=== PATIENT | female | born 1950 | race Caucasian/White ===

== ENCOUNTER 2024-09-24 17:08 | Emergency (ER) | payer MEDICARE, BC, SELFPAY ==
--- NOTE | ~2024-09-24 | CT_ITS ---
EXAMINATION: CT abdomen pelvis w con DATE: 09/25/2024 00:28 INDICATION: Abdominal pain. TECHNIQUE: Computed tomography (CT) of the abdomen and pelvis was performed with 100 mL Omnipaque 350 intravenous contrast. Automated exposure control and iterative reconstruction technique were employe d. The dose-length product was 840.50 mGy-cm. COMPARISON: None. FINDINGS: The visualized portions of lung bases demonstrate airspace opacities with air bronchograms in left upper lobe, consistent with pneumonia. There is mild atelectasis bilaterally. There is a trac e left pleural effusion. The heart size is normal. No pericardial effusion. There is a moderate-sized sliding hiatal hernia. There is a 9 mm cyst in the liver. The gallbladder, spleen, pancreas, adrenal glands, and right kidney are normal. There is a 3 mm stone in left kidney. There is an umbilical her neema containing fat with fat stranding. There are no dilated loops of bowel. The appendix is normal. T here are no pathologically enlarged lymph nodes. There is no free intraperitoneal fluid. The endometr ial complex is thickened to 13 mm. There is severe thoracic and lumbar spondylosis. IMPRESSION: 1. Umbilical hernia containing fat with fat stranding that may be inflammation or scarring. 2. Left upper lobe pneumonia. 3. Thickened endometrial complex. The differential diagnosis includes endometrial hyperplasia, polyp, and carcinoma. Biopsy is recommended. 4. Moderate-sized sliding hiatal hernia. Reviewed, dictated and finalized at location A. RO ATTENDANT IMPRESSION: 1. Umbilical hernia containing fat with fat stranding that may be inflammation or scarring. 2. Left upper lobe pneumonia. 3. Thickened endometrial complex. The differential diagnosis includes endometri al hyperplasia, polyp, and carcinoma. Biopsy is recommended. 4. Moderate-sized sliding hiatal hernia.
[2024-09-24 17:21] VITALS: BP 142/65; PULSE 82; RESP 16; TEMP 36.4; O2SAT 99
--- NOTE | 2024-09-24 17:25 | ED_ITS ---
HPI - Abdominal Pain General Chief Complaint: Abdominal Pain <Veronica Kulkarni PA-C - Last Filed: 09/28/24 17:27> Stated Complaint: incarcerated hernia <Veronica Kulkarni PA-C - Last Filed: 09/28/24 17:27> Time Seen by Provider: 09/24/24 17:25 <Veronica Kulkarni PA-C - Last Filed: 09/28/24 17:27> Focused HPI: This is a 74 year old female that presents to the ER for abdominal pain ongoing over the last week. Reports she had outside imaging which showed incarcerated umbilical hernia containing fat. Reports she was seen at another ER for this and they could not reduce it. She was still discharged. She saw her PCP today who prompted her to be seen in the ER here. GENERAL: Well-appearing, well-nourished, and in no acute distress. HEAD: Normocephalic, atraumatic. CHEST: Clear to auscultation. ?No respiratory distress. HEART: Regular rate and rhythm.? NEURO: ?Alert and oriented x3. Patient screened in triage and initial orders placed.? ?Additional care and disposition to be based upon?diagnostic testing and treatment. <Veronica Kulkarni PA-C - Last Filed: 09/28/24 17:27> Focused HPI: This is a 74 year old female that presents to the ER for abdominal pain ongoing over the last week. Reports she had outside imaging which showed incarcerated umbilical hernia containing fat. Reports she was seen at another ER for this and they could not reduce it. She was still discharged. She saw her PCP today who prompted her to be seen in the ER here. GENERAL: Well-appearing, well-nourished, and in no acute distress. HEAD: Normocephalic, atraumatic. CHEST: Clear to auscultation. ?No respiratory distress. HEART: Regular rate and rhythm.? NEURO: ?Alert and oriented x3. Patient screened in triage and initial orders placed.? ?Additional care and disposition to be based upon?diagnostic testing and treatment. <Germania Ontiveros PA-C - Last Filed: 09/25/24 03:27> Source: patient <PAUL Denise Last Filed: 09/25/24 03:27> Mode of arrival: ambulatory <Germania Ontiveros PA-C - Last Filed: 09/25/24 03:27> Limitations: no limitations <Germania Ontiveros PA-C - Last Filed: 09/25/24 03:27> History of Present Illness HPI narrative: Agree with above HPI. Reports slight constipation over the past 1 week with small pellet like BM this morning. Reports some nausea. Denies vomiting. <Germania Ontiveros PA-C - Last Filed: 09/25/24 03:27> Related Data Allergies/Adverse Reactions: Allergies Allergy/AdvReac Type Severity Reaction Status Date / Time No Known Allergies Allergy Verified 09/24/24 17:09 <Veronica Kulkarni PA-C - Last Filed: 09/28/24 17:27> Review of Systems 2 Review of Systems: All systems reviewed & are unremarkable except as noted in HPI. <Germania Ontiveros PA-C - Last Filed: 09/25/24 03:27> All systems reviewed & are unremarkable except as noted in HPI and below < Germania Ontiveros PA-C - Last Filed: 09/25/24 03:27> PMFSH Past Medical History Medical History: Medical History (Updated 09/28/24 @ 17:27 by Veronica Kulkarni PA-C) History of hypertension <Veronica Kulkarni PA-C - Last Filed: 09/28/24 17:27> Exam 2 Narrative: GENERAL: Elderly but well appearing, well-nourished, non-toxic, in no acute distress. HEAD: Normocephalic, atraumatic. RESPIRATORY: Airway patent, respirations nonlabored. Clear to auscultation bilaterally, no rales, rhonchi, wheezing. CARDIOVASCULAR: Regular rate and rhythm without murmurs, rubs, or gallops. ABDOMINAL: Soft, nondistended. Normoactive BS. Umbilical hernia bulge present, somewhat firm and fixed, slightly erythematous and warm. Focal TTP. Difficult to reduce. MUSCULOSKELETAL: Moves all extremities. No gross deformities. SKIN: Warm, dry, normal color. NEURO: A&O X3. Speech clear. PSYCHIATRIC: Appropriate mood and affect. Normal interaction. <Germania Ontiveros PA-C - Last Filed: 09/25/24 03:27> Course TUNNEL MAN/PA Physician Supervision For this patient encounter, I reviewed the TUNNEL MAN or PA documentation, treatment plan, and medical decision making; and I had [id number] time with this patient. <Pillo Urbina MD - Last Filed: 09/25/24 04:33> Vital Signs Vital signs: Vital Signs Temperature 97.6 F 09/24/24 17:21 Pulse Rate 82 09/24/24 17:21 Respiratory Rate 16 09/24/24 17:21 Blood Pressure 142/65 H 09/24/24 17:21 Pulse Oximetry 99 09/24/24 17:21 Temperature 98.7 F 09/25/24 04:53 Pulse Rate 62 09/25/24 04:53 Respiratory Rate 16 09/25/24 04:53 Blood Pressure 145/71 H 09/25/24 04:53 Pulse Oximetry 97 09/25/24 04:53 <Veronica Kulkarni PA-C - Last Filed: 09/28/24 17:27> Vital Signs Temperature 97.6 F 09/24/24 17:21 Pulse Rate 82 09/24/24 17:21 Respiratory Rate 16 09/24/24 17:21 Blood Pressure 142/65 H 09/24/24 17:21 Pulse Oximetry 99 09/24/24 17:21 Temperature 98.7 F 09/25/24 04:53 Pulse Rate 62 09/25/24 04:53 Respiratory Rate 16 09/25/24 04:53 Blood Pressure 145/71 H 09/25/24 04:53 Pulse Oximetry 97 09/25/24 04:53 <Germania Ontiveros PA-C - Last Filed: 09/25/24 03:27> Vital Signs Temperature 97.6 F 09/24/24 17:21 Pulse Rate 82 09/24/24 17:21 Respiratory Rate 16 09/24/24 17:21 Blood Pressure 142/65 H 09/24/24 17:21 Pulse Oximetry 99 09/24/24 17:21 Temperature 98.7 F 09/25/24 04:53 Pulse Rate 62 09/25/24 04:53 Respiratory Rate 16 09/25/24 04:53 Blood Pressure 145/71 H 09/25/24 04:53 Pulse Oximetry 97 09/25/24 04:53 <Pillo Urbina MD - Last Filed: 09/25/24 04:33> MDM - Abdominal Pain MDM Narrative Medical decision making narrative: Patient presented to ED with concern for incarcerated umbilical hernia. Reports she she has noticed redness and firmness to the hernia bulge over the last 1 week. Had outpatient imaging which was reportedly concerning, sent to the ED today. Vital signs are stable. Hernia is difficult to reduce. Will attempt pain control, utilize ice. Laboratory studies are fairly unremarkable. No leukocytosis. Lactic acid within normal range. UA with 6-10 white blood cell count, no urine bacteria seen. Sent for culture. Patient denies any urinary complaints. Will defer to urine culture results. CT scan of abdomen/pelvis was obtained. Care signed out to Dr. Urbina at shift change pending CT imaging results and possible discussion with surgery. Personal review of images does not appear consistent with strangulated bowel. <Germania Ontiveros PA-C - Last Filed: 09/25/24 03:27> Patient presented to ED with concern for incarcerated umbilical hernia. Reports she she has noticed redness and firmness to the hernia bulge over the last 1 week. Had outpatient imaging which was reportedly concerning, sent to the ED today. Vital signs are stable. Hernia is difficult to reduce. Will attempt pain control, utilize ice. Laboratory studies are fairly unremarkable. No leukocytosis. Lactic acid within normal range. UA with 6-10 white blood cell count, no urine bacteria seen. Sent for culture. Patient denies any urinary complaints. Will defer to urine culture results. CT scan of abdomen/pelvis was obtained. Care signed out to Dr. Urbina at shift change pending CT imaging results and possible discussion with surgery. Personal review of images does not appear consistent with strangulated bowel. CT scan showed evidence of omentum in the hernia. There is no evidence of bowel incarceration. The case was discussed with Dr. Diamond who will follow the patient in the office he recommended the patient come to the office on Saturday < Pillo Urbina MD - Last Filed: 09/25/24 04:33> Medical Records Attestation: I reviewed the patient's medical records. <Germania Ontiveros PA-C - Last Filed: 09/25/24 03:27> Lab Data Attestation: I reviewed the patient's lab results. <Germania Ontiveros PA-C - Last Filed: 09/25/24 03:27> Result diagrams: 09/24/24 17:34 09/24/24 17:34 <Veronica Kulkarni PA-C - Last Filed: 09/28/24 17:27> Labs: Lab Results 09/24/24 09/24/24 09/24/24 Range/Units 17:34 17:35 21:27 WBC 7.0 (4.5-10.0) K/mm3 RBC 4.03 L (4.2-5.4) M/mm3 Hgb 12.2 (12.0-15.0) g/dL Hct 37.8 (37.0-47.0) % MCV 93.8 (80-100) fl MCH 30.3 (26-34) pg MCHC 32.3 (32-36) g/dl RDW 12.9 (11.5-14.5) % Plt Count 246 (150-375) k/mm3 MPV 10.5 H (7.4-10.4) fl Immature Gran % (Auto) 0.3 (0-0.5) % Neut % (Auto) 69.9 (45.5-73.1) % Lymph % (Auto) 21.1 (18.3-44.2) % [place] % (Auto) 7.4 (2.6-8.5) % Eos % (Auto) 0.7 (0-4.4) % Baso % (Auto) 0.6 (0.2-1.2) % Lymph # (Auto) 1.48 (0.9-3.2) K/mm3 [place] # (Auto) 0.5 (0.1-0.6) K/mm3 Eos # (Auto) 0.1 (0-0.3) K/mm3 Baso # (Auto) 0.0 (0.0-0.1) K/mm3 Abs Immat Gran (auto) 0.02 (0.00-0.031) K/mm3 Absolute Neuts (auto) 4.9 (1.3-6.7) K/mm3 Absolute Nucleated RBC 0.000 (0.0-0.012) K/mm3 Nucleated RBC % 0.0 (0.0-0.2) % Sodium 138 (137-145) mmol/L Potassium 4.5 (3.4-5.0) mmol/L Chloride 106 (98-107) mmol/L Carbon Dioxide 30 (22-30) mmol/L Anion Gap 2 L (4-12) mmol/L BUN 13 (7-17) mg/dL Creatinine 0.70 (0.7-1.0) mg/dL Estim Creat Clear Calc Not Reportable Estimated GFR > 60 (59 - ) Glucose 101 (65-110) mg/dL Lactic Acid 0.9 (0.7-2.0) mmol/L Calcium 9.6 (8.4-10.2) mg/dL Total Bilirubin 0.6 (0.2-1.3) mg/dL AST 18 (14-36) U/L ALT 11 (6-35) U/L Alkaline Phosphatase 88 (38-126) U/L Total Protein 7.0 (6.3-8.2) g/dL Albumin 3.5 (3.5-5.1) g/dL Lipase 60 (23-300) U/L Urine Color Yellow (Yellow) Urine Appearance Clear (Clear) Urine pH 5.5 (5.0-9.0) Ur Specific [place] 1.016 (1.001-1.035) Urine Protein Negative (Negative) mg/dL Urine Glucose (UA) Negative (Negative) mg/dL Urine Ketones Trace H (Negative) mg/dL Ur Blood (Man) Negative (Negative) Urine Nitrate Negative (Negative) Urine Bilirubin Negative (Negative) Urine Urobilinogen 1.0 (<2.0) mg/dL Add Ur Microanalysis Reviewed Leukocyte Esterase Rfl 2+ H (Negative) LYLY/UL Urine RBC 0-2 (0-2) /hpf Urine WBC 6-10 H (0-3) /hpf Ur Squamous Epith Cells Occasional (Few) /hpf Urine Bacteria None seen /hpf Urine Casts 0-2 Urine Mucus Present /lpf Urine Yeast (Budding) Present H (None) /hpf <Veronica Kulkarni PA-C - Last Filed: 09/28/24 17:27> Lab Results 09/24/24 09/24/24 09/24/24 Range/Units 17:34 17:35 21:27 WBC 7.0 (4.5-10.0) K/mm3 RBC 4.03 L (4.2-5.4) M/mm3 Hgb 12.2 (12.0-15.0) g/dL Hct 37.8 (37.0-47.0) % MCV 93.8 (80-100) fl MCH 30.3 (26-34) pg MCHC 32.3 (32-36) g/dl RDW 12.9 (11.5-14.5) % Plt Count 246 (150-375) k/mm3 MPV 10.5 H (7.4-10.4) fl Immature Gran % (Auto) 0.3 (0-0.5) % Neut % (Auto) 69.9 (45.5-73.1) % Lymph % (Auto) 21.1 (18.3-44.2) % [place] % (Auto) 7.4 (2.6-8.5) % Eos % (Auto) 0.7 (0-4.4) % Baso % (Auto) 0.6 (0.2-1.2) % Lymph # (Auto) 1.48 (0.9-3.2) K/mm3 [place] # (Auto) 0.5 (0.1-0.6) K/mm3 Eos # (Auto) 0.1 (0-0.3) K/mm3 Baso # (Auto) 0.0 (0.0-0.1) K/mm3 Abs Immat Gran (auto) 0.02 (0.00-0.031) K/mm3 Absolute Neuts (auto) 4.9 (1.3-6.7) K/mm3 Absolute Nucleated RBC 0.000 (0.0-0.012) K/mm3 Nucleated RBC % 0.0 (0.0-0.2) % Sodium 138 (137-145) mmol/L Potassium 4.5 (3.4-5.0) mmol/L Chloride 106 (98-107) mmol/L Carbon Dioxide 30 (22-30) mmol/L Anion Gap 2 L (4-12) mmol/L BUN 13 (7-17) mg/dL Creatinine 0.70 (0.7-1.0) mg/dL Estim Creat Clear Calc Not Reportable Estimated GFR > 60 (59 - ) Glucose 101 (65-110) mg/dL Lactic Acid 0.9 (0.7-2.0) mmol/L Calcium 9.6 (8.4-10.2) mg/dL Total Bilirubin 0.6 (0.2-1.3) mg/dL AST 18 (14-36) U/L ALT 11 (6-35) U/L Alkaline Phosphatase 88 (38-126) U/L Total Protein 7.0 (6.3-8.2) g/dL Albumin 3.5 (3.5-5.1) g/dL Lipase 60 (23-300) U/L Urine Color Yellow (Yellow) Urine Appearance Clear (Clear) Urine pH 5.5 (5.0-9.0) Ur Specific [place] 1.016 (1.001-1.035) Urine Protein Negative (Negative) mg/dL Urine Glucose (UA) Negative (Negative) mg/dL Urine Ketones Trace H (Negative) mg/dL Ur Blood (Man) Negative (Negative) Urine Nitrate Negative (Negative) Urine Bilirubin Negative (Negative) Urine Urobilinogen 1.0 (<2.0) mg/dL Add Ur Microanalysis Reviewed Leukocyte Esterase Rfl 2+ H (Negative) LYLY/UL Urine RBC 0-2 (0-2) /hpf Urine WBC 6-10 H (0-3) /hpf Ur Squamous Epith Cells Occasional (Few) /hpf Urine Bacteria None seen /hpf Urine Casts 0-2 Urine Mucus Present /lpf Urine Yeast (Budding) Present H (None) /hpf <Germania Ontiveros PA-C - Last Filed: 09/25/24 03:27> Lab Results 09/24/24 09/24/24 09/24/24 Range/Units 17:34 17:35 21:27 WBC 7.0 (4.5-10.0) K/mm3 RBC 4.03 L (4.2-5.4) M/mm3 Hgb 12.2 (12.0-15.0) g/dL Hct 37.8 (37.0-47.0) % MCV 93.8 (80-100) fl MCH 30.3 (26-34) pg MCHC 32.3 (32-36) g/dl RDW 12.9 (11.5-14.5) % Plt Count 246 (150-375) k/mm3 MPV 10.5 H (7.4-10.4) fl Immature Gran % (Auto) 0.3 (0-0.5) % Neut % (Auto) 69.9 (45.5-73.1) % Lymph % (Auto) 21.1 (18.3-44.2) % [place] % (Auto) 7.4 (2.6-8.5) % Eos % (Auto) 0.7 (0-4.4) % Baso % (Auto) 0.6 (0.2-1.2) % Lymph # (Auto) 1.48 (0.9-3.2) K/mm3 [place] # (Auto) 0.5 (0.1-0.6) K/mm3 Eos # (Auto) 0.1 (0-0.3) K/mm3 Baso # (Auto) 0.0 (0.0-0.1) K/mm3 Abs Immat Gran (auto) 0.02 (0.00-0.031) K/mm3 Absolute Neuts (auto) 4.9 (1.3-6.7) K/mm3 Absolute Nucleated RBC 0.000 (0.0-0.012) K/mm3 Nucleated RBC % 0.0 (0.0-0.2) % Sodium 138 (137-145) mmol/L Potassium 4.5 (3.4-5.0) mmol/L Chloride 106 (98-107) mmol/L Carbon Dioxide 30 (22-30) mmol/L Anion Gap 2 L (4-12) mmol/L BUN 13 (7-17) mg/dL Creatinine 0.70 (0.7-1.0) mg/dL Estim Creat Clear Calc Not Reportable Estimated GFR > 60 (59 - ) Glucose 101 (65-110) mg/dL Lactic Acid 0.9 (0.7-2.0) mmol/L Calcium 9.6 (8.4-10.2) mg/dL Total Bilirubin 0.6 (0.2-1.3) mg/dL AST 18 (14-36) U/L ALT 11 (6-35) U/L Alkaline Phosphatase 88 (38-126) U/L Total Protein 7.0 (6.3-8.2) g/dL Albumin 3.5 (3.5-5.1) g/dL Lipase 60 (23-300) U/L Urine Color Yellow (Yellow) Urine Appearance Clear (Clear) Urine pH 5.5 (5.0-9.0) Ur Specific [place] 1.016 (1.001-1.035) Urine Protein Negative (Negative) mg/dL Urine Glucose (UA) Negative (Negative) mg/dL Urine Ketones Trace H (Negative) mg/dL Ur Blood (Man) Negative (Negative) Urine Nitrate Negative (Negative) Urine Bilirubin Negative (Negative) Urine Urobilinogen 1.0 (<2.0) mg/dL Add Ur Microanalysis Reviewed Leukocyte Esterase Rfl 2+ H (Negative) LYLY/UL Urine RBC 0-2 (0-2) /hpf Urine WBC 6-10 H (0-3) /hpf Ur Squamous Epith Cells Occasional (Few) /hpf Urine Bacteria None seen /hpf Urine Casts 0-2 Urine Mucus Present /lpf Urine Yeast (Budding) Present H (None) /hpf <Pillo Urbina MD - Last Filed: 09/25/24 04:33> Imaging Data Attestation: I personally reviewed and interpreted this imaging study as follows: < Germania Ontiveros PA-C - Last Filed: 09/25/24 03:27> Radiologist's impression: ITS Impressions Abdomen/Pelvis CT 09/25/24 06:49 IMPRESSION: 1. Umbilical hernia containing fat with fat stranding that may be inflammation or scarring. 2. Left upper lobe pneumonia. 3. Thickened endometrial complex. The differential diagnosis includes endometrial hyperplasia, polyp, and carcinoma. Biopsy is recommended. 4. Moderate-sized sliding hiatal hernia. <Veronica Kulkarni PA-C - Last Filed: 09/28/24 17:27> ITS Impressions Abdomen/Pelvis CT 09/25/24 06:49 IMPRESSION: 1. Umbilical hernia containing fat with fat stranding that may be inflammation or scarring. 2. Left upper lobe pneumonia. 3. Thickened endometrial complex. The differential diagnosis includes endometrial hyperplasia, polyp, and carcinoma. Biopsy is recommended. 4. Moderate-sized sliding hiatal hernia. <Germania Ontiveros PA-C - Last Filed: 09/25/24 03:27> ITS Impressions Abdomen/Pelvis CT 09/25/24 06:49 IMPRESSION: 1. Umbilical hernia containing fat with fat stranding that may be inflammation or scarring. 2. Left upper lobe pneumonia. 3. Thickened endometrial complex. The differential diagnosis includes endometrial hyperplasia, polyp, and carcinoma. Biopsy is recommended. 4. Moderate-sized sliding hiatal hernia. <Pillo Urbina MD - Last Filed: 09/25/24 04:33> Critical Care Time Critical Care Time Critical Care Time: No <Veronica Kulkarni PA-C - Last Filed: 09/28/24 17:27> Discharge Plan Discharge Clinical Impression: Umbilical hernia Qualifiers: Obstruction and gangrene presence: without obstruction or gangrene Qualified Code(s): K42.9 - Umbilical hernia without obstruction or gangrene <Veronica Kulkarni PA-C - Last Filed: 09/28/24 17:27> Patient Disposition: Home, Self-Care <Veronica Kulkarni PA-C - Last Filed: 09/28/24 17:27> Condition: Stable <Veronica Kulkarni PA-C - Last Filed: 09/28/24 17:27> Instructions: Antibiotic Form, Umbilical Hernia (ED), Abdominal Pain (ED) <Veronica Kulkarni PA-C - Last Filed: 09/28/24 17:27> Additional Instructions: Please follow-up with Dr. Diamond in the office on Saturday please call tomorrow to make sure for a time <Veronica Kulkarni PA-C - Last Filed: 09/28/24 17:27> Patient Language: Hebrew <Veronica Kulkarni PA-C - Last Filed: 09/28/24 17:27> Follow-up/Referrals: Dawit Diamond MD [Physician] - (GENERAL SURGERY) PHYSICIAN,HEAD OF QUALITY [Non-Staff] - <Veronica Kulkarni PA-C - Last Filed: 09/28/24 17:27> Time of Disposition: 04:32 <Veronica Kulkarni PA-C - Last Filed: 09/28/24 17:27> 04:32 <Germania Ontiveros PA-C - Last Filed: 09/25/24 03:27> 04:32 <Pillo Urbina MD - Last Filed: 09/25/24 04:33> Sign Out Sign Out Data: Patient Sign Out occurred on 09/25/24 at 04:06. Patient's care was discussed, and care was transferred from Germania Ontiveros PA-C to Pillo Urbina MD. <Veronica Kulkarni PA-C - Last Filed: 09/28/24 17:27>
[2024-09-24 17:40] LABS: Basophils Percent Auto 0.6 % (0.2-1.2); Eosinophils Absolute Auto 0.1 K/mm3 (0-0.3); Eosinophils Percent Auto 0.7 % (0-4.4); Hematocrit 37.8 % (37.0-47.0); Hemoglobin 12.2 g/dL (12.0-15.0); Immature Granulocyte Absolute 0.02 K/mm3 (0.00-0.031); Immature Granulocyte Percent A 0.3 % (0-0.5); Lymphocytes Absolute Auto 1.48 K/mm3 (0.9-3.2); Lymphocytes Percent Auto 21.1 % (18.3-44.2); Mean Corpuscular HGB Conc 32.3 g/dl (32-36); Mean Corpuscular Hemoglobin 30.3 pg (26-34); Mean Corpuscular Volume 93.8 fl (80-100); Mean Platelet Volume 10.5 fl (7.4-10.4); Monocytes Absolute Auto 0.5 K/mm3 (0.1-0.6); Monocytes Percent Auto 7.4 % (2.6-8.5); Neutrophils Absolute Auto 4.9 K/mm3 (1.3-6.7); Neutrophils Percent Auto 69.9 % (45.5-73.1); Platelet Count Result 246 k/mm3 (150-375); Red Blood Count 4.03 M/mm3 (4.2-5.4); Red Cell Distribution Width 12.9 % (11.5-14.5)
[2024-09-24 17:49] LABS: Lactic Acid Reflex 0.9 mmol/L (0.7-2.0)
[2024-09-24 17:51] LABS: Alanine Aminotransferase 11 U/L (6-35); Albumin Level 3.5 g/dL (3.5-5.1); Alkaline Phosphatase 88 U/L (38-126); Anion Gap 2 mmol/L (4-12); Aspartate Amino Transferase 18 U/L (14-36); Bilirubin,Total 0.6 mg/dL (0.2-1.3); Blood Urea Nitrogen 13 mg/dL (7-17); Calcium 9.6 mg/dL (8.4-10.2); Carbon Dioxide 30 mmol/L (22-30); Chloride 106 mmol/L (98-107); Estimated Glomerular Filt Rate > 60; Glucose 101 mg/dL (65-110); Lipase 60 U/L (23-300); Potassium 4.5 mmol/L (3.4-5.0); Sodium 138 mmol/L (137-145)
[2024-09-24 21:49] LABS: Add Urine Microscopic? YES; Appearance Urine Clear (Clear); Bacteria Urine None Seen /hpf; Bilirubin Urine Negative (Negative); Blood Urine Negative (Negative); Budding Yeast Urine Present /hpf; Color Urine Yellow (Yellow); Glucose Urine UA Negative (Negative); Ketones Urine Trace mg/dL (Negative); Leukocyte Esterase Ur 2+ LEU/UL (Negative); Mucus Urine Present /lpf; Need Manual Microscopic Reviewed; Nitrate Urine Negative (Negative); Non Pathogenic Casts 0-2; Protein Urine Negative (Negative); RBC Urine 0-2 /hpf (0-2); Specific Grav Ur 1.016 (1.001-1.035); Squamous Epithelial Cell Urine Occasional /hpf (Few); pH Urine 5.5 (5.0-9.0)
[2024-09-25] MEDS: ONDANSETRON INJ 4 MG/2 ML VIAL IV PUSH (00:43)
[2024-09-25] MEDS: MORPHINE SULFATE (*CRX) 4 MG/ML INJ IV PUSH (00:44)
[2024-09-25 03:00] VITALS: BP 99/70; PULSE 61; RESP 19; O2SAT 94
[2024-09-25 03:15] VITALS: BP 134/72; PULSE 63; RESP 16; O2SAT 97
[2024-09-25 03:30] VITALS: BP 135/59; PULSE 57; RESP 18; O2SAT 95
[2024-09-25 04:00] VITALS: BP 154/76; PULSE 74; RESP 20; O2SAT 100
[2024-09-25 04:53] VITALS: BP 145/71; PULSE 62; RESP 16; TEMP 37.1; O2SAT 97
--- OUTSIDE RECORDS SUMMARY | 2024-10-02 01:47 | XMS_ITS | Encounter Summary ---
Author Organization [facility] - [facility] Address [facility] [place] [address] [place] [address] Care Team Providers Care Automation Mechanic Name Role Phone Kaushal Han MD Primary Care Provider Jose Luis Rain MD Unavailable [phone] Anjum Rajan MD Unavailable [phone] Encounter Details Date Type Department Care Team (Latest Contact Info) Description 09/21/2024 Travel Social History Tobacco Use Types Packs/Day Years Used Date Smoking Tobacco: Never Smokeless Tobacco: Never Alcohol Use Standard Drinks/Week Comments Yes 0 (1 standard drink = 0.6 oz pur e alcohol) socially Comments No Sex and Gender Information Value Date Recorded Sex Assigned at Not on file Legal Sex Female 10:51 AM CDT Gender Identity Not on file Sexual Orientation Not on file documented as of this encounter Plan of Treatment Not on file documented as of this encounter Visit Diagnoses Not on filedocumented in this encounter Care Teams Automation Mechanic Relationship Specialty Start Date End Date Kaushal Han MD [address] [place] [phone] PCP - General FAMILY PRACTICE 01/31/18 Jose Luis Rain MD [address] [place] [phone] ORTHOPAEDICS 02/05/18 Anjum Rajan MD [address] [id number] CARDIOVASCULAR DISEASE 07/16/18 documented as of this encounter
--- OUTSIDE RECORDS SUMMARY | 2024-10-02 01:47 | XMS_ITS | Encounter Summary ---
Author Organization [facility] - [facility] Address [facility] [facility] [address] [place] [address] Care Team Providers Care Motion Picture Projectionist Name Role Phone Kaushal Han MD Primary Care Provider Jose Luis Rain MD Unavailable [phone] Anjum Rajan MD Unavailable [phone] Encounter Details Date Type Department Care Team (Latest Contact Info) Description 07/06/2019 Scan HEALTH INFO [facility] Scanned, Documents Social History Tobacco Use Types Packs/Day Years [...] on filedocumented in this encounter Care Teams Motion Picture Projectionist Relationship Specialty Start Date End Date Kaushal Han MD [address] [place] [phone] PCP - General FAMILY PRACTICE 01/31/18 Jose Luis Rain MD [address] [place] [phone] ORTHOPAEDICS 02/05/18 Anjum Rajan MD [address] [address] CARDIOVASCULAR DISEASE 07/16/18 documented as of this encounter
--- OUTSIDE RECORDS SUMMARY | 2024-10-02 01:47 | XMS_ITS | Encounter Summary ---
Author Organization [facility] - [facility] Address [facility] [facility] [place] [address] [place] [address] Care Team Providers Care Breaker Table Worker Name Role Phone Kaushal Han MD Primary Care Provider [phone] Jose Luis Rain MD Unavailable [phone] Anjum Rajan MD Unavailable [phone] Encounter Details Date Type Department Care Team (Late st Contact Info) Description 02/11/2019 Abstract [facility] [address] [facility] [place] [address] Kaushal Han MD [address] [place] [phone] Social History Tobacco Use Types Packs/Day Years [...] documented as of this encounter Visit Diagnoses Diagnosis Other signs and symptoms in breast Other abnormal and inconclusive findings on diagnostic imaging of breast documented in this encounter Care Teams Breaker Table Worker Relationship Specialty Start Date End Date Kaushal Han MD [address] [place] [phone] PCP - General FAMILY PRACTICE 01/31/18 Jose Luis Rain MD [address] [place] [phone] ORTHOPAEDICS 02/05/18 Anjum Rajan MD [address] [id number] CARDIOVASCULAR DISEASE 07/16/18 documented as of this encounter
--- OUTSIDE RECORDS SUMMARY | 2024-10-02 01:47 | XMS_ITS | Encounter Summary ---
Author Organization [facility] Address Formerly [facility] [facility] [place] [address] [place] [address] Care Team Providers Care Lockstitch Sleeve Setter Name Role Phone Kaushal Han MD Primary Care Provider [phone] Jose Luis Rain MD Unavailable [phone] Anjum Rajan MD Unavailable [phone] Reason for Referral * Imaging (Emergency) - Closed Specialty Diagnoses / Procedures Referred By Contac t Referred To Contact RADIOLOGY Diagnoses Abdominal wall mass Procedures CT ABD+PEL W CON Alejandro Hannah MD [address] [place] [phone] Phone: tel: fax: Referral ID Status Reason Start Date Expiration Date Visits Re quested Visits Authorized [id number] Closed 09/21/2024 09/22/2025 1 1 NOLOGY OFFICER Reason for Visit * Imaging (Emergency) - Closed Specialty Diagnoses / Procedures Referred By Contac t Referred To Contact RADIOLOGY Diagnoses Abdominal wall mass Procedures CT ABD+PEL W CON Alejandro Hannah MD [address] [place] [phone] Phone: tel: fax: Referral ID Status Reason Start Date Expiration Date Visits Re quested Visits Authorized [id number] Closed 09/21/2024 09/22/2025 1 1 Encounter Details Date Type Department Care Team (Late st Contact Info) Description 09/21/2024 12:34 PM TECHNOLOGY OFFICER - 09/21/2024 5:56 PM TECHNOLOGY OFFICER Hospital Encounter [facility] [address] [place] [address] Alejandro Hannah MD [address] [place] [address] Discharge Disposition: Home or Self Care (Routine Discharge) Social History Tobacco Use Types Packs/Day Years [...] on file documented as of this encounter Medications at Time of Discharge aspirin 81 MG chewable tablet Chew 81 mg by mouth daily. lisinopril 10 MG tablet Take 1 tablet by mouth daily. 0 01/23/2018 ondansetron (ZOFRAN-ODT) 4 MG disintegrating tablet Take 1 tablet (4 mg total) by mouth every 8 (eight) hours as needed for Nausea. 20 tablet 09/14/2024 documented as of this encounter Plan of Treatment Not on file documented as of this encounter Procedures Procedure Name Priority Date/Time Associated Diagnosis Comments CT ABD+PEL W CON STAT 09/21/2024 1:04 PM TECHNOLOGY OFFICER Abdominal wall mass documented in this encounter Results * CT ABD+PEL W CON (09/21/2024 1:04 PM TECHNOLOGY OFFICER) Anatomical Region Laterality Modality Abdomen Computed Tomogra phy 09/21/2024 3:01 PM TECHNOLOGY OFFICER Impressions 09/21/2024 3:06 PM TECHNOLOGY OFFICER Impression: Fat-containing umbilical hernia. The fat is inflamed. No abscess or hematoma. Hernia neck opening is 1 x 1 cm. The herniated fat sac is 3.7 x 5 x 4.8 cm. There is no bowel in the hernia. Correlate by physical exam for any strangulation or incarceration of the herniated fat; meaning, is the herniated fat reducible? Small lingular opacity with air bronchograms may be a pneumonia consolidation or atelectasis. Are there any respiratory symptoms? Ordered By: ALEJANDRO HANNAH Interpreted By: Joce Briggs MD, 09/21/2024 3:01 PM Narrative 09/21/2024 3:06 PM TECHNOLOGY OFFICER [address] [place] [address] Examination: CT abdomen and pelvis with IV contrast. Exam Date: 09/21/2024 1:03 PM Indication: UMBILICAL MASS, REDNESS AND SWELLING TO UMBILICAL AREA X 1 WEEK, PT STATES IT IS VERY PAINFUL AND PAIN IS GOING TO HER BACK NOW Comparison:None Technique: IV contrast: 100ml Isovue 370 Oral contrast: None. Technical comments: Standard technique. Dose reduction: This CT exam was performed using one or more of the following dose reduction techniques: Automated exposure control, adjustment of the mA and/or kV according to patient size, and/or use of iterative reconstruction technique. Findings: There is fat stranding of the fat containing umbilical hernia without a air-fluid collection or hematoma. There is no bowel component. This hernia opening is about 1 cm wide and 1 cm tall. This allows fat sac of 3.7 cm transverse by 5 cm AP by 4.8 cm craniocaudal. No GI tract obstruction or inflammation. Small moderate hiatal hernia. No appendicitis. No diverticulitis. There are scattered colonic diverticula. Metal artifact from both hip prosthesis obscures visualization of the pelvis details. There is moderate feces ball in the rectum. Bladder appears decompressed. Uterus and adnexa are present without mass. Arterial calcifications without AAA or dissection. No adrenal or renal mass or obstruction. No splenic enlargement. Small liver cyst. No cirrhosis or mass. No cholecystitis or pancreatitis. No lung base effusions. There is lingula opacity with air bronchogram which may be pneumonia or atelectasis. Degenerative changes in the bony structures. Procedure Note Joce Briggs MD - 09/21/[address] [place] [address] Examination: CT abdomen and pelvis with IV contrast. Exam Date: 09/21/2024 1:03 PM Indication: UMBILICAL MASS, REDNESS AND SWELLING TO UMBILICAL AREA X 1WEEK, PT STATES IT IS VERY PAINFUL AND PAIN IS GOING TO HER BACK NOW Comparison:None Technique: IV contrast: 100ml Isovue 370 Oral contrast: None. Technical comments: Standard technique. Dose reduction: This CT exam was performed using one or more of thefollowing dose reduction techniques: Automated exposure control,adjustment of the mA and/or kV according to patient size, and/or use ofiterative reconstruction technique. Findings: There is fat stranding of the fat containing umbilical herniawithout a air-fluid collection or hematoma. There is no bowel component.This hernia opening is about 1 cm wide and 1 cm tall. This allows fat sacof 3.7 cm transverse by 5 cm AP by 4.8 cm craniocaudal. No GI tractobstruction or inflammation. Small moderate hiatal hernia. Noappendicitis. No diverticulitis. There are scattered colonic diverticula.Metal artifact from both hip prosthesis obscures visualization of thepelvis details. There is moderate feces ball in the rectum. Bladderappears decompressed. Uterus and adnexa are present without mass. Arterialcalcifications without AAA or dissection. No adrenal or renal mass orobstruction. No splenic enlargement. Small liver cyst. No cirrhosis ormass. No cholecystitis or pancreatitis. No lung base effusions. There islingula opacity with air bronchogram which may be pneumonia oratelectasis. Degenerative changes in the bony structures. Impression: Fat-containing umbilical hernia. The fat is inflamed. No abscess orhematoma. Hernia neck opening is 1 x 1 cm. The herniated fat sac is 3.7 x5 x 4.8 cm. There is no bowel in the hernia. Correlate by physical examfor any strangulation or incarceration of the herniated fat; meaning, isthe herniated fat reducible? Small lingular opacity with air bronchograms may be a pneumoniaconsolidation or atelectasis. Are there any respiratory symptoms? Ordered By: ALEJANDRO HANNAH Interpreted By: Joce Briggs MD, 09/21/2024 3:01 PM us Alejandro Hannah MD CT Final Resu lt documented in this encounter Visit Diagnoses Diagnosis Abdominal wall mass Abdominal or pelvic swelling, mass or lump, unspecified site documented in this encounter Administered Medications Inactive Administered Medications - up to 3 most recent administrations Medication Order MAR Action Action Date Dose Rate Site iopamidol (ISOVUE-370) 76 % injection 100 mL 100 mL, Intravenous, IMG once as needed, Contrast, 1 dose, Starting on Sat09/21/24 at 1303, Until Sat09/21/24 at 1303 Given 09/21/2024 1:03 PM TECHNOLOGY OFFICER 100 mLs documented in this encounter Care Teams Lockstitch Sleeve Setter Relationship Specialty Start Date End Date Kaushal Han MD [address] [place] [phone] PCP - General FAMILY PRACTICE 01/31/18 Jose Luis Rain MD [address] [place] [phone] ORTHOPAEDICS 02/05/18 Anjum Rajan MD [address] [address] CARDIOVASCULAR DISEASE 07/16/18 documented as of this encounter
--- OUTSIDE RECORDS SUMMARY | 2024-10-02 01:47 | XMS_ITS | Encounter Summary ---
Author Organization [facility] Address Formerly [facility] [facility] [place] [address] [place] [address] Care Team Providers Care Basketball Commentator Name Role Phone Kaushal Han MD Primary Care Provider [phone] Jose Luis Rain MD Unavailable [phone] Anjum Rajan MD Unavailable [phone] Reason for Visit * Imaging (Routine) - Closed Specialty Diagnoses / Procedures Referred By Spencer santos Referred To Contact RADIOLOGY Diagnoses Visit for screening mammogram Procedures MG SCREENING W JAMILA DANNY DIGDuane Cruz PA [address] [place] [address] Phone: tel: fax: Referral ID Status Reason Start Date Expiration Date Visits Re quested Visits Authorized [id number] Closed 02/28/2021 03/30/2022 1 1 Encounter Details Date Type Department Care Team (Latest Contact Info) Description 03/27/2021 1:43 PM CDT - 03/27/2021 11:59 PM CDT Hospital Encounter [facility] [address] [place] [address] Duane Rowan PA [address] [place] [phone] Discharge Disposition: Home or Self Care (Routine [...] on file Sexual Orientation Not on file COVID-19 Exposure Response Date Recorded In the last month, have you been in contact with someone who was confirmed or suspected to have Coronavirus / COVID-19? No / Unsure 03/27/2021 1:40 PM CDT documented as of this encounter Medications at Time of Discharge aspirin 81 MG chewable tablet Chew 81 mg by mouth daily. lisinopril 10 MG tablet Take 1 tablet by mouth daily. 0 01/23/2018 Naproxen Sodium (ALEVE) 220 MG Cap 09/21/2024 documented as of this encounter Plan of Treatment Not on file documented as of this encounter Procedures Procedure Name Priority Date/Time Associated Diagnosis Comments MG SCREENING W JAMILA DANNY DIGI Routine 03/27/2021 2:08 PM CDT Visit for screening mammogram documented in this encounter Results * MG SCREENING W JAMILA DANNY DIGI (03/27/2021 2:08 PM CDT) Anatomical Region Laterality Modality Breast Bilateral Mammography 03/31/2021 9:13 AM CDT Impressions 03/31/2021 9:14 AM CDT IMPRESSION: No suspicious change since the previous exams. Recommendation: 1: Routine screening mammogram ??Bilateral ?? in 1 Year Assessment: ACR BI-RADS Category 2 - Benign. Referred By: DUANE ROWAN Interpreted By: Mervin Lafleur MD, 03/31/2021 9:13 AM Narrative 03/31/2021 9:14 AM CDT Examination: Digital screening mammogram with CAD. Clinical history: Asymptomatic patient presents for routine screening. Comparison: 03/24/2020, 02/15/2019, 01/29/2018. Technique: Bilateral digital mammograms. The exam was interpreted with the use of a computer-aided detection (CAD) system. ??Additional 3-D tomosynthesis images were acquired. Tissue density: The breast tissue contains scattered fibroglandular densities. Findings: The breast tissue contains scattered fibroglandular densities. ?? Benign-appearing calcification noted. Minor glandular asymmetry remains evident. No suspicious mass, microcalcification or area of architectural distortion can be identified. From a mammographic standpoint, routine followup in one year would seem adequate. us Duane GONZALEZ MAMMO Final Result documented in this encounter Visit Diagnoses Not on filedocumented in this encounter Care Teams Basketball Commentator Relationship Specialty Start Date End Date Kaushal Han MD [address] [place] [phone] PCP - General FAMILY PRACTICE 01/31/18 Jose Luis Rain MD [address] [place] [phone] ORTHOPAEDICS 02/05/18 Anjum Rajan MD [address] [id number] CARDIOVASCULAR DISEASE 07/16/18 documented as of this encounter
--- OUTSIDE RECORDS SUMMARY | 2024-10-02 01:47 | XMS_ITS | Encounter Summary ---
Author Organization [facility] Address [facility]. [place], [place] [id number] [place] [id number] Care Team Providers Care Medical Collections Representative Name Role Phone Kaushal Han MD Primary Care Provider [phone] Jose Luis Rain MD Unavailable [phone] Anjum Rajan MD Unavailable [phone] Reason for Referral * Physical Medicine (Routine) - Closed Specialty Diagnoses / Procedures Referred By Spencer santos Referred To Contact PHYSICAL THERAPY Diagnoses Left lumbar radiculopathy S/P hip replacement, left Fall, subsequent encounter Rabia Barnard NP-C [facility] [address] Phone: tel: fax: Referral ID Status Reason Start Date Expiration Date V isits Requested Visits Authorized [id number] Closed Physical Therapy 06/10/2019 07/10/2020 100 100 Reason for Visit * Reason Comments Follow Up hip pain; fall * Consultation/Treatment (Routine) - Closed Specialty Diagnoses / Procedures Referred By Spencer t Referred To Contact ORTHOPAEDIC SURGERY / ORTHOPAEDICS Diagnoses F/U left total hip 07/22/2018 Procedures FOLLOW UP Kaushal Han MD [address] [place] [phone] Phone: tel: fax: Jose Luis Rain MD [address] [place], [place] [address] [place] [address] Phone: tel: fax: Referral ID Status Reason Start Date Expiration Date Visits Re quested Visits Authorized [id number] Closed 11/03/2018 11/04/2019 100 100 Encounter Details Date Type Department Care Team (Late st Contact Info) Description 06/10/2019 8:40 AM CDT Office Visit [facility] Multispecialty Care - [facility] [address] [place] [id number] Rabia Barnard NP-C Follow Up (hip pain; fall) Social History Tobacco Use Types Packs/Day Years [...] on file documented as of this encounter Last Filed Vital Signs Vital Sign Reading Time Taken Comments Blood Pressure 122/84 06/10/2019 8:34 AM CDT Pulse 74 06/10/2019 8:34 AM CDT Temperature - - Respiratory Rate - - Oxygen Saturation - - Inhaled Oxygen Concentration - - Weight 89.8 kg (198 lb) 06/10/2019 8:34 AM CDT Height 157.5 cm (5' 2 ) 06/10/2019 8:34 AM CDT Body Mass Index 36.21 06/10/2019 8:34 AM CDT documented in this encounter Patient Instructions * Patient Instructions* SERGEY Hanson - 06/10/2019 8:40 AM CDT Images from the original note were not included. Patient Education Patient Education Radiculopathy The Basics Written [facility] the [facility] is [facility]???--??Radiculopathy is the medical term for the pain, numbness, or tingling that occurs when nerves coming from the spinal cord get pinched or damaged. Radiculopathy can affect different parts of the body, depending on which nerve or group of nerves is affected. People sometimes refer to radiculopathy as having a pinched nerve. Here are 2 common examples of radiculopathy: ?? Cervical radiculopathy - People with this type of radiculopathy have pain, numbness, or tinglingdown one or both arms. The condition happens when one or more of the nerves that go from the spine to the arm get pinched or damaged. ?? Lumbosacral radiculopathy - People with this type of radiculopathy have pain, numbness, or tingling in the buttocks or down the leg. The condition happens when one or more of the nerves that go from the spine to the foot and leg get pinched or damaged. (People sometimes refer to the symptoms of this type of radiculopathy as sciatica. ) What causes radiculopathy???--??Radiculopathy is usually caused by a problem with the back. To understand radiculopathy, it's helpful to first learn a little about the back and spine. The back is made up of (figure 1): ?? Vertebrae - A stack of bones that sit on top of one another like a stack of coins. Each of thesebones has a hole in the center. When stacked, the bones form a hollow tube that protects the spinalcord. ?? Spinal cord and nerves - The spinal cord is the highway of nerves that connects the brain to therest of the body. It runs through the vertebrae. Nerves branch from the spinal cord and pass in between the vertebrae. From there they connect to the arms, the legs, and the organs. (This is why problems in the back can cause leg pain or bladder problems.) ?? Discs - Rubbery discs sit in between each of the vertebrae to add cushion and allow movement. The discs have a tough outer shell and jelly-like center. ?? Muscles, tendons, and ligaments - Together the muscles, tendons, and ligaments are called the soft tissues of the back. These soft tissues support the back and help hold it together. Radiculopathy can happen when changes in the back cause a nerve to get pinched or damaged. This canhappen if: ?? The vertebrae form bumps called bone spurs, which press on nearby nerves. (People with a condition called spinal stenosis often have this problem.) ?? The discs between the vertebrae break open and bulge out, causing them to press on or irritate nearby nerves. (A disc that breaks open and bulges is called a herniated disc. ) ?? Other medical conditions, such as diabetes, infection, inflammation, or a tumor injure the nerves near the spinal cord. Should I see a doctor or nurse???--??If you have new pain, numbness, or tingling that seems to spread out to your arms or legs from your spine, see a doctor or nurse. Will I need tests???--??Maybe. Doctors can tell a lot about a person's radiculopathy based on whichparts of the body are affected and how. Because of that, you might not need any tests, especially if you have had symptoms only for a short time. Still, if your doctor or nurse is concerned about nerve damage, he or she might order one or more of these tests: ?? Imaging tests - Imaging tests, such as X-rays, MRIs, or CT scans, create pictures of the inside of the body. These imaging tests can show problems with the back like those described above. ?? Electromyography (also called EMG ) - During this test, a metallographic technician checks how well electricalpulses travel across nerves to the part of your body that has symptoms. The test helps show whetherthe nerves controlling that body part are working right. How is radiculopathy treated???--??Many people with radiculopathy do not need formal treatment. In some cases, the radiculopathy goes away as the back and nerves heal. In other cases, people find ways to cope with their symptoms. When people do get treatment, the treatments can include: ?? Pain medicines that you can get without a prescription (If these do not work, stronger prescription pain medicines are available.) ?? Medicines to relax the muscles (called muscle relaxants) ?? Avoiding activities that make the pain worse ?? Injections of medicines that numb the back or reduce swelling ?? Physical therapy to learn special exercises and stretches ?? Surgery to repair the problem causing symptoms All topics are updated as new evidence becomes available and our peer review process is complete. This topic retrieved from [employer] on: February 18, 2019. Topic 46146 Version 5.0 Release: 27.2.3 - C27.145 ?2019??[employer] and/or its affiliates.??All rights reserved. figure 1: Anatomy of the back Low back pain can be caused by problems with the muscles, ligaments, discs, bones (vertebrae), or nerves. Often, back pain is caused by strains or sprains involving the muscles or ligaments. These problems cannot always be seen on imaging tests, such as MRI or CT scans. Graphic 58878 Version 5.0 Consumer Information Use and Disclaimer This information is not specific medical advice and does not replace information you receive from your health care provider. This is only a brief summary of general information. It does NOT include all information about conditions, illnesses, injuries, tests, procedures, treatments, therapies, discharge instructions or life-style choices that may apply to you. You must talk with your health care provider for complete information about your health and treatment options. This information should not be used to decide whether or not to accept your health care provider's advice, instructions or recommendations. Only your health care provider has the knowledge and training to provide advice that is right for you.The use of [employer] content is governed by the [employer] Terms of Use. ??2019 [employer]. All rights reserved. Copyright ?2019??[employer]. and/or its affiliates.??All rights reserved. documented in this encounter Progress Notes * SERGEY Hanson - 06/10/2019 8:40 AM CDT Images from the original note were not included. Office Progress Note Reason for Visit: Follow Up (hip pain; fall) History of Present Illness: Patient is a 69-year-old known to our practice as she has had a bilateral hip replacements by Dr. Rain. Right hip replaced 01/2018 and left hip 06/2018. She is recovering nicely until approximately 1 month ago when she started having some burning sensation to posterior left hip pain radiating down her leg. She states her pain is worse at night. She is been taking Aleve. She does state that shehad 2 falls approximately 1 month ago. She fell on her but when she was going up the stairs and then again in the laundry room reaching for a light bulb. Patient states no injury at the time. Patient's main complaint is radiating, sharp nerve type pain posterior left buttocks anterior left thigh rating down to her foot. Patient denies having any known back problems but has seen a chiropractor in the past. Ambulating without any assistive devices. Denies any anterior groin or lateral hippain. Denies any red flags of bowel or bladder incontinence. ROS: Review of Systems Constitutional: Negative. Respiratory: Negative. Cardiovascular: Negative. Gastrointestinal: Negative. Genitourinary: Negative. Musculoskeletal: Positive for falls. Neurological: Positive for headaches. Endo/Heme/Allergies: Negative. Psychiatric/Behavioral: Negative. Medications: Outpatient Medications Marked as Taking for the 06/10/19 encounter (Office Visit) with SERGEY Hanson Medication Sig Dispense Refill ??? aspirin 81 MG chewable tablet Chew 81 mg by mouth daily. ??? lisinopril 10 MG tablet Take 1 tablet by mouth daily. 0 ??? Naproxen Sodium (ALEVE) 220 MG Cap Allergies: No Known Allergies Medical History: Past Medical History: Diagnosis Date ??? Arthritis osteo right hip ??? Fracture of metatarsal 5th ??? Hypertension ??? OA (osteoarthritis) of hip left ??? Obesity Surgical History: Past Surgical History: Procedure Laterality Date ??? COLONOSCOPY ??? HIP ARTHROPLASTY Right 01/2018 ??? TOTAL HIP ARTHROPLASTY Social History: Social History Socioeconomic History ??? Marital status: Spouse name: Not on file ??? Number of children: Not on file ??? Years of education: Not on file ??? Highest education level: Not on file Occupational History ??? Not on file Social Needs ??? Financial resource strain: Not on file ??? Food insecurity: Worry: Not on file Inability: Not on file ??? Transportation needs: Medical: Not on file Non-medical: Not on file Tobacco Use ??? Smoking status: Never Smoker ??? Smokeless tobacco: Never Used Substance and Sexual Activity ??? Alcohol use: Yes Comment: socially ??? Drug use: No ??? Sexual activity: Not on file Lifestyle ??? Physical activity: Days per week: Not on file Minutes per session: Not on file ??? Stress: Not on file Relationships ??? Social connections: Talks on phone: Not on file Gets together: Not on file Attends yazdanism service: Not on file Active member of club or organization: Not on file Attends meetings of clubs or organizations: Not on file Relationship status: Not on file ??? Intimate partner violence: Fear of current or ex partner: Not on file Emotionally abused: Not on file Physically abused: Not on file Forced sexual activity: Not on file Other Topics Concern ??? Not on file Social History Narrative ??? Not on file Family History: Family History Problem Relation Name Age of Onset ??? Cancer Mother stomach ??? COPD Father ??? Cancer Sister female ??? Cancer Sister janay breast VITALS: Filed Vitals: 06/10/19 0834 BP: 122/84 Pulse: 74 Weight: 89.8 kg (198 lb) Height: 5' 2 (1.575 m) Physical Exam: Physical Exam Constitutional: She is oriented to person, place, and time and well-developed, well-nourished, and in no distress. No distress. HENT: Head: Normocephalic and atraumatic. Eyes: EOM are normal. Pupils are equal, round, and reactive to light. Neck: Normal range of motion. Neck supple. Cardiovascular: Intact distal pulses. Pulmonary/Chest: Effort normal. No respiratory distress. Musculoskeletal: Right hip: She exhibits normal range of motion. Left hip: She exhibits normal range of motion. Legs: Neurological: She is alert and oriented to person, place, and time. Skin: Skin is warm and dry. No erythema. Psychiatric: Memory, affect and judgment normal. Vitals reviewed. Imaging: Reviewed most recent image study. XR PELVIS AP+LT HIP 2V Narrative: EXAMINATION: XR PELVIS AP+LT HIP 2V INDICATIONS: Presence of left artificial hip joint, Unspecified fall, subsequent encounter COMPARISON: 03/23/2019, 11/03/2018, 09/01/2018 FINDINGS: AP radiograph the pelvis with dedicated frontal and frog leg lateral views of the left hip demonstrate postsurgical changes status post bilateral total hip arthroplasty. The femoral and acetabular components are grossly intact and stable in positioning without surrounding lucency. Mild diffuse osseous demineralization. Scattered enthesopathic changes throughout the pelvis. Prominent facet hypertrophy at the lumbosacral junction. Scattered calcified pelvic phleboliths. Soft tissue fat planes are maintained without localized soft tissue swelling, appreciable joint effusion, or suspicious calcification. Impression: IMPRESSION: 1. Scattered degenerative changes without acute or aggressive osseous abnormality. 2. Post surgical changes status post bilateral total hip arthroplasty without evident hardware complication. Interpreted By: Kieran Arnold, 06/10/2019 2:17 PM XR LUMB SPINE 3V Narrative: EXAMINATION: XR LUMB SPINE 3V INDICATIONS: Radiculopathy, lumbar region, Unspecified fall, subsequent encounter COMPARISON: NONE FINDINGS: Frontal and lateral radiographs of the lumbar spine with coned-down lateral view of the lumbosacral junction demonstrate 5 nonribbearing lumbar type vertebral bodies. Diffuse osseous demineralization. Mild chronic appearing anterior compression deformities throughout the visualized thoracic spine. The lumbar vertebral body heights are maintained. The spinous and transverse processes are intact. No acute fracture or aggressive osseous lesion. No spondylolisthesis or spondylolysis Mild multilevel spondylosis with prominent facet hypertrophy at the lumbosacral junction. Multilevel vertebral disc space height loss most advanced at L2-L3. The iliopsoas margins are sharp. No discrete soft tissue mass or suspicious calcification. Dense atherosclerotic calcification of the abdominal aorta. Partially visualized bilateral hip arthroplasties. Impression: IMPRESSION: 1. Diffuse osseous demineralization with mild chronic appearing anterior compression deformities of the lower thoracic spine. Correlate clinically for point tenderness the lower thoracic spine. 2. Multilevel spondylosis most advanced at L5-S1. 3. Multilevel discogenic disease most advanced at L2-L3. 4. Atherosclerotic disease. Interpreted By: Kieran Arnold, 06/10/2019 2:13 PM Diagnoses/Impression: 1. Left lumbar radiculopathy XR LUMB SPINE 3V AMB REFERRAL TO PHYSICAL THERAPY 2. S/P hip replacement, left XR PELVIS AP+LT HIP 2V AMB REFERRAL TO PHYSICAL THERAPY 3. Fall, subsequent encounter XR LUMB SPINE 3V XR PELVIS AP+LT HIP 2V AMB REFERRAL TO PHYSICAL THERAPY Recommendations and Plan: Recommend PT for stretching and treatment of lumbar radiculopathy / sciatica. If pain intensifies, would recommend MRI. Diagnosis and plan of care was discussed with patient. Patient verbalized understanding of treatment plan. SERGEY HANSON 06/10/2019 documented in this encounter Plan of Treatment Scheduled Referrals Name Type Priority Associated Diagnoses Orde r Schedule Ambulatory referral to Physical Therapy Referral Routine Left lumbar radiculopathy S/P hip replacement, left Fall, subsequent encounter Ordered: 06/10/2019 documented as of this encounter Results * XR PELVIS AP+LT HIP 2V (06/10/2019 9:28 AM CDT) Anatomical Region Laterality Modality Pelvis, Hip Radiographic Lary ging 06/10/2019 2:17 PM CDT Impressions 06/10/2019 2:19 PM CDT IMPRESSION: 1. Scattered degenerative changes without acute or aggressive osseous abnormality. 2. Post surgical changes status post bilateral total hip arthroplasty without evident hardware complication. Interpreted By: Kieran Arnold, 06/10/2019 2:17 PM Narrative 06/10/2019 2:19 PM CDT EXAMINATION: XR PELVIS AP+LT HIP 2V INDICATIONS: Presence of left artificial hip joint, Unspecified fall, subsequent encounter COMPARISON: 03/23/2019, 11/03/2018, 09/01/2018 FINDINGS: AP radiograph the pelvis with dedicated frontal and frog leg lateral views of the left hip demonstrate postsurgical changes status post bilateral total hip arthroplasty. The femoral and acetabular components are grossly intact and stable in positioning without surrounding lucency. Mild diffuse osseous demineralization. Scattered enthesopathic changes throughout the pelvis. Prominent facet hypertrophy at the lumbosacral junction. Scattered calcified pelvic phleboliths. Soft tissue fat planes are maintained without localized soft tissue swelling, appreciable joint effusion, or suspicious calcification. Procedure Note Kieran Arnold MD - 06/10/2019 EXAMINATION: XR PELVIS AP+LT HIP 2V INDICATIONS: Presence of left artificial hip joint, Unspecified fall, subsequent encounter COMPARISON: 03/23/2019, 11/03/2018, 09/01/2018 FINDINGS: AP radiograph the pelvis with dedicated frontal and frog leg lateralviews of the left hip demonstrate postsurgical changes status post bilateral total hip arthroplasty. The femoral and acetabular components are grossly intact and stable in positioning without surrounding lucency. Mild diffuse osseous demineralization. Scattered enthesopathic changes throughout the pelvis. Prominent facet hypertrophy at the lumbosacral junction. Scattered calcified pelvic phleboliths. Soft tissue fat planes are maintained without localized soft tissue swelling, appreciable joint effusion, or suspicious calcification. IMPRESSION: 1. Scattered degenerative changes without acute or aggressive osseous abnormality. 2. Post surgical changes status post bilateral total hip arthroplasty without evident hardware complication. Interpreted By: Kieran Arnold, 06/10/2019 2:17 PM Rabia Barnard [facility] Final Re sult * XR LUMB SPINE 3V (06/10/2019 9:28 AM CDT) Anatomical Region Laterality Modality Spine Radiographic Lary ging 06/10/2019 2:13 PM CDT Impressions 06/10/2019 2:17 PM CDT IMPRESSION: 1. Diffuse osseous demineralization with mild chronic appearing anterior compression deformities of the lower thoracic spine. Correlate clinically for point tenderness the lower thoracic spine. 2. Multilevel spondylosis most advanced at L5-S1. 3. Multilevel discogenic disease most advanced at L2-L3. 4. Atherosclerotic disease. Interpreted By: Kieran Arnold, 06/10/2019 2:13 PM Narrative 06/10/2019 2:17 PM CDT EXAMINATION: XR LUMB SPINE 3V INDICATIONS: Radiculopathy, lumbar region, Unspecified fall, subsequent encounter COMPARISON: NONE FINDINGS: Frontal and lateral radiographs of the lumbar spine with coned-down lateral view of the lumbosacral junction demonstrate 5 nonribbearing lumbar type vertebral bodies. Diffuse osseous demineralization. Mild chronic appearing anterior compression deformities throughout the visualized thoracic spine. The lumbar vertebral body heights are maintained. The spinous and transverse processes are intact. No acute fracture or aggressive osseous lesion. No spondylolisthesis or spondylolysis Mild multilevel spondylosis with prominent facet hypertrophy at the lumbosacral junction. Multilevel vertebral disc space height loss most advanced at L2-L3. The iliopsoas margins are sharp. No discrete soft tissue mass or suspicious calcification. Dense atherosclerotic calcification of the abdominal aorta. Partially visualized bilateral hip arthroplasties. Procedure Note Kieran Arnold MD - 06/10/2019 EXAMINATION: XR LUMB SPINE 3V INDICATIONS: Radiculopathy, lumbar region, Unspecified fall, subsequent encounter COMPARISON: NONE FINDINGS: Frontal and lateral radiographs of the lumbar spine with coned-downlateral view of the lumbosacral junction demonstrate 5 nonribbearing lumbar type vertebral bodies. Diffuse osseous demineralization. Mild chronic appearing anterior compression deformities throughout the visualized thoracic spine. The lumbar vertebral body heights are maintained. The spinous and transverse processes are intact. No acute fracture or aggressive osseous lesion. No spondylolisthesis or spondylolysis Mild multilevel spondylosis with prominent facet hypertrophy at the lumbosacral junction. Multilevel vertebral disc space height loss most advanced at L2-L3. The iliopsoas margins are sharp. No discrete soft tissue mass or suspicious calcification. Dense atherosclerotic calcification of the abdominal aorta. Partially visualized bilateral hip arthroplasties. IMPRESSION: 1. Diffuse osseous demineralization with mild chronic appearing anterior compression deformities of the lower thoracic spine. Correlateclinically for point tenderness the lower thoracic spine. 2. Multilevel spondylosis most advanced at L5-S1. 3. Multilevel discogenic disease most advanced at L2-L3. 4. Atherosclerotic disease. Interpreted By: Kieran Arnold, 06/10/2019 2:13 PM Rabia Barnard [facility] Final Re sult documented in this encounter Visit Diagnoses Diagnosis Left lumbar radiculopathy- Primary Thoracic or lumbosacral neuritis or radiculitis, unspecified S/P hip replacement, left Fall, subsequent encounter documented in this encounter Care Teams Medical Collections Representative Relationship Specialty Start Date End Date Kaushal Han MD [address] [place] [address] PCP - General FAMILY PRACTICE 01/31/18 Jose Luis Rain MD [address] [place] [phone] ORTHOPAEDICS 02/05/18 Anjum Rajan MD [address] [address] CARDIOVASCULAR DISEASE 07/16/18 documented as of this encounter
--- OUTSIDE RECORDS SUMMARY | 2024-10-02 01:47 | XMS_ITS | Encounter Summary ---
Author Organization [facility] Address [facility] [place] [address] [place] [address] Care Team Providers Care Anodiser Name Role Phone Kaushal Han MD Primary Care Provider Jose Luis Rain MD Unavailable [phone] Anjum Rajan MD Unavailable [phone] Encounter Details Date Type Department Care Team (Late st Contact Info) Description 11/03/2018 Orders Only [facility] Multispecialty Care - [facility] [address] [place] [address] Jose Luis Rain MD [address] [place] [id number] Social History Tobacco Use Types Packs/Day Years [...] on file documented as of this encounter Progress Notes * Ceci Vick MA - 11/03/2018 9:43 AM CST am documented in this encounter Plan of Treatment Not on file documented as of this encounter Visit Diagnoses Diagnosis History of bilateral total hip arthroplasty- Primary documented in this encounter Care Teams Anodiser Relationship Specialty Start Date End Date Kaushal Han MD [address] [place] [phone] PCP - General FAMILY PRACTICE 01/31/18 Jose Luis Rain MD [address] [place] [phone] ORTHOPAEDICS 02/05/18 Anjum Rajan MD [address] [address] CARDIOVASCULAR DISEASE 07/16/18 documented as of this encounter
--- OUTSIDE RECORDS SUMMARY | 2024-10-02 01:47 | XMS_ITS | Encounter Summary ---
Author Organization [facility] Address [address] [place] [address]. [place] [address] [place] [address] Care Team Providers Care Escalation Engineer Name Role Phone Kaushal Han MD Primary Care Provider [phone] Jose Luis Rain MD Unavailable [phone] Anjum Rajan MD Unavailable [phone] Encounter Details Date Type Department Care Team (Latest Contact Info) Description 03/27/2021 Travel Social History Tobacco Use Types Packs/Day [...] PM CDT documented as of this encounter Plan of Treatment Not on file documented as of this encounter Visit Diagnoses Not on filedocumented in this encounter Care Teams Escalation Engineer Relationship Specialty Start Date End Date Kaushal Han MD [address] [place] [phone] PCP - General FAMILY PRACTICE 01/31/18 Jose Luis Rain MD [address] [place] [phone] ORTHOPAEDICS 02/05/18 Anjum Rajan MD [address] [address] CARDIOVASCULAR DISEASE 07/16/18 documented as of this encounter
--- OUTSIDE RECORDS SUMMARY | 2024-10-02 01:47 | XMS_ITS | Encounter Summary ---
Author Organization [facility] - [facility] Address Formerly [facility] [place] [address] [place] [address] Care Team Providers Care Collar Packer Name Role Phone Kaushal Han MD Primary Care Provider Jose Luis Rain MD Unavailable [phone] Anjum Rajan MD Unavailable [phone] Reason for Visit * Reason Comments Follow Up bilateral hip * Consultation/Treatment (Routine) - Closed Specialty Diagnoses / Procedures Referred By Contac t Referred To Contact ORTHOPAEDIC SURGERY / ORTHOPAEDICS Diagnoses F/U left total hip 07/22/2018 Procedures FOLLOW UP Kaushal Han MD [address] [place] [phone] Phone: tel: fax: Jose Luis Rain MD [address] [place] [address] Phone: tel: fax: Referral ID Status Reason Start Date Expiration Date Visits Re quested Visits Authorized [id number] Closed 11/03/2018 11/04/2019 100 100 Encounter Details Date Type Department Care Team (Late st Contact Info) Description 11/03/2019 9:20 AM EVENT SECURITY OFFICER Office Visit [facility] Multispecialty Care - [facility] [address] [facility] [place] [phone] Jose Luis Rain MD [address] [place] [address] Rabia Barnard NP-C Follow Up (bilateral hip ) Social History Tobacco Use Types Packs/Day Years [...] Sign Reading Time Taken Comments Blood Pressure 118/80 11/03/2019 8:45 AM EVENT SECURITY OFFICER Pulse 73 11/03/2019 8:45 AM EVENT SECURITY OFFICER Temperature - - Respiratory Rate - - Oxygen Saturation - - Inhaled Oxygen Concentration - - Weight 93 kg (205 lb) 11/03/2019 8:45 AM EVENT SECURITY OFFICER Height 157.5 cm (5' 2 ) 11/03/2019 8:45 AM EVENT SECURITY OFFICER Body Mass Index 37.49 11/03/2019 8:45 AM EVENT SECURITY OFFICER documented in this encounter Progress Notes * SERGEY Chapman - 11/03/2019 9:20 AM CST Images from the original note were not included. Office Progress Note Reason for Visit: Follow Up (bilateral hip ) History of Present Illness: Patient is a 69-year-old known to our practice as she has had a bilateral hip replacements by Dr. Rain. She underwent a left total hip on 07/22/2018. Right total hip done on 02/18/2018. No complaints / denies any problems. She is here for follow up from some burning sensation to posterior left hip pain radiating down her leg about 5 months ago. ROS: Review of Systems Constitutional: Negative. Respiratory: Negative. Cardiovascular: Negative. Gastrointestinal: Negative. Genitourinary: Negative. Musculoskeletal: Negative. Negative for joint pain. Neurological: Negative. Endo/Heme/Allergies: Negative. Psychiatric/Behavioral: Negative. Medications: Outpatient Medications Marked as Taking for the 11/03/19 encounter (Office Visit) with SERGEY Chapman Medication Sig Dispense Refill ??? aspirin 81 MG chewable tablet Chew 81 mg by mouth daily. ??? lisinopril 10 MG tablet Take 1 tablet by mouth daily. 0 Allergies: No Known Allergies Medical History: Past [...] file Gets together: Not on file Attends christianity service: Not on file Active member of [...] Cancer Sister janay breast VITALS: Filed Vitals: 11/03/19 0845 BP: 118/80 Pulse: 73 Weight: 93 kg (205 lb) Height: 5' 2 (1.575 m) PE: Physical Exam Constitutional: She is oriented to person, place, and time and well-developed, well-nourished, and in no distress. No distress. HENT: Head: Normocephalic and atraumatic. Eyes: Pupils are equal, round, and reactive to light. EOM are normal. Neck: Normal range of motion. Neck supple. Cardiovascular: Intact distal pulses. Pulmonary/Chest: Effort normal. Musculoskeletal: She exhibits no tenderness. Right hip: She exhibits normal range of motion and no tenderness. Left hip: She exhibits normal range of motion and no tenderness. Neurological: She is alert and oriented to person, place, and time. Skin: Skin is warm and dry. No erythema. Psychiatric: Affect and judgment normal. Vitals reviewed. Imaging: Reviewed most recent image study. XR PELVIS AP+LT HIP 2V Narrative: Examination: XR PELVIS AP+LT HIP 2V Exam time: 11/03/2019 9:03 AM Clinical history: Total left hip arthroplasty. One year follow-up. Comparison: June 10, 2019 pelvis and left hip Technique: AP pelvis. AP and lateral views left hip Findings: Sacral joints. Unremarkable. Visualized sacral ala appear intact. Pubic symphysis appears unremarkable. No evidence of acute or healing fractures involving the pelvis. Bilateral total hip arthroplasty changes. On the right, the head of the femoral prosthetic component projects over the acetabular component. The stem projects within the intramedullary region of the right femur, although, the distal tip of the stem is not visualized. On the left, the head of the femoral prosthetic component projects within the acetabular component. The stem of the femoral prosthetic component projects within the intramedullary region of the left femur. No evidence of fracture. No radiographic findings suggestive of loosening of the arthroplasty components. Impression: IMPRESSION: 1. No acute abnormality identified. 2. Bilateral total hip arthroplasty changes. Interpreted By: Sage Jensen MD, 11/05/2019 8:52 AM Diagnoses/Impression: 1. S/P hip replacement, left XR PELVIS AP+LT HIP 2V 2. S/P hip replacement, right Recommendations and Plan: Postop left images a for a one-year surveillance. No complaints and patient to follow-up as needed. SERGEY CHAPMAN 11/05/2019 Cosigned by Jose Luis Rain MD at 11/13/2019 9:42 PM EVENT SECURITY OFFICER T SECURITY OFFICER T SECURITY OFFICER documented in this encounter Plan of Treatment Not on file documented as of this encounter Results * XR PELVIS AP+LT HIP 2V (11/03/2019 9:03 AM EVENT SECURITY OFFICER) Anatomical Region Laterality Modality Pelvis, Hip Radiographic Lary ging 11/05/2019 8:52 AM EVENT SECURITY OFFICER Impressions 11/05/2019 8:54 AM EVENT SECURITY OFFICER IMPRESSION: 1. No acute abnormality identified. 2. Bilateral total hip arthroplasty changes. Interpreted By: Sage Jensen MD, 11/05/2019 8:52 AM Narrative 11/05/2019 8:54 AM EVENT SECURITY OFFICER Examination: XR PELVIS AP+LT HIP 2V Exam time: 11/03/2019 9:03 AM Clinical history: Total left hip arthroplasty. One year follow-up. Comparison: June 10, 2019 pelvis and left hip Technique: AP pelvis. AP and lateral views left hip Findings: Sacral joints. Unremarkable. Visualized sacral ala appear intact. Pubic symphysis appears unremarkable. No evidence of acute or healing fractures involving the pelvis. Bilateral total hip arthroplasty changes. On the right, the head of the femoral prosthetic component projects over the acetabular component. The stem projects within the intramedullary region of the right femur, although, the distal tip of the stem is not visualized. On the left, the head of the femoral prosthetic component projects within the acetabular component. The stem of the femoral prosthetic component projects within the intramedullary region of the left femur. No evidence of fracture. No radiographic findings suggestive of loosening of the arthroplasty components. Procedure Note Sage Jensen MD - 11/05/2019 Examination: XR PELVIS AP+LT HIP 2V Exam time: 11/03/2019 9:03 AM Clinical history: Total left hip arthroplasty. One year follow-up. Comparison: June 10, 2019 pelvis and left hip Technique: AP pelvis. AP and lateral views left hip Findings: Sacral joints. Unremarkable. Visualized sacral ala appearintact. Pubic symphysis appears unremarkable. No evidence of acute or healing fractures involving the pelvis. Bilateral total hip arthroplastychanges. On the right, the head of the femoral prosthetic component projects over the acetabular component. The stem projects within the intramedullary region of the right femur, although, the distal tip of the stem is not visualized. On the left, the head of the femoral prosthetic component projectswithin the acetabular component. The stem of the femoral prosthetic component projects within the intramedullary region of the left femur. No evidenceof fracture. No radiographic findings suggestive of loosening of the arthroplasty components. IMPRESSION: 1. No acute abnormality identified. 2. Bilateral total hip arthroplasty changes. Interpreted By: Sage Jensen MD, 11/05/2019 8:52 AM Rabia Barnard FOUR SLIDE MACHINE SETTER-C GENERAL IMAGING Final Re sult documented in this encounter Visit Diagnoses Diagnosis S/P hip replacement, left- Primary S/P hip replacement, right documented in this encounter Care Teams Collar Packer Relationship Specialty Start Date End Date Kaushal Han MD [address] [place] [phone] PCP - General FAMILY PRACTICE 01/31/18 Jose Luis Rain MD [address] [place] [phone] ORTHOPAEDICS 02/05/18 Anjum Rajan MD [facility] [address] [address] CARDIOVASCULAR DISEASE 07/16/18 documented as of this encounter
--- OUTSIDE RECORDS SUMMARY | 2024-10-02 01:47 | XMS_ITS | Encounter Summary ---
Author Organization [facility] Address [facility] [place] [address] [place] [address] Care Team Providers Care Electric Shovel Operator Name Role Phone Kaushal Han MD Primary Care Provider Jose Luis Rain MD Unavailable [phone] Anjum Rajan MD Unavailable [phone] Reason for Referral * Imaging (Routine) - Closed Specialty Diagnoses / Procedures Referred By Contac t Referred To Contact RADIOLOGY Diagnoses Abnormal breast finding Procedures US BREAST RT BIRAD LTD Duane Rowan PA [address] [place] [phone] Phone: tel: fax: Referral ID Status Reason Start Date Expiration Date V isits Requested Visits Authorized [id number] Closed Ultrasound 10/22/2023 10/22/2024 1 1 BRAILLE TRANSCRIBER Encounter Details Date Type Department Care Team (Latest Contact Info) Description 10/30/2023 12:23 PM HAND BRAILLE TRANSCRIBER - 10/30/2023 11:59 PM HAND BRAILLE TRANSCRIBER Hospital Encounter [facility] Mammography [address] [place] [address] Duane Rowan PA [address] [place] [phone] Discharge Disposition: Home or Self Care [...] Procedure Name Priority Date/Time Associated Diagnosis Comments US BREAST RT [employer]TD Routine 10/30/2023 1:32 PM HAND BRAILLE TRANSCRIBER Abnormal breast finding MG DIAG W JAMILA RT DIGI Routine 10/30/2023 12:59 PM HAND BRAILLE TRANSCRIBER Abnormal breast finding documented in this encounter Results * US BREAST RT [employer] (10/30/2023 1:32 PM HAND BRAILLE TRANSCRIBER) Anatomical Region Laterality Modality Breast Right Ultrasound 10/30/2023 1:34 PM HAND BRAILLE TRANSCRIBER Narrative 10/30/2023 1:39 PM HAND BRAILLE TRANSCRIBER Examination: Digital right diagnostic mammogram with CAD. [id number] Clinical history: Follow-up, abnormal screening mammogram. Comparison: 10/17/2023. Technique: True lateral and spot compression CC and MLO right digital mammograms. The exam was interpreted with the use of a computer-aided detection (CAD) system. Additional 3-D Tomosynthesis images were acquired. Tissue density: ??The breast tissue contains scattered fibroglandular densities. Findings: The patient returned for additional diagnostic imaging to further evaluate the potential opacity and architectural distortion near the 11:30 position identified at screening. The area in question changes in configuration on the true lateral view. Under spot compression, there is subtotal effacement with no definite evidence of underlying mass, suspicious microcalcification or architectural distortion. Mixed fatty and fibroglandular tissue background persists. Benign-appearing calcification elsewhere again evident. Due to the density of the local tissue background, it was elected to perform ultrasound. Examination: Right breast ultrasound. Technique:Grayscale images. Findings: Survey was performed from the 10:00-1:00 positions through 12:00 encompassing the broad region of interest. This fails to demonstrate any discrete solid or cystic mass. Incidental minimal retroareolar ductal ectasia is demonstrated. Center appearing tissue architecture is otherwise demonstrated. No sonographically suspicious abnormality is identified. Based on these findings, routine mammographic follow-up in one year would now seem adequate. These findings were discussed with the patient. IMPRESSION: Additional diagnostic imaging fails to disclose any suspicious abnormality. Routine follow-up in one year would now seem adequate. Recommendation: 1: Routine screening mammogram ??Bilateral ?? in 1 Year Overall assessment: ACR BI-RADS Category 2 - Benign. Return for Routine Follow-Up: Yes Ordered By: DUANE ROWAN Interpreted By: Mervin Lafleur MD, 10/30/2023 1:34 PM us Duane GONZALEZ ULTRASOUND Final Result * MG DIAG W JAMILA RT DIGI (10/30/2023 12:59 PM HAND BRAILLE TRANSCRIBER) Anatomical Region Laterality Modality Breast Right Mammography, Rad iographic Imaging 10/30/2023 1:34 PM HAND BRAILLE TRANSCRIBER Narrative 10/30/2023 1:39 PM HAND BRAILLE TRANSCRIBER Examination: Digital right diagnostic mammogram with CAD. [id number] Clinical history: Follow-up, abnormal screening mammogram. Comparison: 10/17/2023. Technique: True lateral and spot compression CC and MLO right digital mammograms. The exam was interpreted with the use of a computer-aided detection (CAD) system. Additional 3-D Tomosynthesis images were acquired. Tissue density: ??The breast tissue contains scattered fibroglandular densities. Findings: The patient returned for additional diagnostic imaging to further evaluate the potential opacity and architectural distortion near the 11:30 position identified at screening. The area in question changes in configuration on the true lateral view. Under spot compression, there is subtotal effacement with no definite evidence of underlying mass, suspicious microcalcification or architectural distortion. Mixed fatty and fibroglandular tissue background persists. Benign-appearing calcification elsewhere again evident. Due to the density of the local tissue background, it was elected to perform ultrasound. Examination: Right breast ultrasound. Technique:Grayscale images. Findings: Survey was performed from the 10:00-1:00 positions through 12:00 encompassing the broad region of interest. This fails to demonstrate any discrete solid or cystic mass. Incidental minimal retroareolar ductal ectasia is demonstrated. Center appearing tissue architecture is otherwise demonstrated. No sonographically suspicious abnormality is identified. Based on these findings, routine mammographic follow-up in one year would now seem adequate. These findings were discussed with the patient. IMPRESSION: Additional diagnostic imaging fails to disclose any suspicious abnormality. Routine follow-up in one year would now seem adequate. Recommendation: 1: Routine screening mammogram ??Bilateral ?? in 1 Year Overall assessment: ACR BI-RADS Category 2 - Benign. Return for Routine Follow-Up: Yes Ordered By: DUANE ROWAN Interpreted By: Mervin Lafleur MD, 10/30/2023 1:34 PM Duane Rowan [place] MAMMO Final Result documented in this encounter Visit Diagnoses Diagnosis Abnormal breast finding Other abnormal clinical finding documented in this encounter Care Teams Electric Shovel Operator Relationship Specialty Start Date End Date Kaushal Han MD [address] [place] [phone] PCP - General FAMILY PRACTICE 01/31/18 Jose Luis Rain MD [address] [place] [phone] ORTHOPAEDICS 02/05/18 Anjum Rajan MD [facility] [address] [address] CARDIOVASCULAR DISEASE 07/16/18 documented as of this encounter
--- OUTSIDE RECORDS SUMMARY | 2024-10-02 01:47 | XMS_ITS | Encounter Summary ---
Author Organization [facility] - [facility] Address [facility] [address] [place] [address] Care Team Providers Care Tap Dancer Name Role Phone Kaushal Han MD Primary Care Provider Jose Luis Rain MD Unavailable [phone] Anjum Rajan MD Unavailable [phone] Encounter Details Date Type Department Care Team (Late st Contact Info) Description 03/17/2019 Orders Only [facility] Multispecialty Care - [facility] [address] [facility] [address] [place] [address] Jose Luis Rain MD [address] [place] [id number] Social History Tobacco Use Types Packs/Day Years [...] documented as of this encounter Results * OXR PELVIS AP+RT HIP 2V (03/23/2019 8:32 AM CDT) Anatomical Region Laterality Modality Pelvis, Hip Radiographic Lary ging Narrative 03/23/2019 12:14 PM CDT PROCEDURE: OXR PELVIS AP+RT HIP 2V VIEWS: 3 DATE: ??03/23/19 CLINICAL INDICATION: history right total hip FINDINGS: AP pelvis and 2 views right hip, AP and crosstable lateral. ?? Uncemented total hip arthroplasty in place. ??Components appear to be well ingrown. ??No fractures. ??Left total hip arthroplasty is also visualized. ?? Degenerative changes of the lumbar spine. IMPRESSION: Stable right total hip arthroplasty. us Jose Luis Rain MD GENERAL IMAGING Final Result documented in this encounter Visit Diagnoses Diagnosis History of total hip arthroplasty, right- Primary documented in this encounter Care Teams Tap Dancer Relationship Specialty Start Date End Date Kaushal Han MD [address] [place] [phone] PCP - General FAMILY PRACTICE 01/31/18 Jose Luis Rain MD [address] [place] [phone] ORTHOPAEDICS 02/05/18 Anjum Rajan MD [address] [address] CARDIOVASCULAR DISEASE 07/16/18 documented as of this encounter
--- OUTSIDE RECORDS SUMMARY | 2024-10-02 01:47 | XMS_ITS | Encounter Summary ---
Author Organization [facility] Address [facility] [place] [address] [place] [address] Care Team Providers Care Hospital Unit Coordinator Name Role Phone Kaushal Han MD Primary Care Provider Jose Luis Rain MD Unavailable [phone] Anjum Rajan MD Unavailable [phone] Encounter Details Date Type Department Care Team (Latest Contact Info) Description 03/24/2020 Travel Social History Tobacco Use Types Packs/Day [...] have Coronavirus / COVID-19? No / Unsure 03/24/2020 6:06 AM CDT documented as of this encounter Plan of Treatment Not on file documented as of this encounter Visit Diagnoses Not on filedocumented in this encounter Care Teams Hospital Unit Coordinator Relationship Specialty Start Date End Date Kaushal Han MD [address] [place] [phone] PCP - General FAMILY PRACTICE 01/31/18 Jose Luis Rain MD [address] [place] [phone] ORTHOPAEDICS 02/05/18 Anjum Rajan MD [address] [address] CARDIOVASCULAR DISEASE 07/16/18 documented as of this encounter
--- OUTSIDE RECORDS SUMMARY | 2024-10-02 01:47 | XMS_ITS | Encounter Summary ---
Author Organization [facility] Address [facility] [place] [address] [place] [address] Care Team Providers Care Monomer Purification Operator Name Role Phone Kaushal Han MD Primary Care Provider Jose Luis Rain MD Unavailable [phone] Anjum Rajan MD Unavailable [phone] Encounter Details Date Type Department Care Team (Latest Contact Info) Description 09/13/2024 Travel Social History Tobacco Use Types Packs/Day [...] Diagnoses Not on filedocumented in this encounter Additional Health Concerns Infection Onset Date Last Indicated Resolved Time COVID-19 Rule Out 09/13/2024 09/13/2024 09/13/2024 10:25 PM FINISHING DEPARTMENT SUPERVISOR documented as of this encounter Care Teams Monomer Purification Operator Relationship Specialty Start Date End Date Kaushal Han MD [address] [place] [phone] PCP - General FAMILY PRACTICE 01/31/18 Jose Luis Rain MD [address] [place] [phone] ORTHOPAEDICS 02/05/18 Anjum Rajan MD [address] [address] CARDIOVASCULAR DISEASE 07/16/18 documented as of this encounter
--- OUTSIDE RECORDS SUMMARY | 2024-10-02 01:47 | XMS_ITS | Encounter Summary ---
Author Organization [facility] Address [facility]6 [facility] [place] [address] [place] [address] Care Team Providers Care Zone Supervisor Firearms Name Role Phone Kaushal Han MD Primary Care Provider Jose Luis Rain MD Unavailable [phone] Anjum Rajan MD Unavailable [phone] Encounter Details Date Type Department Care Team (Latest Contact Info) Description 06/15/2019 Scan HEALTH INFO SRVCS Scanned, Documents Social [...] on filedocumented in this encounter Care Teams Zone Supervisor Firearms Relationship Specialty Start Date End Date Kaushal Han MD [address] [place] [phone] PCP - General FAMILY PRACTICE 01/31/18 Jose Luis Rain MD [address] [place] [phone] ORTHOPAEDICS 02/05/18 Anjum Rajan MD [address] [address] CARDIOVASCULAR DISEASE 07/16/18 documented as of this encounter
--- OUTSIDE RECORDS SUMMARY | 2024-10-02 01:47 | XMS_ITS | Encounter Summary ---
Author Organization [facility] Address [facility] [place] [address] [place] [address] Care Team Providers Care Learning And Development Assistant Name Role Phone Kaushal Han MD Primary Care Provider Jose Luis Rain MD Unavailable [phone] Anjum Rajan MD Unavailable [phone] Encounter Details Date Type Department Care Team (Latest Contact Info) Description 07/27/2022 Travel Social History Tobacco Use Types Packs/Day [...] Exposure Response Date Recorded In the last 10 days, have yo u been in contact with someone who was confirmed or suspected to have Coronavirus/COVID-19? No / Unsure 07/27/2022 12:00 PM CDT documented as of this encounter Plan of Treatment Not on file documented as of this encounter Visit Diagnoses Not on filedocumented in this encounter Care Teams Learning And Development Assistant Relationship Specialty Start Date End Date Kaushal Han MD [address] [place] [phone] PCP - General FAMILY PRACTICE 01/31/18 Jose Luis Rain MD [address] [place] [phone] ORTHOPAEDICS 02/05/18 Anjum Rajan MD [address] [address] CARDIOVASCULAR DISEASE 07/16/18 documented as of this encounter
--- OUTSIDE RECORDS SUMMARY | 2024-10-02 01:47 | XMS_ITS | Encounter Summary ---
Author Organization [facility] Address [address] [place] [address]. [place] [address] [place] [address] Care Team Providers Care Bin Tripper Operator Name Role Phone Kaushal Han MD Primary Care Provider [phone] Jose Luis Rain MD Unavailable [phone] Anjum Rajan MD Unavailable [phone] Reason for Visit * Reason Comments Abdominal Pain Encounter Details Date Type Department Care Team (Late st Contact Info) Description 09/21/2024 5:57 PM MANAGER SOUND - 09/21/2024 9:29 PM MANAGER SOUND Emergency [facility] [place] [address] Sam Alvarado DO [address] [place] [id number] Abdominal Pain Discharge Disposition: Home or Self Care (Routine [...] Sign Reading Time Taken Comments Blood Pressure 145/90 09/21/2024 9:00 PM MANAGER SOUND Pulse 68 09/21/2024 9:00 PM MANAGER SOUND Temperature 37.1 ??C (98.7 ??F) 09/21/2024 5:25 PM CS T Respiratory Rate 18 09/21/2024 8:30 PM MANAGER SOUND Oxygen Saturation 100% 09/21/2024 9:00 PM MANAGER SOUND Inhaled Oxygen Concentration - - Weight 83.5 kg (184 lb) 09/21/2024 5:25 PM MANAGER SOUND Height 157.5 cm (5' 2 ) 09/21/2024 5:25 PM MANAGER SOUND Body Mass Index 33.65 09/21/2024 5:25 PM MANAGER SOUND documented in this encounter Discharge Instructions * Attachments The following attachments cannot be sent through Care Everywhere. * Umbilical Hernia, Adult (Irish) documented in this encounter Medications at Time of Discharge naloxone (NARCAN) 4 MG/0.1ML nasal spray 1 spray by Nasal route as needed for Opioid reversal. 1 each 09/21/2024 aspirin 81 MG chewable tablet Chew 81 mg by mouth daily. lisinopril 10 MG tablet Take 1 tablet by mouth daily. 0 01/23/2018 ondansetron (ZOFRAN-ODT) 4 MG disintegrating tablet Take 1 tablet (4 mg total) by mouth every 8 (eight) hours as needed for Nausea. 20 tablet 09/14/2024 HYDROcodone-acetamin ophen (NORCO) 5-325 MG tabletIndications:Ac [place] Pain < 3 Day Supply Take 1 tablet by mouth every 6 (six) hours as needed for Pain. Indications: Acute Pain < 3 Day Supply 12 tablet 09/21/2024 4 documented as of this encounter ED Notes * Sam Alvarado DO - 09/21/2024 9:29 PM CST Chief Complaint Chief Complaint Patient presents with Abdominal Pain History of Present Illness Patient is a 74 yo F here for fat containing umbilical hernia pain Patient afebrile and vitally stable Sent by clinic Patient pleasant to speak with 8/10 umbilical pain No recent surgeries Abdominal Pain Medical History ALLERGIES: Review of patient's allergies indicates: No Known Allergies MEDICATIONS: Prior to Admission medications Medication Sig Start Date End Date Taking? Authorizing Provider HYDROcodone-acetaminophen (NORCO) 5-325 MG tablet Take 1 tablet by mouth every 6 (six) hours as needed for Pain. Indications: Acute Pain < 3 Day Supply 09/21/24 09/24/24 Yes Sam Alvarado DO naloxone (NARCAN) 4 MG/0.1ML nasal spray 1 spray by Nasal route as needed for Opioid reversal. 09/21/24 Yes Sam Alvarado DO aspirin 81 MG chewable tablet Chew 81 mg by mouth daily. Doc [facility] lisinopril 10 MG tablet Take 1 tablet by mouth daily. 01/23/18 Doc [facility] ondansetron (ZOFRAN-ODT) 4 MG disintegrating tablet Take 1 tablet (4 mg total) by mouth every 8 (eight) hours as needed for Nausea. 09/14/24 Deshawn Dyer DO PAST MEDICAL HISTORY: Past Medical History: Diagnosis Date Arthritis osteo right hip Fracture of metatarsal 5th Hypertension OA (osteoarthritis) of hip left Obesity PAST SURGICAL HISTORY: Past Surgical History: Procedure Laterality Date COLONOSCOPY FLX DX W/COLLJ SPEC WHEN PFRMD HIP ARTHROPLASTY Right 01/2018 TOTAL HIP ARTHROPLASTY FAMILY HISTORY: Family History Problem Relation Name Age of Onset Cancer Mother stomach COPD Father Cancer Sister female Cancer Sister janay 66 breast SOCIAL HISTORY: Social History Tobacco Use Smoking status: Never Smokeless tobacco: Never Substance Use Topics Alcohol use: Yes Comment: socially Drug use: No Review of Systems Review of Systems Gastrointestinal: Positive for abdominal pain. All other systems reviewed and are negative. Physical Exam Filed Vitals: 09/21/24 1930 09/21/24201409/21/24 2030 09/21/24 2100 BP: (!) 152/69 95/80 130/82 (!) 145/90 Pulse: 65 68 Resp: 18 Temp: TempSrc: SpO2: 92% 100% 100% 100% Weight: Height: Physical Exam Vitals and nursing note reviewed. Constitutional: Appearance: Normal appearance. HENT: Head: Normocephalic and atraumatic. Right Ear: External ear normal. Left Ear: External ear normal. Nose: Nose normal. Mouth/Throat: Mouth: Mucous membranes are moist. Pharynx: Oropharynx is clear. Eyes: Extraocular Movements: Extraocular movements intact. Conjunctiva/sclera: Conjunctivae normal. Cardiovascular: Rate and Rhythm: Normal rate and regular rhythm. Pulses: Normal pulses. Pulmonary: Effort: Pulmonary effort is normal. Breath sounds: Normal breath sounds. No wheezing or rhonchi. Abdominal: General: Abdomen is flat. Palpations: Abdomen is soft. Tenderness: There is abdominal tenderness. There is guarding. Comments: Umbilical hernia with surrounding erythema, no discharge Musculoskeletal: Cervical back: Normal range of motion and neck supple. Neurological: Mental Status: She is alert. Diagnostic Studies / Procedures ELECTROCARDIOGRAMS: No results found for this visit on 09/21/24. LABORATORY STUDIES: Results for orders placed or performed during the hospital encounter of 09/21/24 CBC W/DIFF AUTOMATED Result Value Ref Range WBC 11.04 (H) 4.00 - 10.80 x10'3/uL RBC 4.34 4.10 - 5.40 x10'6/uL HGB 12.9 12.0 - 16.0 G/DL HCT 39.9 36.0 - 47.0 % MCV 91.9 78.0 - 100.0 FL MCH 29.7 27.0 - 31.0 PG MCHC 32.3 (L) 33.0 - 36.0 G/DL RDW 12.9 11.5 - 14.5 % PLT 327 150 - 350 x10'3/uL MPV 10.4 7.4 - 10.4 FL CBC COMMENT NORMAL REFERENCE RANGE NOT ESTABLISHED FOR THE PROPORTIONAL LEUKOCYTE DIFFERENTIAL. NEUTROPHILS % 76.3 % LYMPHOCYTES % 16.0 % MONOCYTES % 6.2 % EOSINOPHILS % 0.5 % BASOPHILS % 0.5 % IMMATURE GRANS % 0.5 % NRBC % 0.0 % ABS. NEUTROPHILS 8.44 (H) 1.60 - 8.30 x10'3/uL ABS. LYMPHOCYTES 1.77 0.80 - 4.70 x10'3/uL ABS. MONOCYTES 0.68 0.00 - 1.50 x10'3/uL ABS. EOSINOPHILS 0.05 0.00 - 0.40 x10'3/uL ABS. BASOPHILS 0.05 0.00 - 0.20 x10'3/uL ABS. IMMATURE GRANULOCYTES 0.05 (H) 0.00 - 0.03 x10'3/uL ABS. NUCLEATED RBC'S 0.00 0.00 - 0.01 x10'3/uL COMPREHENSIVE METABOLIC PANEL Result Value Ref Range SODIUM S/P/B 137 136 - 145 MMOL/L POTASSIUM S/P/B 4.7 3.5 - 5.1 MMOL/L CHLORIDE S/P/B 102 98 - 107 MMOL/L CO2 29.9 21.0 - 32.0 MMOL/L GLUCOSE 110 (H) 70 - 99 MG/DL BUN 16 6 - 24 MG/DL CREATININE S/P/B 0.83 0.55 - 1.02 MG/DL CALCIUM S/P/B 9.3 8.4 - 10.5 MG/DL BILIRUBIN TOTAL S/P/B 0.4 0.2 - 1.0 MG/DL ALKALINE PHOSPHATASE S/P/B 102 55 - 142 U/L AST 11 (L) 15 - 37 U/L ALT 19 14 - 59 U/L TOTAL PROTEIN S/P/B 7.3 6.4 - 8.2 G/DL ALBUMIN S/P/B 2.9 (L) 3.4 - 5.0 G/DL ANION GAP 5.1 5.0 - 15.0 MMOL/L OSMOLALITY (CALC) 286 MOSM/KG GFR ESTIMATE 73 (L) >89 ML/MIN/1.73 M2 GFR NOTES GFR REFERENCES: LACTIC ACID Result Value Ref Range LACTIC ACID VENOUS 1.0 0.4 - 2.0 MMOL/L LIPASE Result Value Ref Range LIPASE 42 16 - 77 UNITS/L URINALYSIS Result Value Ref Range COLOR (U) YELLOW TRANSPARENCY CLEAR SPECIFIC GRAVITY (U) 1.015 1.000 - 1.025 U PH 7.0 5.0 - 8.0 LEUKOCYTES (U) NEGATIVE NEGATIVE NITRITES NEGATIVE NEGATIVE PROTEIN RANDOM (U) NEGATIVE NEGATIVE GLUCOSE (U) NEGATIVE NEGATIVE KETONES MG/DL (U) NEGATIVE NEGATIVE UROBILINOGEN 0.2 <1.0 EU/DL BILIRUBIN (U) NEGATIVE NEGATIVE BLOOD (U) NEGATIVE NEGATIVE WBC/HPF 0-5 0 - 5 /HPF EPI/LPF OCCASIONAL /LPF BACTERIA (U) TRACE /HPF MUCUS PRESENT IMAGING STUDIES No orders to display ED Course / Medical Decision Making Medical Decision Making Patient is a 74 yo F sent by clinic for fat containing umbilical hernia on ct today Patient afebrile and vitally stable Hx form patient chart review by me Exam reassuring 3+ labs and 1 ct abd result reviewed by me No success with external reduction WDX: Fat umbilical hernia acute mild complexity DDX: I considered hernia of bowel, SBO, ischemia but these are less likely SDOH: patient has PCP and fmaily support Contact info given for surgeon for elective surgery Passed PO and ambulation challenge [place] for home Patient knows to not mix narcotics with alcohol or other controlled substances and narcan for opiodreversal They will return for surgical consult if worsening condition No surgical emergency at this time Patient discharged stable All questions answered Amount and/or Complexity of Data Reviewed Labs: ordered. Clinical Impression Umbilical hernia (Primary) Abdominal pain Disposition: Discharge Sam Alvarado DO 09/21/242325 GER SOUND * Carin Tate RN - 09/21/2024 5:20 PM CST PT C/O MID ABDOMINAL PAIN. PT REPORTS HAD CT SCAN OF ABDOMEN THIS AFTERNOON THAT SHOWED A INCARCERATED UMBILICAL HERNIA AND AND WAS INSTRUCTED BY PMD TO COME TO ER. GER SOUND documented in this encounter Plan of Treatment Not on file documented as of this encounter Procedures Procedure Name Priority Date/Time Associated Diagnosis Comments HC URINALYSIS AUTO W/MICRO STAT 09/21/2024 8:05 PM MANAGER SOUND COMPREHENSIVE METABOLIC PANEL STAT 09/21/2024 5:54 PM MANAGER SOUND LACTIC ACID STAT 09/21/2024 5:54 PM MANAGER SOUND CBC W/DIFF AUTOMATED STAT 09/21/2024 5:54 PM MANAGER SOUND LIPASE STAT 09/21/2024 5:54 PM MANAGER SOUND documented in this encounter Results * URINALYSIS (09/21/2024 8:05 PM MANAGER SOUND) COLOR (U) YELLOW 09/21/2024 8:21 PM MANAGER SOUND [facility] TRANSPARENCY CLEAR 09/21/2024 8:21 PM MANAGER SOUND [facility] SPECIFIC GRAVITY (U) 1.015 1.000 - 1.025 09/21/2024 8:21 PM MANAGER SOUND [facility] U PH 7.0 5.0 - 8.0 09/21/2024 8:21 PM MANAGER SOUND [facility] LEUKOCYTES (U) NEGATIVE NEGATIVE 09/21/2024 8:21 PM MANAGER SOUND [facility] NITRITES NEGATIVE NEGATIVE 09/21/2024 8:21 PM MANAGER SOUND [facility] PROTEIN RANDOM (U) NEGATIVE NEGATIVE 09/21/2024 8:21 PM MANAGER SOUND [facility] GLUCOSE (U) NEGATIVE NEGATIVE 09/21/2024 8:21 PM MANAGER SOUND [facility] KETONES MG/DL (U) NEGATIVE NEGATIVE 09/21/2024 8:21 PM MANAGER SOUND [facility] UROBILINOGEN 0.2 <1.0 EU/DL 09/21/2024 8:21 PM MANAGER SOUND [facility] BILIRUBIN (U) NEGATIVE NEGATIVE 09/21/2024 8:21 PM MANAGER SOUND [facility] BLOOD (U) NEGATIVE NEGATIVE 09/21/2024 8:21 PM MANAGER SOUND [facility] WBC/HPF 0-5 0 - 5 /HPF 09/21/2024 8:21 PM MANAGER SOUND [facility] EPI/LPF OCCASIONAL /LPF 09/21/2024 8:21 PM MANAGER SOUND [facility] BACTERIA (U) TRACE /HPF 09/21/2024 8:21 PM MANAGER SOUND [facility] MUCUS PRESENT 09/21/2024 8:21 PM MANAGER SOUND [facility] URINE SPECIMEN OBTAINED BY CLEAN CATCH PROCEDURE / Unknown 09/21/2024 8:05 PM MANAGER SOUND Sam Alvarado DO URINE ORDERABLES Final Result [facility] [address] [place] [address], * LIPASE (09/21/2024 5:54 PM MANAGER SOUND) LIPASE 42 16 - 77 UNITS/L 09/21/2024 6:21 PM MANAGER SOUND [facility] 09/21/2024 5:54 PM MANAGER SOUND Sam Alvarado DO LABORATORY Final Result [facility] [address] [place] [address], * LACTIC ACID (09/21/2024 5:54 PM MANAGER SOUND) LACTIC ACID VENOUS 1.0 0.4 - 2.0 MMOL/L 09/21/2024 6:26 PM MANAGER SOUND [facility] 09/21/2024 5:54 PM MANAGER SOUND Sam Alvarado DO LABORATORY Final Result [facility] [address] [place] [address], * (ABNORMAL) COMPREHENSIVE METABOLIC PANEL (09/21/2024 5:54 PM MANAGER SOUND) Pathologist [facility] SODIUM S/P/B 137 136 - 145 MMOL/L 09/21/2024 6:21 PM MANAGER SOUND [facility] POTASSIUM S/P/B 4.7 3.5 - 5.1 MMOL/L 09/21/2024 6:21 PM [facility] CHLORIDE S/P/B 102 98 - 107 MMOL/L 09/21/2024 6:21 PM MANAGER SOUND [facility] CO2 29.9 21.0 - 32.0 MMOL/L 09/21/2024 6:21 PM [facility] GLUCOSE 110(H) 70 - 99 MG/DL 09/21/2024 6:21 PM [facility] Comment: FASTING GLUCOSE 100 TO 125 MG/DL IS CONSISTENT WITH IMPAIRED FASTING GLUCOSE. FASTING GLUCOSE >125 MG/DL IS CONSISTENT WITH DIABETES. RANDOM GLUCOSE >200 MG/DL WITH HYPERGLYCEMIC SYMPTOMS IS CONSISTENT WITH DIABETES. PER ADA GUIDELINES BUN 16 6 - 24 MG/DL 09/21/2024 6:21 PM MANAGER SOUND [facility] CREATININE S/P/B 0.83 0.55 - 1.02 MG/DL 09/21/2024 6:21 PM MANAGER SOUND [facility] CALCIUM S/P/B 9.3 8.4 - 10.5 MG/DL 09/21/2024 6:21 PM [facility] BILIRUBIN TOTAL S/P/B 0.4 0.2 - 1.0 MG/DL 09/21/2024 6:21 PM [facility] Comment: THIS ASSAY IS NOT RECOMMENDED FOR PATIENTS UNDERGOING TREATMENT WITH ELTROMBOPAG DUE TO THE POTENTIAL FOR FALSELY ELEVATED RESULTS. ALKALINE PHOSPHATASE S/P/B 102 55 - 142 U/L 09/21/2024 6:21 PM [facility] AST 11(L) 15 - 37 U/L 09/21/2024 6:21 PM [facility] ALT 19 14 - 59 U/L 09/21/2024 6:21 PM [facility] TOTAL PROTEIN S/P/B 7.3 6.4 - 8.2 G/DL 09/21/2024 6:21 PM [facility] ALBUMIN S/P/B 2.9(L) 3.4 - 5.0 G/DL 09/21/2024 6:21 PM [facility] ANION GAP 5.1 5.0 - 15.0 MMOL/L 09/21/2024 6:21 PM [facility] OSMOLALITY (CALC) 286 MOSM/KG 024 6:21 PM [facility] Comment:REFERENCE RANGE NOT ESTABLISHED GFR ESTIMATE 73(L) >89 ML/MIN/1. 73 M2 09/21/2024 6:21 PM [facility] GFR NOTES GFR REFERENCE S: 09/21/2024 6:21 PM [facility] Comment: THE ESTIMATED GFR IS CALCULATED USING THE 2020 CKD-EPI EQUATION. THE FOLLOWING CATEGORIES FOR GRADING RENAL FUNCTION ARE RECOMMENDED BY THE INTERNATIONAL SOCIETY OF NEPHROLOGY (KDIGO 2012 CLINICAL PRACTICE GUIDELINE). G1,NORMAL OR HIGH: >89 ml/min/1.73 m2 G2,MILDLY DECREASED: 60-89 ml/min/1.73 m2 G3A,MILDLY TO MODERATELY DECREASED: 45-59 ml/min/1.73 m2 G3B,MODERATELY TO SEVERELY DECREASED: 30-44 ml/min/1.73 m2 G4,SEVERELY DECREASED: 15-29 ml/min/1.73 m2 G5,KIDNEY FAILURE: <15 ml/min/1.73 m2 09/21/2024 5:54 PM MANAGER SOUND Sam Alvarado DO LABORATORY Final Result [facility] [address] [place] [address], * (ABNORMAL) CBC W/DIFF AUTOMATED (09/21/2024 5:54 PM MANAGER SOUND) WBC 11.04(H) 4.00 - 10.80 x10'3/uL 09/21/2024 6:12 PM MANAGER SOUND [facility] RBC 4.34 4.10 - 5.40 x10'6/uL 09/21/2024 6:12 PM MANAGER SOUND [facility] HGB 12.9 12.0 - 16.0 G/DL 09/21/2024 6:12 PM MANAGER SOUND [facility] HCT 39.9 36.0 - 47.0 % 09/21/2024 6:12 PM MANAGER SOUND [facility] MCV 91.9 78.0 - 100.0 FL 09/21/2024 6:12 PM MANAGER SOUND [facility] MCH 29.7 27.0 - 31.0 PG 09/21/2024 6:12 PM MANAGER SOUND [facility] MCHC 32.3(L) 33.0 - 36.0 G/DL 09/21/2024 6:12 PM MANAGER SOUND [facility] RDW 12.9 11.5 - 14.5 % 09/21/2024 6:12 PM MANAGER SOUND [facility] PLT 327 150 - 350 x10'3/uL 09/21/2024 6:12 PM MANAGER SOUND [facility] MPV 10.4 7.4 - 10.4 FL 09/21/2024 6:12 PM MANAGER SOUND [facility] CBC COMMENT NORMAL REFERENCE RANGE NOT ESTABLISHED FOR THE PROPORTIONAL LEUKOCYTE DIFFERENTIAL. 09/21/2024 6:12 PM MANAGER SOUND [facility] NEUTROPHILS % 76.3 % 09/21/2024 6:12 PM MANAGER SOUND [facility] LYMPHOCYTES % 16.0 % 09/21/2024 6:12 PM MANAGER SOUND [facility] MONOCYTES % 6.2 % 09/21/2024 6:12 PM MANAGER SOUND [facility] EOSINOPHILS % 0.5 % 09/21/2024 6:12 PM MANAGER SOUND [facility] BASOPHILS % 0.5 % 09/21/2024 6:12 PM MANAGER SOUND [facility] IMMATURE GRANS % 0.5 % 09/21/20 6:12 PM MANAGER SOUND [facility] NRBC % 0.0 % 09/21/2024 6:12 PM MANAGER SOUND [facility] ABS. NEUTROPHILS 8.44(H) 1.60 - 8.30 x10'3/uL 09/21/2024 6:12 PM MANAGER SOUND [facility] ABS. LYMPHOCYTES 1.77 0.80 - 4.70 x10'3/uL 09/21/2024 6:12 PM MANAGER SOUND [facility] ABS. MONOCYTES 0.68 0.00 - 1.50 x10'3/uL 09/21/2024 6:12 PM MANAGER SOUND [facility] ABS. EOSINOPHILS 0.05 0.00 - 0.40 x10'3/uL 09/21/2024 6:12 PM MANAGER SOUND [facility] ABS. BASOPHILS 0.05 0.00 - 0.20 x10'3/uL 09/21/2024 6:12 PM MANAGER SOUND [facility] ABS. IMMATURE GRANULOCYTES 0.05(H) 0.00 - 0.03 x10'3/uL 09/21/2024 6:12 PM MANAGER SOUND [facility] ABS. NUCLEATED RBC'S 0.00 0.00 - 0.01 x10'3/uL 09/21/2024 6:12 PM MANAGER SOUND [facility] 09/21/2024 5:54 PM MANAGER SOUND Sam Alvarado DO LABORATORY Final Result [facility] [address] [place] [address], documented in this encounter Visit Diagnoses Diagnosis Umbilical hernia- Primary Umbilical hernia without mention of obstruction or gangrene Abdominal pain Abdominal pain, unspecified site documented in this encounter Administered Medications Inactive Administered Medications - up to 3 most recent administrations Medication Order MAR Action Action Date Dose Rate Site HYDROcodone-acetaminophen (NORCO) 5-325 MG tablet 1 tablet 1 tablet, Oral, Once, 1 dose, On Sat09/21/24 at 2100, Maximum dose of acetaminophen is 4000 mg from all sources in 24 hours. Given 09/21/2024 9:04 PM MANAGER SOUND 1 tablet LORazepam (ATIVAN) injection 1 mg 1 mg, Intravenous, Once, 1 dose, On Sat09/21/24 at 1815, For IV use, further dilute with an equal volume of saline. Do not exceed a rate of 2 mg/min. Given 09/21/2024 6:42 PM MANAGER SOUND 1 mg documented in this encounter Active and Recently Administered Medications Times are shown in MANAGER SOUND. Scheduled Medication Order 09/19/2024 09/20/2024 09/21/2024 HYDROcodone-acetaminophen (NORCO) 5-325 MG tablet 1 tablet (COMPLETED) 1 tablet, Oral, Once, 1 dose, On Sat09/21/24 at 2100, Maximum dose of acetaminophen is 4000 mg from all sources in 24 hours. 2103 (Given - Provid er: Carin Tate RN) LORazepam (ATIVAN) injection 1 mg (COMPLETED) 1 mg, Intravenous, Once, 1 dose, On Sat09/21/24 at 1815, For IV use, further dilute with an equal volume of saline. Do not exceed a rate of 2 mg/min. 1841 (Given - Provid er: Carin Tate RN) documented in this encounter Care Teams Bin Tripper Operator Relationship Specialty Start Date End Date Kaushal Han MD [address] [place] [phone] PCP - General FAMILY PRACTICE 01/31/18 Jose Luis Rain MD [address] [place] [phone] ORTHOPAEDICS 02/05/18 Anjum Rajan MD [facility] [address] [address] CARDIOVASCULAR DISEASE 07/16/18 documented as of this encounter
--- OUTSIDE RECORDS SUMMARY | 2024-10-02 01:47 | XMS_ITS | Encounter Summary ---
Author Organization [facility] Address [facility] [place] [address] [place] [address] Care Team Providers Care Help Desk Supervisor Name Role Phone Kaushal Han MD Primary Care Provider [phone] Jose Luis Rain MD Unavailable [phone] Anjum Rajan MD Unavailable [phone] Encounter Details Date Type Department Care Team (Latest Contact Info) Description 10/17/2023 Travel Social History Tobacco Use Types Packs/Day [...] on filedocumented in this encounter Care Teams Help Desk Supervisor Relationship Specialty Start Date End Date Kaushal Han MD [address] [place] [phone] PCP - General FAMILY PRACTICE 01/31/18 Jose Luis Rain MD [address] [place] [phone] ORTHOPAEDICS 02/05/18 Anjum Rajan MD [address] [address] CARDIOVASCULAR DISEASE 07/16/18 documented as of this encounter
--- OUTSIDE RECORDS SUMMARY | 2024-10-02 01:47 | XMS_ITS | Encounter Summary ---
Author Organization [facility] Address [facility] [place] [address] [place] [address] Care Team Providers Care Gauge And Weigh Machine Adjuster Name Role Phone Kaushal Han MD Primary Care Provider [phone] Jose Luis Rain MD Unavailable [phone] Anjum Rajan MD Unavailable [phone] Reason for Visit * Imaging (Routine) - Closed Specialty Diagnoses / Procedures Referred By Spencer santos Referred To Contact RADIOLOGY Diagnoses Visit for screening mammogram Procedures MG SCREENING W JAMILA DANNY DIGDuane Cruz PA [address] [place] [address] Phone: tel: fax: Referral ID Status Reason Start Date Expiration Date Visits Re quested Visits Authorized [id number] Closed 03/21/2020 04/20/2021 1 1 Encounter Details Date Type Department Care Team (Latest Contact Info) Description 03/24/2020 6:07 AM CDT - 03/24/2020 11:59 PM CDT Hospital Encounter [facility] [address] [place] [address] Duane Kaufman PA [address] [place] [phone] Discharge Disposition: Home or Self Care [...] AM CDT documented as of this encounter Medications [...] MG SCREENING W JAMILA DANNY DIGI Routine 03/24/2020 6:27 AM CDT Visit for screening mammogram documented in this encounter Results * MG SCREENING W JAMILA DANNY DIGI (03/24/2020 6:27 AM CDT) Anatomical Region Laterality Modality Breast Bilateral Mammography 03/24/2020 8:11 AM CDT Impressions 03/24/2020 8:12 AM CDT IMPRESSION: No suspicious change since the previous exams. Recommendation: 1: Routine screening mammogram ??Bilateral ?? in 1 Year Assessment: ACR BI-RADS Category 2 - Benign. Interpreted By: Mervin Lafleur, 03/24/2020 8:11 AM Narrative 03/24/2020 8:12 AM CDT Examination: Digital screening mammogram with CAD. Clinical history: Asymptomatic patient presents for routine screening. Comparison: 02/11/2019, 02/05/2019, 01/29/2018. Technique: Bilateral digital mammograms. The exam was interpreted with the use of a computer-aided detection (CAD) system. ??Additional 3-D tomosynthesis images were acquired. Tissue density: The breast tissue contains scattered fibroglandular densities. Findings: The breast tissue contains scattered fibroglandular densities. ?? Benign-appearing calcification noted. No suspicious mass, microcalcification or area of architectural distortion can be identified. From a mammographic standpoint, routine followup in one year would seem adequate. us Duane GONZALEZ MAMMO Final Result documented in this encounter Visit Diagnoses Not on filedocumented in this encounter Care Teams Gauge And Weigh Machine Adjuster Relationship Specialty Start Date End Date Kaushal Han MD [address] [place] [phone] PCP - General FAMILY PRACTICE 01/31/18 Jose Luis Rain MD [address] [place] [phone] ORTHOPAEDICS 02/05/18 Anjum Rajan MD [address] [address] CARDIOVASCULAR DISEASE 07/16/18 documented as of this encounter
--- OUTSIDE RECORDS SUMMARY | 2024-10-02 01:47 | XMS_ITS | Encounter Summary ---
Author Organization [facility] - [facility] Address [facility] [facility] [place] [address] [place] [address] Care Team Providers Care Well Treatment Offsider Name Role Phone Kaushal Han MD Primary Care Provider Jose Luis Rain MD Unavailable [phone] Anjum Rajan MD Unavailable [phone] Encounter Details Date Type Department Care Team (Late st Contact Info) Description 10/24/2018 Orders Only [facility] Medical Group Multispecialty Care - [facility] [address] [place] [address] Jose Luis Rain MD [address] [place] [id number] Social History Tobacco Use Types Packs/Day Years [...] of this encounter Results * OXR PELVIS AP+LT HIP 2V (11/03/2018 9:15 AM INSTRUMENT REPAIRER HELPER) Anatomical Region Laterality Modality Pelvis, Hip Radiographic Lary ging Narrative 11/03/2018 4:40 PM INSTRUMENT REPAIRER HELPER PROCEDURE: OXR PELVIS AP+LT HIP 2V VIEWS: 3 DATE: ??11/03/18 CLINICAL INDICATION: history left total hip FINDINGS: AP pelvis and 2 views left hip AP and shoot through lateral. ?? Uncemented bilateral total hip arthroplasties. ??No dislocations or fractures. ??Leg lengths appear equal. ??Degenerative changes lumbar spine are partially visualized. IMPRESSION: Stable left total hip arthroplasty. us Jose Luis Rain MD GENERAL IMAGING Final Result documented in this encounter Visit Diagnoses Diagnosis History of total hip arthroplasty, left- Primary documented in this encounter Care Teams Well Treatment Offsider Relationship Specialty Start Date End Date Kaushal Han MD [address] [place] [phone] PCP - General FAMILY PRACTICE 01/31/18 Jose Luis Rain MD [address] [place] [phone] ORTHOPAEDICS 02/05/18 Anjum aRjan MD [address] [address] CARDIOVASCULAR DISEASE 07/16/18 documented as of this encounter
--- OUTSIDE RECORDS SUMMARY | 2024-10-02 01:47 | XMS_ITS | Encounter Summary ---
Author Organization [facility] - [facility] Address [facility]6 [facility] [place] [address] [place] [address] Care Team Providers Care Engineering Tech Name Role Phone Kaushal Han MD Primary Care Provider Jose Luis Rain MD Unavailable [phone] Anjum Rajan MD Unavailable [phone] Reason for Visit * Reason Onset Date Comments Fall 05/27/2019 Fell yesterday t geovanna Appointment Request 05/27/2019 Encounter Details Date Type Department Care Team (Late st Contact Info) Description 05/27/2019 Telephone [facility] Medical Group Multispecialty Care - [address], [address] [place] [address] Jose Luis Rain MD [address] [place] [address] Fall (Fell yesterday twice); Appointment Request Social History Tobacco Use Types Packs/Day Years [...] as of this encounter Progress Notes * Jonel Guerra MA - 05/27/2019 3:18 PM CDT Not able to reach patient by phone, but Yojana will see. LMTCB. Pt will need a 40 minute minute appointment for hip pain on M,W, F. * Kinjal Ansari - 05/27/2019 9:35 AM CDT Pt called saying she is very concerned because she had her legs give out on her and she feels like it is about her hips yesterday twice. She is very concerned and I gave her a possible appt for June 08, for next available appt, but she wanted to know if there is something sooner? documented in this encounter Plan of Treatment Not on file documented as of this encounter Visit Diagnoses Not on filedocumented in this encounter Care Teams Engineering Tech Relationship Specialty Start Date End Date Kaushal Han MD [address] [place] [phone] PCP - General FAMILY PRACTICE 01/31/18 Jose Luis Rain MD [address] [place] [phone] ORTHOPAEDICS 02/05/18 Anjum Rajan MD [facility] [address] [address] CARDIOVASCULAR DISEASE 07/16/18 documented as of this encounter
--- OUTSIDE RECORDS SUMMARY | 2024-10-02 01:47 | XMS_ITS | Encounter Summary ---
Author Organization [facility] - [facility] Address [facility] [place] [address] [place] [address] Care Team Providers Care Urban Anthropologist Name Role Phone Kaushal Han MD Primary Care Provider Jose Luis Rain MD Unavailable [phone] Anjum Rajan MD Unavailable [phone] Encounter Details Date Type Department Care Team (Latest Contact Info) Description 10/30/2023 Travel Social History Tobacco Use Types Packs/Day [...] on filedocumented in this encounter Care Teams Urban Anthropologist Relationship Specialty Start Date End Date Kaushal Han MD [address] [place] [phone] PCP - General FAMILY PRACTICE 01/31/18 Jose Luis Rain MD [address] [place] [phone] ORTHOPAEDICS 02/05/18 Anjum Rajan MD [address] [address] CARDIOVASCULAR DISEASE 07/16/18 documented as of this encounter
--- OUTSIDE RECORDS SUMMARY | 2024-10-02 01:47 | XMS_ITS | Encounter Summary ---
Author Organization [facility] Address [facility]6 [place] [address] [place] [address] Care Team Providers Care Form Setter Steel Forms Name Role Phone Kaushal Han MD Primary Care Provider [phone] Grayson Munroe MD Unavailable [phone] Anjum Rajan MD Unavailable [phone] Reason for Visit * Reason Comments Follow Up 15 weeks out Lt hip arthroplasty * Consultation/Treatment (Routine) - Closed Specialty Diagnoses / Procedures Referred By Spencer t Referred To Contact ORTHOPAEDIC SURGERY / ORTHOPAEDICS Diagnoses F/U left total hip 07/22/2018 Procedures FOLLOW UP Kaushal Han MD [address] [place] [phone] Phone: tel: fax: Grayson Munroe MD [address] [place] [address] Phone: tel: fax: Referral ID Status Reason Start Date Expiration Date Visits Re quested Visits Authorized [id number] Closed 11/03/2018 11/04/2019 100 100 Encounter Details Date Type Department Care Team (Latest Contact Info) Description 11/03/2018 9:20 AM SPECIALIST ICU Office Visit [facility] Medical Group Multispecialty Care - [facility] [address] [facility], [address] [place] [phone] Grayson Munroe MD [address] [place] [address] Follow Up (15 weeks out Lt hip arthroplasty ) Social History Tobacco Use Types Packs/Day [...] Sign Reading Time Taken Comments Blood Pressure 137/82 11/03/2018 9:23 AM SPECIALIST ICU Pulse 59 11/03/2018 9:23 AM SPECIALIST ICU Temperature 36.4 ??C (97.5 ??F) 11/03/2018 9:23 AM CS T Respiratory Rate - - Oxygen Saturation - - Inhaled Oxygen Concentration - - Weight 81.1 kg (178 lb 11.2 oz) 11/03/2018 9:23 AM SPECIALIST ICU Height - - Body Mass Index 32.68 08/04/2018 8:09 AM SPECIALIST ICU documented in this encounter Progress Notes * Grayson Munroe MD - 11/03/2018 9:20 AM CST Images from the original note were not included. Office Visit Reason for Visit: Follow Up (15 weeks out Lt hip arthroplasty ) History of Present Illness: She says she doing very well. No real complaints about the hip. She is ambulate without problems. She is watching her grandkids and getting down on the floor to play with them. Vitals: Filed Vitals: 11/03/18 0923 BP: 137/82 Pulse: 59 Temp: 97.5 ??F (36.4 ??C) Weight: 81.1 kg (178 lb 11.2 oz) Physical Exam: Physical Exam Constitutional: She is oriented to person, place, and time. She appears well- developed and well-nourished. HENT: Head: Normocephalic. Eyes: EOM are normal. Cardiovascular: Intact distal pulses. Pulmonary/Chest: Effort normal. No respiratory distress. Neurological: She is alert and oriented to person, place, and time. Psychiatric: She has a normal mood and affect. Ortho: She walks with mild antalgia. Limp. Just a little bit of unevenness about her stride. Membrane up to 90 degrees hip flexion, she has pain-free range of motion rotation. Symmetric right to left side. Leg lengths are equal. Hip flexion actively is nonpainful. OXR PELVIS AP+LT HIP 2V PROCEDURE: OXR PELVIS AP+LT HIP 2V VIEWS: 3 DATE: 09/01/18 CLINICAL INDICATION: left hip total replacement 07/22/18 FINDINGS: Bilateral total hip arthroplasties visualized. No signs of any subsidence or loosening. Lumbar spondylosis noted. IMPRESSION: Stable bilateral total hip arthroplasties. Assessment: 1. 3 and 1/2 months status post left total hip arthroplasty 2. 9 months status post right total hip arthroplasty Plan: Bilateral total hip arthroplasties doing well. Continue activities without restriction. Antibiotic dental prophylaxis. Follow-up in summer for x-rays AP pelvis 2 views bilateral hips. Procedures Summary: Deb was seen today for follow up. Diagnoses and all orders for this visit: Aftercare following bilateral hip joint replacement surgery ROS: Review of Systems Constitutional: Negative for chills, fever and malaise/fatigue. Cardiovascular: Negative for chest pain and palpitations. Gastrointestinal: Negative for constipation, diarrhea, nausea and vomiting. Genitourinary: Negative for frequency and urgency. Neurological: Negative for dizziness and headaches. Psychiatric/Behavioral: Negative for depression. The patient is not nervous/anxious. Medications: Current Outpatient Medications: ??? aspirin 81 MG chewable tablet, Chew 81 mg by mouth daily., Disp: , Rfl: ??? hydrocodone-acetaminophen 5-325 MG tablet, Take 1 tablet by mouth every 6 (six) hours as neededfor Pain., Disp: 20 tablet, Rfl: 0 ??? lisinopril 10 MG tablet, Take 1 tablet by mouth daily., Disp: , Rfl: 0 ??? Naproxen Sodium (ALEVE) 220 MG Cap, , Disp: , Rfl: ??? ampicillin 500 MG capsule, Take 4 capsules 1 hour before procedur, Disp: 4 capsule, Rfl: 2 Allergies: No Known Allergies Medical History: Past Medical History: Diagnosis Date ??? Arthritis osteo right hip ??? Fracture of metatarsal 5th ??? Hypertension ??? OA (osteoarthritis) of hip left ??? Obesity Surgical History: Past Surgical History: Procedure Laterality Date ??? COLONOSCOPY ??? HIP ARTHROPLASTY Right 01/2018 Social History: Social History Socioeconomic History ??? Marital status: Spouse name: Not on file ??? Number of children: Not on file ??? Years of education: Not on file ??? Highest education level: Not on file Social Needs ??? Financial resource strain: Not on file ??? Food insecurity - worry: Not on file ??? Food insecurity - inability: Not on file ??? Transportation needs - medical: Not on file ??? Transportation needs - non-medical: Not on file Occupational History ??? Not on file Tobacco Use ??? Smoking status: Never Smoker ??? Smokeless tobacco: Never Used Substance and Sexual Activity ??? Alcohol use: Yes Comment: socially ??? Drug use: No ??? Sexual activity: Not on file Other Topics Concern ??? Not on file Social History Narrative ??? Not on file Family History: Family History Problem Relation Name Age of Onset ??? Cancer Mother stomach ??? COPD Father ??? Cancer Sister female ??? Cancer Sister janay breast GRAYSON MUNROE MD 11/03/2018 [facility] ICU documented in this encounter Plan of Treatment Not on file documented as of this encounter Visit Diagnoses Diagnosis Aftercare following bilateral hip joint replacement surgery- Primary S/P hip replacement, left S/P hip replacement, right documented in this encounter Care Teams Form Setter Steel Forms Relationship Specialty Start Date End Date Kaushal Han MD [address] [place] [phone] PCP - General FAMILY PRACTICE 01/31/18 Grayson Munroe MD [address] [place] [phone] ORTHOPAEDICS 02/05/18 Anjum Rajan MD [facility] [address] [address] CARDIOVASCULAR DISEASE 07/16/18 documented as of this encounter
--- OUTSIDE RECORDS SUMMARY | 2024-10-02 01:47 | XMS_ITS | Encounter Summary ---
Author Organization [facility] Address [facility]6 [facility]. [place], [place] [address] [place] [address] Care Team Providers Care Geography Faculty Member Name Role Phone Kaushal Han MD Primary Care Provider [phone] Jose Luis Rain MD Unavailable [phone] Anjum Rajan MD Unavailable [phone] Reason for Referral * Imaging (Routine) - New Request Specialty Diagnoses / Procedures Referred By Contac t Referred To Contact RADIOLOGY Diagnoses Encounter for screening mammogram for malignant neoplasm of breast Procedures MG SCREENING W JAMILA Duane Little PA [address] [place] [phone] Phone: tel: fax: Referral ID Status Reason Start Date Expiration Date V isits Requested Visits Authorized [id number] New Request 08/07/2023 10/07/2024 1 1 LINER Reason for Visit * Imaging (Routine) - New Request Specialty Diagnoses / Procedures Referred By Contac t Referred To Contact RADIOLOGY Diagnoses Encounter for screening mammogram for malignant neoplasm of breast Procedures MG SCREENING W JAMILA DANNY Duane Mcmillan PA [address] [place] [phone] Phone: tel: fax: Referral ID Status Reason Start Date Expiration Date V isits Requested Visits Authorized [id number] New Request 08/07/2023 10/07/2024 1 1 Encounter Details Date Type Department Care Team (Latest Contact Info) Description 10/17/2023 1:27 PM DOOR LINER - 10/17/2023 11:59 PM DOOR LINER Hospital Encounter [facility] [address] [place] [address] Duane Rowan, PA [address] [place] [address] Discharge Disposition: Home or Self Care [...] MG SCREENING W JAMILA DANNY DIGI Routine 10/17/2023 2:20 PM DOOR LINER Encounter for screening mammogram for malignant neoplasm of breast documented in this encounter Results * MG SCREENING W JAMILA DANNY DIGI (10/17/2023 2:20 PM DOOR LINER) Anatomical Region Laterality Modality Breast Bilateral Mammography 10/17/2023 4:25 PM DOOR LINER Narrative 10/17/2023 4:27 PM DOOR LINER Examination: Digital screening mammogram with CAD. Clinical history: Asymptomatic patient presents for routine screening. Comparison: 07/25/2022, 03/27/2021, 03/24/2020, 01/29/2018. Technique: Bilateral digital mammograms. The exam was interpreted with the use of a computer-aided detection (CAD) system. ??Additional 3-D tomosynthesis images were acquired. Tissue density: The breast tissue contains scattered fibroglandular densities. Findings: ??The breasts again demonstrate mixed fat and fibroglandular tissue. Benign-appearing calcification noted. The left breast is otherwise unremarkable. On the right, there is questioned developing opacity and possible architectural distortion near the 11:30 position projecting approximately 5 cm deep to the nipple and flagged by the [employer] technical business systems analyst both projections requiring additional diagnostic imaging for more complete assessment. No suspicious microcalcification is identified. IMPRESSION: Right breast opacity as described. Additional diagnostic imaging is recommended for more complete assessment. Recommendation: 1: Further imaging ??Right ?? Return for Routine Follow-Up: No Assessment: ACR BI-RADS Category 0 - Need additional imaging. Ordered By: DUANE ROWAN Interpreted By: Mervin Lafleur MD, 10/17/2023 4:25 PM Duane Rowan [place] MAMMO Final Result documented in this encounter Visit Diagnoses Diagnosis Encounter for screening mammogram for malignant neoplasm of breast Other screening mammogram documented in this encounter Care Teams Geography Faculty Member Relationship Specialty Start Date End Date Kaushal Han MD [address] [place] [phone] PCP - General FAMILY PRACTICE 01/31/18 Jose Luis Rain MD [address] [place] [phone] ORTHOPAEDICS 02/05/18 Anjum Rajan MD [facility] [address] [address] CARDIOVASCULAR DISEASE 07/16/18 documented as of this encounter
--- OUTSIDE RECORDS SUMMARY | 2024-10-02 01:47 | XMS_ITS | Encounter Summary ---
Author Organization [facility] Address [address] [place] [address]. [place] [address] [place] [address] Care Team Providers Care Federal Mediator Name Role Phone Kaushal Han MD Primary Care Provider Jose Luis Rain MD Unavailable [phone] Anjum Rajan MD Unavailable [phone] Reason for Visit * Reason Comments Chest Pain Encounter Details Date Type Department Care Team (Late st Contact Info) Description 09/13/2024 8:22 PM HEAD [facility] - 09/14/2024 12:19 AM [facility] [place] [address] Saurav Dyer, DO [address] [place] [address] Chest Pain Discharge Disposition: Home or Self Care [...] Sign Reading Time Taken Comments Blood Pressure 154/71 09/14/2024 12:15 AM HEAD [facility] Pulse 78 09/14/2024 12:15 AM HEAD [facility] Temperature 37 ??C (98.6 ??F) 09/13/2024 8:32 PM HEAD [facility]ER Respiratory Rate 29 09/14/2024 12:1 5 AM HEAD [facility] Oxygen Saturation 94% 09/14/2024 12: 15 AM HEAD [facility] Inhaled Oxygen Concentration - - Weight 83.8 kg (184 lb 12.8 oz) 09/13/2024 8:31 PM HEAD [facility] Height 157.5 cm (5' 2 ) 09/13/2024 8:31 PM HEAD [facility] Body Mass Index 33.8 09/13/2024 8:31 PM HEAD [facility]LER documented in this encounter Discharge Instructions * Discharge Instructions* Saurav Dyer DO - 09/14/2024 12:10 AM HEAD [facility] Take Tylenol 1000 mg every 8 hours as needed for pain. Try to increase the potassium rich foods in your diet. Return to the emergency department if symptoms are worsening such as temperature above 103 ??F, shortness of breath, or weakness. BUTLER * Attachments The following attachments cannot be sent through Care Everywhere. * Community-acquired pneumonia in adults (Mexican) * High Potassium Diet (Mexican) documented in this encounter Medications at Time of Discharge aspirin 81 MG chewable tablet Chew 81 mg by mouth daily. lisinopril 10 MG tablet Take 1 tablet by mouth daily. 0 01/23/2018 ondansetron (ZOFRAN-ODT) 4 MG disintegrating tablet Take 1 tablet (4 mg total) by mouth every 8 (eight) hours as needed for Nausea. 20 tablet 09/14/2024 doxycycline hyclate (VIBRAMYCIN) 100 MG capsule Take 1 capsule (100 mg total) by mouth 2 (two) times daily for 5 days. 10 capsule 09/14/2024 4 Naproxen Sodium (ALEVE) 220 MG Cap 4 documented as of this encounter ED Notes * Saurav Dyer DO - 09/13/2024 9:29 PM CST Chief Complaint Chief Complaint Patient presents with Chest Pain History of Present Illness 74-year-old female presents to the emergency department complaining of left anterior chest pain beneath her left breast starting a couple hours prior to arrival. Patient's son called the patient to check on her and was told about the pain and he convinced her to come to the emergency department. Patient states that she has had a cough for about 1 week. It is not productive. She saw her primary care office and they checked her for COVID-19 which was negative and discharged her without any prescriptions. Patient has been taking cough syrup, but does not know exactly which 1. She denies any associated symptoms with the pain including nausea, dizziness, diaphoresis, or radiation. She has not taken anything for the pain. Patient denies any personal history of cardiovascular disease. She is not a smoker. She takes lisinopril for hypertension. She denies history of hyperlipidemia anddiabetes. She is unaware of any first-degree relatives with history of cardiovascular disease. 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 Authorizing Provider doxycycline hyclate (VIBRAMYCIN) 100 MG capsule Take 1 capsule (100 mg total) by mouth 2 (two) times daily for 5 days. 09/14/24 09/19/24 Yes Saurav Dyer, DO ondansetron (ZOFRAN-ODT) 4 MG disintegrating tablet Take 1 tablet (4 mg total) by mouth every 8 (eight) hours as needed for Nausea. 09/14/24 Yes Saurav Dyer, DO aspirin 81 MG chewable tablet Chew 81 mg by mouth daily. [facility] lisinopril 10 MG tablet Take 1 tablet by mouth daily. 01/23/18 [facility] Naproxen Sodium (ALEVE) 220 MG Cap Doc [facility] PAST MEDICAL HISTORY: Past Medical History: Diagnosis [...] No Review of Systems Review of Systems Cardiovascular: Positive for chest pain. All other systems reviewed and are negative. Physical Exam Filed Vitals: 09/13/24 2100 09/13/24 2130 09/13/24 2300 09/13/24 2330 BP: (!) 147/69 (!) 146/92 (!) 169/76 (!) 170/79 Pulse: 77 71 76 79 Resp: 25 26 28 25 Temp: TempSrc: SpO2: 96% 97% 95% 95% Weight: Height: Physical Exam Vitals and nursing note reviewed. Constitutional: General: She is not in acute distress. Appearance: She is well-developed. She is not diaphoretic. HENT: Head: Normocephalic and atraumatic. Eyes: Conjunctiva/sclera: Conjunctivae normal. Cardiovascular: Rate and Rhythm: Normal rate and regular rhythm. Heart sounds: Normal heart sounds. No murmur heard. Pulmonary: Effort: Pulmonary effort is normal. No respiratory distress. Breath sounds: Normal breath sounds. No wheezing or rales. Abdominal: General: Bowel sounds are normal. There is no distension. Palpations: Abdomen is soft. Tenderness: There is no abdominal tenderness. Musculoskeletal: General: Tenderness (anterior ribs beneath left breast) present. Neurological: Mental Status: She is alert and oriented to person, place, and time. Psychiatric: Behavior: Behavior normal. Thought Content: Thought content normal. Judgment: Judgment normal. Diagnostic Studies / Procedures ELECTROCARDIOGRAMS: Results for orders placed or performed during the hospital encounter of 09/13/24 ECG [address] [place] [address] Test Date: 2024-09-13 Pat Name: DEB RENDON Department: 3 Room: EXAM 101 Gender: Female Retail Sales Professional: : 1950 Requested By: SAURAV DYER Order Number: [id number] Reading MD: Measurements Intervals Strawn Rate: 83 P: -15 GA: 165 QRS: -10 QRSD: 86 T: 37 QT: 378 QTc: 445 Interpretive Statements SINUS RHYTHM MINIMAL VOLTAGE CRITERIA FOR LVH, CONSIDER NORMAL VARIANT NONSPECIFIC ST & T-WAVE ABNORMALITY LABORATORY STUDIES: Results for orders placed or performed during the hospital encounter of 09/13/24 CBC W/DIFF AUTOMATED Result Value Ref Range WBC 11.85 (H) 4.00 - 10.80 x10'3/uL RBC 4.07 (L) 4.10 - 5.40 x10'6/uL HGB 11.9 (L) 12.0 - 16.0 G/DL HCT 37.1 36.0 - 47.0 % MCV 91.2 78.0 - 100.0 FL MCH 29.2 27.0 - 31.0 PG MCHC 32.1 (L) 33.0 - 36.0 G/DL RDW 12.9 11.5 - 14.5 % PLT 215 150 - 350 x10'3/uL MPV 10.7 (H) 7.4 - 10.4 FL CBC COMMENT NORMAL REFERENCE RANGE NOT ESTABLISHED FOR THE PROPORTIONAL LEUKOCYTE DIFFERENTIAL. NEUTROPHILS % 81.3 % LYMPHOCYTES % 9.8 % MONOCYTES % 7.8 % EOSINOPHILS % 0.0 % BASOPHILS % 0.3 % IMMATURE GRANS % 0.8 % NRBC % 0.0 % ABS. NEUTROPHILS 9.63 (H) 1.60 - 8.30 x10'3/uL ABS. LYMPHOCYTES 1.16 0.80 - 4.70 x10'3/uL ABS. MONOCYTES 0.93 0.00 - 1.50 x10'3/uL ABS. EOSINOPHILS 0.00 0.00 - 0.40 x10'3/uL ABS. BASOPHILS 0.03 0.00 - 0.20 x10'3/uL ABS. IMMATURE GRANULOCYTES 0.10 (H) 0.00 - 0.03 x10'3/uL ABS. NUCLEATED RBC'S 0.00 0.00 - 0.01 x10'3/uL COMPREHENSIVE METABOLIC PANEL Result Value Ref Range SODIUM S/P/B 137 136 - 145 MMOL/L POTASSIUM S/P/B 3.1 (L) 3.5 - 5.1 MMOL/L CHLORIDE S/P/B 100 98 - 107 MMOL/L CO2 28.3 21.0 - 32.0 MMOL/L GLUCOSE 124 (H) 70 - 99 MG/DL BUN 19 6 - 24 MG/DL CREATININE S/P/B 0.80 0.55 - 1.02 MG/DL CALCIUM S/P/B 9.0 8.4 - 10.5 MG/DL BILIRUBIN TOTAL S/P/B 0.6 0.2 - 1.0 MG/DL ALKALINE PHOSPHATASE S/P/B 105 55 - 142 U/L AST 19 15 - 37 U/L ALT 28 14 - 59 U/L TOTAL PROTEIN S/P/B 6.8 6.4 - 8.2 G/DL ALBUMIN S/P/B 2.6 (L) 3.4 - 5.0 G/DL ANION GAP 8.7 5.0 - 15.0 MMOL/L OSMOLALITY (CALC) 288 MOSM/KG GFR ESTIMATE 77 (L) >89 ML/MIN/1.73 M2 GFR NOTES GFR REFERENCES: TROPONIN, QUANT Result Value Ref Range TROPONIN I HIGH SENSITIVITY 11 0 - 51 ng/L TROPONIN, QUANT Result Value Ref Range TROPONIN I HIGH SENSITIVITY 11 0 - 51 ng/L LACTIC ACID W REFLEX (SEPSIS) Result Value Ref Range LACTIC ACID VENOUS 0.7 0.4 - 2.0 MMOL/L CORONAVIRUS (COVID-19) ANTIGEN Specimen: NASAL Result Value Ref Range CORONAVIRUS ANTIGEN IA NEGATIVE NEGATIVE SPECIMEN TYPE NASAL IMAGING STUDIES XR CHEST PA+LAT Final Result by User, [id number] (09/13 2216) [address] [place] [address] INDICATION: Chest pain. Shortness of breath. COMPARISON: July 09, 2018. TECHNIQUE: Frontal and lateral views of the chest. FINDINGS: Lungs: There is a prominent pulmonary opacity in the left lower lung, which may reside in the inferior region of the left upper lobe. There is also left basilar atelectasis. The right lung is clear. There is no pleural effusion. There is no pneumothorax. Heart and Mediastinum: The heart is normal in size. The mediastinum is unremarkable. Bones: No acute process. IMPRESSION: 1. Large pulmonary opacity in the left lower lung. This may represent a pneumonia within the lingular segment of the left upper lobe. 2. Mild left basilar atelectasis. Referred By: Interpreted By: Toy Mabry MD, 09/13/2024 10:14 PM ED Course / Medical Decision Making Medical Decision Making Patient complains of left anterior chest pain. ACS rule out by EKG and serial troponin. Chest x-rayshows opacity in the left lingula. Laboratory work shows mildly low potassium of 3.1 which is repleted orally. Following this, the patient reported nausea and vomiting, so she is discharged with someondansetron should this persist. The remainder of her labs show minimally elevated white blood cellcount. Patient started on 5-day course of doxycycline. Patient will follow-up with primary care to have chest x-ray repeated following completion of antibiotics. Amount and/or Complexity of Data Reviewed Labs: ordered. Decision-making details documented in ED Course. Radiology: ordered. Decision-making details documented in ED Course. ECG/medicine tests: ordered and independent interpretation performed. Decision- making details documented in ED Course. Details: Sinus, rate = 83, regular Risk Prescription drug management. ED Course as of 09/14/24 001 Sun Sep 13, 2024 2210 WBC(!): 11.85 [JW] 2249 POTASSIUM S/P/B(!): 3.1 [JW] ED Course User Index [JW] Saurav Dyer DO Clinical Impression Community acquired pneumonia of left upper lobe of lung (Primary) Hypokalemia Disposition: Discharge I, Sean BorregoO., dictated portions of this note using [employer] speech recognition software. Occasional wrong word or sound-alike substitutions may have occurred due to the inherent limitationsof voice recognition software. Please read the chart carefully and recognize, using context, where s ubstitutions may have occurred. Saurav Dyer DO 09/14/24 0016 BUTLER * Maureen Steiner RN - 09/13/2024 8:30 PM CST Pt presents to ED with c/o left sided chest pain and slight SOB. Onset approx 1 hour ago. Pain doesnot radiate. 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 documented in this encounter Plan of Treatment Not on file documented as of this encounter Procedures Procedure Name Priority Date/Time Associated Diagnosis Comments TROPONIN, QUANT STAT 09/13/2024 11:47 PM HEAD [facility] XR CHEST PA+LAT STAT 09/13/2024 10:04 PM [facility] LACTIC ACID W REFLEX (SEPSIS) STAT 09/13/2024 9:57 PM HEAD [facility] COMPREHENSIVE METABOLIC PANEL STAT 09/13/2024 9:57 PM HEAD [facility]ER CBC W/DIFF AUTOMATED STAT 09/13/2024 9:57 PM HEAD [facility] TROPONIN, QUANT STAT 09/13/2024 9:57 PM HEAD [facility] CORONAVIRUS (COVID-19) ANTIGEN STAT 09/13/2024 9:53 PM HEAD [facility]ER ECG 12-LEAD Routine 09/13/2024 8:28 PM HEAD [facility]ER documented in this encounter Results * TROPONIN, QUANT (09/13/2024 11:47 PM HEAD BUTLER) TROPONIN I HIGH SENSITIVITY 11 0 - 51 ng/L 09/14/2024 12:09 AM HEAD [facility] 09/13/2024 11:4 7 PM HEAD [facility]ER us Saurav Dyer DO LABORATORY Final Result [facility] [address] [place] [address], * XR CHEST PA+LAT (09/13/2024 10:04 PM HEAD BUTLER) Anatomical Region Laterality Modality Chest Radiographic Lary ging 09/13/2024 10:1 4 PM HEAD [facility] Impressions 09/13/2024 10:15 PM [facility] IMPRESSION: 1. ??Large pulmonary opacity in the left lower lung. ??This may represent a pneumonia within the lingular segment of the left upper lobe. 2. ??Mild left basilar atelectasis. Referred By: ?? Interpreted By: Toy Mabry MD, 09/13/2024 10:14 PM Narrative 09/13/2024 10:15 PM HEAD [facility] [address] [place] [address] INDICATION: Chest pain. ??Shortness of breath. COMPARISON: July 09, 2018. TECHNIQUE: Frontal and lateral views of the chest. FINDINGS: Lungs: There is a prominent pulmonary opacity in the left lower lung, which may reside in the inferior region of the left upper lobe. ??There is also left basilar atelectasis. ??The right lung is clear. There is no pleural effusion. There is no pneumothorax. Heart and Mediastinum: The heart is normal in size. The mediastinum is unremarkable. Bones: No acute process. Procedure Note Tyo Mabry MD - 09/13/[address] [place] [address] INDICATION: Chest pain. Shortness of breath. COMPARISON: July 09, 2018. TECHNIQUE: Frontal and lateral views of the chest. FINDINGS: Lungs: There is a prominent pulmonary opacity in the left lower lung,which may reside in the inferior region of the left upper lobe. There isalso left basilar atelectasis. The right lung is clear. There is no pleural effusion. There is no pneumothorax. Heart and Mediastinum: The heart is normal in size. The mediastinum is unremarkable. Bones: No acute process. IMPRESSION: 1. Large pulmonary opacity in the left lower lung. This may represent apneumonia within the lingular segment of the left upper lobe. 2. Mild left basilar atelectasis. Referred By: Interpreted By: Toy Mabry MD, 09/13/2024 10:14 PM us Saurav Dyer DO GENERAL IMAGING Final Result * LACTIC ACID W REFLEX (SEPSIS) (09/13/2024 9:57 PM HEAD [facility]LER) LACTIC ACID VENOUS 0.7 0.4 - 2.0 MMOL/L 09/13/2024 10:23 PM HEAD [facility] 09/13/2024 9:57 PM HEAD [facility]LER us Saurav Dyer DO LABORATORY Final Result [facility] [address] [place] [address], * TROPONIN, QUANT (09/13/2024 9:57 PM HEAD BUTLER) Pathologist [facility] TROPONIN I HIGH SENSITIVITY 11 0 - 51 ng/L 09/13/2024 10:23 PM [facility] 09/13/2024 9:57 PM HEAD [facility] Saurav Dyer LABORATORY Final Result Performing Organization Address [facility]/ZIP Co de Phone Number [facility] [address] [place] [phone], * (ABNORMAL) COMPREHENSIVE METABOLIC PANEL (09/13/2024 9:57 PM HEAD BUTLER) [facility] SODIUM S/P/B 137 136 - 145 MMOL/L 09/13/2024 10:23 PM [facility] POTASSIUM S/P/B 3.1(L) 3.5 - 5.1 MMOL/L 09/13/2024 10:23 PM [facility] CHLORIDE S/P/B 100 98 - 107 MMOL/L 09/13/2024 10:23 PM [facility] CO2 28.3 21.0 - 32.0 MMOL/L 09/13/2024 10:23 PM [facility] GLUCOSE 124(H) 70 - 99 MG/DL 09/13/2024 10:23 PM [facility] Comment: FASTING GLUCOSE 100 TO 125 MG/DL IS CONSISTENT WITH IMPAIRED FASTING GLUCOSE. FASTING GLUCOSE >125 MG/DL IS CONSISTENT WITH DIABETES. RANDOM GLUCOSE >200 MG/DL WITH HYPERGLYCEMIC SYMPTOMS IS CONSISTENT WITH DIABETES. PER ADA GUIDELINES BUN 19 6 - 24 MG/DL 09/13/2024 10:23 PM [facility] CREATININE S/P/B 0.80 0.55 - 1.02 MG/DL 09/13/2024 10:23 PM [facility] CALCIUM S/P/B 9.0 8.4 - 10.5 MG/DL 09/13/2024 10:23 PM [facility] BILIRUBIN TOTAL S/P/B 0.6 0.2 - 1.0 MG/DL 09/13/2024 10:23 PM [facility] Comment: THIS ASSAY IS NOT RECOMMENDED FOR PATIENTS UNDERGOING TREATMENT WITH ELTROMBOPAG DUE TO THE POTENTIAL FOR FALSELY ELEVATED RESULTS. ALKALINE PHOSPHATASE S/P/B 105 55 - 142 U/L 09/13/2024 10:23 PM [facility] AST 19 15 - 37 U/L 09/13/2024 10:23 PM [facility] ALT 28 14 - 59 U/L 09/13/2024 10:23 PM [facility] TOTAL PROTEIN S/P/B 6.8 6.4 - 8.2 G/DL 09/13/2024 10:23 PM [facility] ALBUMIN S/P/B 2.6(L) 3.4 - 5.0 G/DL 09/13/2024 10:23 PM [facility] ANION GAP 8.7 5.0 - 15.0 MMOL/L 09/13/2024 10:23 PM [facility] OSMOLALITY (CALC) 288 MOSM/KG 024 10:23 PM [facility] Comment:REFERENCE RANGE NOT ESTABLISHED GFR ESTIMATE 77(L) >89 ML/MIN/1. 73 M2 09/13/2024 10:23 PM [facility] GFR NOTES GFR REFERENCE S: 09/13/2024 10:23 PM [facility] Comment: THE ESTIMATED GFR IS CALCULATED [...] ml/min/1.73 m2 G5,KIDNEY FAILURE: <15 ml/min/1.73 m2 09/13/2024 9:57 PM HEAD [facility]ER Saurav Leodan Gomez RODRIGUEZ LABORATORY Final Result [facility] [address] [place] [address], * (ABNORMAL) CBC W/DIFF AUTOMATED (09/13/2024 9:57 PM HEAD BUTLER) WBC 11.85(H) 4.00 - 10.80 x10'3/uL 09/13/2024 10:06 PM [facility] RBC 4.07(L) 4.10 - 5.40 x10'6/uL 09/13/2024 10:06 PM [facility] HGB 11.9(L) 12.0 - 16.0 G/DL 09/13/2024 10:06 PM [facility] HCT 37.1 36.0 - 47.0 % 09/13/2024 10:06 PM [facility] MCV 91.2 78.0 - 100.0 FL 09/13/2024 10:06 PM [facility] MCH 29.2 27.0 - 31.0 PG 09/13/2024 10:06 PM [facility] MCHC 32.1(L) 33.0 - 36.0 G/DL 09/13/2024 10:06 PM [facility] RDW 12.9 11.5 - 14.5 % 09/13/2024 10:06 PM [facility] PLT 215 150 - 350 x10'3/uL 09/13/2024 10:06 PM [facility] MPV 10.7(H) 7.4 - 10.4 FL 09/13/2024 10:06 PM [facility] CBC COMMENT NORMAL REFERENCE RANGE NOT ESTABLISHED FOR THE PROPORTIONAL LEUKOCYTE DIFFERENTIAL. 09/13/2024 10:06 PM HEAD BUT[facility]ER [facility] NEUTROPHILS % 81.3 % 09/13/2024 10:06 PM HEAD [facility] LYMPHOCYTES % 9.8 % 09/13/2024 10:06 PM HEAD [facility] MONOCYTES % 7.8 % 09/13/2024 10:06 PM HEAD [facility] EOSINOPHILS % 0.0 % 09/13/2024 10:06 PM HEAD [facility] BASOPHILS % 0.3 % 09/13/2024 10:06 PM HEAD [facility] IMMATURE GRANS % 0.8 % 09/13/20 10:06 PM HEAD [facility] NRBC % 0.0 % 09/13/2024 10:06 PM HEAD [facility] ABS. NEUTROPHILS 9.63(H) 1.60 - 8.30 x10'3/uL 09/13/2024 10:06 PM [facility] ABS. LYMPHOCYTES 1.16 0.80 - 4.70 x10'3/uL 09/13/2024 10:06 PM HEAD [facility] ABS. MONOCYTES 0.93 0.00 - 1.50 x10'3/uL 09/13/2024 10:06 PM HEAD [facility] ABS. EOSINOPHILS 0.00 0.00 - 0.40 x10'3/uL 09/13/2024 10:06 PM [facility] ABS. BASOPHILS 0.03 0.00 - 0.20 x10'3/uL 09/13/2024 10:06 PM [facility] ABS. IMMATURE GRANULOCYTES 0.10(H) 0.00 - 0.03 x10'3/uL 09/13/2024 10:06 PM HEAD [facility] ABS. NUCLEATED RBC'S 0.00 0.00 - 0.01 x10'3/uL 09/13/2024 10:06 PM [facility] 09/13/2024 9:57 PM HEAD [facility] Saurav Dyer DO LABORATORY Final Result [facility] [address] [place] [address], * CORONAVIRUS (COVID-19) ANTIGEN (09/13/2024 9:53 PM HEAD BUTLER) CORONAVIRUS ANTIGEN IA NEGATIVE NEGATIVE 09/13/2024 10:25 PM HEAD [facility] Comment: NEGATIVE RESULTS DO NOT RULE OUT SARS-COV-2 INFECTION AND SHOULD NOT BE USED THE SOLE BASIS FOR TREATMENT OR PATIENT MANAGEMENT DECISIONS, INCLUDING INFECTION CONTROL DECISIONS. NEGATIVE RESULTS SHOULD BE CONSIDERED IN THE CONTEXT OF A PATIENT'S RECENT EXPOSURES, HISTORY AND THE PRESENCE OF CLINICAL SIGNS AND SYMPTOMS CONSISTENT WITH COVID 19. THIS TEST HAS BEEN AUTHORIZED BY THE FDA UNDER AN EMERGENCY USE AUTHORIZATION (EUA) FOR USE BY AUTHORIZED LABORATORIES. SPECIMEN TYPE NASAL 09/13/2024 9:58 PM HEAD BUTL[facility] NASAL NASAL STRUCTURE / Unknown 09/13/2024 9:53 PM HEAD [facility]ER Saurav Dyer DO MICROBIOLOGY - GENERAL ORDERABLE S Final Result Performing Organization Address [facility] Co de Phone Number [facility] [address] [place] [address], * ECG 12 lead (09/13/2024 8:28 PM HEAD BUTLER) 09/13/2024 8:28 PM HEAD [facility]ER Narrative [facility] - 09/14/2024 5:53 AM HEAD BUTLER ? [facility] ?[address] [place], [place] ??[address] ? Test Date: ?2024-09-13 Pat Name: ? DEB RENDON ? Department: ?? 3 ? Room: ? EXAM 101 Gender: ? Female ? Retail Sales Professional: ?? : ?1950 ? Requested By: SAURAV DYER Order Number: [id number] ? Reading MD: ?? Erbert Dumont ? Measurements Intervals ?Strawn ? Rate: ? 83 ? P: ?-15 GA: ? 165 ?QRS: ?-10 QRSD: ? 86 ? T: ?37 QT: ? 378 ? QTc: ?445 ? Interpretive Statements SINUS RHYTHM MINIMAL VOLTAGE CRITERIA FOR LVH, CONSIDER NORMAL VARIANT NONSPECIFIC ST & T-WAVE ABNORMALITY BUTLER Procedure Note Diane Dumont MD - 09/14/2024 [facility] [address] [place] [address] Test Date: 2024-09-13 Pat Name: DEB RENDON Department: 3 Room: EXAM 101 Gender: Female Retail Sales Professional: : 1950 Requested By: SAURAV DYER Order Number: [id number] Reading MD: Diane Dumont Measurements Intervals Strawn Rate: 83 P: -15 GA: 165 QRS: -10 QRSD: 86 T: 37 QT: 378 QTc: 445 Interpretive Statements SINUS RHYTHM MINIMAL VOLTAGE CRITERIA FOR LVH, CONSIDER NORMAL VARIANT NONSPECIFIC ST & T-WAVE ABNORMALITY BUTLER Saurav Dyer DO ECG ORDERABLES Final Result [facility] documented in this encounter Visit Diagnoses Diagnosis Community acquired pneumonia of left upper lobe of lung- Primary Hypokalemia Hypopotassemia documented in this encounter Administered Medications Inactive Administered Medications - up to 3 most recent administrations Medication Order MAR Action Action Date Dose Rate Site doxycycline hyclate (VIBRAMYCIN) capsule 100 mg 100 mg, Oral, Once, 1 dose, On 09/13/24 at 2230 Given 09/13/2024 10:27 PM HEAD BUTLER 100 mg ondansetron (ZOFRAN-ODT) disintegrating tablet 8 mg 8 mg, Oral, Once, 1 dose, On 09/14/24 at 0015, MEDICATION FOR TAKE HOME Dispense 2 tablets. Si tablet every 8 hours as needed for nausea and vomiting Given 09/14/2024 12:18 AM HEAD BUTLER 8 mg potassium chloride CR (KLOR-CON M) tablet 40 mEq 40 mEq, Oral, Once, 1 dose, On 09/13/24 at 2300, Do not chew, crush, or suck on tablet. May break in half. May dissolve whole tablet in 120 mL of water and drink immediately. Given 09/13/2024 10:53 PM HEAD BUTLER 40 mEq documented in this encounter Active and Recently Administered Medications Times are shown in HEAD [facility]LER. Scheduled Medication Order 09/12/2024 09/13/2024 09/14/2024 doxycycline hyclate (VIBRAMYCIN) capsule 100 mg (COMPLETED) 100 mg, Oral, Once, 1 dose, On 09/13/24 at 2230 2227 (Given - Provider: Maureen Steiner RN) ondansetron (ZOFRAN-ODT) disintegrating tablet 8 mg (COMPLETED) 8 mg, Oral, Once, 1 dose, On 09/14/24 at 0015, MEDICATION FOR TAKE HOME Dispense 2 tablets. Si tablet every 8 hours as needed for nausea and vomiting 0018 (Given - Provid er: Maureen Steiner RN - Comment: Given to pt to take home per Dr. Dyer) potassium chloride CR (KLOR-CON M) tablet 40 mEq (COMPLETED) 40 mEq, Oral, Once, 1 dose, On 09/13/24 at 2300, Do not chew, crush, or suck on tablet. May break in half. May dissolve whole tablet in 120 mL of water and drink immediately. 2253 (Given - Provider: Maureen Steiner RN) documented in this encounter Additional Health Concerns Infection Onset Date Last Indicated Resolved Time COVID-19 Rule Out 09/13/2024 09/13/2024 09/13/2024 10:25 PM HEAD [facility] documented as of this encounter Care Teams Federal Mediator Relationship Specialty Start Date End Date Kaushal Han MD [address] [place] [phone] PCP - General FAMILY PRACTICE 01/31/18 Jose Luis Rain MD [address] [place] [phone] ORTHOPAEDICS 02/05/18 Anjum Rajan MD [facility] [address] [address] CARDIOVASCULAR DISEASE 07/16/18 documented as of this encounter
--- OUTSIDE RECORDS SUMMARY | 2024-10-02 01:47 | XMS_ITS | Encounter Summary ---
Author Organization [facility] Address [facility] [place] [address] [place] [address] Care Team Providers Care Stair Builder Name Role Phone Kasuhal Han MD Primary Care Provider Jose Luis Rain MD Unavailable [phone] Anjum Rajan MD Unavailable [phone] Encounter Details Date Type Department Care Team (Late st Contact Info) Description 03/17/2019 Orders Only [facility] Medical Group Multispecialty Care - [facility] [address] [place] [address] Jose Luis Rain MD [address] [place] [address] [phone] Social History Tobacco Use Types Packs/Day Years [...] Results * OXR PELVIS AP+LT HIP 2V (03/23/2019 8:32 AM CDT) Anatomical Region Laterality Modality Pelvis, Hip Radiographic Lary ging Narrative 03/23/2019 12:15 PM CDT PROCEDURE: OXR PELVIS AP+LT HIP 2V VIEWS: 5 DATE: ??03/23/19 CLINICAL INDICATION: history left total hip FINDINGS: AP pelvis and 2 views left hip, AP and crosstable lateral. ?? Uncemented total hip arthroplasty in place. ??There is some lucency adjacent to the acetabular component. ??Stable compared to prior exam. ??The femoral stem appears to be well ingrown. ??No fractures. IMPRESSION: Stable left total hip arthroplasty. us Jose Luis Rain MD GENERAL IMAGING Final Result documented in this encounter Visit Diagnoses Diagnosis S/P hip replacement, left- Primary documented in this encounter Care Teams Stair Builder Relationship Specialty Start Date End Date Kaushal Han MD [address] [place] [phone] PCP - General FAMILY PRACTICE 01/31/18 Jose Luis Rain MD [address] [place] [phone] ORTHOPAEDICS 02/05/18 Anjum Rajan MD [address] [address] CARDIOVASCULAR DISEASE 07/16/18 documented as of this encounter
--- OUTSIDE RECORDS SUMMARY | 2024-10-02 01:47 | XMS_ITS | Encounter Summary ---
Author Organization [facility] - [facility] Address [facility] [facility] [address] [place] [address] Care Team Providers Care Outsole Cutter Machine Name Role Phone Kaushal Han MD Primary Care Provider [phone] Grayson Munroe MD Unavailable [phone] Anjum Rajan MD Unavailable [phone] Reason for Visit * Reason Comments Recheck bilateral total hips * Consultation/Treatment (Routine) - Closed Specialty Diagnoses / Procedures Referred By Spencer santos Referred To Contact ORTHOPAEDIC SURGERY / ORTHOPAEDICS Diagnoses F/U left total hip 07/22/2018 Procedures FOLLOW UP Kaushal Han MD [address] [place] [phone] Phone: tel: fax: Grayson Munroe MD [address] [place] [address] Phone: tel: fax: Referral ID Status Reason Start Date Expiration Date Visits Re quested Visits Authorized [id number] Closed 11/03/2018 11/04/2019 100 100 Encounter Details Date Type Department Care Team (Latest Contact Info) Description 03/23/2019 8:40 AM CDT Office Visit [facility] Medical Group Multispecialty Care - [facility] [address], [address] [place] [id number] Grayson Munroe MD [address] [place] [address] Recheck (bilateral total hips) Social History Tobacco Use Types Packs/Day Years [...] Sign Reading Time Taken Comments Blood Pressure 158/90 03/23/2019 8:56 AM CDT Pulse 67 03/23/2019 8:39 AM CDT Temperature 36.7 ??C (98.1 ??F) 03/23/2019 8:39 AM CD T Respiratory Rate - - Oxygen Saturation 96% 03/23/2019 8:39 AM CDT Inhaled Oxygen Concentration - - Weight 89.4 kg (197 lb) 03/23/2019 8:39 AM CDT Height 157.5 cm (5' 2 ) 03/23/2019 8:39 AM CDT Body Mass Index 36.03 03/23/2019 8:39 AM CDT documented in this encounter Progress Notes * Grayson Munroe MD - 03/23/2019 8:40 AM CDT Images from the original note were not included. Office Visit Reason for Visit: Recheck (bilateral total hips) History of Present Illness: She underwent a left total hip on 07/22/2018. Right total hip done on 02/18/2018. Says she has no problem right side. She describes pain in the left hip and thigh at times. This happens more when she is sitting than it does when she is standing. She says she does not have pain when she gets in and out of the car. The pain is a bit unpredictable. In terms of physical activity most of her activity involves chasing her [id number] grandson. She is not limited due to her hips in any way with regards to activity or getting shoes and socks on or doing stairs. Vitals: Filed Vitals: 03/23/19 0839 03/23/19 0856 BP: (!) 151/95 158/90 Pulse: 67 Temp: 98.1 ??F (36.7 ??C) SpO2: 96% Weight: 89.4 kg (197 lb) Height: 5' 2 (1.575 m) Physical Exam: Physical Exam Constitutional: She is oriented to person, place, and time. She appears well- developed and well-nourished. HENT: Head: Normocephalic. Eyes: EOM are normal. Cardiovascular: Intact distal pulses. Pulmonary/Chest: Effort normal. No respiratory distress. Neurological: She is alert and oriented to person, place, and time. Psychiatric: She has a normal mood and affect. Ortho: She is able walk without any significant difficulty. She has symmetric range of motion of the hips.At 90 degrees hip flexion she has passive motion which is nonpainful. No pain with manual testing of the abductor muscles. Gross motor deficits there. Leg lengths are equal clinically. No swelling distally within the legs. Feet are well-perfused. Mild tenderness to palpation of the trochanters bilaterally. OXR PELVIS AP+LT HIP 2V PROCEDURE: OXR PELVIS AP+LT HIP 2V VIEWS: 5 DATE: 03/23/19 CLINICAL INDICATION: history left total hip FINDINGS: AP pelvis and 2 views left hip, AP and crosstable lateral. Uncemented total hip arthroplasty in place. There is some lucency adjacent to the acetabular component. Stable compared to prior exam. The femoral stem appears to be well ingrown. No fractures. IMPRESSION: Stable left total hip arthroplasty. OXR PELVIS AP+RT HIP 2V PROCEDURE: OXR PELVIS AP+RT HIP 2V VIEWS: 3 DATE: 03/23/19 CLINICAL INDICATION: history right total hip FINDINGS: AP pelvis and 2 views right hip, AP and crosstable lateral. Uncemented total hip arthroplasty in place. Components appear to be well ingrown. No fractures. Left total hip arthroplasty is also visualized. Degenerative changes of the lumbar spine. IMPRESSION: Stable right total hip arthroplasty. Assessment: 1 year status post right total hip arthroplasty, doing well. 8 months status post left total hip arthroplasty with some anterior hip and thigh pain. Plan: I think she is doing reasonably well. Hip flexor stretching could help somewhat. She wants to just observe this. I also talked her about getting a stationary bike or something else where she can stayactive follow-up with the coming years. I will see her back in 6 months for repeat examination and x-rays AP pelvis 2 views left hip only. Procedures Summary: Deb was seen today for recheck. Diagnoses and all orders for this visit: S/P hip replacement, left S/P hip replacement, right ROS: Review of Systems Constitutional: Negative for chills, fever and malaise/fatigue. HEENT: Positive for tinnitus. Cardiovascular: Negative for chest pain and palpitations. Gastrointestinal: Negative for constipation, diarrhea, nausea and vomiting. Genitourinary: Negative for frequency and urgency. Neurological: Negative for dizziness and headaches. Psychiatric/Behavioral: Negative for depression. The patient is not nervous/anxious. Medications: Current Outpatient Medications: ??? ampicillin 500 MG capsule, Take 4 capsules 1 hour before procedur, Disp: 4 capsule, Rfl: 2 ??? aspirin 81 MG chewable tablet, Chew 81 mg by mouth daily., Disp: , Rfl: ??? hydrocodone-acetaminophen 5-325 MG tablet, Take 1 tablet by mouth every 6 (six) hours as neededfor Pain., Disp: 20 tablet, Rfl: 0 ??? lisinopril 10 MG tablet, Take 1 tablet by mouth daily., Disp: , Rfl: 0 ??? Naproxen Sodium (ALEVE) 220 MG Cap, , Disp: , Rfl: Allergies: No Known Allergies Medical History: Past [...] file Gets together: Not on file Attends restorationist service: Not on file Active member of [...] Cancer Sister janay breast GRAYSON MUNROE MD 03/24/2019 documented in this encounter Plan of Treatment Not on file documented as of this encounter Visit Diagnoses Diagnosis S/P hip replacement, left- Primary S/P hip replacement, right documented in this encounter Care Teams Outsole Cutter Machine Relationship Specialty Start Date End Date Kaushal Han MD [address] [place] [phone] PCP - General FAMILY PRACTICE 01/31/18 Grayson Munroe MD [address] [place] [phone] ORTHOPAEDICS 02/05/18 Anjum Rajan MD [facility] [address] [address] CARDIOVASCULAR DISEASE 07/16/18 documented as of this encounter
--- OUTSIDE RECORDS SUMMARY | 2024-10-02 01:47 | XMS_ITS | Encounter Summary ---
Author Organization [facility] Address [facility] [facility] [place] [address] [place] [address] Care Team Providers Care Checkering Machine Operator Name Role Phone Kaushal Han MD Primary Care Provider [phone] Jose Luis Rain MD Unavailable [phone] Anjum Rajan MD Unavailable [phone] Reason for Visit * Imaging (Routine) - Closed Specialty Diagnoses / Procedures Referred By Spencer santos Referred To Contact RADIOLOGY Diagnoses Visit for screening mammogram Procedures MG SCREENING W JAMILA DANNY DIGI Duane Rowan PA [address] [place] [address] Phone: tel: fax: Referral ID Status Reason Start Date Expiration Date Visits Re quested Visits Authorized [id number] Closed 07/16/2022 07/16/2023 1 1 Encounter Details Date Type Department Care Team (Latest Contact Info) Description 07/27/2022 12:03 PM CDT - 07/27/2022 11:59 PM CDT Hospital Encounter [facility] [address] [place] [address] Duane Rowan PA [address] [place] [phone] Discharge Disposition: Home or Self Care [...] MG SCREENING W JAMILA DANNY DIGI Routine 07/27/2022 12:36 PM CDT Visit for screening mammogram documented in this encounter Results * MG SCREENING W JAMILA DANNY DIGI (07/27/2022 12:36 PM CDT) Anatomical Region Laterality Modality Breast Bilateral Mammography 07/30/2022 4:20 PM CDT Impressions 07/30/2022 4:20 PM CDT IMPRESSION: No suspicious change since the previous exams. Recommendation: 1: Routine Screening ??Bilateral ??in 1 Year Assessment: ACR BI-RADS 2 - BENIGN FINDING(S) Ordered By: DUANE ROWAN Interpreted By: Mervin Lafleur MD, 07/30/2022 4:20 PM Narrative 07/30/2022 4:20 PM CDT Examination: Digital screening mammogram with CAD. Clinical history: Asymptomatic patient presents for routine screening. Comparison: 03/27/2021, 03/24/2020, 01/29/2018. Technique: Bilateral digital mammograms. [...] on filedocumented in this encounter Care Teams Checkering Machine Operator Relationship Specialty Start Date End Date Kaushal Han MD [address] [place] [phone] PCP - General FAMILY PRACTICE 01/31/18 Jose Luis Rain MD [address] [place] [phone] ORTHOPAEDICS 02/05/18 Anjum Rajan MD [address] [phone] CARDIOVASCULAR DISEASE 07/16/18 documented as of this encounter
--- OUTSIDE RECORDS SUMMARY | 2024-10-02 01:47 | XMS_ITS | Encounter Summary ---
Author Organization [facility] Address [facility] [facility] [place] [address] [place] [address] Care Team Providers Care Embalmer Apprentice Name Role Phone Kaushal Han MD Primary Care Provider Jose Luis Rain MD Unavailable [phone] Anjum Rajna MD Unavailable [phone] Encounter Details Date Type Department Care Team (Late st Contact Info) Description 02/05/2019 [facility] [address] [place] [address] Kaushal Han MD [address] [place] [phone] Social History Tobacco Use Types Packs/Day [...] as of this encounter Visit Diagnoses Diagnosis Encounter for screening mammogram for malignant neoplasm of breast Other screening mammogram documented in this encounter Care Teams Embalmer Apprentice Relationship Specialty Start Date End Date Kaushal Han MD [address] [place] [phone] PCP - General FAMILY PRACTICE 01/31/18 Jose Luis Rain MD [address] [place] [phone] ORTHOPAEDICS 02/05/18 Anjum Rajan MD [address] [phone] CARDIOVASCULAR DISEASE 07/16/18 documented as of this encounter
--- OUTSIDE RECORDS SUMMARY | 2024-10-02 01:47 | XMS_ITS | Clinical Summary ---
Author Organization [facility] Address [facility] [facility] [place] [address] [place] [address] Care Team Providers Care Telephone Station Repairer Name Role Phone Kaushal Han MD Primary Care Provider Jose Luis Rain MD Unavailable [phone] Anjum Rajan MD Unavailable [phone] Allergies No known active allergies Medications lisinopril 10 MG tablet Take 1 tablet by mouth daily. 0 01/24/20 18 Active aspirin 81 MG chewable tablet Chew 81 mg by mouth daily. Active ondansetron (ZOFRAN-ODT) 4 MG disintegrating tablet Take 1 tablet (4 mg total) by mouth every 8 (eight) hours as needed for Nausea. 20 tablet 09/14/20 24 Active naloxone (NARCAN) 4 MG/0.1ML nasal spray 1 spray by Nasal route as needed for Opioid reversal. 1 each 09/21/20 24 Active Naproxen Sodium (ALEVE) 220 MG Cap 024 Discontinued doxycycline hyclate (VIBRAMYCIN) 100 MG capsule Take 1 capsule (100 mg total) by mouth 2 (two) times daily for 5 days. 10 capsule 09/14/20 24 024 HYDROcodone-acetam inophen (NORCO) 5-325 MG tabletIndications: Acute Pain < 3 Day Supply Take 1 tablet by mouth every 6 (six) hours as needed for Pain. Indications : Acute Pain < 3 Day Supply 12 tablet 09/21/20 24 024 Active Problems Problem Noted Date Diagnosed Date S/P hip replacement, right 09/01/2018 S/P hip replacement, left 02/18/2018 Resolved Problems Problem Noted Date Diagnosed Date Resolved Date Osteoarthritis of left hip, unspecified osteoarthritis type 07/22/2018 09/01/2018 Status post total replacement of hip 03/03/2018 03/24/2019 S/P total hip arthroplasty 02/18/2018 0 03/24/2019 Encounters Date Type Department Care Team Description 09/21/2024 5:57 PM [facility] - 09/21/2024 9:29 PM [facility] [address] [place] [address] Sam Alvarado DO Abdominal Pain Discharge Disposition: Home or Self Care (Routine Discharge) 09/21/2024 12:34 PM [facility] - 09/21/2024 5:56 PM [facility] Hospital Encounter [facility] [address] [place] [address] Anisha Rojas MD Discharge Disposition: Home or Self Care (Routine Discharge) 09/21/2024 Travel 09/13/2024 8:22 PM [facility] - 09/14/2024 12:19 AM [facility] [address] [place] [address] Saurav Dyer DO Chest Pain Discharge Disposition: Home or Self Care (Routine Discharge) 09/13/2024 Travel from Last 3 Months Family History Medical History Relation Comments COPD Father Cancer Mother stomach Cancer Sister 1 female Cancer Sister 2 breast Relation Status Comments Father (Age 80's) Mother (Age 85) Sister 1 Sister 2 Alive Social History Tobacco Use Types Packs/Day Years Used Date Smoking Tobacco: Never Smokeless Tobacco: Never Alcohol Use Standard Drinks/Week Comments Yes 0 (1 standard drink = 0.6 oz pur e alcohol) socially Comments No Sex and Gender Information Value Date Recorded Sex Assigned at Not on file Legal Sex Female 10:51 AM CDT Gender Identity Not on file Sexual Orientation Not on file Last Filed Vital Signs Vital Sign Reading Time Taken Comments Blood Pressure 145/90 09/21/2024 9:00 PM [facility] Pulse 68 09/21/2024 9:00 PM [facility] Temperature 37.1 ??C (98.7 ??F) 09/21/2024 5:25 PM CS T Respiratory Rate 18 09/21/2024 8:30 PM [facility] Oxygen Saturation 100% 09/21/2024 9:00 PM [facility] Inhaled Oxygen Concentration - - Weight 83.5 kg (184 lb) 09/21/2024 5:25 PM [facility] Height 157.5 cm (5' 2 ) 09/21/2024 5:25 PM [facility] Body Mass Index 33.65 09/21/2024 5:25 PM [facility] Plan of Treatment Health Maintenance Due Date Last Done Comments Colorectal Cancer Screening Colonoscopy (10 Years) 1950 Hepatitis C 1967 DTaP, Tdap and Td Vaccines ( 1 - Tdap) 01/11/1968 Zoster Vaccines (1 of 2) 1999 Annual Medicare Wellness Visit 2014 Dexa Scan (General) 2014 Pneumococcal Vaccine: 65+ Ye ars (1 of 1 - PCV) 2014 RSV Immunization or 60+ Years (1 - 1-dose 75+ series) 01/11/2024 COVID-19 Vaccine ( - 2023-2 5 season) 2024 Influenza Adult (#1) 2024 Meningococcal Vaccine Aged Out No teressa carmen eligible based on patient's age to complete this topic RSV Immunizations Under 20 Months Aged Out No longer eligible based on patient's age to complete this topic Medical Devices Implanted Type Area Testing And Regulating Chief Device Identifier Shelf Expiration Date Model / Serial / Lot Tridentx3 0 Degree Polyethylene Insert Implanted:Qty: 1 on 07/22/2018 by Jose Luis Rain MD at [facility] Hip Components Left: Hip [employer] 10/15/2022 623-00-3 6D / / [id number] Accolade 132 Neck Angle Hip Stem Implanted:Qty: 1 on 07/22/2018 by Jose Luis Rain MD at [facility] Hip Components Left: Hip [id number] 04/16/2023 6720-033 0 / / [id number] [employer] Delta Ceramic V40 Femoral Head Implanted:Qty: 1 on 07/22/2018 by Jose Luis Rain MD at [facility] Hip Components Left: Hip [employer] [id number] 03/29/2023 6570-0-2 36 / / [id number] Titanium Hemispherical Cluster Hole Shell Implanted:Qty: 1 on 07/22/2018 by Jose Luis Rain MD at [facility] Hip Components Left: Hip 11/19/2019 502-03-5 2D / / [id number] Torx Cancellous Bone Screw Implanted:Qty: 1 on 07/22/2018 by Jose Luis Rain MD at [facility] Hip Components Left: Hip [employer] [id number] 02/27/202365 5-1 / / [id number] Torx Cancellous Bone Screw Implanted:Qty: 1 on 07/22/2018 by Jose Luis Rain MD at [facility] Hip Components Left: Hip [id number] 02/27/202365 5-1 / / [id number] Cancellous Bone Screw Implanted:Qty: 1 on 02/18/2018 by Jose Luis Rain MD at [facility] Screw [employer] 11/27/202265 0-1 / / [id number] Cancellous Bone Screw Implanted:Qty: 1 on 02/18/2018 by Jose Luis Rain MD at [facility] Screw [employer] 11/25/2022652 5-1 / / [id number] Hemispherical Cluster Hole Shell Implanted:Qty: 1 on 02/18/2018 by Jose Luis Rain MD at [facility] [employer] 01/01/2023 [id number] 4E / / [id number] 0 Deg Polyethylene Insert Implanted:Qty: 1 on 02/18/2018 by Jose Luis Rain MD at [facility] [employer] 12/12/2022 623-00-3 6E / / [id number] 132 Deg Neck Angle Hip Stem Implanted:Qty: 1 on 02/18/2018 by Jose Luis Rain MD at [facility] [employer] 12/03/2022 6720-033 0 / / [id number] Ceramic V40 Femoral Head Implanted:Qty: 1 on 02/18/2018 by Jose Luis Rain MD at [facility] [employer] 01/07/2023 6570-0-5 36 / / [id number] Procedures Procedure Name Priority Date/Time Associated Diagnosis Comments HC URINALYSIS AUTO W/MICRO STAT 09/21/2024 8:05 PM [facility] LIPASE STAT 09/21/2024 5:54 PM [facility] LACTIC ACID STAT 09/21/2024 5:54 PM [facility] COMPREHENSIVE METABOLIC PANEL STAT 09/21/2024 5:54 PM [facility] CBC W/DIFF AUTOMATED STAT 09/21/2024 5:54 PM [facility] CT ABD+PEL W CON STAT 09/21/2024 1:04 PM [facility] Abdominal wall mass TROPONIN, QUANT STAT 09/13/2024 11:47 PM [facility] XR CHEST PA+LAT STAT 09/13/2024 10:04 PM [facility] LACTIC ACID W REFLEX (SEPSIS) STAT 09/13/2024 9:57 PM [facility] TROPONIN, QUANT STAT 09/13/2024 9:57 PM [facility] COMPREHENSIVE METABOLIC PANEL STAT 09/13/2024 9:57 PM [facility] CBC W/DIFF AUTOMATED STAT 09/13/2024 9:57 PM [facility] CORONAVIRUS (COVID-19) ANTIGEN STAT 09/13/2024 9:53 PM [facility] ECG 12-LEAD Routine 09/13/2024 8:28 PM [facility] from Last 3 Months Results * URINALYSIS (09/21/2024 8:05 PM [facility]) COLOR (U) YELLOW 09/21/2024 8:21 PM [facility] TRANSPARENCY CLEAR 09/21/2024 8:21 PM [facility] SPECIFIC GRAVITY (U) 1.015 1.000 - 1.025 09/21/2024 8:21 PM [facility] U PH 7.0 5.0 - 8.0 09/21/2024 8:21 PM [facility] LEUKOCYTES (U) NEGATIVE NEGATIVE 09/21/2024 8:21 PM [facility] NITRITES NEGATIVE NEGATIVE 09/21/2024 8:21 PM [facility] PROTEIN RANDOM (U) NEGATIVE NEGATIVE 09/21/2024 8:21 PM [facility] GLUCOSE (U) NEGATIVE NEGATIVE 09/21/2024 8:21 PM [facility] KETONES MG/DL (U) NEGATIVE NEGATIVE 09/21/2024 8:21 PM [facility] UROBILINOGEN 0.2 <1.0 EU/DL 09/21/2024 8:21 PM [facility] BILIRUBIN (U) NEGATIVE NEGATIVE 09/21/2024 8:21 PM [facility] BLOOD (U) NEGATIVE NEGATIVE 09/21/2024 8:21 PM [facility] WBC/HPF 0-5 0 - 5 /HPF 09/21/2024 8:21 PM [facility] EPI/LPF OCCASIONAL /LPF 09/21/2024 8:21 PM [facility] BACTERIA (U) TRACE /HPF 09/21/2024 8:21 PM [facility] MUCUS PRESENT 09/21/2024 8:21 PM [facility] URINE SPECIMEN OBTAINED BY CLEAN CATCH PROCEDURE / Unknown 09/21/2024 8:05 PM [facility] Sam Christiano URINE ORDERABLES Final Result [facility] [address] [place] [address], * (ABNORMAL) COMPREHENSIVE METABOLIC PANEL (09/21/2024 5:54 PM [facility]) Only the most recent of2 resultswithin the time period is included. SODIUM S/P/B 137 136 - 145 MMOL/L 09/21/2024 6:21 PM [facility] POTASSIUM S/P/B 4.7 3.5 - 5.1 MMOL/L 09/21/2024 6:21 PM [facility] CHLORIDE S/P/B 102 98 - 107 MMOL/L 09/21/2024 6:21 PM [facility] CO2 29.9 21.0 - 32.0 MMOL/L 09/21/2024 6:21 PM [facility] GLUCOSE 110(H) 70 - 99 MG/DL 09/21/2024 6:21 PM [facility] Comment: FASTING GLUCOSE 100 TO 125 MG/DL IS CONSISTENT WITH IMPAIRED FASTING GLUCOSE. FASTING GLUCOSE >125 MG/DL IS CONSISTENT WITH DIABETES. RANDOM GLUCOSE >200 MG/DL WITH HYPERGLYCEMIC SYMPTOMS IS CONSISTENT WITH DIABETES. PER ADA GUIDELINES BUN 16 6 - 24 MG/DL 09/21/2024 6:21 PM [facility] CREATININE S/P/B 0.83 0.55 - 1.02 MG/DL 09/21/2024 6:21 PM [facility] CALCIUM S/P/B 9.3 8.4 - 10.5 MG/DL 09/21/2024 6:21 PM [facility] BILIRUBIN TOTAL S/P/B 0.4 0.2 - 1.0 MG/DL 09/21/2024 6:21 PM [facility] Comment: THIS ASSAY IS NOT RECOMMENDED FOR PATIENTS UNDERGOING TREATMENT WITH ELTROMBOPAG DUE TO THE POTENTIAL FOR FALSELY ELEVATED RESULTS. ALKALINE PHOSPHATASE S/P/B 102 55 - 142 U/L 09/21/2024 6:21 PM [facility] AST 11(L) 15 - 37 U/L 09/21/2024 6:21 PM [facility] ALT 19 14 - 59 U/L 09/21/2024 6:21 PM [facility] TOTAL PROTEIN S/P/B 7.3 6.4 - 8.2 G/DL 09/21/2024 6:21 PM [facility] ALBUMIN S/P/B 2.9(L) 3.4 - 5.0 G/DL 09/21/2024 6:21 PM [facility] ANION GAP 5.1 5.0 - 15.0 MMOL/L 09/21/2024 6:21 PM [facility] OSMOLALITY (CALC) 286 MOSM/KG 024 6:21 PM [facility] Comment:REFERENCE RANGE NOT ESTABLISHED GFR ESTIMATE 73(L) >89 ML/MIN/1. 73 M2 09/21/2024 6:21 PM [facility] GFR NOTES GFR REFERENCE S: 09/21/2024 6:21 PM [facility] Comment: THE ESTIMATED GFR IS CALCULATED [...] FAILURE: <15 ml/min/1.73 m2 09/21/2024 5:54 PM [facility] LABORATORY Final Result [facility] [address] [place] [address], * LACTIC ACID (09/21/2024 5:54 PM [facility]) LACTIC ACID VENOUS 1.0 0.4 - 2.0 MMOL/L 09/21/2024 6:26 PM [facility] 09/21/2024 5:54 PM [facility] LABORATORY Final Result Performing Organization Address City/[facility]/ZIP Co de Phone Number [facility] [address] [place] [address], * (ABNORMAL) CBC W/DIFF AUTOMATED (09/21/2024 5:54 PM [facility]) Only the most recent of2 resultswithin the time period is included. Pathologist [facility] WBC 11.04(H) 4.00 - 10.80 x10'3/uL 09/21/2024 6:12 PM [facility] RBC 4.34 4.10 - 5.40 x10'6/uL 09/21/2024 6:12 PM [facility] HGB 12.9 12.0 - 16.0 G/DL 09/21/2024 6:12 PM [facility] HCT 39.9 36.0 - 47.0 % 09/21/2024 6:12 PM [facility] MCV 91.9 78.0 - 100.0 FL 09/21/2024 6:12 PM [facility] MCH 29.7 27.0 - 31.0 PG 09/21/2024 6:12 PM [facility] MCHC 32.3(L) 33.0 - 36.0 G/DL 09/21/2024 6:12 PM [facility] RDW 12.9 11.5 - 14.5 % 09/21/2024 6:12 PM [facility] PLT 327 150 - 350 x10'3/uL 09/21/2024 6:12 PM [facility] MPV 10.4 7.4 - 10.4 FL 09/21/2024 6:12 PM [facility] CBC COMMENT NORMAL REFERENCE RANGE NOT ESTABLISHED FOR THE PROPORTIONAL LEUKOCYTE DIFFERENTIAL. 09/21/2024 6:12 PM [facility] NEUTROPHILS % 76.3 % 09/21/2024 6:12 PM [facility] LYMPHOCYTES % 16.0 % 09/21/2024 6:12 PM [facility] MONOCYTES % 6.2 % 09/21/2024 6:12 PM [facility] EOSINOPHILS % 0.5 % 09/21/2024 6:12 PM [facility] BASOPHILS % 0.5 % 09/21/2024 6:12 PM [facility] IMMATURE GRANS % 0.5 % 09/21/20 6:12 PM [facility] NRBC % 0.0 % 09/21/2024 6:12 PM [facility] ABS. NEUTROPHILS 8.44(H) 1.60 - 8.30 x10'3/uL 09/21/2024 6:12 PM [facility] ABS. LYMPHOCYTES 1.77 0.80 - 4.70 x10'3/uL 09/21/2024 6:12 PM [facility] ABS. MONOCYTES 0.68 0.00 - 1.50 x10'3/uL 09/21/2024 6:12 PM [facility] ABS. EOSINOPHILS 0.05 0.00 - 0.40 x10'3/uL 09/21/2024 6:12 PM [facility] ABS. BASOPHILS 0.05 0.00 - 0.20 x10'3/uL 09/21/2024 6:12 PM [facility] ABS. IMMATURE GRANULOCYTES 0.05(H) 0.00 - 0.03 x10'3/uL 09/21/2024 6:12 PM [facility] ABS. NUCLEATED RBC'S 0.00 0.00 - 0.01 x10'3/uL 09/21/2024 6:12 PM [facility] 09/21/2024 5:54 PM [facility] Sam Alvarado DO LABORATORY Final Result Performing Organization Address [facility] Co de Phone Number [facility] [address] [place] [id number], * LIPASE (09/21/2024 5:54 PM [facility]) LIPASE 42 16 - 77 UNITS/L 09/21/2024 6:21 PM [facility] 09/21/2024 5:54 PM [facility] Sam Alvarado LABORATORY Final Result Performing Organization Address [facility]/[place] de Phone Number [facility] [address] [place] [address], [place] [phone] * CT ABD+PEL W CON (09/21/2024 1:04 PM [facility]) Anatomical Region Laterality Modality Abdomen Computed Tomogra phy 09/21/2024 3:01 PM [facility] Impressions 09/21/2024 3:06 PM [facility] Impression: Fat-containing umbilical hernia. The fat is [...] Are there any respiratory symptoms? Ordered By: ANISHA ROJAS Interpreted By: Joce Briggs MD, 09/21/2024 3:01 PM Narrative 09/21/2024 3:06 PM [facility] [address] [place] [address] Examination: CT abdomen and pelvis with IV [...] in the bony structures. Procedure Note Joce rBiggs MD - 09/21/2024 [facility] [address] [place] [address] Examination: CT abdomen and pelvis with IV [...] Are there any respiratory symptoms? Ordered By: ANISHA ROJAS Interpreted By: Joce Briggs MD, 09/21/2024 3:01 PM us Anisha Rojas MD CT Final Resu lt * TROPONIN, QUANT (09/13/2024 11:47 PM [facility]) Only the most recent of2 resultswithin the time period is included. TROPONIN I HIGH SENSITIVITY 11 0 - 51 ng/L 09/14/2024 12:09 AM [facility] 09/13/2024 11:4 7 PM [facility] us Saurav Leodan Gomez [facility]IG[facility] LABORATORY Final Result [facility] [address] [place] [id number], * XR CHEST PA+LAT (09/13/2024 10:04 PM [facility]) Anatomical Region Laterality Modality Chest Radiographic Lary ging 09/13/2024 10:1 4 PM [facility] Impressions 09/13/2024 10:15 PM [facility] IMPRESSION: 1. ??Large pulmonary opacity in the left lower lung. ??This may represent a pneumonia within the lingular segment of the left upper lobe. 2. ??Mild left basilar atelectasis. Referred By: ?? Interpreted By: Toy Mabry MD, 09/13/2024 10:14 PM Narrative 09/13/2024 10:15 PM [facility] [address] [place] [address] INDICATION: Chest pain. ??Shortness of breath. COMPARISON: [...] unremarkable. Bones: No acute process. Procedure Note Toy Mabry MD - 09/13/[address] [place] [address] INDICATION: Chest pain. Shortness of breath. COMPARISON: [...] ACID W REFLEX (SEPSIS) (09/13/2024 9:57 PM [facility]) LACTIC ACID VENOUS 0.7 0.4 - 2.0 MMOL/L 09/13/2024 10:23 PM [facility] 09/13/2024 9:57 PM [facility] us Saurav Dyer DO LABORATORY Final Result [facility] [place] [address], * CORONAVIRUS (COVID-19) ANTIGEN (09/13/2024 9:53 PM [facility]) CORONAVIRUS ANTIGEN IA NEGATIVE NEGATIVE 09/13/2024 10:25 PM [facility] Comment: NEGATIVE RESULTS DO NOT [...] LABORATORIES. SPECIMEN TYPE NASAL 09/13/2024 9:58 PM [facility] NASAL NASAL STRUCTURE / Unknown 09/13/2024 9:53 PM [facility] us Saurav Dyer DO MICROBIOLOGY - GENERAL ORDERABLE S Final Result [facility] [address] [place] [address], * ECG 12 lead (09/13/2024 8:28 PM [facility]) 09/13/2024 8:28 PM [facility] Narrative [facility] - 09/14/2024 5:53 AM [facility] ? [facility] ?[address] [place], [place] ??[address] ? Test Date: ?2024-09-13 Pat Name: ? ENOC RENDON ? Department: ?? 3 ? Room: ? EXAM 101 Gender: ? Female ? Print Developer: ?? : ?1950 ? Requested By: SAURAV DYER Order Number: [id number] ? Reading : ?? Diane Dumont ? Measurements Intervals ?[place]mer ? Rate: ? 83 ? P: ?-15 MN: ? 165 ?QRS: ?-10 QRSD: ? 86 ? T: ?37 QT: ? 378 ? QTc: ?445 ? Interpretive Statements SINUS RHYTHM MINIMAL VOLTAGE CRITERIA FOR LVH, CONSIDER NORMAL VARIANT NONSPECIFIC ST & T-WAVE ABNORMALITY [facility] Procedure Note Diane Dumont MD - 09/14/[address] [place] [address] Test Date: 2024-09-13 Pat Name: ENOC RENDON Department: 3 Room: EXAM 101 Gender: Female Print Developer: : 1950 Requested By: SAURAV DYER Order Number: [id number] Megan MD: Diane Dumont Measurements Intervals Palmer Rate: 83 P: -15 MN: 165 QRS: -10 QRSD: 86 T: 37 QT: 378 QTc: 445 Interpretive Statements SINUS RHYTHM MINIMAL VOLTAGE CRITERIA FOR LVH, CONSIDER NORMAL VARIANT NONSPECIFIC ST & T-WAVE ABNORMALITY [facility] us Saurav Dyer DO ECG ORDERABLES Final Result [facility] [place] [facility] from Last [address] [facility] Advance Directives * Full Code (Latest Code Status on File) Date Activated Date Inactivated Comments 07/22/2018 5:33 PM 07/24/2018 1:27 PM * Full Code Date Activated Date Inactivated Comments 02/18/2018 12:13 PM 02/20/2018 2:08 PM Care Teams Telephone Station Repairer Relationship Specialty Start Date End Date Kaushal Han MD [address] [place] [phone] PCP - General FAMILY PRACTICE 01/31/18 Jose Luis Rain MD [address] [place] [address] ORTHOPAEDICS 02/05/18 Anjum Rajan MD [address] [address] CARDIOVASCULAR DISEASE 07/16/18
--- OUTSIDE RECORDS SUMMARY | 2024-10-02 01:48 | XMS_ITS | Encounter Summary ---
Author Organization [facility] Address [facility] [facility] [place] [address] [place] [address] Care Team Providers Care Tire Assembler Name Role Phone Kaushal Hna MD Primary Care Provider Jose Luis Rain MD Unavailable [phone] Anjum Rajan MD Unavailable [phone] Encounter Details Date Type Department Care Team (Latest Contact Info) Description 07/22/2018 Abstract [facility] Jose Luis Rain MD [address] [place] [address] Social History Tobacco Use Types Packs/Day Years [...] Procedure Name Priority Date/Time Associated Diagnosis Comments SURG XR HIP LT 1V Routine 07/22/2018 2:3 0 PM CDT documented in this encounter Results * SURG XR HIP LT 1V (07/22/2018 2:30 PM CDT) Anatomical Region Laterality Modality Hip IMAGES ONLY 07/22/2018 2:30 PM CDT 07/22/2018 2:30 PM CDT Narrative 07/22/2018 4:01 PM CDT Date: 07/22/2018 2:25 PM Exam: SURG XR HIP LT 1V Comparison: Left hip radiography dated 02/18/2018. Technique: Frontal view of the lower pelvis and left hip. History: Arthroplasty. Findings: There is a left hip intraoperative trial arthroplasty in good position. There is soft tissue emphysema lateral to the left hip. Partially visualized is a right hip arthroplasty. The pubic rami appear intact. Impression: Normal intraoperative appearance of a left hip trial arthroplasty. DAP Procedure Note Alan Robin MD - 08/02/2018 Date: 07/22/2018 2:25 PM Exam: SURG XR HIP LT 1V Comparison: Left hip radiography dated 02/18/2018. Technique: Frontal view of the lower pelvis and left hip. History: Arthroplasty. Findings: There is a left hip intraoperative trial arthroplasty in good position. There is soft tissue emphysema lateral to the left hip.Partially visualized is a right hip arthroplasty. The pubic rami appear intact. Impression: Normal intraoperative appearance of a left hip trial arthroplasty. DAP us Jose Luis Rain MD IMAGES ONLY Final Result documented in this encounter Visit Diagnoses Not on filedocumented in this encounter Care Teams Tire Assembler Relationship Specialty Start Date End Date Kaushal Han MD [address] [place] [id number] PCP - General FAMILY PRACTICE 01/31/18 Jose Luis Rain MD [address] [place] [id number] ORTHOPAEDICS 02/05/18 Anjum Rajan MD [facility] [address] [address] CARDIOVASCULAR DISEASE 07/16/18 documented as of this encounter
--- OUTSIDE RECORDS SUMMARY | 2024-10-02 01:48 | XMS_ITS | Encounter Summary ---
Author Organization [facility] Address [facility] [place] [address] [place] [address] Care Team Providers Care Health Unit Clerk Name Role Phone Kaushal Han MD Primary Care Provider Jose Luis Rain MD Unavailable [phone] Anjum Rajan MD Unavailable [phone] Encounter Details Date Type Department Care Team (Latest Contact Info) Description 07/09/2018 Abstract [facility] Medical Group Jose Luis Rain MD [address] [place] [address] Social History Tobacco Use Types Packs/Day Years [...] Procedure Name Priority Date/Time Associated Diagnosis Comments TYPE & SCREEN Routine 07/09/2018 12:30 PM CDT documented in this encounter Results * TYPE & SCREEN (07/09/2018 12:30 PM CDT) ABO/RH ABO/RH(D) ?- A POSITIVE ANTIBODY SCREEN ?- NEGATIVE XM EXPIRATION ?- 07/25/2018 COMMENT ?- NO HISTORY OF TRANSFUSIONS,[place] EGNANCY OR ANTIBODIES, NEW SPECIMEN NOT NEEDED [facility] TO EPIC CONVERSION 07/09/2018 12:3 0 PM CDT 07/09/2018 12:30 PM CDT Narrative [facility] TO EPIC CONVERSION - 07/22/2018 6:47 AM CDT Result Communication: No patient communication needed at this time us Jose Luis Rain MD BLOOD BANK TEST ORDERABLES F inal Result [facility] TO EPIC CONVERSION documented in this encounter Visit Diagnoses Not on filedocumented in this encounter Care Teams Health Unit Clerk Relationship Specialty Start Date End Date Kaushal Han MD [address] [place] [phone] PCP - General FAMILY PRACTICE 01/31/18 Jose Luis Rain MD [address] [place] [phone] ORTHOPAEDICS 02/05/18 Anjmu Rajan MD [address] [address] CARDIOVASCULAR DISEASE 07/16/18 documented as of this encounter
--- OUTSIDE RECORDS SUMMARY | 2024-10-02 01:48 | XMS_ITS | Encounter Summary ---
Author Organization [facility] Address [facility] [place] [address] [place] [address] Care Team Providers Care Team Assembler Name Role Phone Kaushal Han MD Primary Care Provider Jose Luis Rain MD Unavailable [phone] Anjum Rajan MD Unavailable [phone] Encounter Details Date Type Department Care Team (Latest Contact Info) Description 07/09/2018 Abstract [facility] Medical Group Jose Luis Rain MD [address] [place] [address] Social History Tobacco Use Types Packs/Day Years [...] Procedure Name Priority Date/Time Associated Diagnosis Comments PRV ONLY-RESTING TWELVE LEAD EKG Routine 07/09/2018 12:18 PM CDT documented in this encounter Results * PRV ONLY-RESTING TWELVE LEAD EKG (07/09/2018 12:18 PM CDT) 07/09/2018 12:1 8 PM CDT 07/09/2018 12:18 PM CDT Narrative [facility] TO EPIC CONVERSION - 07/09/2018 3:03 PM CDT [facility] ? [address], [place] ? Test Date: ?2018-07-09 Pat Name: ? DEB RENDON ? Department: ?? 40 ? Room: ? Gender: ? Female ? Clerk Stenographer: ?? DD : ?1950 ? Requested By: Order Number: [id number] ? Reading MD: ?? Cade De Jesus ? Measurements Intervals ?[place] ? Rate: ? 61 ? P: ?44 CO: ? 165 ?QRS: ?-7 QRSD: ? 94 ? T: ?31 QT: ? 421 ? QTc: ?427 ? Interpretive Statements SINUS RHYTHM MINIMAL VOLTAGE CRITERIA FOR LVH, CONSIDER NORMAL VARIANT poor r progression - POSSIBLE ANTERIOR MYOCARDIAL INFARCTION, OF INDETERMINATE AGE No previous ECG available for comparison Procedure Note Alan Robin MD - 08/02/[address] Test Date: 2018-07-09 Pat Name: DEB RENDON Department: 40 Room: Gender: Female Clerk Stenographer: DD : 1950 Requested By: Order Number: [id number] Reading MD: Cade De Jesus Measurements Intervals [place] Rate: 61 P: 44 CO: 165 QRS: -7 QRSD: 94 T: 31 QT: 421 QTc: 427 Interpretive Statements SINUS RHYTHM MINIMAL VOLTAGE CRITERIA FOR LVH, CONSIDER NORMAL VARIANT poor r progression - POSSIBLE ANTERIOR MYOCARDIAL INFARCTION, OF INDETERMINATE AGE No previous ECG available for comparison us Jose Luis Rain MD ECHO Final Result [facility] TO EPIC CONVERSION documented in this encounter Visit Diagnoses Not on filedocumented in this encounter Care Teams Team Assembler Relationship Specialty Start Date End Date Kaushal Han MD [address] [place] [phone] PCP - General FAMILY PRACTICE 01/31/18 Jose Luis Rain MD [address] [place] [address] [place] [phone] ORTHOPAEDICS 02/05/18 Anjum Rajan MD [address] [address] CARDIOVASCULAR DISEASE 07/16/18 documented as of this encounter
--- OUTSIDE RECORDS SUMMARY | 2024-10-02 01:48 | XMS_ITS | Encounter Summary ---
Author Organization [facility] Address [facility]6 [facility] [place] [address] [place] [address] Care Team Providers Care Shackler Name Role Phone Kaushal Han MD Primary Care Provider [phone] Jose Luis Rain MD Unavailable [phone] Anjum Rajan MD Unavailable [phone] Reason for Visit * Auth/Cert Specialty Diagnoses / Procedures Referred By Spencer santos Referred To Contact Diagnoses LEFT HIP OSTEOARTHRITIS Procedures LEFT TOTAL HIP ARTHROPLASTY Referral ID Status Reason Start Date Expiration Date Visits Re quested Visits Authorized [id number] 1 1 Encounter Details Date Type Department Care Team (Late st Contact Info) Description 07/22/2018 12:41 PM CDT Anesthesia Event [facility] [place] [address] Alberto Shetty MD [id number] [place], [place] [address] Kolby Teixeira NP Anesthesia Record Procedure Summary Procedure Name Responsible Anesthesiologist Anesthesia Start Time Anesthesia Stop Time LEFT TOTAL HIP ARTHROPLASTY (Left: Hip) Alberto Shetty MD 07/22/18 1241 07/22/18 1538 Events Date Time Event Comment 07/22/2018 0802 0802 AN Anesthesia Prepped 0853 AN MEAT PACKAGER Prepped 1241 An Start Patient ID and consent checked and patient reassessed. 1241 An Start Data 1241 Quick Note C steff clancy is here for this case 1246 Preoxygenation 1247 An Induction 1251 An Intubation 1253 Anesthesia Ready 1527 An Emergence 1527 An Extubation 1527 Face Mask Applied 1530 Quick Note Transferred to pacu on 6l o2 sfm with monitors attached 1535 an stop data 1538 Post Anesthetic Care Handoff I completed my handoff to the receiving nurse during which we: 1. Identified the patient 2. Identified the responsible provider 3. Reviewed the pertinent medical history 4. Discussed the surgical course 5. Reviewed intra-op anesthesia management and issues during anesthesia 6. Set expectations for post-procedure period 7. Allowed opportunity for questions and acknowledgement of understanding. 1538 An Stop Meds Name Total midazolam 2 mg/2 mL injection 2 mg fentaNYL (SUBLIMAZE) 100 mcg/2 mL inject ion 200 mcg propofol (DIPRIVAN) 200 mg/20 mL injecti on 150 mg lidocaine (PF) 2% injection 50 mg rocuronium 10 mg/mL injection (10 mL via l) 50 mg ondansetron (ZOFRAN) 4 mg/2 mL injection 4 mg succinylcholine (ANECTINE) 20 mg/mL inje ction 120 mg sugammadex (BRIDION) 200 mg/2 mL injecti on 200 mg ceFAZolin (ANCEF) syringe 2 g 2 g tranexamic acid (CYKLOKAPRON) 1,000 mg i n sodium chloride 0.9 % 50 mL 2,000 mg dexamethasone (DECADRON) injection 4 mg phenylephrine (DEVAN-SYNEPHRINE) 10 mg/mL injection 100 mcg ketorolac (TORADOL) 30 mg/mL injection 3 0 mg lactated ringers infusion 1,000 mL sodium chloride 0.9% infusion 600 mL albumin human 5% solution 250 mL * Agents Name O2 N2O Air Inspired Sevoflurane Inspired Isoflurane Sevoflurane Isoflurane * Blood No blood administrations on file. Lines, Drains, and Airways Type Details Placement Removal Peripheral IV Placement Date: 07/01 12/15; Placed Outside of This Facility?: No; Size: 20 G; Orientation: Right; Location: Hand; Site Prep: Chlorhexidine; Inserted By: TATIANNA NAVARRETE RN ; Insertion attempts: 1; Patient Tolerance: Tolerated well; Removal Date: 07/24/18; Removal Time: 1100; Removal Reason: Patient Discharged 07/22/18 0000 by Tatianna Navarrete RN 07/24/18 1100 by Liss London RN ETT Placement Date: 07/01 12/15; Placement Time: 1251; Placed Outside of This Facility?:No; Mask Ventilate: Easy, Prior to intubation; Size (mm) : 7.5; Endotracheal: Oral, Stylet used; Blade Type: MAC 3; Placement Method: Direct Laryngoscopy (blade type in comment); View Grade: 2; Viewable Anatomy: Epiglottis, Arytenoid, Vocal cords; Insertion Attempts: 1; Placement Verified By: Capnography, Auscultation, Chest Rise (ETT CUFF MOV); Placed By: Other (Comment) (elaine clancy); Extubation Assessment: Suctioned, Alert, Tolerated well, Aware of surroundings, Patient spontaneously breathing, Deep breathes w/equal chest movements, Able to swallow, Atraumatic; Removal Date: 07/22/18; Removal Time: 1527; Removal Person: MEAT PACKAGER; Removal Reason: End of Case 07/22/18 1251 by Omer Mckeon CRNA 07/22/18 1527 by Omer Mckeon CRNA Valle Catheter 07/22/18; 1258; No; I & O - Strict I&O or Critically ill requiring I&O Q1-2hrs; 1; Hand hygiene performed, Site cleansed with sterile antiseptic, Sterile gloves, drape and lubricant used, Catheter inserted using aseptic technique, Anchoring device applied, Drainage bag secured below level of bladder, Closed system maintained; Stat lock; Latex; 14 Fr.; End of Case 07/22/18 1258 by Shaquille Callejas RN 07/22/18 1525 by Shaquille Callejas RN Surgical/Incision 07/22/18; 1427; Surg ical Wound; Hip; Left; closed with suture, steristripssecured with medipore tape ; 07/24/18; 1327 07/22/18 1427 by Shaquille Callejas RN 07/24/18 1327 by Automatic Discharge Provider documented in this encounter Social History Tobacco Use Types Packs/Day Years [...] on file documented as of this encounter OR Notes * Anesthesia Postprocedure Evaluation - Brandon Page CRNA - 07/23/2018 8:44 AM CDT Anesthesia Post-op Note Deb Gipson Procedure(s): LEFT TOTAL HIP ARTHROPLASTY (Left Hip) Anesthesia type: general Vitals: 07/23/18 0500 BP: 124/57 Vitals: 07/23/18 0500 Pulse: 79 Vitals: 07/23/18 0500 Resp: 16 Vitals: 07/23/18 0500 Temp: 36.7 ??C Vitals: 07/23/18 0500 SpO2: 95% Patient Location: Inpatient Unit Level of Consciousness: awake, alert and oriented Pain Management: adequate analgesia Airway Patency: patent Respiratory Status: acceptable Cardiovascular Status: acceptable Post-Op Nausea: none Postoperative Hydration: euvolemic Complications: no anesthesia complication * Anesthesia Postprocedure Evaluation - Alberto Shetty MD - 07/22/2018 3:57 PM CDT Anesthesia Post-op Note Deb Gipson Procedure(s): LEFT TOTAL HIP ARTHROPLASTY (Left Hip) Anesthesia type: general Vitals: 07/22/18 1545 BP: 140/89 Vitals: 07/22/18 1545 Pulse: 73 Vitals: 07/22/18 1545 Resp: 16 Vitals: 07/22/18 1533 Temp: 35.6 ??C Vitals: 07/22/18 1545 SpO2: 98% Patient Location: PACU Level of Consciousness: awake Pain Management: adequate analgesia Airway Patency: patent Respiratory Status: acceptable Cardiovascular Status: acceptable Post-Op Nausea: none Postoperative Hydration: euvolemic Complications: no anesthesia complication * Anesthesia Preprocedure Evaluation - Alberto Shetty MD - 07/09/2018 12:02 PM CDT Anesthesia ROS/MED History Reviewed: Patient summary , Nursing notes , ECG, Family history anesthesia, Anesthesia history , Medications , Labs , Images/Studies Pre-Anesthetic State: awake, alert and responds appropriately no history of anesthetic complications (pt had spinal with RTH 01/2018, denies complications. ) Pulmonary neg pulmonary ROS ROS comment: High SCHUYLER Risk Cardiovascular Exercise tolerance: (Denies SOB/CP. Ambulates with cane 2/2 balance issues and hip pain. ) (+) hypertension(-) past MS, CAD Neuro/Psych (-) no seizures, neuromuscular disease, no CVA GI/Hepatic/Renal (+) GERD ( )(-) liver disease, renal diseaseHiatal hernia: Endo/Other (+) obese, arthritis, (OA) GENERAL COMMENTS No Known Allergies Past Medical History: No date: Arthritis Comment: osteo right hip No date: Fracture of metatarsal Comment: 5th No date: Hypertension No date: OA (osteoarthritis) of hip Comment: left No date: Obesity Past Surgical History: No date: COLONOSCOPY 01/2018: HIP ARTHROPLASTY; Right Cardiac Clearance per Dr Valero EKG 12/2017 SR, possible left atrial enlargement, low qrs voltage in precordial leads, possible leftventricular hypertrophy Physical Evaluation Airway Mallampati: III TM Distance: <3 FB Neck ROM: normal Dental (missing) Pulmonary Pulmonary exam normal Breath sounds clear to auscultation Cardiovascular Rhythm: regular Rate: normal Cardiovascular exam normal (-) peripheral edema Other findings: Blood pressure 131/65, pulse 63, temperature 36.6 ??C, temperature source Oral, resp. rate 18, height 5' 2 (1.575 m), weight 93.9 kg (207 lb 0.2 oz), SpO2 96 %, not currently . No results for input(s): WBC, RBC, HGB, HCT, PLT, NA, K, CL, CO2, AGAP, BUN, CR, BUNCREATININ, GFRNON, GFR, GLU, CA in the last 72 hours. Anesthesia Plan ASA 2 Intravenous Induction Anesthesia type: general Discussed potential risks of General Anesthesia including but not limited to corneal abrasion, visual impairment or visual loss, mouth injury, dental damage, sore throat, hoarseness, esophageal injury, awareness under anesthesia, nerve injury due to positioning, aspiration, pneumonia, stroke, cardiac event, adverse drug reactions and . Discussed with patient Spinal and general anesthesia. Patient wishes to be asleep the whole time and not remember anything so a General anesthetic is planned. Informed Consent Anesthetic plan and risks discussed with patient of whom consent was obtained. . documented in this encounter Plan of Treatment Not on file documented as of this encounter Visit Diagnoses Not on filedocumented in this encounter Administered Medications Inactive Administered Medications - up to 3 most recent administrations Medication Order MAR Action Action Date Dose Rate Site albumin human 5 % solution Continuous PRN, Starting on Sat07/22/18 at 1438, Until Sat07/22/18 at 1538, Anesthesia Intra-Op New Bag 07/22/2018 2:38 PM CDT ceFAZolin (ANCEF) syringe 2 g 2 g, Intravenous, at 240 mL/hr, Once, 1 dose, On Sat07/22/18 at 0600Indications:Preop examination Given 07/22/2018 12:51 PM CDT 2 g dexamethasone (DECADRON) injection PRN, Starting on Sat07/22/18 at 1314, Until Sat07/22/18 at 1538, Anesthesia Intra-Op Given 07/22/2018 1:14 PM CDT 4 mg fentaNYL (SUBLIMAZE) injection Intravenous, PRN, Starting on Sat07/22/18 at 1323, Until Sat07/22/18 at 1538, Anesthesia Intra-Op Given 07/22/2018 3:30 PM CDT 50 mcg Given 07/22/2018 3:17 PM CDT 50 mcg Given 07/22/2018 1:23 PM CDT 50 mcg ketorolac (TORADOL) injection PRN, Starting on Sat07/22/18 at 1459, Until Sat07/22/18 at 1538, Anesthesia Intra-Op Given 07/22/2018 2:59 PM CDT 30 mg lactated ringers infusion at 10 mL/hr, Intravenous, Continuous, Starting on Sat07/22/18 at 0830, Until Sat07/22/18 at 1734, Infuse at TKO rate,Please do not start LR if patient has diagnosis of End stage renal disease, Pre-Op New Bag 07/22/2018 12:41 PM CDT lidocaine (PF) (XYLOCAINE) 2 % injection Intravenous, PRN, Starting on Sat07/22/18 at 1247, Until Sat07/22/18 at 1538, Anesthesia Intra-Op Given 07/22/2018 12:47 PM CDT 50 mg midazolam (VERSED) injection PRN, Starting on Sat07/22/18 at 1237, Until Sat07/22/18 at 1538, Anesthesia Intra-Op Given 07/22/2018 12:44 PM CDT 1 mg Given 07/22/2018 12:37 PM CDT 1 mg ondansetron (ZOFRAN) injection Intravenous, PRN, Starting on Sat07/22/18 at 1454, Until Sat07/22/18 at 1538, Anesthesia Intra-Op Given 07/22/2018 2:54 PM CDT 4 mg phenylephrine (DEVAN-SYNEPHRINE) injection PRN, Starting on Sat07/22/18 at 1450, Until Sat07/22/18 at 1538, Anesthesia Intra-Op Given 07/22/2018 2:50 PM CDT 100 mcg propofol (DIPRIVAN) IV bolus PRN, Starting on Sat07/22/18 at 1247, Until Sat07/22/18 at 1538, Anesthesia Intra-Op Given 07/22/2018 12:47 PM CDT 150 mg rocuronium (ZEMURON) injection Intravenous, PRN, Starting on Sat07/22/18 at 1257, Until Sat07/22/18 at 1538, Anesthesia Intra-Op Given 07/22/2018 1:39 PM CDT 10 mg Given 07/22/2018 12:57 PM CDT 40 mg sodium chloride 0.9% infusion Continuous PRN, Starting on Sat07/22/18 at 1350, Until Sat07/22/18 at 1538, Anesthesia Intra-Op New Bag 07/22/2018 1:50 PM CDT succinylcholine (ANECTINE) injection PRN, Starting on Sat07/22/18 at 1247, Until Sat07/22/18 at 1538, Anesthesia Intra-Op Given 07/22/2018 12:47 PM CDT 120 mg sugammadex (BRIDION) injection PRN, Starting on Sat07/22/18 at 1509, Until Sat07/22/18 at 1538, Anesthesia Intra-Op Given 07/22/2018 3:09 PM CDT 200 mg tranexamic acid (CYKLOKAPRON) 1,000 mg in sodium chloride 0.9 % 50 mL 1,000 mg, Intravenous, Administer over 30 Minutes, Once, 1 dose, On Sat07/22/18 at 0600Indications:Preop examination Bolus 07/22/2018 2:55 PM CDT 1,000 mg New Bag 07/22/2018 1:07 PM CDT 1,000 mg documented in this encounter Care Teams Shackler Relationship Specialty Start Date End Date Kaushal Han MD [address] [place] [phone] PCP - General FAMILY PRACTICE 01/31/18 Jose Luis Rain MD [address] [place] [phone] ORTHOPAEDICS 02/05/18 Anjum Rajan MD [address] [address] CARDIOVASCULAR DISEASE 07/16/18 documented as of this encounter
--- OUTSIDE RECORDS SUMMARY | 2024-10-02 01:48 | XMS_ITS | Encounter Summary ---
Author Organization [facility] - [facility] Address Critical access hospital6 [facility] [place] [address] [place] [address] Care Team Providers Care Costuming Supervisor Name Role Phone Kaushal Han MD Primary Care Provider Jose Luis Rain MD Unavailable [phone] Encounter Details Date Type Department Care Team (Late st Contact Info) Description 03/03/2018 Abstract [facility] Medical Group Multispecialty Care - [facility] [address] [facility] [address] [place] [address] Rabia Barnard, CAR UNLOADER-C Social History Tobacco Use Types Packs/Day Years Used Date Smoking Tobacco: Never Smokeless Tobacco: Never Alcohol Use Standard Drinks/Week Comments No 0 (1 standard drink = 0.6 oz pur e alcohol) Comments No Sex and Gender Information Value Date Recorded Sex Assigned at Not on file Legal Sex Female 10:51 AM CDT Gender Identity Not on file Sexual Orientation Not on file documented as of this encounter Last Filed Vital Signs Vital Sign Reading Time Taken Comments Blood Pressure 126/88 03/03/2018 8:05 AM CDT Pulse 74 03/03/2018 8:05 AM CDT Temperature - - Respiratory Rate - - Oxygen Saturation - - Inhaled Oxygen Concentration - - Weight 90 kg (198 lb 6.4 oz) 03/03/2018 8:05 AM CDT Height 157.5 cm (5' 2 ) 03/03/2018 8:05 AM CDT Body Mass Index 36.29 03/03/2018 8:05 AM CDT documented in this encounter Progress Notes * SERGEY James - 03/03/2018 8:00 AM CDT Vitals Recorded: 03Mar2018 08:05AM Heart Rate 74 Systolic 126 Diastolic 88 Not able to obtain height Patient stated height Height 5 ft 2 in Weight 198 lb 6.4 oz BMI Calculated 36.29 BSA Calculated 1.9 Post-Op Deb Gipson is status post total hip replacement of the right hip on 02/18/18. HPI: The patient reports calf swelling, but no excessive pain, no swelling, no fever, no nausea, noexcessive bleeding, no leg pain and no shortness of breath. The patient also reports using an assistive device for ambulation and weight- bearing as tolerated. Using walker. No pain medications needed. Aspirin for DVT prevention. PE: The surgical incision site was clean, dry and intact. The hip demonstrates no warmth, no induration, no erythema, no ecchymosis, no swelling and no tenderness. ROM as expected given post-op status. Strength as expected given post-op status. Tests for DVT and compartment syndrome reveal calf swelling, but a soft calf, no calf tenderness, a negative Homans' Sign and no palpable cord. Peripheralneurovascular exam reveals intact sensation to light touch and intact gross motor function. Assessment: Post-op, the patient is doing well. Plan: Activity Restrictions: advance as tolerated. Done this visit:. steri strips removed.. To Do For Next Visit: xray. No additional therapy needed. Pt to wean off walker and onto cane. Follow up: 4 weeks. Assessment 1. Status post total replacement of hip (V43.64) (Z96.649) Signatures Electronically signed by : Rabia Barnard APN; Mar 03 2018 8:35AM UTILITY DRIVER (Author) documented in this encounter Plan of Treatment Not on file documented as of this encounter Visit Diagnoses Not on filedocumented in this encounter Care Teams Costuming Supervisor Relationship Specialty Start Date End Date Kaushal Han MD [address] [place] [phone] PCP - General FAMILY PRACTICE 01/31/18 Jose Luis Rain MD [address] [place] [phone] ORTHOPAEDICS 02/05/18 documented as of this encounter
--- OUTSIDE RECORDS SUMMARY | 2024-10-02 01:48 | XMS_ITS | Encounter Summary ---
Author Organization [facility] Address [facility]ly [facility]6 [facility] [place] [address] [place] [address] Care Team Providers Care Drill Doctor Name Role Phone Kaushal Han MD Primary Care Provider Jose Luis Rain MD Unavailable [phone] Anjum Rajan MD Unavailable [phone] Reason for Visit * Reason Onset Date Comments Follow Up Call 07/25/2018 Encounter Details Date Type Department Care Team (Late st Contact Info) Description 07/25/2018 Hospital Follow-up Call [facility] Med/Surg [address] [place] [address] Asuncion Stallings, RN Follow Up Call Social History Tobacco Use Types Packs/Day Years [...] on filedocumented in this encounter Care Teams Drill Doctor Relationship Specialty Start Date End Date Kaushal Han MD [address] [place] [phone] PCP - General FAMILY PRACTICE 01/31/18 Jose Luis Rain MD [address] [place] [phone] ORTHOPAEDICS 02/05/18 Anjum Rajan MD [address] [address] CARDIOVASCULAR DISEASE 07/16/18 documented as of this encounter
--- OUTSIDE RECORDS SUMMARY | 2024-10-02 01:48 | XMS_ITS | Encounter Summary ---
Author Organization [facility] - [facility] Address [facility] [place] [address] [place] [address] Care Team Providers Care Printing Services Coordinator Name Role Phone Kaushal Han MD Primary Care Provider Jose Luis Rain MD Unavailable [phone] Anjum Rajan MD Unavailable [phone] Encounter Details Date Type Department Care Team (Latest Contact Info) Description 07/10/2018 Abstract [facility] Medical Group , Alan Syed MD Social History Tobacco Use Types Packs/Day Years [...] on filedocumented in this encounter Care Teams Printing Services Coordinator Relationship Specialty Start Date End Date Kaushal Han MD [address] [place] [phone] PCP - General FAMILY PRACTICE 01/31/18 Jose Luis Rain MD [address] [place] [phone] ORTHOPAEDICS 02/05/18 Anjum Rajan MD [address] [address] CARDIOVASCULAR DISEASE 07/16/18 documented as of this encounter
--- OUTSIDE RECORDS SUMMARY | 2024-10-02 01:48 | XMS_ITS | Encounter Summary ---
Author Organization [facility] - [facility] Address [facility] [place] [address] [place] [address] Care Team Providers Care Radiology Technologist Name Role Phone Kaushal Han MD Primary Care Provider Jose Luis Rain MD Unavailable [phone] Anjum Rajan MD Unavailable [phone] Encounter Details Date Type Department Care Team (Latest Contact Info) Description 07/24/2018 Scan HEALTH INFO [facility] Scanned, Documents Social [...] on filedocumented in this encounter Care Teams Radiology Technologist Relationship Specialty Start Date End Date Kaushal Han MD [address] [place] [phone] PCP - General FAMILY PRACTICE 01/31/18 Jose Luis Rain MD [address] [place] [phone] ORTHOPAEDICS 02/05/18 Anjum Rajan MD [address] [address] CARDIOVASCULAR DISEASE 07/16/18 documented as of this encounter
--- OUTSIDE RECORDS SUMMARY | 2024-10-02 01:48 | XMS_ITS | Encounter Summary ---
Author Organization [facility] Address [facility]6 [facility] [place] [address] [place] [address] Care Team Providers Care Wire Stitcher Name Role Phone Kaushal Han MD Primary Care Provider [phone] Grayson Munroe MD Unavailable [phone] Anjum Rajan MD Unavailable [phone] Reason for Visit * Reason Comments Postop Followup left total hip * Surgical (Routine) - Closed Specialty Diagnoses / Procedures Referred By Contac t Referred To Contact ORTHOPAEDIC SURGERY / ORTHOPAEDICS Diagnoses LT 07/22/18 Procedures SURGICAL POST-OP Kaushal Han MD [address] [place] [phone] Phone: tel: fax: Grayson Munroe MD [address] [place] [address] Phone: tel: fax: Referral ID Status Reason Start Date Expiration Date Visits Re quested Visits Authorized [id number] Closed 09/01/2018 09/02/2019 1 1 Encounter Details Date Type Department Care Team (Latest Contact Info) Description 09/01/2018 11:00 AM CEMENT BOAT AND BARGE LOADER Office Visit [facility] Multispecialty Care - [facility] [address] [facility], [address] [place] [address] Grayson Munroe MD [address] [place] [address] Postop Followup (left total hip) Social History Tobacco Use Types Packs/Day Years [...] Sign Reading Time Taken Comments Blood Pressure 151/82 09/01/2018 11:48 AM CEMENT BOAT AND BARGE LOADER Pulse 65 09/01/2018 11:48 AM CEMENT BOAT AND BARGE LOADER Temperature - - Respiratory Rate - - Oxygen Saturation - - Inhaled Oxygen Concentration - - Weight 87.7 kg (193 lb 4.8 oz) 09/01/2018 11:48 AM CEMENT BOAT AND BARGE LOADER Height - - Body Mass Index 35.35 08/04/2018 8:09 AM CEMENT BOAT AND BARGE LOADER documented in this encounter Progress Notes * Grayson Munroe MD - 09/01/2018 11:00 AM CST Images from the original note were not included. Office Visit Reason for Visit: Postop Followup (left total hip) History of Present Illness: Pain been controlled. She uses a cane. She feels like there is some tightness to it but overall shehas been doing pretty well. She is nervous to lay on the left side she is late on the right side a couple times. Vitals: Filed Vitals: 09/01/18 1148 BP: 151/82 Pulse: 65 Weight: 87.7 kg (193 lb 4.8 oz) Physical Exam: She walks with a mildly antalgic gait favoring the left hip. Incisions well- healed bilaterally. Mild tenderness about the left hip incision. Hip flexion is full in terms of strength and nonpainful. At 90 degrees hip flexion she has 30 degrees external rotation about 10 degrees internal rotation. Pain at the extremes of motion only. On the right side she has about 45 degrees external rotation about 10 degrees internal rotation. Leg lengths equal clinically OXR PELVIS AP+LT HIP 2V PROCEDURE: OXR PELVIS AP+LT HIP 2V VIEWS: 3 DATE: 09/01/18 CLINICAL INDICATION: left hip total replacement 10/23/18 FINDINGS: Bilateral total hip arthroplasties visualized. No signs of any subsidence or loosening. Lumbar spondylosis noted. IMPRESSION: Stable bilateral total hip arthroplasties. Assessment: 1. 6-months status post right total hip arthroplasty. 2. 6 weeks status post left total hip arthroplasty. Plan: Abduction exercises bilaterally. I showed him how to do this and she should continue to do it daily. Okay with her returning to exercise activities if she wishes. Follow-up in 2 months for repeat examination no x-rays just clinical exam. Summary: Deb was seen today for postop followup. Diagnoses and all orders for this visit: S/P hip replacement, left S/P hip replacement, right Medications: Current Outpatient Medications: ??? aspirin 81 [...] 220 MG Cap, , Disp: , Rfl: GRAYSON MUNROE MD 09/01/2018 NT BOAT AND BARGE LOADER documented in this encounter Plan of Treatment Not on file documented as of this encounter Visit Diagnoses Diagnosis S/P hip replacement, left- Primary S/P hip replacement, right documented in this encounter Care Teams Wire Stitcher Relationship Specialty Start Date End Date Kaushal Han MD [address] [place] [phone] PCP - General FAMILY PRACTICE 01/31/18 Grayson Munroe MD [address] [place] [phone] ORTHOPAEDICS 02/05/18 Anjum Rajan MD [address] [address] CARDIOVASCULAR DISEASE 07/16/18 documented as of this encounter
--- OUTSIDE RECORDS SUMMARY | 2024-10-02 01:48 | XMS_ITS | Encounter Summary ---
Author Organization [facility] - [facility] Address [facility] [place] [place] [address] [place] [address] Care Team Providers Care Financial Services Consultant Name Role Phone Kaushal Hna MD Primary Care Provider [phone] Jose Luis Rain MD Unavailable [phone] Anjum Rajan MD Unavailable [phone] Encounter Details Date Type Department Care Team (Latest Contact Info) Description 07/22/2018 Scan HEALTH INFO SRVCS Scanned, Documents Social [...] on filedocumented in this encounter Care Teams Financial Services Consultant Relationship Specialty Start Date End Date Kaushal Han MD [address] [place] [phone] PCP - General FAMILY PRACTICE 01/31/18 Jose Luis Rain MD [address] [place] [phone] ORTHOPAEDICS 02/05/18 Anjum Rajan MD [address] [address] CARDIOVASCULAR DISEASE 07/16/18 documented as of this encounter
--- OUTSIDE RECORDS SUMMARY | 2024-10-02 01:48 | XMS_ITS | Encounter Summary ---
Author Organization [facility] Address [facility]6 [facility] [place] [address] [place] [address] Care Team Providers Care Chief Media Officer Name Role Phone Kaushal Han MD Primary Care Provider Jose Luis Rain MD Unavailable [phone] Anjum Rajan MD Unavailable [phone] Encounter Details Date Type Department Care Team (Latest Contact Info) Description 07/09/2018 Abstract [facility] Medical Group Jose Luis Rain MD [address] [place] [address] Social History Tobacco Use Types Packs/Day Years [...] Procedure Name Priority Date/Time Associated Diagnosis Comments SED RATE, ERYTHROCYTE (ESR) Routine 07/09/2018 12:30 PM CDT documented in this encounter Results * SED RATE, ERYTHROCYTE (ESR) (07/09/2018 12:30 PM CDT) ESR 20 0 - 30 mm/hr [facility] TO EPIC CONVERSION 07/09/2018 12:3 0 PM CDT 07/09/2018 12:30 PM CDT Narrative [facility] TO EPIC CONVERSION - 07/09/2018 2:33 PM CDT Result Communication: No patient communication needed at this time Jose Luis Rain MD LABORATORY Final Result [facility] TO EPIC CONVERSION documented in this encounter Visit Diagnoses Not on filedocumented in this encounter Care Teams Chief Media Officer Relationship Specialty Start Date End Date Kaushal Han MD [address] [place] [phone] PCP - General FAMILY PRACTICE 01/31/18 Jose Luis Rain MD [address] [place] [phone] ORTHOPAEDICS 02/05/18 Anjum Rajan MD [address] [address] CARDIOVASCULAR DISEASE 07/16/18 documented as of this encounter
--- OUTSIDE RECORDS SUMMARY | 2024-10-02 01:48 | XMS_ITS | Encounter Summary ---
Author Organization [facility] Address [facility]6 [facility]. [place], [place] [address] [place] [address] Care Team Providers Care Car Deliverer Name Role Phone Kaushal Han MD Primary Care Provider Jose Lusi Rain MD Unavailable [phone] Anjum Rajan MD Unavailable [phone] Encounter Details Date Type Department Care Team (Latest Contact Info) Description 08/04/2018 Abstract [facility] Medical Group , Alan Syed MD Social [...] Sign Reading Time Taken Comments Blood Pressure 126/72 08/04/2018 8:09 AM PUBLISHING AGENT Pulse 68 08/04/2018 8:09 AM PUBLISHING AGENT Temperature - - Respiratory Rate - - Oxygen Saturation - - Inhaled Oxygen Concentration - - Weight 91.2 kg (201 lb) 08/04/2018 8:09 AM PUBLISHING AGENT Height 157.5 cm (5' 2 ) 08/04/2018 8:09 AM PUBLISHING AGENT Body Mass Index 36.76 08/04/2018 8:09 AM PUBLISHING AGENT documented in this encounter Progress Notes * SERGEY James - 08/04/2018 8:00 AM CST Vitals Recorded: 04Aug2018 08:09AM Heart Rate 68 Systolic 126 Diastolic 72 Height 5 ft 2 in Weight 201 lb BMI Calculated 36.76 BSA Calculated 1.92 Post-Op Deb Gipson is 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 HPI: The patient reports no excessive pain, no swelling, no fever, no nausea, no excessive bleeding, no calf swelling, no leg pain and no shortness of breath. The patient also reports using an assistive device for ambulation and weight- bearing as tolerated. Aspirin 81mg BID and minimal Percocet needed. PE: The surgical incision site was clean, dry and intact. The hip demonstrates no warmth, no induration, no erythema, no ecchymosis, no swelling and no tenderness. ROM as expected given post-op status. Strength as expected given post-op status. Tests for DVT and compartment syndrome are both negative with soft and non-tender calves and no palpable cords. Peripheral neurovascular exam reveals intact sensation to light touch and intact gross motor function. Assessment: Post-op, the patient is doing well. Plan: Activity Restrictions: advance as tolerated and advance to cane. To Do For Next Visit: xray. [employer] [facility]. Follow up: 4 weeks. Assessment 1. Status post total replacement of hip (V43.64) (Z96.649) Signatures Electronically signed by : Rabia Barnard APN; Aug 04 2018 8:22AM PUBLISHING AGENT (Author) ISHING AGENT documented in this encounter Plan of Treatment Not on file documented as of this encounter Visit Diagnoses Not on filedocumented in this encounter Care Teams Car Deliverer Relationship Specialty Start Date End Date Kaushal Han MD [address] [place] [phone] PCP - General FAMILY PRACTICE 01/31/18 Jose Luis Rain MD [address] [place] [phone] ORTHOPAEDICS 02/05/18 Anjum Rajan MD [address] [address] CARDIOVASCULAR DISEASE 07/16/18 documented as of this encounter
--- OUTSIDE RECORDS SUMMARY | 2024-10-02 01:48 | XMS_ITS | Encounter Summary ---
Author Organization [facility] Address [facility]6 [facility] [place] [address] [place] [address] Care Team Providers Care Machine Molder Name Role Phone Kaushal Han MD Primary Care Provider Jos eLuis Rain MD Unavailable [phone] Encounter Details Date Type Department Care Team (Latest Contact Info) Description 07/09/2018 12:35 PM CDT - 07/09/2018 11:59 PM CDT Hospital Encounter [facility] Diagnostic Imaging [address] [place], [place] [id number] Jose Luis Rain MD [address] [place] [phone] Discharge Disposition: Home or Self Care (Routine [...] 1 tablet by mouth daily. 0 01/23/2018 docusate sodium 100 MG capsule Take 1 capsule (100 mg total) by mouth 2 (two) times daily as needed for Constipation. Hold for loose or frequent stools 60 capsule 07/24/2018 08/03/2018 hydrocodone-acet aminophen 5-325 MG tablet Take 1 tablet by mouth every 6 (six) hours as needed for Pain. 20 tablet 07/24/2018 06/10/2019 Naproxen Sodium (ALEVE) 220 MG Cap 09/21/2024 documented as of this encounter Plan of Treatment Not on file documented as of this encounter Procedures Procedure Name Priority Date/Time Associated Diagnosis Comments XR CHEST PA+LAT Today 07/09/2018 1:31 PM CDT Preop examination documented in this encounter Results * XR CHEST PA+LAT (07/09/2018 1:31 PM CDT) Anatomical Region Laterality Modality Chest Radiographic Lary ging 07/09/2018 2:31 PM CDT Narrative 07/09/2018 2:33 PM CDT Exam: Chest x-ray Comparison 02/03/2018 INDICATION: Preoperative study, shortness of breath with exertion. TECHNIQUE: 2 views FINDINGS: Heart size is upper limits of normal. ??Normal pulmonary vessel size. ??Tortuous descending aorta. ??The lungs are clear. ??No interstitial edema or pleural effusion. ??Multiple small anterior thoracic osteophytes. IMPRESSION: Borderline heart size and clear lungs. Interpreted By: Efe Tracey MD, 07/09/2018 2:31 PM Procedure Note Efe Tracey MD - 07/09/2018 Exam: Chest x-ray Comparison 02/03/2018 INDICATION: Preoperative study, shortness of breath with exertion. TECHNIQUE: 2 views FINDINGS: Heart size is upper limits of normal. Normal pulmonary vesselsize. Tortuous descending aorta. The lungs are clear. No interstitialedema or pleural effusion. Multiple small anterior thoracicosteophytes. IMPRESSION: Borderline heart size and clear lungs. Interpreted By: Efe Tracey MD, 07/09/2018 2:31 PM Jose Luis Rain MD GENERAL IMAGING Final Result documented in this encounter Visit Diagnoses Not on filedocumented in this encounter Care Teams Machine Molder Relationship Specialty Start Date End Date Kaushal Han MD [address] [place] [phone] PCP - General FAMILY PRACTICE 01/31/18 Jose Luis Rain MD [address] [place] [phone] ORTHOPAEDICS 02/05/18 documented as of this encounter
--- OUTSIDE RECORDS SUMMARY | 2024-10-02 01:48 | XMS_ITS | Encounter Summary ---
Author Organization [facility] - [facility] Address [facility]6 [facility] [place] [address] [place] [address] Care Team Providers Care Tare Man Name Role Phone Kaushal Han MD Primary Care Provider Jose Luis Rain MD Unavailable [phone] Anjum Rajan MD Unavailable [phone] Encounter Details Date Type Department Care Team (Latest Contact Info) Description 07/28/2018 Abstract [facility] Medical Group , Alan Syed [...] on filedocumented in this encounter Care Teams Tare Man Relationship Specialty Start Date End Date Kaushal Han MD [address] [place] [phone] PCP - General FAMILY PRACTICE 01/31/18 Jose Luis Rain MD [address] [place] [phone] ORTHOPAEDICS 02/05/18 Anjum Rajan MD [address] [address] CARDIOVASCULAR DISEASE 07/16/18 documented as of this encounter
--- OUTSIDE RECORDS SUMMARY | 2024-10-02 01:48 | XMS_ITS | Encounter Summary ---
Author Organization [facility] - [facility] Address [facility] [facility] [place] [address] [place] [address] Care Team Providers Care Head Butler Name Role Phone Kaushal Han MD Primary Care Provider [phone] Jose Luis Rain MD Unavailable [phone] Anjum Rajan MD Unavailable [phone] Reason for Visit * Reason Onset Date Comments Follow Up Call 07/25/2018 Encounter Details Date Type Department Care Team (Late st Contact Info) Description 07/25/2018 Hospital Follow-up Call [facility] Med/Surg [address] [place] [address] Asuncion Stallings, RN Follow Up Call Social [...] on filedocumented in this encounter Care Teams Head Butler Relationship Specialty Start Date End Date Kaushal Han MD [address] [place] [phone] PCP - General FAMILY PRACTICE 01/31/18 Jose Luis Rain MD [address] [place] [phone] ORTHOPAEDICS 02/05/18 Anjum Rajan MD [address] [address] CARDIOVASCULAR DISEASE 07/16/18 documented as of this encounter
--- OUTSIDE RECORDS SUMMARY | 2024-10-02 01:48 | XMS_ITS | Encounter Summary ---
Author Organization [facility] Address [facility]6 [facility] [place] [address] [place] [address] Care Team Providers Care Fashion Consultant Sales Name Role Phone Kaushal Han MD Primary Care Provider Jose Luis Rain MD Unavailable [phone] Anjum Rajan MD Unavailable [phone] Encounter Details Date Type Department Care Team (Latest Contact Info) Description 07/22/2018 Abstract [facility] Medical Group Jose Luis Rain MD [address] [place] [address] Social History Tobacco Use Types Packs/Day Years [...] Name Priority Date/Time Associated Diagnosis Comments XR PEL W HIP LAT LT Routine 07/22/2018 3 :55 PM CDT documented in this encounter Results * XR PEL W HIP LAT LT (07/22/2018 3:55 PM CDT) Anatomical Region Laterality Modality Pelvis, Hip Radiographic Lary ging 07/22/2018 3:55 PM CDT 07/22/2018 3:55 PM CDT Narrative 07/22/2018 9:26 PM CDT Examination: XR PEL W HIP LAT LT Exam time: 07/22/2018 4:11 PM Clinical history: Left hip arthroplasty, postop evaluation Comparison: 07/22/2018 Technique: AP pelvis, AP and lateral views left hip Findings: Soft tissue postop change lateral to the left hip with small amount of residual soft tissue gas. Total left hip arthroplasty. No evidence of complication involving hardware. No evidence of fracture. Right hip arthroplasty also appears uncomplicated. IMPRESSION: 1) Left total hip arthroplasty without evidence of complication. Procedure Note Alan Robin MD - 08/02/2018 Examination: XR PEL W HIP LAT LT Exam time: 07/22/2018 4:11 PM Clinical history: Left hip arthroplasty, postop evaluation Comparison: 07/22/2018 Technique: AP pelvis, AP and lateral views left hip Findings: Soft tissue postop change lateral to the left hip with small amount of residual soft tissue gas. Total left hip arthroplasty. No evidence of complication involving hardware. No evidence of fracture.Right hip arthroplasty also appears uncomplicated. IMPRESSION: 1) Left total hip arthroplasty without evidence of complication. Jose Luis Rain MD GENERAL IMAGING Final Result documented in this encounter Visit Diagnoses Not on filedocumented in this encounter Care Teams Fashion Consultant Sales Relationship Specialty Start Date End Date Kaushal Han MD [address] [place] [phone] PCP - General FAMILY PRACTICE 01/31/18 Jose Luis Rain MD [address] [place] [phone] ORTHOPAEDICS 02/05/18 Anjum Rajan MD [facility] [address] [address] CARDIOVASCULAR DISEASE 07/16/18 documented as of this encounter
--- OUTSIDE RECORDS SUMMARY | 2024-10-02 01:48 | XMS_ITS | Encounter Summary ---
Author Organization [facility] - [facility] Address [facility]6 [facility]. [place], [place] [address] [place] [address] Care Team Providers Care Gl Accountant Name Role Phone Kaushal Han MD Primary Care Provider Jose Luis Rain MD Unavailable [phone] Encounter Details Date Type Department Care Team (Latest Contact Info) Description 03/13/2018 Abstract [facility] Medical Group Social History Tobacco Use Types Packs/Day Years [...] on filedocumented in this encounter Care Teams Gl Accountant Relationship Specialty Start Date End Date Kaushal Han MD [address] [place] [phone] PCP - General FAMILY PRACTICE 01/31/18 Jose Luis Rain MD [address] [place] [phone] ORTHOPAEDICS 02/05/18 documented as of this encounter
--- OUTSIDE RECORDS SUMMARY | 2024-10-02 01:48 | XMS_ITS | Encounter Summary ---
Author Organization [facility] Address [facility]6 [facility] [place] [address] [place] [address] Care Team Providers Care Community Chest Officer Name Role Phone Kaushal Han MD Primary Care Provider Jose Luis Rain MD Unavailable [phone] Anjum Rajan MD Unavailable [phone] Encounter Details Date Type Department Care Team (Latest Contact Info) Description 07/09/2018 Abstract [facility] Medical Group Jose Luis Rain MD [address] [place] [address] Social History Tobacco Use Types Packs/Day Years [...] Procedure Name Priority Date/Time Associated Diagnosis Comments BASIC METABOLIC PANEL Routine 07/09/2018 12:30 PM CDT C-REACTIVE PROTEIN Routine 07/09/2018 12 :30 PM CDT CBC W/DIFF AUTOMATED Routine 07/09/2018 12:30 PM CDT documented in this encounter Results * C-REACTIVE PROTEIN (07/09/2018 12:30 PM CDT) Pathologist [facility] C-REACTIVE PROTEIN <0.29 <0.29 mg/dL [facility] TO EPIC CONVERSION 07/09/2018 12:3 0 PM CDT 07/09/2018 12:30 PM CDT Narrative [facility] TO EPIC CONVERSION - 07/09/2018 1:20 PM CDT Result Communication: No patient communication needed at this time us Jose Luis Rain MD LABORATORY Final Result [facility] TO EPIC CONVERSION * (ABNORMAL) CBC W/DIFF AUTOMATED (07/09/2018 12:30 PM CDT) Pathologist [facility] WBC 4.4(L) 4.5 - 11.0 x10'3/uL [facility] TO EPIC CONVERSION RBC 4.41 4.20 - 5.40 x10'6/uL [facility] TO EPIC CONVERSION HGB 12.5 12.0 - 16.0 G/DL [facility] TO EPIC CONVERSION HCT 39.3 38.0 - 48.0 % [facility] TO EPIC CONVERSION MCV 89.1 81.0 - 99.0 FL [facility] TO EPIC CONVERSION MCH 28.3 27.0 - 31.0 PG [facility] TO EPIC CONVERSION MCHC 31.8(L) 32.0 - 36.0 G/DL [facility] TO EPIC CONVERSION RDW 14.0 11.5 - 14.5 % [facility] TO EPIC CONVERSION PLT 184 130 - 400 x10'3/uL [facility] TO EPIC CONVERSION GLUCOSE 11.1 9.3 - 12.2 FL [facility] TO EPIC CONVERSION IMMATURE GRANS % 0.5(H) 0 % [facility] TO EPIC CONVERSION ABS. NEUTROPHILS TOTAL 2.89 1.80 - 7.70 x10'3/uL [facility] TO EPIC CONVERSION ABS. LYMPHOCYTES 1.21 1.00 - 4.80 x10'3/uL [facility] TO EPIC CONVERSION NEUTROPHILS % 65.1 % [facility] UP TO EPIC CONVERSION LYMPHOCYTES 27.3 % [facility] TO EPIC CONVERSION MONOCYTES 5.9 % [facility] T O EPIC CONVERSION EOSINOPHILS 0.5 % [facility] TO EPIC CONVERSION BASOPHILS 0.7 % [facility] T O EPIC CONVERSION DIFFERENTIAL TYPE AUTOMATED DIFFERENTIAL [facility] TO EPIC CONVERSION ABS. MONOCYTES 0.26 0.24 - 0.86 x10'3/uL [facility] TO EPIC CONVERSION ABS. EOSINOPHILS 0.02(L) 0.04 - 0.36 x10'3/uL [facility] TO EPIC CONVERSION ABS. BASOPHILS 0.03 0.01 - 0.08 x10'3/uL [facility] TO EPIC CONVERSION ABS. IMMATURE GRANULOCYTES 0.02 0.00 - 0.03 x10'3/uL [facility] TO EPIC CONVERSION 07/09/2018 12:3 0 PM CDT 07/09/2018 12:30 PM CDT Narrative [facility] TO EPIC CONVERSION - 07/09/2018 1:24 PM CDT Result Communication: No patient communication needed at this time us Jose Luis Rain MD LABORATORY Final Result [facility] TO EPIC CONVERSION * (ABNORMAL) BASIC METABOLIC PANEL (07/09/2018 12:30 PM CDT) Pathologist [facility] GLUCOSE 85 70 - 99 MG/DL [facility] TO EPIC CONVERSION BUN 13 7 - 18 MG/DL [facility] TO EPIC CONVERSION CREATININE S/P/B 0.69 0.55 - 1.02 MG/DL [facility] TO EPIC CONVERSION SODIUM S/P/B 143 136 - 145 MMOL/L [facility] TO EPIC CONVERSION POTASSIUM S/P/B 4.0 3.5 - 5.1 MMOL/L [facility] TO EPIC CONVERSION CHLORIDE S/P/B 108 100 - 108 MMOL/L [facility] TO EPIC CONVERSION CO2 28.6 21 - 32 MMOL/L [facility] TO EPIC CONVERSION CALCIUM S/P/B 8.9 8.5 - 10.1 MG/DL [facility] TO EPIC CONVERSION BUN CREATININE RATIO 19.0 6 - 26 [facility] TO EPIC CONVERSION ANION GAP 10.4 8 - 20 MMOL/L [facility] TO EPIC CONVERSION EGFR NON-AFR. AMER. 89(L) >90 ML/MIN/1.7 3 M2 [facility] TO EPIC CONVERSION EGFR AFR. AMER. >90 >90 ML/MIN/1.7 3 M2 [facility] TO EPIC CONVERSION Comment: Result Comment: NOTE: eGFR is not calculated for patients <18 years of age. This is an estimated GFR (CKD EPI) and should not be used for calculating drug doses. 07/09/2018 12:3 0 PM CDT 07/09/2018 12:30 PM CDT Narrative [facility] TO EPIC CONVERSION - 07/09/2018 1:20 PM CDT Result Communication: No patient communication needed at this time Jose Luis Rain MD LABORATORY Final Result [facility] TO EPIC CONVERSION documented in this encounter Visit Diagnoses Not on filedocumented in this encounter Care Teams Community Chest Officer Relationship Specialty Start Date End Date Kaushal Han MD [address] [place] [phone] PCP - General FAMILY PRACTICE 01/31/18 Jose Luis Rain MD [address] [place] [phone] ORTHOPAEDICS 02/05/18 Anjum Rajan MD [address] [address] CARDIOVASCULAR DISEASE 07/16/18 documented as of this encounter
--- OUTSIDE RECORDS SUMMARY | 2024-10-02 01:48 | XMS_ITS | Encounter Summary ---
Author Organization [facility] Address Formerly [facility]6 [place] [address] [place] [address] Care Team Providers Care Prop Maker Name Role Phone Kaushal Han MD Primary Care Provider [phone] Jose Luis Rain MD Unavailable [phone] Reason for Visit * Reason Comments Lab (SCAN) Encounter Details Date Type Department Care Team (Late st Contact Info) Description 03/04/2018 Scan [facility] [place] [address] Scanned, Documents Lab (SCAN) Social History Tobacco Use Types Packs/Day Years [...] Procedure Name Priority Date/Time Associated Diagnosis Comments OUTSIDE LAB (SCAN ORDER) Routine 01/24/2018 documented in this encounter Results * OUTSIDE LAB (01/24/2018) 01/24/2018 us Documents Scanned SCANNING Final Result documented in this encounter Visit Diagnoses Not on filedocumented in this encounter Care Teams Prop Maker Relationship Specialty Start Date End Date Kaushal Han MD [address] [place] [address] PCP - General FAMILY PRACTICE 01/31/18 Jose Luis Rain MD [address] [place] [phone] ORTHOPAEDICS 02/05/18 documented as of this encounter
--- OUTSIDE RECORDS SUMMARY | 2024-10-02 01:48 | XMS_ITS | Encounter Summary ---
Author Organization [facility] Address [facility] Formerly [facility] [place] [address] [place] [address] Care Team Providers Care Lace Sewer Name Role Phone Kaushal Han MD Primary Care Provider [phone] Jose Luis Rain MD Unavailable [phone] Anjum Rajan MD Unavailable [phone] Encounter Details Date Type Department Care Team (Latest Contact Info) Description 07/09/2018 Abstract [facility] Jose Luis Rain MD [address] [place] [address] Social History Tobacco Use Types Packs/Day Years [...] Date/Time Associated Diagnosis Comments XR CHEST PA+LAT Routine 07/09/2018 1:00 PM CDT documented in this encounter Results * XR CHEST PA+LAT (07/09/2018 1:00 PM CDT) Anatomical Region Laterality Modality Chest Radiographic Lary ging 07/09/2018 1:00 PM CDT 07/09/2018 1:00 PM CDT Narrative 07/09/2018 2:35 PM CDT Exam: Chest x-ray Comparison 02/03/2018 [...] Tracey MD, 07/09/2018 2:31 PM Procedure Note Alan Robin MD - 08/02/2018 Exam: Chest x-ray Comparison 02/03/2018 INDICATION: Preoperative study, shortness of breath with exertion. TECHNIQUE: 2 views FINDINGS: Heart size is upper limits of normal. Normal pulmonary vessel size. Tortuous descending aorta. The lungs are clear. No interstitial edema or pleural effusion. Multiple small anterior thoracicosteophytes. IMPRESSION: Borderline heart size and clear lungs. Interpreted By: Efe Tracey MD, 07/09/2018 2:31 PM Jose Luis Rain MD GENERAL IMAGING Final Result documented in this encounter Visit Diagnoses Not on filedocumented in this encounter Care Teams Lace Sewer Relationship Specialty Start Date End Date Kaushal Han MD [address] [place] [phone] PCP - General FAMILY PRACTICE 01/31/18 Jose Luis Rain MD [address] [place] [phone] ORTHOPAEDICS 02/05/18 Anjum Rajan MD [address] [address] CARDIOVASCULAR DISEASE 07/16/18 documented as of this encounter
--- OUTSIDE RECORDS SUMMARY | 2024-10-02 01:48 | XMS_ITS | Encounter Summary ---
Author Organization [facility] Address Formerly [facility]6 [facility] [place] [address] [place] [address] Care Team Providers Care Document Management Specialist Name Role Phone Kaushal Han MD Primary Care Provider Jose Luis Rain MD Unavailable [phone] Anjum Rajan MD Unavailable [phone] Encounter Details Date Type Department Care Team (Latest Contact Info) Description 07/25/2018 Scan [facility] Scanned, Documents Social [...] on filedocumented in this encounter Care Teams Document Management Specialist Relationship Specialty Start Date End Date Kaushal Han MD [address] [place] [phone] PCP - General FAMILY PRACTICE 01/31/18 Jose Luis Rain MD [address] [place] [phone] ORTHOPAEDICS 02/05/18 Anjum Rajan MD [address] [address] CARDIOVASCULAR DISEASE 07/16/18 documented as of this encounter
--- OUTSIDE RECORDS SUMMARY | 2024-10-02 01:48 | XMS_ITS | Encounter Summary ---
Author Organization [facility] Address [facility]6 [facility] [place] [address] [place] [address] Care Team Providers Care Rubber Compounder Name Role Phone Kaushal Han MD Primary Care Provider JoseL uis Rain MD Unavailable [phone] Reason for Visit * Reason Comments ECG (SCAN) Encounter Details Date Type Department Care Team (Late st Contact Info) Description 03/04/2018 Scan [facility] [place] [address] Scanned, Documents ECG (SCAN) Social History Tobacco Use Types Packs/Day [...] Procedure Name Priority Date/Time Associated Diagnosis Comments ECG GENERIC (SCAN ORDER) Routine 01/23/2018 documented in this encounter Results * ECG (01/23/2018) us Documents Scanned SCANNING Final Result documented in this encounter Visit Diagnoses Not on filedocumented in this encounter Care Teams Rubber Compounder Relationship Specialty Start Date End Date Kaushal Han MD [address] [place] [phone] PCP - General FAMILY PRACTICE 01/31/18 Jose Luis Rain MD [address] [place] [phone] ORTHOPAEDICS 02/05/18 documented as of this encounter
--- OUTSIDE RECORDS SUMMARY | 2024-10-02 01:48 | XMS_ITS | Encounter Summary ---
Author Organization [facility] - [facility] Address [facility]6 [facility] [address] [place] [address] Care Team Providers Care Commercial Development Manager Name Role Phone Kaushal Han MD Primary Care Provider Jose Luis Rain MD Unavailable [phone] Anjum Rajan MD Unavailable [phone] Encounter Details Date Type Department Care Team (Late st Contact Info) Description 06/30/2018 Abstract [facility] Medical [facility] Multispecialty Care - [facility] [address] [place] [address] Jose Luis Rain MD [address] [place] [phone] Social History Tobacco Use Types Packs/Day Years [...] Sign Reading Time Taken Comments Blood Pressure 179/89 06/30/2018 9:03 AM CDT Pulse 68 06/30/2018 9:03 AM CDT Temperature - - Respiratory Rate - - Oxygen Saturation - - Inhaled Oxygen Concentration - - Weight 92.5 kg (204 lb) 06/30/2018 9:03 AM CDT Height - - Body Mass Index 37.31 03/03/2018 8:05 AM CDT documented in this encounter H&P Notes * Jose Luis Rain MD - 06/30/2018 9:00 AM CDT History of Present Illness CHIEF COMPLAINT: Followup of right total hip arthroplasty, 02/18/2018 and also preoperative left hip replacement visit. HISTORY OF PRESENT ILLNESS: Deb is doing great on her right side. The left side is pretty painful. She uses a cane more often than not when she is out of the house. She spends a lot of time watching her 1-year-old grandson. PAST MEDICAL HISTORY: Hypertension. PAST SURGICAL HISTORY: Right hip replacement. MEDICATIONS: Lisinopril, aspirin. ALLERGIES: None. SOCIAL HISTORY: She lives with her . She has not been working recently. She is a nonsmoker. Drinks alcohol occasionally. FAMILY HISTORY: Noncontributory. REVIEW OF SYSTEMS: Significant only for left hip problems at this point in time with pain radiatingdown into the knee. PHYSICAL EXAMINATION: She is 204 pounds. She is able to walk with an antalgic gait favoring the left hip. She has a shorten stride on the left side. Leg lengths are equal clinically. When I bring herright hip to 90 degrees flexion, she has about 40 degrees external rotation, about 10 degrees internal rotation. On the left, it is more limited with about 30 degrees external rotation, a few degreesinternal rotation. IMAGING: Prior films show severe left hip arthritis and well-placed right total hip arthroplasty. ASSESSMENT: Left hip osteoarthritis. PLAN: Left total hip arthroplasty. Plan for a 2-day hospitalization. We have talked about the hospital course again the risks, benefits, and convalescence period. Surgical Risk Assessment: Active Problems 1. Hip pain (719.45) (M25.559) 2. Osteoarthritis of left hip (715.95) (M16.12) 3. Osteoarthritis of right hip (715.95) (M16.11) 4. 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 History of Migraines (346.90) (G43.909) 2. History of Overweight (278.02) (E66.3) Surgical History 1. no history of surgery Family History Mother 1. Family history of hypertension (V17.49) (Z82.49) 2. Family history of malignant neoplasm (V16.9) (Z80.9) Social History ?? Does not exercise (V69.0) (Z72.3) ? Never a smoker ?? No alcohol use ?? No illicit drug use Allergies 1. No Known Drug Allergies Current Meds 1. Aspercreme Max Roll-On LIQD; Therapy: (Recorded:20Dec2017) to Recorded 2. Cephalexin 500 MG Oral Capsule; Take 4 capsules one hour before procedure; Therapy: [id number] to (Last Rx:[id number]) Ordered 3. Lisinopril 10 MG Oral Tablet; Therapy: 23Jan2018 to Recorded 4. Oxycodone-Acetaminophen 5-325 MG Oral Tablet; Therapy: [id number] to Recorded Vitals Recorded: 30Jun2018 09:03AM Heart Rate 68 Systolic 179 Diastolic 89 Weight 204 lb BMI Calculated 37.31 BSA Calculated 1.93 Assessment 1. Osteoarthritis of left hip (715.95) (M16.12) Plan Osteoarthritis of left hip 1. Mupirocin Calcium 2 % External Cream (Bactroban); apply a thin layer into each nostrial twice a day for 5 days Rx By: Jose Luis Rain; Dispense: 0 Days ; #:1 X 15 GM Tube; Refill: 0; For: Osteoarthritis of lefthip; SHIREEN = N; Print Rx; Last Updated By: Ceci Vick; 06/30/2018 8:01:03 AM Signatures Electronically signed by : Jose Luis Rain M.D.; Jul 03 2018 3:11PM HOGSHEAD HOOPER (Author) documented in this encounter Plan of Treatment Not on file documented as of this encounter Visit Diagnoses Not on filedocumented in this encounter Care Teams Commercial Development Manager Relationship Specialty Start Date End Date Kaushal Han MD [address] [place] [phone] PCP - General FAMILY PRACTICE 01/31/18 Jose Luis Rain MD [address] [place] [phone] ORTHOPAEDICS 02/05/18 Anjum Rajan MD [address] [phone] CARDIOVASCULAR DISEASE 07/16/18 documented as of this encounter
--- OUTSIDE RECORDS SUMMARY | 2024-10-02 01:48 | XMS_ITS | Encounter Summary ---
Author Organization [facility] Address [facility]6 [facility] [place] [address] [place] [address] Care Team Providers Care Front Maker Name Role Phone Kaushal Han MD Primary Care Provider Jose Luis Rain MD Unavailable [phone] Anjum Rajan MD Unavailable [phone] Encounter Details Date Type Department Care Team (Late st Contact Info) Description 02/27/2018 Abstract [facility] [address] [facility] [address] Kaushal Han MD [address] [place] [phone] Social History Tobacco Use Types Packs/Day [...] of this encounter Visit Diagnoses Diagnosis Other nonspecific abnormal finding of lung field documented in this encounter Care Teams Front Maker Relationship Specialty Start Date End Date Kaushal Han MD [address] [place] [phone] PCP - General FAMILY PRACTICE 01/31/18 Jose Luis Rain MD [address] [place] [phone] ORTHOPAEDICS 02/05/18 Anjum Rajan MD [address] [address] CARDIOVASCULAR DISEASE 07/16/18 documented as of this encounter
--- OUTSIDE RECORDS SUMMARY | 2024-10-02 01:48 | XMS_ITS | Encounter Summary ---
Author Organization [facility] - [facility] Address [facility]6 [place] [address] [place] [address] Care Team Providers Care House Carpenter Helper Name Role Phone Kaushal Han MD Primary Care Provider Jose Luis Rain MD Unavailable [phone] Encounter Details Date Type Department Care Team (Late st Contact Info) Description 03/31/2018 Abstract [facility] Medical Group Multispecialty Care - [facility] [address] [facility] [address] [place] [phone] Jose Luis Rain MD [address] [place] [phone] Social History Tobacco Use Types Packs/Day Years [...] Sign Reading Time Taken Comments Blood Pressure 178/90 03/31/2018 8:32 AM CDT Pulse 69 03/31/2018 8:32 AM CDT Temperature - - Respiratory Rate - - Oxygen Saturation - - Inhaled Oxygen Concentration - - Weight 89.4 kg (197 lb) 03/31/2018 8:32 AM CDT Height - - Body Mass Index 36.03 03/03/2018 8:05 AM CDT documented in this encounter Progress Notes * Jose Luis Rain MD - 03/31/2018 8:20 AM CDT Vitals Recorded: [id number] 08:32AM Heart Rate 69 Systolic 178 Diastolic 90 Weight 197 lb BMI Calculated 36.03 BSA Calculated 1.9 Post-Op CHIEF COMPLAINT: Followup of right total hip arthroplasty. HISTORY OF PRESENT ILLNESS: Ms. Gipson is doing pretty well. She says she has no pain. Occasional soreness. She has been careful not to lie on her hip, because she is nervous about it. She is using acane almost all the time. PHYSICAL EXAMINATION: She is alert and oriented, communicating appropriately. She walks with a slight antalgic gait favoring the right hip. Incision is well healed. No tenderness to palpation about the incision. No erythema. In terms of her leg lengths, they appear equal clinically. When I bring her up to 90 degrees hip flexion, she has 5 degrees internal rotation, 35 degrees external rotation onthe right. On the left, it is about 10 and 45 and pain at the end range of motion. IMAGING: AP pelvis two views of the right hip, AP and shoot through lateral, show an uncemented total hip arthroplasty in good position. No signs of any loosening or osseous problems. Everything is well aligned. ASSESSMENT 1. Right total hip arthroplasty, doing well, six weeks postoperative. 2. Left hip osteoarthritis. PLAN: I have shown her how to do abductor strengthening. We talked about dental antibiotic prophylaxis. I am going to see her back in clinic prior to doing a left total hip arthroplasty. HPI: PE: Assessment: Plan: Orders 1. XY Pelvis and Hip Rt NC; Status:Resulted - Requires Verification; Done: [id number] 08:12AM Results/Data 31 Mar 2018 8:12 AM XY Pelvis and Hip Rt NC Pacs Image Result Radiology image is available. Click on Image Link above. Signatures Electronically signed by : Jose Luis Rain M.D.; Apr 03 2018 7:15PM OFFSHORE WIND TURBINE TECHNICIAN (Author) documented in this encounter Plan of Treatment Not on file documented as of this encounter Procedures Procedure Name Priority Date/Time Associated Diagnosis Comments XR PELVIS AP+RT HIP 2V Routine 03/31/2018 8:12 AM CDT documented in this encounter Results * XR PELVIS AP+RT HIP 2V (03/31/2018 8:12 AM CDT) Anatomical Region Laterality Modality Pelvis, Hip Radiographic Lary ging 03/31/2018 8:12 AM CDT 03/31/2018 8:12 AM CDT Narrative 04/01/2018 8:03 AM CDT Radiology image is available. Click on Image Link above. Procedure Note Jose Luis Rain MD - 07/24/2018 Radiology image is available. Click on Image Link above. us Jose Luis Rain MD GENERAL IMAGING Final Result documented in this encounter Visit Diagnoses Not on filedocumented in this encounter Care Teams House Carpenter Helper Relationship Specialty Start Date End Date Kaushal Han MD [address] [place] [phone] PCP - General FAMILY PRACTICE 01/31/18 Jose Luis Rain MD [address] [place] [phone] ORTHOPAEDICS 02/05/18 documented as of this encounter
--- OUTSIDE RECORDS SUMMARY | 2024-10-02 01:48 | XMS_ITS | Encounter Summary ---
Author Organization [facility] Address [facility] [place] [address] [place] [address] Care Team Providers Care Magnetic Prospector Name Role Phone Kaushal Han MD Primary Care Provider [phone] Jose Luis Munroe MD Unavailable [phone] Anjum Rajan MD Unavailable [phone] Reason for Referral * (Routine) - Canceled Specialty Diagnoses / Procedures Referred By Contantoine t Referred To Contact Procedures PT Eval and Treat Jose Luis Munroe MD [address] [place] [phone] Phone: tel: fax: Referral ID Status Reason Start Date Expiration Date V isits Requested Visits Authorized [id number] Canceled 07/22/2018 08/22/2019 1 1 Reason for Visit * Auth/Cert Specialty Diagnoses / Procedures Referred By Contantoine t Referred To Contact Diagnoses LEFT HIP OSTEOARTHRITIS Procedures LEFT TOTAL HIP ARTHROPLASTY Referral ID Status Reason Start Date Expiration Date Visits Re quested Visits Authorized [id number] 1 1 Encounter Details Date Type Department Care Team (Latest Contact Info) Description 07/22/2018 5:27 AM CDT - 07/24/2018 11:26 AM CDT Hospital Encounter [facility] Med/Surg [address] [place] [address] Jose Luis Munroe MD [address] [place] [address] Discharge Disposition: Home with Home Health Care Social History Tobacco Use Types Packs/Day Years [...] Sign Reading Time Taken Comments Blood Pressure 138/63 07/24/2018 5:00 AM CDT Pulse 77 07/24/2018 5:00 AM CDT Temperature 36.8 ??C (98.2 ??F) 07/24/2018 5:00 AM CD T Respiratory Rate 20 07/24/2018 5:00 AM CDT Oxygen Saturation 99% 07/24/2018 5:00 AM CDT Inhaled Oxygen Concentration - - Weight 93.9 kg (207 lb 0.2 oz) 07/22/2018 7:02 A M CDT Height 157.5 cm (5' 2 ) 07/22/2018 7:02 AM CDT Body Mass Index 37.86 07/22/2018 7:02 AM CDT documented in this encounter Discharge Summaries * Rabia Barnard, ELODIA-C - 07/24/2018 7:06 AM CDT Physician Discharge Summary Patient ID: Deb Gipson [id number] 68-year-old 1950 Admit date: 07/22/2018 Expected Discharge Date: 07/24/2018 Admitting Physician: Jose Luis Munroe MD Discharge Physician: Jose Luis Munroe MD Admission Diagnoses: LEFT HIP OSTEOARTHRITIS Osteoarthritis of left hip, unspecified osteoarthritis type Discharged Condition: good Indication for Admission: Postoperative convalescence. Hospital Course: The patient was mobilized with physical therapy. DVT prophylaxis was provided. Pain was controlled with medication. Consults: None Code Status: Full Code Procedures: Procedures (From admission, onward) HEMOGLOBIN AND HEMATOCRIT Routine BASIC METABOLIC PANEL Routine XR PEL W HIP LAT LT Routine Disposition: Home or Self Care (Routine Discharge) Patient Instructions: Current Discharge Medication List START taking these medications Details docusate sodium 100 MG capsule Take 1 capsule (100 mg total) by mouth 2 (two) times daily as neededfor Constipation. Hold for loose or frequent stools Qty: 60 capsule, Refills: 0 hydrocodone-acetaminophen 5-325 MG tablet Take 1 tablet by mouth every 6 (six) hours as needed for Pain. Qty: 20 tablet, Refills: 0 CONTINUE these medications which have NOT CHANGED Details aspirin 81 MG chewable tablet Chew 81 mg by mouth daily. lisinopril 10 MG tablet Take 1 tablet by mouth daily. Refills: 0 Naproxen Sodium (ALEVE) 220 MG Cap Kaushal Han MD [address] [facility] [phone] Follow up SERGEY James [address] [facility] [address] [facility] [address] Follow up in 2 week(s) Signed: SERGEY JAMES 07/24/2018 7:06 AM Cosigned by Jose Luis Munroe MD at 07/28/2018 9:21 PM CDT documented in this encounter Discharge Instructions * Discharge Instructions* Shilpi Eldridge RN - 07/24/2018 11:22 AM CDT Continue ambulating at home. Maintain anterior hip precautions. Use walker/cane as needed. Keep wound clean and dry. Change dressing once weekly or more often if saturated more than 50%. Call for fever over 100, uncontrolled pain, increasing drainage, chest pain, or other problems. Take Aspirin 81 mg morning and evening (2 times a day) for 4 weeks, then resume to just 1 time a day. This is for blood clot prevention. HOME HEALTH HAS BEEN ARRANGED FOR YOU WITH [facility]. A NURSE WILL BE MAKING CONTACT WITH YOU UPON DISCHARGE TO ARRANGE A TIME TO VISIT. ANY QUESTIONS REGARDING THIS, PLEASE CONTACT . * Attachments The following attachments cannot be sent through Care Everywhere. * TOTAL HIP REPLACEMENT DISCHARGE INSTRUCTIONS (KINYARWANDA) * HYDROCODONE AND ACETAMINOPHEN, ADULT (KINYARWANDA) documented in this encounter Medications at Time [...] Cap 09/21/2024 documented as of this encounter Progress Notes * Zari Link LCSW - 07/24/2018 11:26 AM CDT PT WAS DC PLANNED ON THE TO HOME. PT'S SPOUSE WAS PRESENT AND IN AGREEMENT WITH PLANS. SHE DENIED CONCERNS FOR POST DC CARE. RN AWARE OF PLANS AND ACTIONS. [facility] PER SHILPI ELDRIDGE WAS AWARE OF DC AND CONFIRMED PLANS TO SEE PT IN THE HOME MOVING FORWARD. NO FURTHER ACTIONS INDICATED NOR NEEDS NOTED. SW COMPLETE AND CASE CLOSED. * Shilpi Eldridge RN - 07/24/2018 11:21 AM CDT EXTRUSION DIE REPAIR MANAGER MET WITH PATIENT AT BEDSIDE TO DISCUSS [facility]. PT IN AGREEANCE W/ [facility]. PATIENT INFORMED THAT NURSE WILL BE CONTACTING PATIENT TO ARRANGE START OF CARE DATE AND TIME. INFORMATIONAL BROCHURE PROVIDED TO PATIENT. ANTICIPATE D/C THIS DAY. PT DENIES HAVING ANY FURTHER QUESTIONS OR CONCERNS AT THIS TIME. * An Reyna PTA - 07/24/2018 10:01 AM CDT 07/24/18 0959 Therapy Visit Ordering Provider LUDWIG Beltran PT STATES THAT SHE IS GOING HOME TODAY. Reason for admission OA L HIP S/P L TOTAL HIP ARTHROPLASTY 07/22/18 Relevant Comorbidities/ Personal Factors to PT ARTHRITIS, OBESITY, R VALDEMAR 02/14, HTN Verified Two Patient Identifiers Yes Patient consents to therapy Yes Precautions Total Hip Replacement ADduction;External rotation (NO HIP EXT OR FORCEFUL HIP ABD, NO PRONE LYING) Weight Bearing Status LLE;As tolerated General Precautions Bed Alarm;Chair Alarm;Fall Risk Instructed on Precautions Yes;Verbalizes understanding Cognition Overall Cognitive Status WFL Orientation Level Oriented X4 Following Commands Follows all commands and directions without difficulty TRANSFERS Sit to Stand Modified independence (with WW) Gait Gait Assistance SBA/supervision Assistive Device 2 Wheeled walker Ambulation Distance (Feet) 60' Weight Bearing Status Weight bearing as tolerated (L LE) Other (Comment) Pt demonstrates good sequencing using WW; pt demonstrates improved L LE step lengthand stance time on R LE with increased distance with ambulation. Balance Sitting - Static SBA Sitting - Dynamic SBA Standing - Static SBA Standing - Dynamic SBA Exercises Ankle Pumps 10x2 B Quad Sets 10x2 B Heelslides 5x2 AAROM L LE (with increased repetition pt has improved hip flexion ROM) Glut Sets 10x2 Other (Comment) PT INSTRUCTED AND ISSUED A WRITTEN HEP. EDUCATED TO AVOID LL SLR OR HIP ABDUCTION EXERCISES AT PRESENT Recommendation PT Recommendation PT during Hospitalization;Home PT PT Equipment Recommended (pt has WW from prior hip surgery) Plan PT Treatments/Interventions Gait Training;Therapeutic Exercises;Therapeutic Activities;Neuromuscular re-education;Patient/family training Progress Progressing toward goals PT Frequency (BID M-F AND DAILY SAT/SUN) * SERGEY James - 07/24/2018 6:59 AM CDT Orthopedic Progress Note History POD 2; L VALDEMAR Physical Exam Alert, oriented Dressing changed. incision well approximated No drainage +DPP and good leg perfusion H/H stable Filed Vitals: 07/23/18 1609 07/23/18201907/23/18 2359 07/24/18 0500 BP: 129/70 110/63 136/57 138/63 Pulse: 80 70 68 77 Resp: 19 20 20 20 Temp: 98.4 ??F (36.9 ??C) 98.3 ??F (36.8 ??C) 98.3 ??F (36.8 ??C) 98.2 ??F (36.8 ??C) TempSrc: Oral Oral Oral Oral SpO2: 96% 97% 99% 99% Weight: Height: Assessment [id number] s/p L VALDEMAR on 07/22/2018 Plan PT - WBAT, anterior hip precautions DVT ppx - Aspirin BID and SCDs Pain control - scheduled tylenol, opioids as needed Dispo - home with home health today Pt seen along with Dr. Ludwig BARNARD, MEDICAL RESEARCH ASSISTANT-C ??? aspirin EC 81 mg Oral BID WC ??? celecoxib 200 mg Oral BID ??? docusate sodium 100 mg Oral BID ??? lisinopril 10 mg Oral Daily ??? ROpivacaine 1% (NAROPIN) 100 mg, ketorolac (TORADOL) 15 mg, morphine (PF) 2 mg in sodium chloride 0.9% 50 ml Juan-Articular Once ??? tranexamic acid (CYLOKAPRON) IVPB 1,000 mg Intravenous Once ??? sodium chloride acetaminophen, [DISCONTINUED] diphenhydrAMINE OR diphenhydrAMINE OR diphenhydrAMINE, ondansetron, oxyCODONE immediate release, oxyCODONE immediate release Recent Labs Lab 07/23/18 0330 07/24/18 0334 HGB 10.6* 10.1* HCT 33.4* 32.3* Recent Labs Lab 07/23/18 0330 NA 143 K 3.8 CL 110* CO2 25.7 AGAP 11.1 BUN 14 CR 0.74 BUNCREATININ 18.8 GFRNON 83* GFR >90 GLU 94 CA 8.6 No results for input(s): APTT, INR, PTT in the last 168 hours. * Annamarie Dukes RN - 07/23/2018 7:17 PM CDT Problem: Mobility Goal: STG - Pt will ambulate 125' WITH THE W/W SBS/MODIFIED I PROGRESSING GAIT PATTERN CORRECT SEQUENCE RECALL Patient will continue to ambulate in the foy and increase strength. Comments: Patient did well with pain medication throughout the day and also with working with therapy. Patient to continue with current care plans until discharge. * Gosia Hayward, PT - 07/23/2018 4:17 PM CDT 07/23/18 1525 Therapy Visit Ordering Provider LUDWIG Beltran Pt in bed when PT arrives with family present. Pt agreeable to tx. Reason for admission OA L HIP S/P L TOTAL HIP ARTHROPLASTY 07/22/18 Relevant Comorbidities/ Personal Factors to PT ARTHRITIS, OBESITY, R VALDEMAR 02/14, HTN Verified Two Patient Identifiers Yes Patient consents to therapy Yes Precautions Total Hip Replacement ADduction;External rotation (NO HIP EXT OR FORCEFUL HIP ABD, NO PRONE LYING) Weight Bearing Status LLE;As tolerated General Precautions Bed Alarm;Chair Alarm;Fall Risk Instructed on Precautions Yes;Verbalizes understanding Pain Pain Yes Pain Score 3 Location L hip Interventions Re-positioning;Relaxation;Re-direction;Cryotherapy (pt has ice pack in place) Cognition Overall Cognitive Status WFL Orientation Level Oriented X4 Following Commands Follows all commands and directions without difficulty TRANSFERS Sit to Stand Min assist (with WW) Other (Comment) Pt stood from bed and then from toilet using WW and grab bars with min assist. Occasional cues for hand placement. Gait Gait Assistance SBA/supervision Assistive Device 2 Wheeled walker Ambulation Distance (Feet) 20ft Weight Bearing Status Weight bearing as tolerated (L LE) Other (Comment) Pt demonstrates good sequencing using WW; pt demonstrates improved L LE step lengthand stance time on R LE with increased distance with ambulation. Balance Sitting - Static SBA Sitting - Dynamic Min Assist Standing - Static SBA Standing - Dynamic SBA Exercises Ankle Pumps 10x2 B Quad Sets 10x2 B Heelslides 5x2 AAROM L LE (with increased repetition pt has improved hip flexion ROM) Glut Sets 10x2 Patient/Family Training Bed Mobility X Transfer Training X Gait Training X Precautions X Exercise Program X Recommendation PT Recommendation PT during Hospitalization;Home PT PT Equipment Recommended (pt has WW from prior hip surgery) Plan PT Treatments/Interventions Gait Training;Therapeutic Exercises;Therapeutic Activities;Neuromuscular re-education;Patient/family training Progress Progressing toward goals PT Frequency (BID M-F AND DAILY SAT/SUN) PT plan for next session gait, ther ex, bed mobility training If this is the last treatment note,it will serve as the discharge summary Yes * Zari Link LCSW - 07/23/2018 2:23 PM CDT PT IS A 68 YR OLD FEMALE, ALERT AND ORIENTED, REFERRED TO PER CENSUS FOR DCPA. PT WAS ADMITTED FOR A LEFT HIP REPLACEMENT FROM WHICH SHE IS RECUPERATING EXPECTED. PT'S CARE DISCUSSED WITH THE NURSING TEAM. PT REPORTS PRIOR INDEPENDENCE WITH SELF CARE AND MOBILITY. PT LIVES IN A ONE STORY HOME WITH A RAMPFOR ENTRANCE. PT'S SPOUSE IS RETIRED AND LIVES IN THE HOME WITH HER. PT'S SPOUSE WILL ASSIST WITH PT'S CARE SHE RECUPERATES. PT DENIED CONCERNS FOR MOBILITY IN THE HOME UPON DC. PT DENIED CONCERNSTO RETURN HOME UPON DC. REFERRAL FOR WHEELED WALKER DISCUSSED WITH THE PT WHO CONFIRMED ONE IN THE HOME WITH NO OTHER NEEDSFOR DME INDICATED. REFERRAL FOR HOME HEALTH DISCUSSED WITH PT WHO CHOSE TO USE [facility] FROM THE LIST OF AREA AGENCIESPROVIDED. REFERRAL GIVEN TO SHILPI ELDRIDGE WITH [facility] WHO CONFIRMED SAME ACCEPTED. [facility] WILLPLAN TO FOLLOW IN THE HOME MOVING FORWARD. PT IS ANTICIPATED FOR DC ON THE TO HOME. RN AWARE OF ACTIONS. SW WILL CONTINUE TO FOLLOW. * Merced Chandler, PT - 07/23/2018 9:40 AM CDT 07/23/18 0900 Therapy Visit Ordering Provider LUDWIG Beltran PT RECEPTIVE TO P.T. EVAL/SERVICES. Reason for admission OA L HIP S/P L TOTAL HIP ARTHROPLASTY 07/22/18 Relevant Comorbidities/ Personal Factors to PT ARTHRITIS, OBESITY, R VALDEMAR 02/14, HTN Verified Two Patient Identifiers Yes Patient consents to therapy Yes Precautions Total Hip Replacement ADduction;External rotation (NO HIP EXT OR FORCEFUL HIP ABD, NO PRONE LYING) Weight Bearing Status LLE;As tolerated General Precautions Bed Alarm;Chair Alarm;Fall Risk Instructed on Precautions Yes;Verbalizes understanding Other PT EDUCATED AND THEN ISSUED AN ANTERIOR HIP PRECAUTION HANDOUT Home Living Type of Home House Home Layout One level Home Accessibility Ramped entrance Bathroom Shower/Tub Walk-in shower Bathroom Equipment Tub/shower chair without back Home Equipment 2 Wheeled walker;Straight cane Prior Function Level of Slater Independent with ADLs;Independent with functional transfers;Independent with ambulation;Independent with homemaking with ambulation Device used at baseline Straight cane (SC USE PRN IN THE COMMUNITY, NO AD IN THE HOME) Fall History No Lives With Spouse;Family Comments STATES SPOUSE AND FAMILY CAN ASSIST NEEDED UPON DC Pain Pain Yes Pain Score 5 Location L HIP AREA. STATES SHE TOOK TYLENOL EARLIER THIS A.M. BUT DOES NOT WANT TO TAKE ANYTHING STRONGER. Interventions Cryotherapy;Re-positioning (ICE PACK APPLIED POST-GAIT) Activity Tolerance Endurance Tolerates 30 min activity with rests Cognition Overall Cognitive Status WFL Orientation Level Oriented X4 Following Commands Follows all commands and directions without difficulty Overall Extremity Assessment Upper Extremity GROSS ROM WFL AND STRENGTH 4+/5 RLE Assessment RLE Comment AROM WFL; STRENGTH: HIP FLEX 4-/5, KNEE EXT AND ANKLE DF 4+/5 LLE Assessment LLE Comment AAROM HIP FLEX 75, EXT 0, KNEE AND ANKLE WFL; STRENGTH: HIP FLEX 2/5, KNEE EXT 4/5 AND ANKLE DF 4+/5 Bed Mobility Supine to Sit Mod assist to right Sit to Supine Mod assist to right Other (Comment) ED TO MAINTAIN L HIP PRECAUTIONS DURING BED MOBILITY TRAINING. ALL MOTION SLOW AND GUARDED. TRANSFERS Sit to Stand Min assist (WITH CUES TO CORRECT HAND PLACEMENT TECHNIQUE) Bed to Chair Min assist (WITH SUPPORT OF THE W/W AND CUES TO HAND PLACEMENT) Gait Gait Assistance SBA/supervision;Min assist Assistive Device 2 Wheeled walker Ambulation Distance (Feet) 20' X 1, 5 ' X 1 AND 15' X 1 (TO/FROM BATHROOM,BED AND THEN BEDSIDE CHAIR). PT DECLINED FURTHER GAIT INTO THE HALLWAY THIS SESSION. Pattern R Decreased stance time;L Decreased stance time;L Foot flat Weight Bearing Status Weight bearing as tolerated (DECREASED REBEKAH, DECREASED STEP LENGTH, FF POSTURE) Other (Comment) ED TO CORRECT SEQUENCE, UPRIGHT POSTURE Stairs Other (Comment) N/A. NOT ABLE TO TOLERATE AT PRESENT. HAS A RAMP TO ACCESS HER HOME. Balance Sitting - Static SBA Sitting - Dynamic Min Assist Standing - Static SBA Standing - Dynamic SBA;Min Assist Other (Comment) STANDING BALANCE WITH SUPPORT OF THE W/W Exercises Ankle Pumps X 10 REPS B Quad Sets X 10 REPS B Heelslides X 5 REPS AAROM TOLERATED Glut Sets X 10 REPS B Other (Comment) PT INSTRUCTED AND ISSUED A WRITTEN HEP. EDUCATED TO AVOID LL SLR OR HIP ABDUCTION EXERCISES AT PRESENT Patient/Family Training Bed Mobility X Transfer Training X Gait Training X Precautions X Other (Comment) ADDITIONAL TREATMENT TIME FOR THER EX AND GAIT/TRANSFERS AND TOILETING Assessment Personal Factors/Comorbidities Impacting Care 3-4 personal factors/comorbidities Examination of Body Systems High (at least 4 Elements) Objectives of Body Systems Impaired bed mobility;Impaired transfers;Impaired ambulation;Impaired balance;Impaired stair negotiation;Decreased ADL status;Decreased LE ROM;Decreased LE strength;Decreased endurance Clinical Presentation of Patient Evolving and changing characteristics Complexity Level of Evaluation Moderate Prognosis Good Recommendation PT Recommendation PT during Hospitalization;Home PT PT Equipment Recommended (HAS A W/W ALREADY FROM PRIOR HIP SX) Plan PT Treatments/Interventions Gait Training;Therapeutic Exercises;Therapeutic Activities;Neuromuscular re-education;Patient/family training PT Frequency (BID M-F AND DAILY SAT/SUN) PT plan for next session ADVANCE GAIT, THER EX AND FUNCTIONAL MOBILITY TRAINING PER ANTERIOR HIP PRECAUTION PROTOCOL If this is the last treatment note,it will serve as the discharge summary Yes * SERGEY James - 07/23/2018 7:47 AM CDT Orthopedic Progress Note History POD 1; s/p L VALDEMAR Physical Exam Alert, oriented Sitting up in chair Pain controlled Dressing dry and intact, NV intact. Filed Vitals: 07/22/18 1742 07/22/18199907/23/18 0000 07/23/18 0500 BP: 154/72 106/58 130/65 124/57 Pulse: 77 66 83 79 Resp: 16 16 14 16 Temp: 98.1 ??F (36.7 ??C) 98.3 ??F (36.8 ??C) 98.9 ??F (37.2 ??C) 98 ??F (36.7 ??C) TempSrc: Oral Oral Oral Oral SpO2: 100% 96% 94% 95% Weight: Height: Assessment [id number] s/p L VALDEMAR on 07/22/2018 Plan Dressing change tomorrow. PT - WBAT, anterior hip precautions. DVT ppx - Aspirin BID and SCD Pain control - scheduled tylenol, opioids as needed Dispo - home with home health tomorrow EUNICE JAMESC ??? acetaminophen 650 mg Oral Q6H ??? aspirin EC 81 mg Oral BID WC ??? celecoxib 200 mg Oral BID ??? docusate sodium 100 mg Oral BID ??? lisinopril 10 mg Oral Daily ??? ROpivacaine 1% (NAROPIN) 100 mg, ketorolac (TORADOL) 15 mg, morphine (PF) 2 mg in sodium chloride 0.9% 50 ml Juan-Articular Once ??? tranexamic acid (CYLOKAPRON) IVPB 1,000 mg Intravenous Once ??? sodium chloride acetaminophen, [DISCONTINUED] diphenhydrAMINE OR diphenhydrAMINE OR diphenhydrAMINE, ondansetron, oxyCODONE immediate release, oxyCODONE immediate release Recent Labs Lab 07/23/18 0330 HGB 10.6* HCT 33.4* Recent Labs Lab 07/23/18 0330 NA 143 K 3.8 CL 110* CO2 25.7 AGAP 11.1 BUN 14 CR 0.74 BUNCREATININ 18.8 GFRNON 83* GFR >90 GLU 94 CA 8.6 No results for input(s): APTT, INR, PTT in the last 168 hours. * Cat Clarissa Dukes RN - 07/22/2018 7:07 PM CDT Problem: PT TOTAL HIP REPLACEMENT Goal: STG - Pt will ambulate 75 feet independently without rest breaks with least restrictive assistive device Patient just arrived to floor from surgery. Comments: Patent arrived to the floor close to 6 pm. Ice applied to hip, Sequentials applied , tylenol given and clear diet started and patient tolerated dinner. * Lurdes Han, PT - 07/22/2018 3:31 PM CDT 07/22/18 1500 Therapy Visit Patient consents to therapy (PATIENT IS STILL IN OR. ATTEMPT P.T. TOMRORROW AM.) * Lurdes Han, PT - 07/22/2018 2:09 PM CDT 07/22/18 1400 Therapy Visit Patient consents to therapy (PATIENT IS STILL IN OR. START TIME NOTE BY RN 1325.) documented in this encounter H&P Notes * Jose Luis Munroe MD - 07/22/2018 12:32 PM CDT HISTORY AND PHYSICAL INTERVAL NOTE: I have reviewed Deb Gipson History & Physical which was performed within the past 30 days. After examining Deb Gipson, no change has occurred in the patient's condition since the H&P was completed. Informed Consent Discussion: Risks, benefits, alternatives as well as the consequences of not performing the surgery/procedure were discussed with the patient and/or family/personal inbound sales representative. Questions were answered and the patient/family/personal inbound sales representative verbalized understanding and desires to proceed. Source Note - Jose Luis Munroe MD - 07/21/2018 9:12 PM CDT CHIEF COMPLAINT: Left hip osteoarthritis. HISTORY OF PRESENT ILLNESS: Deb is doing great following her right hip replacement. The left sideis pretty painful. She uses a cane more often than not when she is out of the house. She spends a lot of time watching her 1-year-old grandson. PAST MEDICAL HISTORY: Hypertension. PAST SURGICAL HISTORY: Right hip replacement 2018. MEDICATIONS: Lisinopril, aspirin. ALLERGIES: None. SOCIAL HISTORY: [...] favoring the left hip. She has a shortened stride on the left side. Leg lengths are equal clinically. When I bring her right hip to 90 degrees flexion, she has about 40 degrees external rotation, about 10 degrees internal rotation. On the left, it is more limited with about 30 degrees external rotation, a few degrees internal rotation. IMAGING: Prior films show severe left hip arthritis and well-placed right total hip arthroplasty. ASSESSMENT: Left hip osteoarthritis. PLAN: Left total hip arthroplasty. Plan for a 2-day hospitalization. We have talked about the hospital course again the risks, benefits, and convalescence period. * Jose Luis Munroe MD - 07/21/2018 9:12 PM CDT CHIEF COMPLAINT: Left hip osteoarthritis. HISTORY OF PRESENT ILLNESS: Deb is doing great following her right hip replacement. The left sideis pretty painful. She uses a cane more often than not when she is out of the house. She spends a lot of time watching her 1-year-old grandson. PAST MEDICAL HISTORY: Hypertension. PAST SURGICAL HISTORY: Right hip replacement 2018. MEDICATIONS: Lisinopril, aspirin. ALLERGIES: None. SOCIAL HISTORY: [...] favoring the left hip. She has a shortened stride on the left side. Leg lengths are equal clinically. When I bring her right hip to 90 degrees flexion, she has about 40 degrees external rotation, about 10 degrees internal rotation. On the left, it is more limited with about 30 degrees external rotation, a few degrees internal rotation. IMAGING: Prior films show severe left hip arthritis and well-placed right total hip arthroplasty. ASSESSMENT: Left hip osteoarthritis. PLAN: Left total hip arthroplasty. Plan for a 2-day hospitalization. We have talked about the hospital course again the risks, benefits, and convalescence period. documented in this encounter Consult Notes * Erica Conroy, RESTROOMS OR LOUNGES MAID - 07/09/2018 2:36 PM CDT Hospitalist Consultation Patient: Deb Gipson Date: 07/09/2018 female, 68-year-old Admit Date: (Not on file) Attending: Jose Luis Munroe MD REASON FOR CONSULTATION: Preoperative evaluation and medical management HISTORY OF PRESENT ILLNESS: Deb Gipson is a 68-year-old female who presents for preoperative evaluation for a left total hip replacement. Patient has been having pain that has failed conservative management. She has no acute cardiac conditions, denies chest pain, or shortness of breath. Patient has a past medical history of hypertension and osteoarthristis. Patient denies history of chronic kidney disease, insulin dependent diabetes mellitus, ischemic heart disease, heart failure, or history of CVA/TIA. Patient is to ambulate a flight of stairs without chest pain or shortness of breath. She had her right hip replaced in January of [address]. Per Dr. Munroe. She reported doing well postoperative without any difficulty participating in therapy while admitted and at home with home health. She denies any continued pain in the right hip. Past Medical History: Diagnosis Date ??? Arthritis osteo right hip ??? Fracture of metatarsal 5th ??? Hypertension ??? Obesity Past Surgical History: Procedure Laterality Date ??? COLONOSCOPY ??? HIP ARTHROPLASTY Right 01/2018 No medications prior to admission. No Known Allergies Social History: Social History Socioeconomic History ??? [...] History Narrative ??? Not on file Family History Problem Relation Age of Onset ??? Cancer Mother stomach ??? COPD Father ??? Cancer Sister female ??? Cancer Sister breast Medication management - Medication reconciliation reviewed and addressed. REVIEW OF SYSTEMS: A 14 point review of systems was taken and pertinent positive as per HPI PHYSICAL EXAMINATION: Vital 24 Hour Range Most Recent Value Temperature No Data Recorded Pulse No Data Recorded Respiratory No Data Recorded Blood Pressure No Data Recorded Pulse Oximetry No Data Recorded O2 No Data Recorded Vital Most Recent Value First Value Weight Height BMI N/A GENERAL: no acute distress, well nourished, well devloped HEENT: mucous membranes moist RESPIRATORY: respirations even and unlabored, clear breath sounds, no wheezes, or crackles noted CARDIAC: regular rate and rhythm, no murmur or JVD, no peripheral edema GI: nontender, nondistended, bowel sounds present, no obvious masses MUSC: ROM grossly intact NEURO: . Alert, no gross deficit SKIN: No rashes , skin is warm and dry LYMPH: No obvious lymphadenopathy PSYCH: Alert, appropriate LABS: Pertinent Labs reviewed in Epic. Recent Labs Lab 07/09/18 1230 NA 143 K 4.0 CL 108 CO2 28.6 AGAP 10.4 BUN 13 CR 0.69 BUNCREATININ 19.0 GFRNON 89* GFR >90 GLU 85 CA 8.9 Recent Labs Lab 07/09/18 1230 WBC 4.4* RBC 4.41 HGB 12.5 HCT 39.3 MCV 89.1 MCH 28.3 MCHC 31.8* PLT 184 RDW 14.0 MPV 11.1 PERNEU 65.1 PERLYM 27.3 PERMON 5.9 LYMC 1.21 MONOC 0.26 EOSC 0.02* BASOC 0.03 DTYPE AUTOMATED DIFFERENTIAL IMAGING & OTHER STUDIES: EKG: NSR with no ST changes Study Result Exam: Chest x-ray Comparison 02/03/2018 INDICATION: Preoperative study, shortness of breath with exertion. TECHNIQUE: 2 views FINDINGS: Heart size is upper limits of normal. Normal pulmonary vessel size. Tortuous descending aorta. The lungs are clear. No interstitial edema or pleural effusion. Multiple small anterior thoracic osteophytes. IMPRESSION: Borderline heart size and clear lungs. ASSESSMENT & PLAN: Left Hip Osteoarthritis Deb Gipson is presenting for preoperative evaluation for a left hip replacement.She has no acute cardiac conditions. She has no risk factors based on the revised cardiac risk index. She is at low risk for a major adverse cardiac event based on combined surgical and patient characteristics. Her functional capacity is moderate. Based on ACC/AHA guidelines, no further cardiac workup is indicated. Surgery scheduled for July 22, 2018. Hypertension The patient is to hold her Lisinopril the morning of surgery. Her blood pressure will be monitored postoperative and resumed as patient can tolerate. Obesity BMI 37.86; diet and lifestyle modifications encouraged. Hopeful once second hip replaced will be able to be more active. Thank you the consultation. We will follow postoperative once patient is out of surgery. Cosigned by Kalli Escamilla MD at 07/10/2018 4:29 AM CDT documented in this encounter Nursing Notes * Shaquille Callejas RN - 07/22/2018 1:23 PM CDT Family notified of start time at 1325 Updated family at 1426 documented in this encounter OR Notes * Op Note - Jose Luis Munroe MD - 07/22/2018 3:54 PM CDT SURGEON: JOSE LUIS MUNROE MD ?? FOLDING MACHINE TENDER: Motel Clerk: Nat Anderson [facility] Nurse 1: Shaquille Callejas RN Scrub Person 1: Bhupendra Petersen, [employer]CR[employer] FINISHING SUPERVISOR Scrub Person 2: Judi Whipple RN; Sarai Jones, [facility] Derrick Barge Operator: Loren Hdez, RTR ?? PREOPERATIVE DIAGNOSIS: LEFT HIP OSTEOARTHRITIS ?? POSTOPERATIVE DIAGNOSIS: Same ?? PROCEDURE PERFORMED: Procedure(s): LEFT TOTAL HIP ARTHROPLASTY ?? ANESTHESIA: General ?? ESTIMATED BLOOD LOSS: 300 mL ?? IMPLANTS: [place] press-fit components: 52mm Tritanium I cluster acetabular shell with 6.5 mm screws x 2, X3 0-degree polyethylene liner, size 3 Accolade II 132-degree femoral stem, +5 mm length 36 mm Biolox ceramic femoral head. ?? INDICATIONS FOR PROCEDURE: Deb Gipson is a 68-year-old female with long- standing left hip osteoarthritis. She has failed nonoperative management and has elected to proceed with surgery. ?? DESCRIPTION OF PROCEDURE: The patient was brought back to the operating room, positioned supine on the operating table. A general anesthetic was then administered. The patient was then placed in the lateral decubitus position on the pegboard. All bony prominences were padded. The left lower extremity was prepped and draped in the usual sterile fashion. Timeout was performed, confirming patient, procedure, and laterality. Cefazolin was used for antibiotic. Tranexamic acid was used to decrease blood loss. ?? An incision was then made over the greater trochanter. Dissection was carried to the fascia. The fascia was incised. I then marked the leg lengths with a stitch. I then tagged the anterior one-third of the abductor. This was then released for later repair. I then performed an inverted T-shaped capsulotomy. I dislocated the hip. There was full-thickness cartilage loss at the weightbearing superioraspect of the femoral head. Marginal osteophytes were noted. We then performed the femoral neck cutin accordance with the templating. The femoral head was removed and sized to 46 mm. I then turned my attention to the acetabulum. Retractors were placed around the margins. We then began reaming witha 44 mm reamer. We reamed up sequentially to a 51 mm reamer, which had good fit. Exposed cancellousbleeding bone was present. The size 51 trial was stable. We then impacted the 52 mm Tritanium acetabular shell into place. This came down appropriately and was stable. Two screws were placed in the posterior-superior quadrant, 6.5 mm diameter cancellous screws. We then irrigated the shell and placed the acetabular polyethylene liner which locked into place. ?? We then came to the femur. This was elevated up out of the wound. We then prepared it with a combination of rongeur, osteotome, and broaches. I sequentially broached up to a size 3. The hip was relocated. Leg lengths and abductor tension were restored. Intraoperative x-ray confirmed that this was the appropriate size and had good fill of the proximal femur. We then came back, pulled the broach, and irrigated the canal. I then impacted the size 3 132- degree femoral stem into place. This came down to the appropriate level. We then relocated again with a trial. The +5mm head had appropriate length, fit, and stability. It was stable through range of motion, and there was no impingement. ?? We then dislocated the hip one last time and then cleaned off the trunnion and impacted the femoralhead into place. The socket was irrigated. The hip was relocated. It was stable through range of motion, and there was no impingement. Leg lengths were restored. I then closed the capsule with #5 Ethibond. I closed the abductor back to the trochanter with #5 Ethibond. I closed the fascia in a running, locking fashion with #1 Vicryl. 2-0 Vicryl and 3-0 Monocryl were used to close the skin. Steriledressings were applied. ?? The patient was transitioned to recovery room in stable condition. JOSE LUIS MUNROE MD * OR PreOp - Trena De Dios RN - 07/15/2018 5:42 PM CDT Faxed EKG, labs and note asking for cardiac clearance and noting patient does not have a regional economist to Dr Munroe and Dr Han's offices and called Dr Munroe's office and spoke with Mansi to send message to Ceci Faxed preop testing and note requesting cardiac clearance and cardiology notes and testing results to Dr Rajan's office and ESPERANZA to Dr Munroe's office. Ceci at Dr Munroe stated patient has appointment tomorrow at [address] Rajan * OR PreOp - Kolby Teixeira NP - 07/15/2018 9:59 AM CDT Please obtain cardiac clearance 2/2 poor r progression - POSSIBLE ANTERIOR MYOCARDIAL INFARCTION, OF INDETERMINATE AGE which are both new findings from prior EKG on 12/2017. documented in this encounter Plan of Treatment Not on file documented as of this encounter Procedures Procedure Name Priority Date/Time Associated Diagnosis Comments HEMOGLOBIN AND HEMATOCRIT Routine 07/24/2018 3:34 AM CDT HEMOGLOBIN AND HEMATOCRIT Routine 07/23/2018 3:30 AM CDT BASIC METABOLIC PANEL Routine 07/23/2018 3:30 AM CDT XR PEL W HIP LAT LT Routine 07/22/2018 4 :11 PM CDT SURG XR HIP LT 1V Routine 07/22/2018 2:5 0 PM CDT ARTHROPLASTY HIP TOTAL 07/22/2018 12:41 PM CDT LEFT HIP OSTEOARTHRITIS Case Notes GRIS WITH CECI, TJR 04/04 PRETEST 07/08 1130 Special Needs [place] documented in this encounter Results * (ABNORMAL) HEMOGLOBIN AND HEMATOCRIT (07/24/2018 3:34 AM CDT) HGB 10.1(L) 12.0 - 16.0 G/DL 07/24/2018 4:03 AM CDT [facility] HCT 32.3(L) 38.0 - 48.0 % 07/24/2018 4:03 AM CDT [facility] 07/24/2018 3:34 AM CDT us Jose Luis Munroe MD LABORATORY Final Result Performing Organization Address [facility]/ZIP Co de Phone Number [facility] [address] [place] [address], [place] [phone] * (ABNORMAL) HEMOGLOBIN AND HEMATOCRIT (07/23/2018 3:30 AM CDT) HGB 10.6(L) 12.0 - 16.0 G/DL 07/23/2018 3:56 AM CDT [facility] HCT 33.4(L) 38.0 - 48.0 % 07/23/2018 3:56 AM CDT [facility] 07/23/2018 3:30 AM CDT us Jose Luis Munroe MD LABORATORY Final Result Performing Organization Address City/[facility]/ZIP Co de Phone Number [facility] [address] [place] [address], [place] [phone] * (ABNORMAL) BASIC METABOLIC PANEL (07/23/2018 3:30 AM CDT) GLUCOSE 94 70 - 99 MG/DL 07/23/2018 4:25 AM CDT [facility] BUN 14 7 - 18 MG/DL 07/23/2018 4:25 AM CDT [facility] CREATININE S/P/B 0.74 0.55 - 1.02 MG/DL 07/23/2018 4:25 AM CDT [facility] SODIUM S/P/B 143 136 - 145 MMOL/L 07/23/2018 4:25 AM CDT [facility] POTASSIUM S/P/B 3.8 3.5 - 5.1 MMOL/L 07/23/2018 4:25 AM CDT [facility] CHLORIDE S/P/B 110(H) 100 - 108 MMOL/L 07/23/2018 4:25 AM CDT [facility] CO2 25.7 21 - 32 MMOL/L 07/23/2018 4:25 AM CDT [facility] CALCIUM S/P/B 8.6 8.5 - 10.1 MG/DL 07/23/2018 4:25 AM CDT [facility] ANION GAP 11.1 8 - 20 MMOL/L 07/23/2018 4:25 AM CDT [facility] BUN CREATININE RATIO 18.8 6 - 26 07/23/2018 4:25 AM T [facility] EGFR NON-AFR. AMER. 83(L) >90 ML/MIN/1.7 3 M2 07/23/2018 4:25 AM T [facility] EGFR AFR. AMER. >90 >90 ML/MIN/1.7 3 M2 07/23/2018 4:25 AM T [facility] Comment: NOTE: eGFR is not calculated for patients <18 years of age. This is an estimated GFR (CKD EPI) and should not be used for calculating drug doses. 07/23/2018 3:30 AM CDT us Jose Luis Munroe MD LABORATORY Final Result [facility] [address] [place] [address], [place] [phone] * XR PEL W HIP LAT LT (07/22/2018 4:11 PM CDT) Anatomical Region Laterality Modality Pelvis, Hip Radiographic Lary ging 07/22/2018 9:23 PM CDT Impressions 07/22/2018 9:24 PM CDT IMPRESSION: 1) Left total hip arthroplasty without evidence of complication. Narrative 07/22/2018 9:24 PM CDT Examination: XR PEL W HIP [...] fracture. Right hip arthroplasty also appears uncomplicated. Procedure Note Sanjiv Mcwilliams MD - 07/22/2018 Examination: XR PEL W HIP LAT LT [...] arthroplasty without evidence of complication. Jose Luis Munroe MD GENERAL IMAGING Final Result * SURG XR HIP LT 1V (07/22/2018 2:50 PM CDT) Anatomical Region Laterality Modality Hip Radiographic Lary ging 07/22/2018 3:58 PM CDT Impressions 07/22/2018 3:59 PM CDT Impression: Normal intraoperative appearance of a left hip trial arthroplasty. Narrative 07/22/2018 3:59 PM CDT Date: 07/22/2018 2:25 PM Exam: [...] hip arthroplasty. The pubic rami appear intact. Procedure Note Ck Mohan MD - 07/22/2018 Date: 07/22/2018 2:25 PM Exam: SURG XR [...] appearance of a left hip trial arthroplasty. us Jose Luis Munroe MD IMAGES ONLY Final Result documented in this encounter Visit Diagnoses Diagnosis Preop examination- Primary Preoperative examination, unspecified Osteoarthritis of left hip, unspecified osteoarthritis type Status post total replacement of left hip Osteoarthritis of left hip, unspecified osteoarthritis type documented in this encounter Administered Medications Inactive Administered Medications - up to 3 most recent administrations Medication Order MAR Action Action Date Dose Rate Site acetaminophen (TYLENOL) tablet 650 mg 650 mg, Oral, Every 6 hours, 4 doses, First dose on Sat07/22/18 at 1800, Last dose on Sat07/23/18 at 1200, Maximum dose of acetaminophen is 4000 mg from all sources in 24 hours., Post-Op Given 07/23/2018 12:11 PM CDT 650 mg Given 07/23/2018 5:43 AM CDT 650 mg Given 07/22/2018 6:37 PM CDT 650 mg aspirin EC (ECOTRIN) EC tablet 81 mg 81 mg, Oral, 2 times daily with meals, First dose on Sat07/23/18 at 0800, Until Discontinued, Start morning after surgery, Post-Op Given 07/24/2018 8:38 AM CDT 81 mg Given 07/23/2018 4:56 PM CDT 81 mg Given 07/23/2018 10:48 AM CDT 81 mg ceFAZolin (ANCEF) syringe 2 g 2 g, Intravenous, at 240 mL/hr, Every 8 hours, 2 doses, First dose on Sat07/22/18 at 2100, Last dose on Sat07/23/18 at 0500, Give 2 gram dose for patients less than 120 kg. PHARMACY TO ADJUST administration times based on pre-op/intra-op dose. Do NOT continue greater than 24 hours after anesthesia end time., Post-Op Given 07/23/2018 5:39 AM CDT 2 g 240 mL/hr Given 07/22/2018 8:26 PM CDT 2 g 240 mL/hr celecoxib (CELEBREX) capsule 200 mg 200 mg, Oral, 2 times daily, First dose on Sat07/22/18 at 2100, Until Discontinued, Do not administer with antacids, Post-Op Given 07/23/2018 8:52 PM CDT 200 mg Given 07/23/2018 10:50 AM CDT 200 mg Given 07/22/2018 8:26 PM CDT 200 mg diphenhydrAMINE (BENADRYL) 12.5 MG/5ML elixir 25 mg 25 mg, Oral, Every 6 hours PRN, Itching, Starting on Sat07/22/18 at 1733, Until Ann Marie 07/24/18 at 1327, Give if unable to swallow tablets/capsules or if patient prefers liquid., Post-Op diphenhydrAMINE (BENADRYL) capsule 25 mg 25 mg, Oral, Every 6 hours PRN, Itching, Starting on Sat07/22/18 at 1733, Until Ann Marie 07/24/18 at 1327, Post-Op docusate sodium (COLACE) capsule 100 mg 100 mg, Oral, 2 times daily, First dose on Sat07/22/18 at 2100, Until Discontinued, Post-Op Given 07/24/2018 8:37 AM CDT 100 mg Given 07/23/2018 8:52 PM CDT 100 mg Given 07/23/2018 10:49 AM CDT 100 mg fentaNYL (SUBLIMAZE) injection 25 mcg 25 mcg, Intravenous, Every 5 min PRN, Severe pain (Scale 8 - 10), 5 doses, Starting on Sat07/22/18 at 1526, Until Sat07/22/18 at 1721, Maximum cumulative dose 250 mcg. Do not administer if patient is overly sedated, SpO2 less than 90%, or Respiratory Rate less than 12. If more than one IV analgesic is ordered per pain level, use in this order: fentaNYL, morphine, HYDROmorphone. If desired pain control is not reached, move to next ordered medication at next dosing interval., PACU Given 07/22/2018 4:04 PM CDT 25 mcg lisinopril (PRINIVIL,ZESTRIL) tablet 10 mg 10 mg, Oral, Daily, First dose on Sat07/23/18 at 0900, Until Discontinued Given 07/24/2018 8:38 AM CDT 10 mg Given 07/23/2018 10:49 AM CDT 10 mg metoclopramide (REGLAN) injection 10 mg 10 mg, Intravenous, Once, 1 dose, On Sat07/22/18 at 1715, Administer IV over 1-2 minutes, PACU Given 07/22/2018 4:51 PM CDT 10 mg ondansetron (ZOFRAN) injection 4 mg 4 mg, Intravenous, Once as needed, Nausea, Vomiting, 1 dose, Starting on Sat07/22/18 at 1526, Until Sat07/22/18 at 1611, Administer slowly over 3-4 minutes. If more than one antiemetic is ordered, use in this order: ondansetron, diphenhydramine, metoclopramide, haloperidol, promethazine. If nausea / vomiting still not controlled, move to next ordered medication., PACU Given 07/22/2018 4:11 PM CDT 4 mg oxyCODONE immediate release (ROXICODONE) tablet 5 mg 5 mg, Oral, Every 4 hours PRN, Moderate pain (Scale 4 - 7), Starting on Sat07/22/18 at 1733, Until Ann Marie 07/24/18 at 1327, Post-Op Given 07/24/2018 8:42 AM CDT 5 mg Given 07/24/2018 12:11 AM CDT 5 mg Given 07/23/2018 6:48 PM CDT 5 mg documented in this encounter Active and Recently Administered Medications Times are shown in CDT. Scheduled Medication Order 07/22/2018 07/23/2018 07/24/2018 acetaminophen (TYLENOL) tablet 650 mg () 650 mg, Oral, Every 6 hours, 4 doses, First dose on Sat07/22/18 at 1800, Last dose on Sat07/23/18 at 1200, Maximum dose of acetaminophen is 4000 mg from all sources in 24 hours., Post-Op 1837 (Given - Provider: Annamarie Dukes RN) 0209 (Not Given - Provider: Elizabeth Meyer RN - Reason: Patient sleeping)0543 (Given - Provider: Elizabeth Meyer RN)1211 (Given - Provider: Annamarie Dukes RN) aspirin EC (ECOTRIN) EC tablet 81 mg(Linked Group 1) 81 mg, Oral, 2 times daily with meals, First dose on Sat07/23/18 at 0800, Until Discontinued, Start morning after surgery, Post-Op 1048 (Given - Provider: Annamarie Dukes RN)1656 (Given - Provider: Annamarie Dukes RN) 0838 (Given - Provider: Liss London RN) ceFAZolin (ANCEF) syringe 2 g (COMPLETED) 2 g, Intravenous, at 240 mL/hr, Once, 1 dose, On Sat07/22/18 at 0600 1244 (MAR Hold - Provider: User Epic - Reason: Unreviewed Transfer Orders)1251 (Given - Provider: Omer Mckeon CRNA)1256 (Infusion Stop Time - Provider: Omer Mckeon CRNA)1540 (MAR Unhold - Provider: User Epic) ceFAZolin (ANCEF) syringe 2 g (COMPLETED)(Linked Group 2) 2 g, Intravenous, at 240 mL/hr, Every 8 hours, 2 doses, First dose on Sat07/22/18 at 2100, Last dose on Sat07/23/18 at 0500, Give 2 gram dose for patients less than 120 kg. PHARMACY TO ADJUST administration times based on pre-op/intra-op dose. Do NOT continue greater than 24 hours after anesthesia end time., Post-Op 2025 (Given - Provider: Elizabeth Meyer RN) 0539 (Given - Provider: Elizabeth Meyer RN) celecoxib (CELEBREX) capsule 200 mg 200 mg, Oral, 2 times daily, First dose on Sat07/22/18 at 2100, Until Discontinued, Do not administer with antacids, Post-Op 2025 (Given - Provider: Elizabeth Meyer RN) 1050 (Given - Provider: Annamarie Dukes RN)2051 (Given - Provider: Elizabeth Meyer RN) 0838 (Not Given - Provider: Liss London RN - Reason: Patient/family declined) docusate sodium (COLACE) capsule 100 mg 100 mg, Oral, 2 times daily, First dose on Sat07/22/18 at 2100, Until Discontinued, Post-Op 2025 (Given - Provider: Elizabeth Meyer RN) 1049 (Given - Provider: Annamarie Dukes RN)2051 (Given - Provider: Elizabeth Meyer RN) 0837 (Given - Provider: Liss London RN) lisinopril (PRINIVIL,ZESTRIL) tablet 10 mg 10 mg, Oral, Daily, First dose on Sat07/23/18 at 0900, Until Discontinued 1049 (Given - Provider: Annamarie Dukes RN) 0838 (Given - Provider: Liss London RN) metoclopramide (REGLAN) injection 10 mg (COMPLETED) 10 mg, Intravenous, Once, 1 dose, On Sat07/22/18 at 1715, Administer IV over 1-2 minutes, PACU 1651 (Given - Provider: Huma Caldwell RN) ROpivacaine 1% (NAROPIN) 100 mg, ketorolac (TORADOL) 15 mg, morphine (PF) 2 mg in sodium chloride 0.9% 50 ml (orthopedic cocktail) juan-articular injection Juan-Articular, Once, 1 dose, On Sat07/22/18 at 0600, NOT FOR IV INFUSION 0600 (Canceled Entry - Provider: Automatic Discharge Provider - Comment: Automatically canceled at discontinue of medication order)1244 (MAR Hold - Provider: User Epic - Reason: Unreviewed Transfer Orders)1540 (NOV Unhold - Provider: User Epic) sodium chloride 0.9% infusion at 999 mL/hr, Intravenous, Once, 1 dose, On Sat07/22/18 at 1800, 1 liter IV bolus in PACU. Then saline lock IV., Post-Op 1932 (Not Given - Provider: Elizabeth Meyer RN - Reason: Other - Comment: PACU ORDER) tranexamic acid (CYKLOKAPRON) 1,000 mg in sodium chloride 0.9 % 50 mL (COMPLETED) 1,000 mg, Intravenous, Administer over 30 Minutes, Once, 1 dose, On Sat07/22/18 at 0600 1244 (NOV Hold - Provider: User Epic - Reason: Unreviewed Transfer Orders)1307 (New Bag - Provider: Omer Mckeon CRNA)1317 (Infusion Stop Time - Provider: Omer Mckeon CRNA)1455 (Bolus - Provider: Omer Mckeon CRNA)1505 (Infusion Stop Time - Provider: Omer Mckeon CRNA)1535 (Anesthesia Volume Adjustment - Provider: Omer Mckeon CRNA)1540 (MAR Unhold - Provider: User Epic) tranexamic acid (CYKLOKAPRON) 1,000 mg in sodium chloride 0.9 % 50 mL 1,000 mg, Intravenous, Administer over 30 Minutes, Once, 1 dose, On Sat07/22/18 at 0600 0600 (Canceled Entry - Provider: Automatic Discharge Provider - Comment: Automatically canceled at discontinue of medication order)1244 (NOV Hold - Provider: User Epic - Reason: Unreviewed Transfer Orders)1540 (MAR Unhold - Provider: User Epic) Continuous Medication Order 07/22/2018 07/23/2018 07/24/2018 lactated ringers infusion (CANCELED) at 10 mL/hr, Intravenous, Continuous, Starting on Sat07/22/18 at 0830, Until Sat07/22/18 at 1734, Infuse at TKO rate,Please do not start LR if patient has diagnosis of End stage renal disease, Pre-Op 1241 (New Bag - Provider: Omer Mckeon CRNA)1242 (Anesthesia Volume Adjustment - Provider: Omer Mckeon CRNA - Comment: 600ml out prior to arrival to OR)1356 (Infusion Stop Time - Provider: Omer Mckeon CRNA) PRN Medication Order 07/22/2018 07/23/2018 07/24/2018 acetaminophen (TYLENOL) tablet 650 mg 650 mg, Oral, Every 6 hours PRN, Mild pain (Scale 1 - 3), Fever, Starting on Sat07/23/18 at 1800, Until Ann Marie 07/24/18 at 1327, Maximum dose of acetaminophen is 4000 mg from all sources in 24 hours., Post-Op diphenhydrAMINE (BENADRYL) 12.5 MG/5ML elixir 25 mg(Linked Group 3) 25 mg, Oral, Every 6 hours PRN, Itching, Starting on Sat07/22/18 at 1733, Until Ann Marie 07/24/18 at 1327, Give if unable to swallow tablets/capsules or if patient prefers liquid., Post-Op diphenhydrAMINE (BENADRYL) capsule 25 mg(Linked Group 3) 25 mg, Oral, Every 6 hours PRN, Itching, Starting on Sat07/22/18 at 1733, Until Ann Marie 07/24/18 at 1327, Post-Op fentaNYL (SUBLIMAZE) injection 25 mcg (CANCELED) 25 mcg, Intravenous, Every 5 min PRN, Severe pain (Scale 8 - 10), 5 doses, Starting on Sat07/22/18 at 1526, Until Sat07/22/18 at 1721, Maximum cumulative dose 250 mcg. Do not administer if patient is overly sedated, SpO2 less than 90%, or Respiratory Rate less than 12. If more than one IV analgesic is ordered per pain level, use in this order: fentaNYL, morphine, HYDROmorphone. If desired pain control is not reached, move to next ordered medication at next dosing interval., PACU 1604 (Given - Provider: Huma Caldwell, GRADY) ondansetron (ZOFRAN) injection 4 mg 4 mg, Intravenous, Every 6 hours PRN, Nausea, Vomiting, Starting on Sat07/22/18 at 1733, Until Ann Marie 07/24/18 at 1327, Post-Op ondansetron (ZOFRAN) injection 4 mg (COMPLETED) 4 mg, Intravenous, Once as needed, Nausea, Vomiting, 1 dose, Starting on Sat07/22/18 at 1526, Until Sat07/22/18 at 1611, Administer slowly over 3-4 minutes. If more than one antiemetic is ordered, use in this order: ondansetron, diphenhydramine, metoclopramide, haloperidol, promethazine. If nausea / vomiting still not controlled, move to next ordered medication., PACU 1611 (Given - Provider: Huma Caldwell, RN) oxyCODONE immediate release (ROXICODONE) tablet 10 mg 10 mg, Oral, Every 4 hours PRN, Severe pain (Scale 8 - 10), Starting on Sat07/22/18 at 1733, Until Ann Marie 07/24/18 at 1327, Post-Op oxyCODONE immediate release (ROXICODONE) tablet 5 mg 5 mg, Oral, Every 4 hours PRN, Moderate pain (Scale 4 - 7), Starting on Sat07/22/18 at 1733, Until Ann Marie 07/24/18 at 1327, Post-Op 1848 (Given - Provider: Annamarie Dukes RN) 0011 (Given - Provider: Elizabeth Meyer RN)0842 (Given - Provider: Liss London RN) ROpivacaine 1 % (NAROPIN) 100 mg, ketorolac (TORADOL) 15 mg, morphine 2 mg in sodium chloride 0.9 % 67 mL juan-articular injection (CANCELED) As needed, Starting on Sat07/22/18 at 1500, Until Sat07/22/18 at 1531, Intra-Op 1500 (Given - Provider: Jose Luis Munroe MD) sodium chloride 0.9 % irrigation (COMPLETED) Continuous PRN, Starting on Sat07/22/18 at 1501, Until Sat07/22/18 at 1501, Intra-Op 1501 (New Bag - Provider: Jose Luis Munroe MD) vancomycin (VANCOCIN) injection (CANCELED) As needed, Starting on Sat07/22/18 at 1450, Until Sat07/22/18 at 1531, Intra-Op 1450 (Given - Provider: Jose Luis Munroe MD - Comment: vancomycin powder sprinkled on incision) Linked Groups Order Group 1: aspirin EC (ECOTRIN) EC tablet 81 mgJump to med 81 mg, Oral, 2 times daily with meals, First dose on Sat07/23/18 at 0800, Until Discontinued, Start morning after surgery, Post-Op And Place sequential compression device (COMPLETED) Routine, Once, On Sat07/22/18 at 1733, For 1 occurrence, Post-Op And Assess Sequential Compression Device (Assess skin at a minimum of every shift) (CANCELED) Routine, Every shift, First occurrence on Sat07/22/18 at 1733, Post-Op And Intermittent Pneumatic Compression Device Applied (COMPLETED) And Maintain Sequential Compression Device (COMPLETED) Routine, Until discontinued, Starting on Sat07/22/18 at 1733, Until Specified, Post-Op And High Risk for VTE (COMPLETED) Group 2: ceFAZolin (ANCEF) syringe 2 g (COMPLETED)Jump to med 2 g, Intravenous, at 240 mL/hr, Every 8 hours, 2 doses, First dose on Sat07/22/18 at 2100, Last dose on Sat07/23/18 at 0500, Give 2 gram dose for patients less than 120 kg. PHARMACY TO ADJUST administration times based on pre-op/intra-op dose. Do NOT continue greater than 24 hours after anesthesia end time., Post-Op Or ceFAZolin (ANCEF) 3 g in sterile water IV syringe (CANCELED) 3 g (rounded from 3,000 mg), Intravenous, at 360 mL/hr, Every 8 hours, 2 doses, First dose on Sat07/22/18 at 2000, Last dose on Sat07/23/18 at 0400, Give 3 gram dose for patients 120 kg and greater. PHARMACY TO ADJUST administration times based on pre-op/intra-op dose. Do NOT continue greater than 24 hours after anesthesia end time., Post-Op Group 3: diphenhydrAMINE (BENADRYL) injection 25 mg (CANCELED) 25 mg, Intravenous, Every 6 hours PRN, Itching, Starting on Sat07/22/18 at 1733, Until Sat07/22/18 at 1736, Give if unable to take PO. For IV administration, give no faster than 25 mg/min., Post-Op Or diphenhydrAMINE (BENADRYL) capsule 25 mgJump to med 25 mg, Oral, Every 6 hours PRN, Itching, Starting on Sat07/22/18 at 1733, Until Ann Marie 10/25/18 at 1327, Post-Op Or diphenhydrAMINE (BENADRYL) 12.5 MG/5ML elixir 25 mgJump to med 25 mg, Oral, Every 6 hours PRN, Itching, Starting on Sat07/22/18 at 1733, Until Ann Marie 07/24/18 at 1327, Give if unable to swallow tablets/capsules or if patient prefers liquid., Post-Op documented in this encounter Care Teams Magnetic Prospector Relationship Specialty Start Date End Date Kaushal Han MD [address] [place] [phone] PCP - General FAMILY PRACTICE 01/31/18 Jose Luis Munroe MD [address] [place] [phone] ORTHOPAEDICS 02/05/18 Anjum Rajan MD [address] [address] CARDIOVASCULAR DISEASE 07/16/18 documented as of this encounter
--- OUTSIDE RECORDS SUMMARY | 2024-10-02 01:48 | XMS_ITS | Encounter Summary ---
Author Organization [facility] - [facility] Address formerly [facility]6 [facility] [place] [address] [place] [address] Care Team Providers Care Supplier Diversity Director Name Role Phone Kaushal Han MD Primary Care Provider [phone] Jose Luis Rain MD Unavailable [phone] Anjum Rajan MD Unavailable [phone] Encounter Details Date Type Department Care Team (Late st Contact Info) Description 08/29/2018 Orders Only [facility] Medical [facility] Multispecialty Care - [facility] [address] [place] [address] Jose Luis Rain MD [address] [place] [phone] Social History Tobacco Use Types Packs/Day Years [...] as of this encounter Progress Notes * Sarai Carter - 08/29/2018 2:28 PM CST oxr pel OR WRITER documented in this encounter Plan of Treatment Not on file documented as of this encounter Results * OXR PELVIS AP+LT HIP 2V (09/01/2018 11:37 AM SENIOR WRITER) Anatomical Region Laterality Modality Pelvis, Hip Radiographic Lary ging Narrative 09/01/2018 12:17 PM SENIOR WRITER PROCEDURE: OXR PELVIS AP+LT HIP 2V VIEWS: 3 DATE: ??09/01/18 CLINICAL INDICATION: left hip total replacement 07/22/18 FINDINGS: Bilateral total hip arthroplasties visualized. ??No signs of any subsidence or loosening. ??Lumbar spondylosis noted. IMPRESSION: Stable bilateral total hip arthroplasties. Jose Luis Rain MD GENERAL IMAGING Final Result documented in this encounter Visit Diagnoses Diagnosis Status post total replacement of left hip- Primary documented in this encounter Care Teams Supplier Diversity Director Relationship Specialty Start Date End Date Kaushal Han MD [address] [place] [phone] PCP - General FAMILY PRACTICE 01/31/18 Jose Luis Rain MD [address] [place] [phone] ORTHOPAEDICS 02/05/18 Anjum Rajan MD [address] [address] CARDIOVASCULAR DISEASE 07/16/18 documented as of this encounter
--- OUTSIDE RECORDS SUMMARY | 2024-10-02 01:48 | XMS_ITS | Encounter Summary ---
Author Organization [facility] - [place] Address [facility] [place] [address] [place] [address] Care Team Providers Care Accounting Manager Assistant Controller Name Role Phone Kaushal Han MD Primary Care Provider Jose Luis Rain MD Unavailable [phone] Anjum Rajan MD Unavailable [phone] Encounter Details Date Type Department Care Team (Late st Contact Info) Description 07/22/2018 Abstract [facility] Medical Group Multispecialty Care - [facility] [address] [place] [address] Jose Luis Rain MD [address] [place] [address] [phone] Social History Tobacco Use Types Packs/Day Years [...] on filedocumented in this encounter Care Teams Accounting Manager Assistant Controller Relationship Specialty Start Date End Date Kaushal Han MD [address] [place] [phone] PCP - General FAMILY PRACTICE 01/31/18 Jose Luis Rain MD [address] [place] [phone] ORTHOPAEDICS 02/05/18 Anjum Rajan MD [facility] [address] [address] CARDIOVASCULAR DISEASE 07/16/18 documented as of this encounter
--- OUTSIDE RECORDS SUMMARY | 2024-10-02 01:48 | XMS_ITS | Encounter Summary ---
Author Organization [facility] Address [facility] [place] [address] [place] [address] Care Team Providers Care Pot Builder Name Role Phone Kaushal Dixon MD Primary Care Provider Jose Luis Rain MD Unavailable [phone] Encounter Details Date Type Department Care Team (Latest Contact Info) Description 07/09/2018 11:21 AM CDT - 07/09/2018 1:20 PM CDT Hospital Encounter [facility] Pre-Admission Testing [address] [place], [place] [address] Jose Luis Rain MD [address] [place] [phone] Discharge Disposition: Home or Self Care (Routine [...] Sign Reading Time Taken Comments Blood Pressure 152/83 07/09/2018 11:00 AM CDT right arm Pulse 65 07/09/2018 11:00 AM CDT Temperature 36.2 ??C (97.2 ??F) 07/09/2018 1 1:00 AM CDT Respiratory Rate 18 07/09/2018 11:0 0 AM CDT Oxygen Saturation 98% 07/09/2018 11: 00 AM CDT Inhaled Oxygen Concentration - - Weight 93.9 kg (207 lb 0.2 oz) 07/09/20 18 11:00 AM CDT Height 157.5 cm (5' 2 ) 07/09/2018 11:0 0 AM CDT Body Mass Index 37.86 07/09/2018 11:00 AM CDT documented in this encounter Medications at Time [...] as of this encounter Progress Notes * Lurdes Dixon, PT - 07/09/2018 1:11 PM CDT Pre-Operative Hip Evaluation Date: 07/09/2018 Name: Deb Rendon : 1950 Subjective: Patient presents with diagnosis of OA LEFT HIP. History includes Pre-op LeftHip. HTN, RIGHT VALDEMAR 01/2018. Surgery scheduled for Left Total Hip Replacement. Patient has had hip pain since 01/28/18. Patient lives with assistance. Patient lives in [address]. Steps to enter none. Paitent is independent with ADL???s. Patient does not have difficulties with other joints with does not affect function. Comments: HAD R/VALDEMAR IN JANUARY. Objective: General Observations: Height: 5'2 WT: 207 LBS BMI: 38 1. Bed Mobility requires: indep 2. Transfers require: indep 3. Gait pattern USES STRAIGHT CANE AND INSTRUCTED IN USE IN RIGHT HAND AFTER LEFT VALDEMAR. Comments: HAS CANE AND W/W 4. Activity Limitations: WALKING 5. Standardized Test: NA 6. Patient ambulates withan assistive device and does not need assistance. 7. ROM 1. Right Upper Extremity:WNL 2. Right Lower Extremity: WNL 3. Left Upper Extremity: WNL 4. Left Lower Extremity: HIP FLEX 100 DEG, EXT 10 DEG, ABD 20 DEG, IR 1/2 RANGE, ER 1/2 RANGE. 8. Strength 1. Right Upper Extremity: WNL 2. Right Lower Extremity: WNL 3. Left Upper Extremity: WNL 4. Left Lower Extremity: DECREASED HIP STRENGTH 4-/5. 8. Patient educated in total hip replacement exercises including quad sets, gluteal sets, hip flexion/extension, and ankle pumps. 9. Patient educated in hip precautions Anterior. 10. Patient educated use of walker and instructed that weight bearing may vary from Weight Bearing as Tolerated. Assessment: Patient is Oriented. Patient is Cooperative. Patient does follow instructions well. Patient is not Hard of Hearing. Personal History/Co-morbidities influencing POC: Mod 1-2 factors Examination of Body Systems: Moderate - 3 or more elements Clinical Presentation of Patient: Evolving Changing Characteristics (MOD) due to DEC LEFT HIP ROM AND STRENGTH, DEC GAIT TOLERANCE, DEC ACTIVITY LEVEL 2/2 PAIN. Evaluation: Moderate Rehab Potential: good Goals: Met/Not Met Met 1. Instruct patient in total hip replacement precautions, exercises and gait training prior to surgery. Met 2. Patient voiced understanding of protocol for surgery. Medicare (G-CODESPAIN, DEC ROM/STRENGTH L/HIP, DEC ACTIVITY AND GAIT) (Based on: ROM/STR/GAIT/PAIN W/ACTIVITY) Timed Code Tx Minutes 30 Units 1 Total Tx Time 23 MINUTES 30 Mod Plan: Inpatient Discharge plans: After 2 days home WITH [facility] Other Comments: NA - ALL QUESTIONS ANSWERED. GIVEN WRITTEN HEP AND PRECAUTIONS Therapist: LURDES DIXON PT Date: 07/09/18 Time: 1:11 PM documented in this encounter Plan of Treatment Not on file documented as of this encounter Procedures Procedure Name Priority Date/Time Associated Diagnosis Comments XR CHEST PA+LAT Today 07/09/2018 1:31 PM CDT Preop examination ECG 12-LEAD Routine 07/09/2018 12:50 PM CDT Preop examination CULTURE RESPIRATORY W/ GRAM STAIN Routine 07/09/2018 12:30 PM CDT Preop examination TYPE & SCREEN Routine 07/09/2018 12:30 PM CDT Preop examination SED RATE, ERYTHROCYTE (ESR) Routine 07/09/2018 12:30 PM CDT Preop examination BASIC METABOLIC PANEL STAT 07/09/2018 12:30 PM CDT Preop examination C-REACTIVE PROTEIN Routine 07/09/2018 12 :30 PM CDT Preop examination CBC W/DIFF AUTOMATED STAT 07/09/2018 12:30 PM CDT Preop examination documented in this [...] By: Efe Tracey MD, 07/09/2018 2:31 PM us Jose Luis Rain MD GENERAL IMAGING Final Result * ECG 12 lead (07/09/2018 12:50 PM CDT) 07/09/2018 12:5 0 PM CDT Narrative [facility] - 07/09/2018 3:03 PM CDT ?[facility] ? [address] ? Test Date: ?2018-07-09 Pat Name: ? DEB RENDON ? Department: ?? 40 ? Room: ? Gender: ? Female ? Chief Deputy Clerk/Bailiff: ?? DD : ?1950 ? Requested By: Order Number: [id number] ? Reading : ?? Cade De Jesus ? Measurements Intervals ?[place] ? Rate: ? 61 ? P: ?44 MA: ? 165 ?QRS: ?-7 QRSD: ? 94 ? T: ?31 QT: ? 421 ? QTc: ?427 ? Interpretive Statements SINUS RHYTHM MINIMAL VOLTAGE CRITERIA FOR LVH, CONSIDER NORMAL VARIANT poor r progression - POSSIBLE ANTERIOR MYOCARDIAL INFARCTION, OF INDETERMINATE AGE No previous ECG available for comparison Procedure Note Cade De Jesus MD - 07/09/[address] Test Date: 2018-07-09 Pat Name: DEB RENDON Department: 40 Room: Gender: Female Chief Deputy Clerk/Bailiff: DD : 1950 Requested By: Order Number: [id number] Megan MD: Cade De Jesus Measurements Intervals [place] Rate: 61 P: 44 MA: 165 QRS: -7 QRSD: 94 T: 31 QT: 421 QTc: 427 Interpretive Statements SINUS RHYTHM MINIMAL VOLTAGE CRITERIA FOR LVH, CONSIDER NORMAL VARIANT poor r progression - POSSIBLE ANTERIOR MYOCARDIAL INFARCTION, OF INDETERMINATE AGE No previous ECG available for comparison Jose Luis Rain MD ECG ORDERABLES Final Result [facility] * TYPE & SCREEN (07/09/2018 12:30 PM CDT) ABO/RH A POSITIVE 07/09/2018 4:12 PM CDT [facility] ANTIBODY SCREEN NEGATIVE 07/09/2018 4:12 PM CDT [facility] SAMPLE EXPIRATION 07/25/2018 07/22/2018 6:47 AM CDT [facility] COMMENT NO HISTORY OF TRANSFUSIONS , OR ANTIBODIES, NEW SPECIMEN NOT NEEDED 07/22/2018 6:47 AM CDT [facility] 07/09/2018 12:3 0 PM CDT us oJse Luis Rain MD BLOOD BANK TEST ORDERABLES F inal Result Performing Organization Address City/[facility]/ZIP Co de Phone Number [facility] [address] [place] [address], [place] [phone] * C-REACTIVE PROTEIN (07/09/2018 12:30 PM CDT) Pathologist [facility] C-REACTIVE PROTEIN <0.29 <0.29 mg/dL 07/09/2018 1:20 PM CDT [facility] 07/09/2018 12:3 0 PM CDT us Jose Luis Rain MD LABORATORY Final Result Performing Organization Address City/[facility]/ZIP Co de Phone Number [facility] [address] [place] [address], [place] [phone] * SED RATE, ERYTHROCYTE (ESR) (07/09/2018 12:30 PM CDT) ESR 20 0 - 30 mm/hr 07/09/2018 2:33 PM CDT [facility] 07/09/2018 12:3 0 PM CDT us Jose Luis Rain MD LABORATORY Final Result Performing Organization Address [facility]/ZIP Co de Phone Number [facility] [address] [place] [address], [place] [phone] * CULTURE RESPIRATORY W/ GRAM STAIN (07/09/2018 12:30 PM CDT) SPEC DESCRIPTION NASAL 07/09/2018 1:05 PM CDT [facility] SPECIAL REQUESTS NASAL 07/09/2018 1:05 PM CDT [facility] CULTURE RESULT NO STAPHYLOCOCCUS AUREUS ISOLATED 07/11/2018 9:39 AM CDT [facility] SPECIMEN FROM INTERNAL NOSE / Unknown 07/09/2018 12:30 PM CDT 07/09/2018 1:05 PM CDT us Jose Luis Rain MD MICROBIOLOGY - GENERAL ORDER JACQUIE Final Result Performing Organization Address City/[facility]/ZIP Co de Phone Number [facility] [address] [place] [address], [place] [phone] * (ABNORMAL) BASIC METABOLIC PANEL (07/09/2018 12:30 PM CDT) GLUCOSE 85 70 - 99 MG/DL 07/09/2018 1:20 PM CDT [facility] BUN 13 7 - 18 MG/DL 07/09/2018 1:20 PM CDT [facility] CREATININE S/P/B 0.69 0.55 - 1.02 MG/DL 07/09/2018 1:20 PM CDT [facility] SODIUM S/P/B 143 136 - 145 MMOL/L 07/09/2018 1:20 PM CDT [facility] POTASSIUM S/P/B 4.0 3.5 - 5.1 MMOL/L 07/09/2018 1:20 PM CDT [facility] CHLORIDE S/P/B 108 100 - 108 MMOL/L 07/09/2018 1:20 PM CDT [facility] CO2 28.6 21 - 32 MMOL/L 07/09/2018 1:20 PM CDT [facility] CALCIUM S/P/B 8.9 8.5 - 10.1 MG/DL 07/09/2018 1:20 PM CDT [facility] ANION GAP 10.4 8 - 20 MMOL/L 07/09/2018 1:20 PM CDT [facility] BUN CREATININE RATIO 19.0 6 - 26 07/09/2018 1:20 PM T [facility] EGFR NON-AFR. AMER. 89(L) >90 ML/MIN/1.7 3 M2 07/09/2018 1:20 PM CDT [facility] EGFR AFR. AMER. >90 >90 ML/MIN/1.7 3 M2 07/09/2018 1:20 PM CDT [facility] Comment: NOTE: eGFR is not calculated for patients <18 years of age. This is an estimated GFR (CKD EPI) and should not be used for calculating drug doses. 07/09/2018 12:3 0 PM CDT us Jose Luis Rain MD LABORATORY Final Result [facility] [address] [place] [address], [place] [phone] * (ABNORMAL) CBC W/DIFF AUTOMATED (07/09/2018 12:30 PM CDT) WBC 4.4(L) 4.5 - 11.0 x10'3/uL 07/09/2018 1:24 PM CDT [facility] RBC 4.41 4.20 - 5.40 x10'6/uL 07/09/2018 1:24 PM CDT [facility] HGB 12.5 12.0 - 16.0 G/DL 07/09/2018 1:24 PM CDT [facility] HCT 39.3 38.0 - 48.0 % 07/09/2018 1:24 PM CDT [facility] MCV 89.1 81.0 - 99.0 FL 07/09/2018 1:24 PM CDT [facility] MCH 28.3 27.0 - 31.0 PG 07/09/2018 1:24 PM CDT [facility] MCHC 31.8(L) 32.0 - 36.0 G/DL 07/09/2018 1:24 PM CDT [facility] RDW 14.0 11.5 - 14.5 % 07/09/2018 1:24 PM CDT [facility] PLT 184 130 - 400 x10'3/uL 07/09/2018 1:24 PM CDT [facility] MPV 11.1 9.3 - 12.2 FL 07/09/2018 1:24 PM CDT [facility] DIFFERENTIAL TYPE AUTOMATED DIFFERENTIAL 07/09/2018 1:24 PM CDT [facility] NEUTROPHILS % 65.1 % 07/09/2018 1:24 PM CDT [facility] LYMPHOCYTES % 27.3 % 07/09/2018 1:24 PM CDT [facility] MONOCYTES % 5.9 % 07/09/2018 1:24 PM CDT [facility] EOSINOPHILS 0.5 % 07/09/2018 1:24 PM CDT [facility] BASOPHILS 0.7 % 07/09/2018 1:24 PM CDT [facility] IMMATURE GRANS % 0.5(H) 0 % 07/09/20 18 1:24 PM CDT [facility] ABS. NEUTROPHILS TOTAL 2.89 1.80 - 7.70 x10'3/uL 07/09/2018 1:24 PM CDT [facility] ABS. LYMPHOCYTES 1.21 1.00 - 4.80 x10'3/uL 07/09/2018 1:24 PM CDT [facility] ABS. MONOCYTES 0.26 0.24 - 0.86 x10'3/uL 07/09/2018 1:24 PM CDT [facility] ABS. EOSINOPHILS 0.02(L) 0.04 - 0.36 x10'3/uL 07/09/2018 1:24 PM CDT [facility] ABS. BASOPHILS 0.03 0.01 - 0.08 x10'3/uL 07/09/2018 1:24 PM CDT [facility] ABS. IMMATURE GRANULOCYTES 0.02 0.00 - 0.03 x10'3/uL 07/09/2018 1:24 PM CDT [facility] 07/09/2018 12:3 0 PM CDT Jose Luis Rain MD LABORATORY Final Result [facility] [address] [place] [address], [place] [phone] documented in this encounter Visit Diagnoses Diagnosis Preop examination- Primary Preoperative examination, unspecified documented in this encounter Care Teams Pot Builder Relationship Specialty Start Date End Date Kaushal Dixon MD [address] [place] [phone] PCP - General FAMILY PRACTICE 01/31/18 Jose Luis Rain MD [address] [place] [phone] ORTHOPAEDICS 02/05/18 documented as of this encounter
--- OUTSIDE RECORDS SUMMARY | 2024-10-02 01:48 | XMS_ITS | Encounter Summary ---
Author Organization [facility] - [facility] Address [facility] [place] [address] [place] [address] Care Team Providers Care Retention Manager Name Role Phone Kaushal Han MD Primary Care Provider Jose Luis Rain MD Unavailable [phone] Anjum Rajan MD Unavailable [phone] Encounter Details Date Type Department Care Team (Latest Contact Info) Description 07/29/2018 Scan HEALTH INFO SRVCS Scanned, Documents Social [...] on filedocumented in this encounter Care Teams Retention Manager Relationship Specialty Start Date End Date Kaushal Han MD [address] [place] [phone] PCP - General FAMILY PRACTICE 01/31/18 Jose Luis Rain MD [address] [place] [phone] ORTHOPAEDICS 02/05/18 Anjum Rajan MD [address] [address] CARDIOVASCULAR DISEASE 07/16/18 documented as of this encounter
--- OUTSIDE RECORDS SUMMARY | 2024-10-02 01:48 | XMS_ITS | Encounter Summary ---
Author Organization [facility] Address [facility]6 [facility]. [place], [place] [address] [place] [address] Care Team Providers Care Laundry Room Attendant Name Role Phone Kaushal Han MD Primary Care Provider [phone] Jose Luis Munroe MD Unavailable [phone] Anjum Rajan MD Unavailable [phone] Reason for Visit * Auth/Cert Specialty Diagnoses / Procedures Referred By Spencer santos Referred To Contact Diagnoses LEFT HIP OSTEOARTHRITIS Procedures LEFT TOTAL HIP ARTHROPLASTY Referral ID Status Reason Start Date Expiration Date Visits Re quested Visits Authorized [id number] 1 1 Encounter Details Date Type Department Care Team (Late st Contact Info) Description 07/22/2018 12:20 PM CDT - 07/22/2018 2:48 PM CDT Surgery [place] [facility] [place] [address] Jose Luis Munroe MD [address] [place] [address] LEFT TOTAL HIP ARTHROPLASTY Surgery Details Date/Time Status Location OR Service Patient Class Case Class Case Type Trauma Case? 07/22/2018 12:20 PM Posted [facility] OR OR 8 Orthopedics Morning Admit E - Elective No Panel 1 Procedure LRB Anes Op Region Wound Class Comments LEFT TOTAL HIP ARTHROPLASTY Left General Hip Cl althea Surgeon Surgeon Role Service Panel Jose Luis Munroe MD Primary Orthopedics 1 Case Notes GRIS WITH UNIQUE HOWARD 04/04 PRETEST 07/08 1130 Special Needs [place] documented in this encounter Social History Tobacco [...] Sign Reading Time Taken Comments Blood Pressure 131/65 07/22/2018 7:02 AM CDT Pulse 63 07/22/2018 7:02 AM CDT Temperature 36.6 ??C (97.9 ??F) 07/22/2018 7:02 AM CD T Respiratory Rate 18 07/22/2018 7:02 AM CDT Oxygen Saturation 96% 07/22/2018 7:02 AM CDT Inhaled Oxygen Concentration - - Weight 93.9 kg (207 lb 0.2 oz) 07/22/2018 7:02 A M CDT Height 157.5 cm (5' 2 ) 07/22/2018 7:02 AM CDT Body Mass Index 37.86 07/22/2018 7:02 AM CDT documented in this encounter Discharge Summaries * Rabia Barnard, ELODIA-C - 07/24/2018 7:06 AM CDT Physician Discharge Summary Patient ID: Deb Gipson [id number] 68-year-old 1950 Admit date: 07/22/2018 Expected Discharge [...] 220 MG Cap Kaushal Han MD [address] [facility] [phone] Follow up SERGEY James 3 [facility] [address] [facility] [address] Follow up in 2 week(s) Signed: SERGEY [...] HEALTH HAS BEEN ARRANGED FOR YOU WITH [facility]. A NURSE WILL BE MAKING CONTACT WITH YOU UPON DISCHARGE TO ARRANGE A TIME TO VISIT. ANY QUESTIONS REGARDING THIS, PLEASE CONTACT . * Attachments The following attachments cannot be sent through Care Everywhere. * TOTAL HIP REPLACEMENT DISCHARGE INSTRUCTIONS (SAMMARINESE) * HYDROCODONE AND ACETAMINOPHEN, ADULT (SAMMARINESE) documented in this encounter Medications at Time [...] CARE. RN AWARE OF PLANS AND ACTIONS. [facility] SHILPI ELDRIDGE WAS AWARE OF DC AND CONFIRMED PLANS TO SEE PT IN THE HOME MOVING FORWARD. NO FURTHER ACTIONS INDICATED NOR NEEDS NOTED. SW COMPLETE AND CASE CLOSED. * Shilpi Eldridge RN - 07/24/2018 11:21 AM CDT ORIENTAL MEDICINE PRACTITIONER MET WITH PATIENT AT BEDSIDE TO DISCUSS [facility]. PT IN AGREEANCE W/ [facility]. PATIENT INFORMED THAT NURSE WILL [...] perfusion H/H stable Filed Vitals: 07/23/18 1609 07/23/18 2020 07/23/18 2359 07/24/18 0500 BP: 129/70 110/63 136/57 138/63 Pulse: 80 70 68 77 Resp: 19 20 20 20 Temp: 98.4 ??F (36.9 ??C) 98.3 ??F (36.8 ??C) 98.3 ??F (36.8 ??C) 98.2 ??F (36.8 ??C) TempSrc: Oral Oral Oral Oral SpO2: 96% 97% 99% 99% Weight: Height: Assessment [id number] s/p L VALDEMAR on 07/22/2018 Plan PT - WBAT, anterior hip precautions DVT ppx - Aspirin BID and SCDs Pain control - scheduled tylenol, opioids as needed Dispo - home with home health today Pt seen along with EUNICE ShahC ??? aspirin EC 81 mg Oral BID [...] in the last 168 hours. * Cat R Roseline, RN - 07/23/2018 7:17 PM CDT Problem: [...] DISCUSSED WITH PT WHO CHOSE TO USE [facility] FROM THE LIST OF AREA AGENCIESPROVIDED. REFERRAL GIVEN TO SHILPI ELDRIDGE WITH [facility] WHO CONFIRMED SAME ACCEPTED. [facility] WILLPLAN TO FOLLOW IN THE [...] Wheeled walker;Straight cane Prior Function Level of [place] Independent with ADLs;Independent with functional transfers;Independent with [...] intact, NV intact. Filed Vitals: 07/22/18 1742 07/22/18 2000 07/23/18 0000 07/23/18 0500 BP: 154/72 106/58 130/65 124/57 Pulse: 77 66 83 79 Resp: 16 16 14 16 Temp: 98.1 ??F (36.7 ??C) 98.3 ??F (36.8 ??C) 98.9 ??F (37.2 ??C) 98 ??F (36.7 ??C) TempSrc: Oral Oral Oral Oral SpO2: 100% 96% 94% 95% Weight: Height: Assessment 77-yuht-nmypozeht s/p L VALDEMAR on 07/22/2018 Plan Dressing change tomorrow. PT - WBAT, anterior hip precautions. DVT ppx - Aspirin BID and SCD Pain control - scheduled tylenol, opioids as needed Dispo - home with home health tomorrow SERGEY JAMES ??? acetaminophen 650 mg Oral Q6H ??? [...] the last 168 hours. * Cat Clarissa DukesGRADY - 07/22/2018 7:07 PM CDT Problem: PT [...] OR. ATTEMPT P.T. TOMRORROW AM.) * Lurdes Han PT - 07/22/2018 2:09 PM CDT 07/22/18 [...] were discussed with the patient and/or family/personal event sales representative. Questions were answered and the patient/family/personal event sales representative verbalized understanding and desires to [...] in this encounter Consult Notes * Erica Hollandzach, DATABASE REPORT WRITER - 07/09/2018 2:36 PM CDT Hospitalist Consultation [...] Alert, appropriate LABS: Pertinent Labs reviewed in [facility]. Recent Labs Lab 07/09/18 1230 NA 143 [...] CDT SURGEON: JOSE LUIS MUNROE MD ?? GREENHOUSE SPECIALIST: University Manager: Nat A Anderson, ANTHROPOLOGIST Circulating Nurse 1: Shaquille Callejas RN Scrub Person 1: Bhupendra Petersen, AIR SUPPORT CONTROL OFFICER Scrub Person 2: Judi Whipple RN; Sarai Jones, [facility] Certified Medical Biller: Loren Hdez, RTR ?? PREOPERATIVE DIAGNOSIS: LEFT [...] and noting patient does not have a donor relations manager to Dr Munroe and Dr Han's offices and called Dr Munroe's office and spoke with Mansi to send message to Ceci Faxed preop testing and note requesting cardiac clearance and cardiology notes and testing results to Dr Rajan's office and FYI to Dr Munroe's office. Ceci at Dr [...] LEFT HIP OSTEOARTHRITIS Case Notes GRIS WITH GEOVANNA HOWARDR 04/04 PRETEST 07/08 113 Special Needs [place] documented in this encounter Results * (ABNORMAL) HEMOGLOBIN AND HEMATOCRIT (07/24/2018 3:34 AM CDT) HGB 10.1(L) 12.0 - 16.0 G/DL 07/24/2018 4:03 AM CDT [facility] HCT 32.3(L) 38.0 - 48.0 % 07/24/2018 4:03 AM CDT [facility] 07/24/2018 3:34 AM CDT us Jose Luis Munroe MD LABORATORY Final Result Performing Organization Address [facility] Co de Phone Number [facility] [address] [place] [address], [place] [phone] * (ABNORMAL) HEMOGLOBIN AND HEMATOCRIT (07/23/2018 3:30 AM CDT) HGB 10.6(L) 12.0 - 16.0 G/DL 07/23/2018 3:56 AM CDT [facility] HCT 33.4(L) 38.0 - 48.0 % 07/23/2018 3:56 AM CDT [facility] 07/23/2018 3:30 AM CDT us Jose Luis Munroe MD LABORATORY Final Result Performing Organization Address [facility] de Phone Number [facility] [address] [place] [address], [place] [phone] * (ABNORMAL) BASIC METABOLIC PANEL (07/23/2018 3:30 AM CDT) GLUCOSE 94 70 - 99 MG/DL 07/23/2018 4:25 AM CDT [facility] BUN 14 7 - 18 MG/DL 07/23/2018 4:25 AM CDT [facility] CREATININE S/P/B 0.74 0.55 - 1.02 MG/DL 07/23/2018 4:25 AM CDT [facility] SODIUM S/P/B 143 136 - 145 MMOL/L 07/23/2018 4:25 AM CDT [facility] POTASSIUM S/P/B 3.8 3.5 - 5.1 MMOL/L 07/23/2018 4:25 AM CDT [facility] CHLORIDE S/P/B 110(H) 100 - 108 MMOL/L 07/23/2018 4:25 AM CDT [facility] CO2 25.7 21 - 32 MMOL/L 07/23/2018 4:25 AM CDT [facility] CALCIUM S/P/B 8.6 8.5 - 10.1 MG/DL 07/23/2018 4:25 AM CDT [facility] ANION GAP 11.1 8 - 20 MMOL/L 07/23/2018 4:25 AM CDT [facility] BUN CREATININE RATIO 18.8 6 - 26 07/23/2018 4:25 AM T [facility] EGFR NON-AFR. AMER. 83(L) >90 ML/MIN/1.7 3 M2 07/23/2018 4:25 AM CDT [facility] EGFR AFR. AMER. >90 >90 ML/MIN/1.7 3 M2 07/23/2018 4:25 AM CDT [facility] Comment: NOTE: eGFR is not calculated for patients <18 years of age. This is an estimated GFR (CKD EPI) and should not be used for calculating drug doses. 07/23/2018 3:30 AM CDT us Jose Luis Munroe MD LABORATORY Final Result [facility] [address] [place] [address], [place] [phone] * XR PEL W HIP LAT LT [...] MAR Action Action Date Dose Rate Site aspirin EC (ECOTRIN) EC tablet 81 mg 81 mg, Oral, 2 times daily with meals, First dose on Sat07/23/18 at 0800, Until Discontinued, Start morning after surgery, Post-Op Given 07/24/2018 8:38 AM CDT 81 mg Given 07/23/2018 4:56 PM CDT 81 mg Given 07/23/2018 10:48 AM CDT 81 mg celecoxib (CELEBREX) capsule 200 mg 200 mg, [...] Itching, Starting on Sat07/22/18 at 1733, Until Sat07/24/18 at 1327, Give if unable to swallow [...] Given 07/23/2018 10:49 AM CDT 100 mg lisinopril (PRINIVIL,ZESTRIL) tablet 10 mg 10 mg, Oral, Daily, First dose on Sat07/23/18 at 0900, Until Discontinued Given 07/24/2018 8:38 AM CDT 10 mg Given 07/23/2018 10:49 AM CDT 10 mg oxyCODONE immediate release (ROXICODONE) tablet 5 mg 5 mg, Oral, Every 4 hours PRN, Moderate pain (Scale 4 - 7), Starting on Sat07/22/18 at 1733, Until Ann Marie 07/24/18 at 1327, Post-Op Given 07/24/2018 8:42 AM CDT 5 mg Given 07/24/2018 12:11 AM CDT 5 mg Given 07/23/2018 6:48 PM CDT 5 mg ROpivacaine 1 % (NAROPIN) 100 mg, ketorolac (TORADOL) 15 mg, morphine 2 mg in sodium chloride 0.9 % 67 mL juan-articular injection As needed, Starting on Sat07/22/18 at 1500, Until Sat07/22/18 at 1531, Intra-Op Given 07/22/2018 3:00 PM CDT 56 mLs Left Knee sodium chloride 0.9 % irrigation Continuous PRN, Starting on Sat07/22/18 at 1501, Until Sat07/22/18 at 1501, Intra-Op New Bag 07/22/2018 3:01 PM CDT 500 mLs Opera tive Site vancomycin (VANCOCIN) injection As needed, Starting on Sat07/22/18 at 1450, Until Sat07/22/18 at 1531, Intra-Op Given 07/22/2018 2:50 PM CDT 1,000 mg Operative Site documented in this encounter Active and Recently [...] User Epic - Reason: Unreviewed Transfer Orders)1540 ([facility] Unhold - Provider: User Epic) sodium chloride [...] 1 dose, On Sat07/22/18 at 0600 1244 ([facility] Hold - Provider: User Epic - Reason: Unreviewed Transfer Orders)1307 (New Bag - Provider: Omer Mckeon CRNA)1317 (Infusion Stop Time - Provider: Omer Mckeon CRNA)1455 (Bolus - Provider: Omer Mckeon CRNA)1505 (Infusion Stop Time - Provider: Omer Mckeon CRNA)1535 (Anesthesia Volume Adjustment - Provider: Omer Mckeon CRNA)1540 ([facility] Unhold - Provider: User Epic) tranexamic acid (CYKLOKAPRON) 1,000 mg in sodium chloride 0.9 % 50 mL 1,000 mg, Intravenous, Administer over 30 Minutes, Once, 1 dose, On Sat07/22/18 at 0600 0600 (Canceled Entry - Provider: Automatic Discharge Provider - Comment: Automatically canceled at discontinue of medication order)1244 ([facility] Hold - Provider: User Epic - Reason: Unreviewed Transfer Orders)1540 ([facility] Unhold - Provider: User Epic) Continuous Medication [...] doses, Starting on Sat07/22/18 at 1526, Until Tu07/22/18 at 1721, Maximum cumulative dose 250 mcg. [...] PACU 1604 (Given - Provider: Huma Caldwell, RN) ondansetron (ZOFRAN) injection 4 mg 4 mg, [...] PACU 1611 (Given - Provider: Huma Caldwell, GRADY) oxyCODONE immediate release (ROXICODONE) tablet 10 mg [...] Dukes RN) 0011 (Given - Provider: Elizabeth Meyer, GRADY)0842 (Given - Provider: Liss London RN) ROpivacaine [...] Until Ann Marie 07/24/18 at 1327, Post-Op Or diphenhydrAMINE (BENADRYL) 12.5 MG/5ML elixir 25 mgJump to med 25 mg, Oral, Every 6 hours PRN, Itching, Starting on Sat07/22/18 at 1733, Until Ann Marie 07/24/18 at 1327, Give if unable to swallow tablets/capsules or if patient prefers liquid., Post-Op documented in this encounter Care Teams Laundry Room Attendant Relationship Specialty Start Date End Date Kaushal Han MD [address] [place] [phone] PCP - General FAMILY PRACTICE 01/31/18 Jose Luis Munroe MD [address] [place] [phone] ORTHOPAEDICS 02/05/18 Anjum Rajan MD [address] [address] CARDIOVASCULAR DISEASE 07/16/18 documented as of this encounter
--- OUTSIDE RECORDS SUMMARY | 2024-10-02 01:48 | XMS_ITS | Encounter Summary ---
Author Organization [facility] Address [facility]6 [place] [address] [place] [address] Care Team Providers Care Chemists Name Role Phone Kaushal Han MD Primary Care Provider Jose Luis Rain MD Unavailable [phone] Anjum Rajan MD Unavailable [phone] Encounter Details Date Type Department Care Team (Latest Contact Info) Description 07/09/2018 Abstract [facility] Medical Group Jose Luis Rain MD [address] [place] [address] Social History Tobacco Use Types Packs/Day Years [...] Procedure Name Priority Date/Time Associated Diagnosis Comments CULTURE RESPIRATORY W/ GRAM STAIN Routine 07/09/2018 12:30 PM CDT documented in this encounter Results * CULTURE RESPIRATORY W/ GRAM STAIN (07/09/2018 12:30 PM CDT) CULTURE RESULT SPECIMEN DESCRIPTION ? - NASAL SPECIAL REQUESTS ? - NASAL CULTURE ?- NO STAPHYLOCOCCUS AUREUS ISOLATED REPORT STATUS ?- FINAL 07/11/2018 [facility] TO EPIC CONVERSION 07/09/2018 12:3 0 PM CDT 07/09/2018 12:30 PM CDT Narrative [facility] CONVERSION - 07/11/2018 9:39 AM CDT Result Communication: No patient communication needed at this time us Jose Luis Rain MD MICROBIOLOGY - GENERAL ORDER JACQUIE Final Result [facility] TO EPIC CONVERSION documented in this encounter Visit Diagnoses Not on filedocumented in this encounter Care Teams Chemists Relationship Specialty Start Date End Date Kaushal Han MD [address] [place] [phone] PCP - General FAMILY PRACTICE 01/31/18 Jose Luis Rain MD [address] [place] [phone] ORTHOPAEDICS 02/05/18 Anjum Rajan MD [address] [address] CARDIOVASCULAR DISEASE 07/16/18 documented as of this encounter
--- OUTSIDE RECORDS SUMMARY | 2024-10-02 01:48 | XMS_ITS | Encounter Summary ---
Author Organization [facility] Address Critical access hospital6 [facility]. [place], [place] [address] [place] [address] Care Team Providers Care Junior High School Teacher Name Role Phone Kaushal Han MD Primary Care Provider Jose Luis Rain MD Unavailable [phone] Encounter Details Date Type Department Care Team (Latest Contact Info) Description 03/10/2018 Abstract [facility] Medical Group Social History Tobacco Use Types [...] on filedocumented in this encounter Care Teams Junior [employer] Teacher Relationship Specialty Start Date End Date Kaushal Han MD [address] [place] [phone] PCP - General FAMILY PRACTICE 01/31/18 Jose Luis Rain MD [address] [place] [phone] ORTHOPAEDICS 02/05/18 documented as of this encounter
--- OUTSIDE RECORDS SUMMARY | 2024-10-02 01:48 | XMS_ITS | Encounter Summary ---
Author Organization [facility] Address [facility] [place] [address] [place] [address] Care Team Providers Care Automation Software Engineer Name Role Phone Kaushal Han MD Primary Care Provider Jose Luis Rain MD Unavailable [phone] Anjum Rajan MD Unavailable [phone] Encounter Details Date Type Department Care Team (Late st Contact Info) Description 07/28/2018 Hospital Follow-up Call [facility] Med/Surg 3rd Floor [place], [place] [phone] Susan Mart, RN Social History Tobacco Use Types Packs/Day Years [...] as of this encounter Progress Notes * Susan Mart RN - 07/28/2018 4:11 PM CDT [place] she was treated like a hernandez and states she always recommends States she has already filled out the survey and sent back in documented in this encounter Plan of Treatment Not on file documented as of this encounter Visit Diagnoses Not on filedocumented in this encounter Care Teams Automation Software Engineer Relationship Specialty Start Date End Date Kaushal Han MD [address] [place] [phone] PCP - General FAMILY PRACTICE 01/31/18 Jose Luis Rain MD [address] [place] [phone] ORTHOPAEDICS 02/05/18 Anjum Rajan MD [address] [address] CARDIOVASCULAR DISEASE 07/16/18 documented as of this encounter
--- OUTSIDE RECORDS SUMMARY | 2024-10-02 01:48 | XMS_ITS | Encounter Summary ---
Author Organization [facility] Address [facility]6 [facility]. [place], [place] [address] [place] [address] Care Team Providers Care Licensing Officer Name Role Phone Kaushal Han MD Primary Care Provider Jose Luis Rain MD Unavailable [phone] Encounter Details Date Type Department Care Team (Latest Contact Info) Description 02/21/2018 Abstract [facility] Medical Group Social History Tobacco [...] on filedocumented in this encounter Care Teams Licensing Officer Relationship Specialty Start Date End Date Kaushal Han MD [address] [place] [phone] PCP - General FAMILY PRACTICE 01/31/18 Jose Luis Rain MD [address] [place] [phone] ORTHOPAEDICS 02/05/18 documented as of this encounter
--- OUTSIDE RECORDS SUMMARY | 2024-10-02 01:49 | XMS_ITS | Encounter Summary ---
Author Organization [facility] Address [facility]6 [facility]. [place], [place] [address] [place] [address] Care Team Providers Care Filleter Name Role Phone Kaushal Han MD Primary Care Provider [phone] Jose Luis Rain MD Unavailable [phone] Encounter Details Date Type Department Care Team (Latest Contact Info) Description 02/19/2018 Abstract [facility] Medical Group Social History Tobacco Use Types [...] on filedocumented in this encounter Care Teams Filleter Relationship Specialty Start Date End Date Kaushal Han MD [address] [place] [phone] PCP - General FAMILY PRACTICE 01/31/18 Jose Luis Rain MD [address] [place] [phone] ORTHOPAEDICS 02/05/18 documented as of this encounter
--- OUTSIDE RECORDS SUMMARY | 2024-10-02 01:49 | XMS_ITS | Encounter Summary ---
Author Organization [facility] Address [address] [place] [address]. [place], [place] [id number] [place] [id number] Care Team Providers Care Product Marketing Manager Name Role Phone Kaushal Han MD Primary Care Provider Jose Luis Munroe MD Unavailable [phone] Reason for Visit * Auth/Cert Specialty Diagnoses / Procedures Referred By Spencer santos Referred To Contact Diagnoses RIGHT HIP OSTEOARTHRITIS Procedures ARTHROPLASTY HIP TOTAL RIGHT Referral ID Status Reason Start Date Expiration Date Visits Re quested Visits Authorized [id number] 1 1 Encounter Details Date Type Department Care Team (Late st Contact Info) Description 02/18/2018 7:00 AM CDT - 02/18/2018 10:15 AM CDT Surgery [facility] [place] [address] Jose Luis Munroe MD [address] [place] [id number] RIGHT TOTAL HIP ARTHROPLASTY WITH CHEYENNE IMPLANTS Surgery Details Date/Time Status Location OR Service Patient Class Case Class Case Type Trauma Case? 02/18/2018 7:00 AM Posted [facility] OR OR 3 Orthopedics Morning Admit E - Elective No Panel 1 Procedure LRB Anes Op Region Wound Class Comments RIGHT TOTAL HIP ARTHROPLASTY WITH CHEYENNE IMPLANTS Right General Hip Clean Surgeon Surgeon Role Service Panel Jose Luis Munroe MD Primary Orthopedics 1 Case Notes GRIS WITH LEE CALHOUN 12/24 PRETEST 02/03 113 documented in this encounter Social History Tobacco [...] Sign Reading Time Taken Comments Blood Pressure 122/66 02/20/2018 4:28 AM CDT Pulse 66 02/20/2018 4:28 AM CDT Temperature 36.7 ??C (98.1 ??F) 02/20/2018 4:28 AM CD T Respiratory Rate 18 02/20/2018 4:28 AM CDT Oxygen Saturation 98% 02/20/2018 4:28 AM CDT Inhaled Oxygen Concentration - - Weight 89.3 kg (196 lb 13.9 oz) 02/18/2018 5:58 AM CDT Height 157.5 cm (5' 2 ) 02/18/2018 5:58 AM CDT Body Mass Index 36.01 02/18/2018 5:58 AM CDT documented in this encounter Discharge Summaries * SERGEY James - 02/20/2018 6:57 AM CDT Physician Discharge Summary Patient ID: Deb Gipson [id number] 68-year-old 1950 Admit date: 02/18/2018 Expected Discharge Date: 02/20/2018 Admitting Physician: Jose Luis Munroe MD Discharge Physician: Jose Luis Munroe MD Admission Diagnoses: S/P total hip arthroplasty [Z96.649] Discharged Condition: good Indication for Admission: Postoperative convalescence. Hospital Course: The patient was mobilized with physical therapy. DVT prophylaxis was provided. Pain was controlled with medication. Consults: None Code Status: Full Code Procedures: Procedures HEMOGLOBIN AND HEMATOCRIT Routine BASIC METABOLIC PANEL Routine XR PEL W HIP LAT RT Routine Disposition: Home or Self Care (Routine Discharge) Patient Instructions: Current Discharge Medication List START taking these medications Details aspirin EC 325 MG EC tablet Take 1 tablet (325 mg total) by mouth 2 (two) times a day for 30 days. WITH FOOD Qty: 60 tablet, Refills: 0 docusate sodium 100 MG capsule Take 1 capsule (100 mg total) by mouth 2 (two) times daily as neededfor Constipation. Hold for loose or frequent stools Qty: 60 capsule, Refills: 0 oxyCODONE-acetaminophen (PERCOCET) 5-325 MG tablet Take 1-2 tablets by mouth every 4 (four) hours as needed (Severe Pain). Qty: 40 tablet, Refills: 0 CONTINUE these medications which have NOT CHANGED Details lisinopril 10 MG tablet Take 1 tablet by mouth daily. Refills: 0 Naproxen Sodium (ALEVE) 220 MG Cap Multiple Vitamins-Minerals (AIRBORNE OR) Take 1 tablet by mouth daily. Kaushal Han MD [address] [facility] [id number] SERGEY James [address] [address] Follow up in 2 week(s) Signed: SERGEY JAMES 02/20/2018 6:57 AM Cosigned by Jose Luis Munroe MD at 02/21/2018 4:59 AM CDT documented in this encounter Discharge Instructions * Discharge Instructions* SERGEY James - 02/20/2018 6:57 AM CDT Continue ambulating at home. Maintain anterior hip precautions. Use walker/cane as needed. Keep wound clean and dry. Change dressing once weekly or more often if saturated more than 50%. Call for fever over 100, uncontrolled pain, increasing drainage, chest pain, or other problems. HOME HEALTH HAS BEEN ARRANGED FOR YOU WITH [facility]. A NURSE WILL BE MAKING CONTACT WITH YOU UPON DISCHAGRE TO ARRANGE A TIME TO VISIT. ANY QUESTIONS REGARDING THIS, PLEASE CONTACT . * Attachments The following attachments cannot be sent through Care Everywhere. * ANTERIOR HIP REPLACEMENT DISCHARGE INSTRUCTIONS (MACEDONIAN) * ASPIRIN, ADULT (MACEDONIAN) * OXYCODONE AND ACETAMINOPHEN, ADULT (MACEDONIAN) documented in this encounter Medications at Time of Discharge lisinopril 10 MG tablet Take 1 tablet by mouth daily. 0 01/23/2018 aspirin EC 325 MG EC tablet Take 1 tablet (325 mg total) by mouth 2 (two) times a day for 30 days. WITH FOOD 60 tablet 02/20/2018 03/22/2018 docusate sodium 100 MG capsule Take 1 capsule (100 mg total) by mouth 2 (two) times daily as needed for Constipation. Hold for loose or frequent stools 60 capsule 02/20/2018 03/02/2018 Multiple Vitamins-Mineral s (AIRBORNE OR) Take 1 tablet by mouth daily. 07/09/2018 Naproxen Sodium (ALEVE) 220 MG Cap 09/21/2024 oxyCODONE-acetam inophen (PERCOCET) 5-325 MG tablet Take 1-2 tablets by mouth every 4 (four) hours as needed (Severe Pain). 40 tablet 02/20/2018 07/09/2018 documented as of this encounter Progress Notes * Zari Link LCSW - 02/20/2018 12:03 PM CDT PT IS DC HOME THIS DATE WITH HER FAMILY TO ASSIST SHE RECUPERATES IN THE HOME. PT CONFIRMED AGREEMENT WITH PLANS FOR DC THIS DATE. PT THIS DATE INDICATED SHE NEEDED A WHEELED WALKER THE ONE SHE HAD PLANNED TO BORROW WAS ACTUALLY A ROLLATER AND NOT A STANDARD WHEELED WALKER. ORDERS GIVEN TO THE DME LIAISON NATASHA MACKAY WHO ARRANGED FOR DELIVERY PRIOR TO DC. NO OTHER DME NEEDS NOTED. MANSI HANSON WITH [facility] NOTIFIED OF DC AND CONFIRMED PLANS FOR [facility] RN AND P.T. TO SEE PTIN THE HOME MOVING FORWARD. PT DENIED CONCERNS TO OBTAIN [facility] FOR SCRIPTS UPON DC. NO OTHER NEEDS NOTED. RN AWARE OF PLANS. SW COMPLETE AND CASE CLOSED. * Reshma Sousa, TAMRA - 02/20/2018 9:20 AM CDT Problem: Mobility Goal: STG - Pt will ambulate 100' with w/w wbat right le mod/I by disch. Met Problem: Transfers Goal: STG - Pt will perform sit to stand wth w/w and mod/i wbat right le by disch. Met Problem: Misc. Goal: PT Misc 1 Increase right hip rom/strength within anterior precautions. met Cosigned by Lurdes Han PT at 02/25/2018 3:28 PM CDT * Reshma Sousa PTA - 02/20/2018 9:19 AM CDT 02/20/18 0900 Therapy Visit Ordering Provider LUDWIG Treatment Day 3 Subjective Pt states she is going home at noon Reason for admission OA RIGHT HIP/ANTERIOR VALDEMAR 02/18/18 Precautions Total Hip Replacement ADduction;External rotation Other ANTERIOR HIP PRECAUTIONS, FALL RISK Pain Pain No Bed Mobility Other (Comment) pt performed bed mobility aith mod/i Transfers Sit to Stand Modified independence Other (Comment) to and from bathroom with wh/walker Gait Gait Assistance Modified independence Assistive Device 2 Wheeled walker Ambulation Distance (Feet) 170 Weight Bearing Status Weight bearing as tolerated Exercises Ankle Pumps 10 Quad Sets 10 Heelslides 5 Straight Leg Raise NO SLR'S Glut Sets 10 Hip Abduction IN SUPINE AAROM X 5 Patient/Family Training Bed Mobility x Transfer Training x Gait Training x Precautions x Exercise Program x Plan If this is the last treatment note,it will serve as the discharge summary Yes pt discharged home with hh to follow on 02/20/18 * SERGEY James - 02/20/2018 6:51 AM CDT Orthopedic Progress Note History POD 2; s/p R VALDEMAR Physical Exam Alert, oriented OR dressing changed, aquacel foam applied Incision well approximated, steri strips intact Non-tender to thigh Pain controlled +DPP and good leg perfusion Filed Vitals: 02/19/18 1514 02/19/18 2033 02/19/18 2337 02/20/18 0428 BP: 113/52 90/55 98/45 122/66 Pulse: 80 84 68 66 Resp: Temp: 97.9 ??F (36.6 ??C) 97.9 ??F (36.6 ??C) 97.9 ??F (36.6 ??C) 98.1 ??F (36.7 ??C) TempSrc: Oral Oral Oral Oral SpO2: 98% 99% 97% 98% Weight: Height: Assessment [id number] s/p R VALDEMAR on 02/18/2018 Plan PT - WBAT, anterior hip precautions DVT ppx - Aspirin BID and SCDs Pain control - scheduled tylenol, opioids as needed Dispo - home with home health today LARISSA BARNARD SILO TENDERLaurentC ??? aspirin EC 325 mg Oral BID WC ??? docusate sodium 100 mg Oral BID ??? lisinopril 10 mg Oral Daily ??? naproxen 500 mg Oral BID WC ??? orthopedic cocktail (ELOISA) Juan-Articular Once ??? tranexamic acid (CYLOKAPRON) IVPB 1,000 mg Intravenous Once ??? lactated ringers 0 mL/hr at 02/18/18 0920 ??? sodium chloride Stopped (02/18/18 1245) diphenhydrAMINE OR diphenhydrAMINE OR diphenhydrAMINE, ondansetron, oxyCODONE immediate release, oxyCODONE immediate release Recent Labs Lab 02/19/18 0353 02/20/18 0518 HGB 10.1* 9.0* HCT 31.6* 29.0* Recent Labs Lab 02/19/18 0353 NA 139 K 3.7 CL 107 CO2 29.0 AGAP 6.7* BUN 13 CR 0.79 BUNCREATININ 16.4 GFRNON 76* GFR 89* GLU 122* CA 8.8 No results for input(s): APTT, INR, PTT in the last 168 hours. * Zari Link LCSW - 02/19/2018 5:00 PM CDT PT IS A 68 YR OLD FEMALE, ALERT AND ORIENTED, REFERRED TO SW PER CENSUS FOR DCPA. PT WAS ADMITTED FOR A HIP REPLACEMENT FROM WHICH SHE IS RECUPERATING EXPECTED. THE PT WAS SEEN THIS DATE AND HER CARE DISCUSSED WITH THE NURSING TEAM. THE PT REPORTS PRIOR INDEPENDENCE WITH SELF CARE. SHE LIVES IN A ONE STORY HOME WITH A RAMP FOR ACCESS IF NEEDED. PT LIVES WITH HER SPOUSE WHO IS RETIRED. HE DRIVES AND WILL TRANSPORT PT HOME AT TIMEOF DC. PT'S SPOUSE WILL BE AVAILABLE TO SUPPORT PT'S RECOVERY IN THE HOME UPON DC NEEDED. PT HAS HER OWN WHEELED WALKER IN THE HOME AND NO OTHER DME NEEDS NOTED. PT EDUCATED ABOUT ORDERS FOR HH AND CHOSE TO USE [facility] FROM THE LIST OF AREA PROVIDERS. REFERRALGIVEN TO MANSI WITT WITH [facility] WHO CONFIRMED ABILITY TO PROVIDE NURSING AND THERAPY IN THE HOME UPON DC. PT INSURED WITH MEDICARE AND [employer] AND CONFIRMED SHE HAS PHARMACEUTICAL COVERAGE FOR FOR DC MEDS. SHE DENIED CONCERNS TO [facility] COPAYS UPON DC. PT USES [facility] TO FILL SCRIPTS. RN AWARE OF PLANS AND SW ACTIONS. NO FURTHER NEEDS NOTED BUT SW WILL MONITOR FOR ANY CHANGES IN PLANS PRIOR TO DC AND ASSIST NEEDED. ?? * Mansi Witt RN - 02/19/2018 3:41 PM CDT MIX TECHNICIAN MET WITH PATIENT AT BEDSIDE TO DISCUSS [facility]. PT IN AGREEANCE W/ [facility]. PATIENT INFORMED THAT NURSE WILL BE CONTACTING PATIENT TO ARRANGE START OF CARE DATE AND TIME. INFORMATIONAL BROCHURE PROVIDED TO PATIENT. ANTICIPATE D/C TOMORROW. PT DENIES HAVING ANY FURTHER QUESTIONS OR CONCERNS AT THIS TIME. * Reshma Sousa PTA - 02/19/2018 2:58 PM CDT 02/19/18 1300 Therapy Visit Ordering Provider LUDWIG Treatment Day 2 Subjective Pt states she is felling better Ready to get up and walk Reason for admission OA RIGHT HIP/ANTERIOR VALDEMAR 02/18/18 Precautions Total Hip Replacement ADduction;External rotation Other ANTERIOR HIP PRECAUTIONS, FALL RISK Pain Pain No Transfers Sit to Stand Modified independence Other (Comment) to and from bathroom with wh/walker Gait Gait Assistance Modified independence Assistive Device 2 Wheeled walker Ambulation Distance (Feet) 100 Weight Bearing Status Weight bearing as tolerated Exercises Ankle Pumps 10 Quad Sets 10 Heelslides 5 Straight Leg Raise NO SLR'S Glut Sets 10 Hip Abduction IN SUPINE AAROM X 5 Patient/Family Training Bed Mobility x Transfer Training x Gait Training x Precautions x Exercise Program x Recommendation PT Recommendation PT during Hospitalization;Home PT PT Equipment Recommended 2 Wheeled walker Plan PT Treatments/Interventions Gait Training;Therapeutic Exercises;Therapeutic Activities PT Frequency BID If this is the last treatment note,it will serve as the discharge summary Yes * Reshma Sousa PTA - 02/19/2018 9:04 AM CDT 02/19/18 0700 Therapy Visit Ordering Provider LUDWIG Treatment Day 1 Subjective Pt states she is ready for therapy Reason for admission OA RIGHT HIP/ANTERIOR VALDEMAR 02/18/18 Precautions Total Hip Replacement ADduction;External rotation Other ANTERIOR HIP PRECAUTIONS, FALL RISK Pain Pain Yes Pain Score 4 Location Right hip Interventions Cryotherapy;Informed RN;Re-positioning Bed Mobility Other (Comment) pt performed bed mobility with min assist Transfers Sit to Stand SBA/supervision Bed to Chair SBA/supervision Other (Comment) W/W WBAT R/LE Gait Gait Assistance SBA/supervision Assistive Device 2 Wheeled walker Ambulation Distance (Feet) 80 Weight Bearing Status Weight bearing as tolerated Other (Comment) ambulated to and from bathroom Bath set up Exercises Ankle Pumps 10 Quad Sets 10 Heelslides 5 Straight Leg Raise NO SLR'S Glut Sets 10 Hip Abduction IN SUPINE AAROM X 5 Patient/Family Training Bed Mobility x Transfer Training x Gait Training x Precautions x Exercise Program x Recommendation PT Recommendation PT during Hospitalization;Home PT PT Equipment Recommended 2 Wheeled walker Plan PT Treatments/Interventions Gait Training;Therapeutic Exercises;Therapeutic Activities PT Frequency BID If this is the last treatment note,it will serve as the discharge summary Yes pt is motivated but needs extra time to perform tasks * Larissa Barnard NP-C - 02/19/2018 7:29 AM CDT Orthopedic Progress Note History POD 1; s/p R VALDEMAR Physical Exam Alert, oriented OR dressing dry and intact + DPP and good leg perfusion Pain controlled Labs reviewed and stable Filed Vitals: 02/18/18 1745 02/18/18201302/19/18 0010 02/19/18 0344 BP: 159/90 121/74 97/54 130/65 Pulse: 79 74 71 67 Resp: Temp: 97.9 ??F (36.6 ??C) 98.3 ??F (36.8 ??C) 98.4 ??F (36.9 ??C) 98 ??F (36.7 ??C) TempSrc: Oral Oral Oral Oral SpO2: 96% 97% Weight: Height: Assessment 35-[id number]-[id number] s/p R VALDEMAR on 02/18/2018 Plan PT - WBAT, anterior hip precautions DVT ppx - Aspirin BID and SCDs Pain control - scheduled tylenol, opioids as needed Dispo - home with home health tomorrow EUNICE JAMESC ??? acetaminophen 650 mg Oral Q6H ??? aspirin EC 325 mg Oral BID WC ??? docusate sodium 100 mg Oral BID ??? lisinopril 10 mg Oral Daily ??? naproxen 500 mg Oral BID WC ??? orthopedic cocktail (ELOISA) Juan-Articular Once ??? tranexamic acid (CYLOKAPRON) IVPB 1,000 mg Intravenous Once ??? lactated ringers 0 mL/hr at 02/18/18 0920 ??? sodium chloride Stopped (02/18/18 1245) diphenhydrAMINE OR diphenhydrAMINE OR diphenhydrAMINE, morphine, ondansetron, oxyCODONE immediate release, oxyCODONE immediate release Recent Labs Lab 02/19/18 0353 HGB 10.1* HCT 31.6* Recent Labs Lab 02/19/18 0353 NA 139 K 3.7 CL 107 CO2 29.0 AGAP 6.7* BUN 13 CR 0.79 BUNCREATININ 16.4 GFRNON 76* GFR 89* GLU 122* CA 8.8 No results for input(s): APTT, INR, PTT in the last 168 hours. * Joenl Mccloud - 02/18/2018 3:40 PM CDT 02/18/18 1500 Clinical Encounter Type Visited With Patient Total number in room 2 Routine Visit Initial visit Spiritual Care interventions Spiritual care plan interventions Provide prayer/ritual/sacraments;Provide support to patient/family * Jonel Mccloud - 02/18/2018 3:39 PM CDT 02/18/18 1500 Spiritual Care Patient Status Visit date 02/18/18 Physical condition of patient Alert Indication of spiritual strengths Hopeful;Prayerful Spiritual Beliefs/Perceptions Support Systems Spouse/significant other;Family members;Friends/neighbors * Lurdes Han PT - 02/18/2018 3:28 PM CDT 02/18/18 1522 Therapy Visit Ordering Provider LUDWIG PT Received On 02/18/18 Treatment Day 1 Subjective PT C/O RIGHT BUTTOCK PAIN AND A HEADACHE. Reason for admission OA RIGHT HIP/ANTERIOR VALDEMAR 02/18/18 Precautions Total Hip Replacement ADduction;External rotation;Extension;Other (Comment) (NO SLR'S) Other ANTERIOR HIP PRECAUTIONS, FALL RISK Home Living Type of Home House Home Layout One level Home Accessibility 0 Steps to enter;Ramped entrance Prior Function Level of [place] Independent with functional transfers;Independent with ambulation Device used at baseline (FRIEND HAS W/W) Lives With Spouse Pain Pain Yes Pain Score 5 Location RIGHT BUTTOCK Interventions Cryotherapy;Re-positioning Activity Tolerance Endurance Tolerates 20 - 30 min activity with rests Cognition Overall Cognitive Status WFL RLE Assessment RLE Comment RIGHT ANTERIOR PRECAUTIONS, ACTIVE ANKLE DF LLE Assessment LLE Comment WFL'S Bed Mobility Rolling Other (MOD ASSIST) Supine to Sit Mod assist to left Transfers Sit to Stand Mod assist Bed to Chair Mod assist Other (Comment) W/W WBAT R/LE Gait Gait Assistance Mod assist Assistive Device 2 Wheeled walker Ambulation Distance (Feet) 6' Weight Bearing Status Weight bearing as tolerated Exercises Ankle Pumps 10 Quad Sets 10 Heelslides 5 Straight Leg Raise NO SLR'S Glut Sets 10 Hip Abduction IN SUPINE AAROM X 5 Patient/Family Training Bed Mobility X Transfer Training X Gait Training X Precautions X Exercise Program X Assessment Personal Factors/Comorbidities Impacting Care 1-2 personal factors/comorbidities Examination of Body Systems Moderate (3 or more Elements) Objectives of Body Systems Impaired bed mobility;Impaired transfers;Impaired ambulation;Decreased ADL status;Decreased LE ROM;Decreased LE strength Clinical Presentation of Patient Evolving and changing characteristics Complexity Level of Evaluation Moderate Prognosis Good Recommendation PT Recommendation PT during Hospitalization;Home PT PT Equipment Recommended 2 Wheeled walker Plan PT Treatments/Interventions Gait Training;Therapeutic Exercises;Therapeutic Activities Progress Slow progress, decreased activity tolerance PT Frequency BID PT plan for next session RIGHT VALDEMAR PROTOCOL If this is the last treatment note,it will serve as the discharge summary Yes documented in this encounter H&P Notes * Jose Luis Munroe MD - 02/18/2018 6:45 AM CDT HISTORY AND PHYSICAL INTERVAL NOTE: I have reviewed Deb Gipson History & Physical which was performed within the past 30 days. After examining Deb Gipson, no change has occurred in the patient's condition since the H&P was completed. Informed Consent Discussion: Risks, benefits, alternatives as well as the consequences of not performing the surgery/procedure were discussed with the patient and/or family/personal marketing representative. Questions were answered and the patient/family/personal marketing representative verbalized understanding and desires to proceed. Source Note - Jose Luis Munroe MD - 02/17/2018 9:12 AM CDT CHIEF COMPLAINT: Bilateral hip pain. HISTORY OF PRESENT ILLNESS: Ms. Gipson is here for followup of her right hip, planning for right total hip arthroplasty. She has failed conservative management with chiropractic treatment, medications, and therapy. Nothing seems to help her. She has pain laterally and in the groin. She is also limping. She is no longer able to do her job activities due to her hip pain. PAST MEDICAL HISTORY: Significant for hypertension. PAST SURGICAL HISTORY: None. MEDICATIONS: Lisinopril. ALLERGIES: None. SOCIAL HISTORY: She lives with her . She has got a few steps to get in the house, but they are getting a ramp put in. She does not smoke. Does not drink alcohol. She is to work doing daycare-type work. FAMILY HISTORY: Reviewed and is significant for blood clots for her daughter; otherwise, is noncontributory. REVIEW OF SYSTEMS: Significant for a fracture of her 5th metatarsal left foot. PHYSICAL EXAMINATION: She is 5 feet 2, 195 pounds. She has an unsteady gait and pain with any movement of the hip. When I bring her up to 90 degrees hip flexion, she has a few degrees internal rotation, about 30 degrees external rotation. On the left side, it is about 5 to 10 degrees internal rotation, about 40 degrees external rotation. Leg lengths appear equal. Leg is well perfused. IMAGING: X-rays show severe right hip arthritis and moderate to severe left hip arthritis. ASSESSMENT: Right hip osteoarthritis. PLAN: Right total hip arthroplasty. We have discussed the risks, benefits and convalescence period.Plan for 2-day hospital stay, aspirin for DVT prophylaxis. * Jose Luis Munroe MD - 02/17/2018 9:12 AM CDT CHIEF COMPLAINT: Bilateral hip pain. HISTORY OF PRESENT ILLNESS: Ms. Gipson is here for followup of her right hip, planning for right total hip arthroplasty. She has failed conservative management with chiropractic treatment, medications, and therapy. Nothing seems to help her. She has pain laterally and in the groin. She is also limping. She is no longer able to do her job activities due to her hip pain. PAST MEDICAL HISTORY: Significant for hypertension. PAST SURGICAL HISTORY: None. MEDICATIONS: Lisinopril. ALLERGIES: None. SOCIAL HISTORY: She lives with her . She has got a few steps to get in the house, but they are getting a ramp put in. She does not smoke. Does not drink alcohol. She is to work doing daycare-type work. FAMILY HISTORY: Reviewed and is significant for blood clots for her daughter; otherwise, is noncontributory. REVIEW OF SYSTEMS: Significant for a fracture of her 5th metatarsal left foot. PHYSICAL EXAMINATION: She is 5 feet 2, 195 pounds. She has an unsteady gait and pain with any movement of the hip. When I bring her up to 90 degrees hip flexion, she has a few degrees internal rotation, about 30 degrees external rotation. On the left side, it is about 5 to 10 degrees internal rotation, about 40 degrees external rotation. Leg lengths appear equal. Leg is well perfused. IMAGING: X-rays show severe right hip arthritis and moderate to severe left hip arthritis. ASSESSMENT: Right hip osteoarthritis. PLAN: Right total hip arthroplasty. We have discussed the risks, benefits and convalescence period.Plan for 2-day hospital stay, aspirin for DVT prophylaxis. documented in this encounter Nursing Notes * Lianna Dey RN - 02/20/2018 11:43 AM CDT Discharge paperwork given including scripts and follow up appointments. Reviewed hygiene, anterior hip precautions, home health information, when to call MD, pain control, DVT prevention, activity orders, new scripts and follow up appointment info. All questions answered, pt denies any further questions. Lianna Dey RN * Yarely Ball RN - 02/19/2018 9:19 AM CDT Patient was in the bathroom washing up and asked if I can bring her meds back after she was done YARELY BALL RN documented in this encounter OR Notes * Op Note - Jose Luis Munroe MD - 02/18/2018 10:10 AM CDT SURGEON: JOSE LUIS MUNROE MD ?? ELEMENTARY SCHOOL TEACHER'S AIDE: Sterilization Tech: SHABANA Dean; SHABANA Brand Circulating Nurse 1: Carrol Doran RN Scrub Person 1: Diego Maier, STOCKROOM ASSOCIATE ?? PREOPERATIVE DIAGNOSIS: RIGHT HIP OSTEOARTHRITIS ?? POSTOPERATIVE DIAGNOSIS: Same. ?? PROCEDURE PERFORMED: Procedure(s): Right total hip arthroplasty. ?? ANESTHESIA: General ?? ESTIMATED BLOOD LOSS: 300 mL ?? IMPLANTS: [place] press-fit components: 54mm Tritanium cluster acetabular shell with 6.5 mm screws x 2, X3 0-degree polyethylene liner, size 3 Accolade II 132- degree femoral stem, +2.5 mm length 36mmceramic femoral head. ?? INDICATIONS FOR PROCEDURE: Deb Gipson is a 68-year-old female with long- standing right hip osteoarthritis. She has failed nonoperative management and has elected to proceed with surgery. ?? DESCRIPTION OF PROCEDURE: The patient was brought back to the operating room, positioned supine on the operating table. A spinal anesthetic was then administered. The patient was then placed in the lateral decubitus position on the pegboard. All bony prominences were padded. The right lower extremity was prepped and draped in [...] femoral head was removed and sized to 48 mm. I then turned my attention to the acetabulum. Retractors were placed around the margins. We then began reaming witha 46 mm reamer. We reamed up sequentially to a 53 mm reamer, which had good fit. Exposed cancellousbleeding bone was present. The size 53 trial was stable. We then impacted the 54 mm Tritanium acetabular shell into place. This [...] then relocated again with a trial. The +2.5 head had appropriate length, fit, and stability. [...] in stable condition. JOSE LUIS MUNROE MD documented in this encounter Plan of Treatment Not on file documented as of this encounter Procedures Procedure Name Priority Date/Time Associated Diagnosis Comments POCT GLUCOSE - GELLER DOCKED DEVICE Routine 02/20/2018 6:12 AM CDT HEMOGLOBIN AND HEMATOCRIT Routine 02/20/2018 5:18 AM CDT HEMOGLOBIN AND HEMATOCRIT Routine 02/19/2018 3:53 AM CDT BASIC METABOLIC PANEL Routine 02/19/2018 3:53 AM CDT XR PEL W HIP LAT RT Routine 02/18/2018 10:22 AM CDT SURG XR HIP RT 1V Routine 02/18/2018 9:0 9 AM CDT ARTHROPLASTY HIP TOTAL 02/18/2018 6:48 AM CDT RIGHT HIP OSTEOARTHRITIS Case Notes GRIS WITH LEE TJR 12/24 PRETEST 02/03 1130 documented in this encounter Results * (ABNORMAL) POCT glucose (02/20/2018 6:12 AM CDT) GLUCOSE POC 107(H) 70 - 99 mg/dL 02/20/2018 6:13 AM CDT [facility] ORDERS INTERFACE 02/20/2018 6:12 AM CDT us Jose Luis Munroe MD POCT ORDERABLES - DEVICE Fin al Result Performing Organization Address City/[facility]/ZIP Co de Phone Number [facility] ORDERS INTERFACE US * (ABNORMAL) HEMOGLOBIN AND HEMATOCRIT (02/20/2018 5:18 AM CDT) HGB 9.0(L) 12.0 - 16.0 G/DL 02/20/2018 5:40 AM CDT [facility] HCT 29.0(L) 38.0 - 48.0 % 02/20/2018 5:40 AM CDT [facility] 02/20/2018 5:18 AM CDT us Jose Luis Munroe MD LABORATORY Final Result [facility] [address] [place] [address], * (ABNORMAL) HEMOGLOBIN AND HEMATOCRIT (02/19/2018 3:53 AM CDT) HGB 10.1(L) 12.0 - 16.0 G/DL 02/19/2018 4:10 AM CDT [facility] HCT 31.6(L) 38.0 - 48.0 % 02/19/2018 4:10 AM CDT [facility] 02/19/2018 3:53 AM CDT Jose Luis Munroe MD LABORATORY Final Result [facility] [address] [place] [address], * (ABNORMAL) BASIC METABOLIC PANEL (02/19/2018 3:53 AM CDT) GLUCOSE 122(H) 70 - 99 MG/DL 02/19/2018 4:27 AM CDT [facility] BUN 13 7 - 18 MG/DL 02/19/2018 4:27 AM CDT [facility] CREATININE S/P/B 0.79 0.55 - 1.02 MG/DL 02/19/2018 4:27 AM CDT [facility] SODIUM S/P/B 139 136 - 145 MMOL/L 02/19/2018 4:27 AM CDT [facility] POTASSIUM S/P/B 3.7 3.5 - 5.1 MMOL/L 02/19/2018 4:27 AM CDT [facility] CHLORIDE S/P/B 107 100 - 108 MMOL/L 02/19/2018 4:27 AM CDT [facility] CO2 29.0 21 - 32 MMOL/L 02/19/2018 4:27 AM CDT [facility] CALCIUM S/P/B 8.8 8.5 - 10.1 MG/DL 02/19/2018 4:27 AM CDT [facility] ANION GAP 6.7(L) 8 - 20 MMOL/L 02/19/2018 4:27 AM CDT [facility] BUN CREATININE RATIO 16.4 6 - 26 02/19/2018 4:27 AM CDT [facility] EGFR NON-AFR. AMER. 76(L) >90 ML/MIN/1.7 3 M2 02/19/2018 4:27 AM CDT [facility] EGFR AFR. AMER. 89(L) >90 ML/MIN/1.7 3 M2 02/19/2018 4:27 AM CDT [facility] Comment: NOTE: eGFR is not calculated for patients <18 years of age. This is an estimated GFR (CKD EPI) and should not be used for calculating drug doses. 02/19/2018 3:53 AM CDT Jose Luis Munroe MD LABORATORY Final Result [facility] [address] [place] [address], [place] [phone] * XR PEL W HIP LAT RT (02/18/2018 10:22 AM CDT) Anatomical Region Laterality Modality Pelvis, Hip Radiographic Lary ging 02/18/2018 10:3 6 AM CDT Impressions 02/18/2018 10:38 AM CDT =====IMPRESSION:===== Right hip arthroplasty in good position. Narrative 02/18/2018 10:38 AM CDT Examination: X-ray pelvis with hip lateral right Exam date/time: 02/18/2018 10:01 AM ?? Reason For Exam: ??postop check - AP pelvis, AP right hip, shoot thru lateral right hip ? Right hip arthroplasty. Right hip pain. Comparison: None Technique: AP pelvis. AP and shoot through lateral views right hip. Findings: Right hip arthroplasty is present in good position. No further evidence of fracture or dislocation. Arthritic changes of the pelvis. Procedure Note Ben Moreno MD - 02/18/2018 Examination: X-ray pelvis with hip lateral right Exam date/time: 02/18/2018 10:01 AM Reason For Exam: postop check - AP pelvis, AP right hip, shoot thru lateral right hip Right hip arthroplasty. Right hip pain. Comparison: None Technique: AP pelvis. AP and shoot through lateral views right hip. Findings: Right hip arthroplasty is present in good position. No further evidence of fracture or dislocation. Arthritic changes of the pelvis. =====IMPRESSION:===== Right hip arthroplasty in good position. Jose Luis Munroe MD GENERAL IMAGING Final Result * SURG XR HIP RT 1V (02/18/2018 9:09 AM CDT) Anatomical Region Laterality Modality Hip Fluoroscopy 02/18/2018 10:3 5 AM CDT Impressions 02/18/2018 10:36 AM CDT =====IMPRESSION:===== 2 components of a right hip arthroplasty are present and in good position. Narrative 02/18/2018 10:36 AM CDT Exam date/time: 02/18/2018 8:34 AM Examination: Right hip radiographs, 1 views. Reason For Exam: ??Right hip arthroplasty. Right hip pain. ?? Comparison: None. Findings: 2 components of a right hip arthroplasty are present and appear to be in good position. Soft tissue air consistent with postop change. Procedure Note Ben Moreno MD - 02/18/2018 Exam date/time: 02/18/2018 8:34 AM Examination: Right hip radiographs, 1 views. Reason For Exam: Right hip arthroplasty. Right hip pain. Comparison: None. Findings: 2 components of a right hip arthroplasty are present andappear to be in good position. Soft tissue air consistent with postop change. =====IMPRESSION:===== 2 components of a right hip arthroplasty are present and in goodposition. us Jose Luis Munroe MD IMAGES ONLY Final Result documented in this encounter Visit Diagnoses Not on filedocumented in this encounter Administered Medications Inactive Administered Medications - up to 3 most recent administrations Medication Order MAR Action Action Date Dose Rate Site aspirin EC (ECOTRIN) EC tablet 325 mg 325 mg, Oral, 2 times daily with meals, First dose on Sat02/19/18 at 0800, Until Discontinued, Start morning after surgery, Post-Op Given 02/20/2018 10:04 AM CDT 325 mg Given 02/19/2018 5:05 PM CDT 325 mg Given 02/19/2018 9:37 AM CDT 325 mg diphenhydrAMINE (BENADRYL) 12.5 MG/5ML elixir 25 mg 25 mg, Oral, Every 6 hours PRN, Itching, Starting on Sat02/18/18 at 1213, Until Ann Marie 02/20/18 at 1403, Give if unable to swallow tablets/capsules or if patient prefers liquid., Post-Op diphenhydrAMINE (BENADRYL) capsule 25 mg 25 mg, Oral, Every 6 hours PRN, Itching, Starting on Sat02/18/18 at 1213, Until Ann Marie 02/20/18 at 1403, Post-Op diphenhydrAMINE (BENADRYL) injection 25 mg 25 mg, Intravenous, Every 6 hours PRN, Itching, Starting on Sat02/18/18 at 1213, Until Ann Marie 02/20/18 at 1403, Give if unable to take PO. For IV administration, give no faster than 25 mg/min., Post-Op docusate sodium (COLACE) capsule 100 mg 100 mg, Oral, 2 times daily, First dose on Sat02/18/18 at 1230, Until Discontinued, Post-Op Given 02/20/2018 10:04 AM CDT 100 mg Given 02/19/2018 8:31 PM CDT 100 mg Given 02/19/2018 9:37 AM CDT 100 mg lactated ringers infusion at 10 mL/hr, Intravenous, Continuous, Starting on Sat02/18/18 at 0630, Until Ann Marie 02/20/18 at 1403 New Bag 02/18/2018 9:46 AM CDT New Bag 02/18/2018 8:35 AM CDT New Bag 02/18/2018 6:13 AM CDT 10 mL/hr lisinopril (PRINIVIL,ZESTRIL) tablet 10 mg 10 mg, Oral, Daily, First dose on Sat02/18/18 at 1230, Until Discontinued Given 02/20/2018 10:04 AM CDT 10 mg Given 02/19/2018 9:37 AM CDT 10 mg Given 02/18/2018 2:49 PM CDT 10 mg naproxen (NAPROSYN) tablet 500 mg 500 mg, Oral, 2 times daily with meals, First dose on Sat02/18/18 at 1700, Until Discontinued, Administer with food Given 02/20/2018 10:04 AM CDT 500 mg Given 02/19/2018 5:05 PM CDT 500 mg Given 02/19/2018 9:37 AM CDT 500 mg oxyCODONE immediate release (ROXICODONE) tablet 10 mg 10 mg, Oral, Every 4 hours PRN, Severe pain (Scale 8 - 10), Starting on Sat02/18/18 at 1213, Until [facility] 02/20/18 at 1403, Post-Op Given 02/18/2018 9:36 PM CDT 10 mg oxyCODONE immediate release (ROXICODONE) tablet 5 mg 5 mg, Oral, Every 4 hours PRN, Moderate pain (Scale 4 - 7), Starting on Sat02/18/18 at 1213, Until Ann Marie 02/20/18 at 1403, Post-Op Given 02/19/2018 10:14 PM CDT 5 mg Given 02/19/2018 6:19 PM CDT 5 mg Given 02/19/2018 1:51 PM CDT 5 mg ROpivacaine 1 % (NAROPIN) 100 mg, ketorolac (TORADOL) 15 mg, morphine (PF) 2 mg in sodium chloride 0.9 % 67 mL juan-articular injection As needed, Starting on Sat02/18/18 at 0905, Until Sat02/18/18 at 1209, Intra-Op Given 02/18/2018 9:05 AM CDT 67 mLs Right Hip sodium chloride 0.9 % irrigation Continuous PRN, Starting on Sat02/18/18 at 0855, Until Sat02/18/18 at 1209, Intra-Op New Bag 02/18/2018 8:55 AM CDT 300 mLs Operative Site vancomycin (VANCOCIN) injection As needed, Starting on Sat02/18/18 at 0900, Until Sat02/18/18 at 1209, Intra-Op Given 02/18/2018 9:00 AM CDT 1,000 mg Operative Site documented in this encounter Active and Recently Administered Medications Times are shown in CDT. Scheduled Medication Order 02/18/2018 02/19/2018 02/20/2018 acetaminophen (TYLENOL) tablet 650 mg () 650 mg, Oral, Every 6 hours, 4 doses, First dose on Sat02/18/18 at 1230, Last dose on Sat02/19/18 at 0630, Maximum dose of acetaminophen is 4000 mg from all sources in 24 hours., Post-Op 1230 (Not Given - Provider: Liss London RN - Reason: Patient not available)1826 (Given - Provider: Liss London RN)2336 (Given - Provider: Elizabeth Meyer RN) 0551 (Given - Provider: Elizabeth Meyer RN) aspirin EC (ECOTRIN) EC tablet 325 mg(Linked Group 1) 325 mg, Oral, 2 times daily with meals, First dose on Sat02/19/18 at 0800, Until Discontinued, Start morning after surgery, Post-Op 0937 (Given - Provider: Yarely Ball RN)1705 (Given - Provider: Yarely Ball RN) 1004 (Given - Provider: Lianna Dey RN) ceFAZolin (ANCEF) syringe 2 g (COMPLETED) 2 g, Intravenous, at 240 mL/hr, Once, 1 dose, On Sat02/18/18 at 0000 0708 (MAR Hold - Provider: User Epic - Reason: Unreviewed Transfer Orders)0733 (Given - Provider: Jessica Gonzalez)0753 (Infusion Stop Time - Provider: Jessica Gonzalez)0952 (MAR Unhold - Provider: User Epic) ceFAZolin (ANCEF) syringe 2 g (COMPLETED) 2 g, Intravenous, at 240 mL/hr, Every 8 hours, 2 doses, First dose (after last reorder) on Sat02/18/18 at 1530, Last dose on Sat02/18/18 at 2330 1719 (Given - Provider: Liss London RN)2336 (Given - Provider: Elizabeth Meyer RN) dexamethasone (DECADRON) injection 4 mg (COMPLETED) 4 mg, Intravenous, Once, 1 dose, On Sat02/18/18 at 1200, If giving intravenously, administer slowly over 1-4 minutes. 1149 (Given - Provider: Armida Andrade RN) docusate sodium (COLACE) capsule 100 mg 100 mg, Oral, 2 times daily, First dose on Sat02/18/18 at 1230, Until Discontinued, Post-Op 1449 (Given - Provider: Liss London RN)2136 (Given - Provider: Elizabeth Meyer RN) 0937 (Given - Provider: Yarely Ball RN)203 (Given - Provider: Elizabeth Meyer RN) 1004 (Given - Provider: Lianna Dey RN) lisinopril (PRINIVIL,ZESTRIL) tablet 10 mg 10 mg, Oral, Daily, First dose on Sat02/18/18 at 1230, Until Discontinued 1449 (Given - Provider: Liss London RN) 0937 (Given - Provider: Yarely Ball RN) 1004 (Given - Provider: Lianna Dey RN) naproxen (NAPROSYN) tablet 500 mg 500 mg, Oral, 2 times daily with meals, First dose on Sat02/18/18 at 1700, Until Discontinued, Administer with food 1717 (Given - Provider: Liss London RN) 0937 (Given - Provider: Yarely Ball, RN)1705 (Given - Provider: Yarely Ball, RN) 1004 (Given - Provider: Lianna Dey RN) ROpivacaine 1 % (NAROPIN) 100 mg, ketorolac (TORADOL) 15 mg, morphine (PF) 2 mg in sodium chloride 0.9 % 67 mL juan-articular injection Juan-Articular, Once, 1 dose, On Sat02/18/18 at 0000, NOT FOR IV INFUSION 0000 (Canceled Entry - Provider: Automatic Discharge Provider - Comment: Automatically canceled at discontinue of medication order)0708 (NOV Hold - Provider: User Epic - Reason: Unreviewed Transfer Orders)0952 (NOV Unhold - Provider: User Epic) sodium chloride 0.9% infusion at 999 mL/hr, Intravenous, Once, 1 dose, On Sat02/18/18 at 1230, 1 liter IV bolus in PACU. Then saline lock IV., Post-Op 1210 (Continued to Floor - Provider: Liss London RN)1245 (Infusion Stop Time - Provider: Liss London RN) tranexamic acid (CYKLOKAPRON) 1,000 mg in sodium chloride 0.9 % 50 mL (COMPLETED) 1,000 mg, Intravenous, Administer over 30 Minutes, Once, 1 dose, On Sat02/18/18 at 0000, Start of wound closure 0708 (NOV Hold - Provider: User Epic - Reason: Unreviewed Transfer Orders)0739 (New Bag - Provider: Jessica Gonzalez - Comment: psr)0754 (Infusion Stop Time - Provider: Jessica Gonzalez)0922 (Bolus - Provider: Jessica Gonzalez - Comment: psr)0937 (Infusion Stop Time - Provider: Jessica Gonzalez)0952 (MAR Unhold - Provider: User Epic)0953 (Anesthesia Volume Adjustment - Provider: Jessica Gonzalez) tranexamic acid (CYKLOKAPRON) 1,000 mg in sodium chloride 0.9 % 50 mL 1,000 mg, Intravenous, Administer over 30 Minutes, Once, 1 dose, On Sat02/18/18 at 0000, Prior to skin incision 0000 (Canceled Entry - Provider: Automatic Discharge Provider - Comment: Automatically canceled at discontinue of medication order)0708 (NOV Hold - Provider: User Epic - Reason: Unreviewed Transfer Orders)0952 (NOV Unhold - Provider: User Epic) Continuous Medication Order 02/18/2018 02/19/2018 02/20/2018 lactated ringers infusion at 10 mL/hr, Intravenous, Continuous, Starting on Sat02/18/18 at 0630, Until Ann Marie 02/20/18 at 1403 0613 (New Bag - Provider: Sue Jenkins RN)0703 (Anesthesia Volume Adjustment - Provider: Jessica Gonzalez)0708 (NOV Hold - Provider: User Epic - Reason: Unreviewed Transfer Orders)0834 (Anesthesia Volume Adjustment - Provider: Jessica Clarissa Lisa)0835 (New Bag - Provider: Jessica Clarissa Gonzalez)0919 (Anesthesia Volume Adjustment - Provider: Jessica R Lisa)0920 (Infusion Stop Time - Provider: Jessica Gonzalez)0946 (New Bag - Provider: Jessica Clarissa Gonzalez)0952 (MAR Unhold - Provider: User Epic)0953 (Anesthesia Volume Adjustment - Provider: Jessica Gonzalez) PRN Medication Order 02/18/2018 02/19/2018 02/20/2018 diphenhydrAMINE (BENADRYL) 12.5 MG/5ML elixir 25 mg(Linked Group 2) 25 mg, Oral, Every 6 hours PRN, Itching, Starting on Sat02/18/18 at 1213, Until Ann Marie 02/20/18 at 1403, Give if unable to swallow tablets/capsules or if patient prefers liquid., Post-Op diphenhydrAMINE (BENADRYL) capsule 25 mg(Linked Group 2) 25 mg, Oral, Every 6 hours PRN, Itching, Starting on Sat02/18/18 at 1213, Until Ann Marie 02/20/18 at 1403, Post-Op diphenhydrAMINE (BENADRYL) injection 25 mg(Linked Group 2) 25 mg, Intravenous, Every 6 hours PRN, Itching, Starting on Sat18 at 1213, Until Ann Marie 02/20/18 at 1403, Give if unable to take PO. For IV administration, give no faster than 25 mg/min., Post-Op fentaNYL (SUBLIMAZE) injection 50 mcg (CANCELED) 50 mcg, Intravenous, Every 5 min PRN, Severe pain (Scale 8 - 10), 5 doses, Starting on 02/18/18 at 1009, Until 02/18/18 at 1209, Maximum cumulative dose 250 mcg. Do not administer if patient is overly sedated, SpO2 less than 90%, or Respiratory Rate less than 12. If more than one IV analgesic is ordered per pain level, use in this order: fentaNYL, morphine, HYDROmorphone. If desired pain control is not reached, move to next ordered medication at next dosing interval., PACU 0958 (Given - Provider: Veronica Kumar RN)1010 (Given - Provider: Veronica Kumar RN) meperidine (DEMEROL) injection 12.5 mg (CANCELED) 12.5 mg, Intravenous, Every 4 hours PRN, Severe pain (Scale 8 - 10), Starting on 02/18/18 at 1113, Until 02/18/18 at 1209, PACU 1132 (Given - Provider: Veronica Kumar RN) ondansetron (ZOFRAN) injection 4 mg (COMPLETED) 4 mg, Intravenous, Once as needed, Nausea, Vomiting, 1 dose, Starting on 02/18/18 at 1009, Until 02/18/18 at 1056, Administer slowly over 3-4 minutes. If more than one antiemetic is ordered, use in this order: ondansetron, diphenhydramine, metoclopramide, haloperidol, promethazine. If nausea / vomiting still not controlled, move to next ordered medication., PACU 1056 (Given - Provider: Veronica Kumar RN) ondansetron (ZOFRAN) injection 4 mg 4 mg, Intravenous, Every 6 hours PRN, Nausea, Vomiting, Starting on 02/18/18 at 1213, Until Ann Marie 02/20/18 at 1403, Post-Op oxyCODONE immediate release (ROXICODONE) tablet 10 mg 10 mg, Oral, Every 4 hours PRN, Severe pain (Scale 8 - 10), Starting on e 02/18/18 at 1213, Until Ann Marie 02/20/18 at 1403, Post-Op 2136 (Given - Provider: Elizabeth Meyer, GRADY) oxyCODONE immediate release (ROXICODONE) tablet 5 mg 5 mg, Oral, Every 4 hours PRN, Moderate pain (Scale 4 - 7), Starting on e 02/18/18 at 1213, Until Ann Marie 02/20/18 at 1403, Post-Op 0552 (Given - Provider: Elizabeth Meyer RN)0938 (Given - Provider: Yarely Ball, RN)1351 (Given - Provider: Yarely Ball, RN)1819 (Given - Provider: Yarely Ball RN)2214 (Given - Provider: Elizabeth Meyer RN) ROpivacaine 1 % (NAROPIN) 100 mg, ketorolac (TORADOL) 15 mg, morphine (PF) 2 mg in sodium chloride 0.9 % 67 mL juan-articular injection (CANCELED) As needed, Starting on e 02/18/18 at 0905, Until 02/18/18 at 1209, Intra-Op 0905 (Given - Provider: Jose Luis Munroe MD) sodium chloride 0.9 % irrigation (CANCELED) Continuous PRN, Starting on e 02/18/18 at 0855, Until 02/18/18 at 1209, Intra-Op 0855 (New Bag - Provider: Jose Luis Munroe MD) vancomycin (VANCOCIN) injection (CANCELED) As needed, Starting on Sat02/18/18 at 0900, Until 02/18/18 at 1209, Intra-Op 0900 (Given - Provider: Jose Luis Munroe MD - Comment: SALTED INTO WOUND) No Frequency Medication Order 02/18/2018 02/19/2018 02/20/2018 sodium chloride 0.9 % infusion (COMPLETED) 1 dose, Starting on Sat02/18/18 at 0541, Until Sat02/18/18 at 1720, Created by cabinet override 1720 (New Bag - Provider: Liss London RN) Linked Groups Order Group 1: aspirin EC (ECOTRIN) EC tablet 325 mgJump to med 325 mg, Oral, 2 times daily with meals, First dose on Sat02/19/18 at 0800, Until Discontinued, Start morning after surgery, Post-Op And Place sequential compression device (COMPLETED) Routine, Once, On Sat02/18/18 at 1214, For 1 occurrence, Post-Op And Assess Sequential Compression Device (Assess skin at a minimum of every shift) (CANCELED) Routine, Every shift, First occurrence on Sat02/18/18 at 1214, Post-Op And Intermittent Pneumatic Compression Device Applied (COMPLETED) And Maintain Sequential Compression Device (COMPLETED) Routine, Until discontinued, Starting on Sat02/18/18 at 1214, Until Specified, Post-Op And High Risk for VTE (COMPLETED) Group 2: diphenhydrAMINE (BENADRYL) injection 25 mgJump to med 25 mg, Intravenous, Every 6 hours PRN, Itching, Starting on Sat02/18/18 at 1213, Until Ann Marie 02/20/18 at 1403, Give if unable to take PO. For IV administration, give no faster than 25 mg/min., Post-Op Or diphenhydrAMINE (BENADRYL) capsule 25 mgJump to med 25 mg, Oral, Every 6 hours PRN, Itching, Starting on Sat02/18/18 at 1213, Until Ann Marie 02/20/18 at 1403, Post-Op Or diphenhydrAMINE (BENADRYL) 12.5 MG/5ML elixir 25 mgJump to med 25 mg, Oral, Every 6 hours PRN, Itching, Starting on Sat02/18/18 at 1213, Until Ann Marie 02/20/18 at 1403, Give if unable to swallow tablets/capsules or if patient prefers liquid., Post-Op documented in this encounter Care Teams Product Marketing Manager Relationship Specialty Start Date End Date Kaushal Han MD [address] [place] [phone] PCP - General FAMILY PRACTICE 01/31/18 Jose Luis Munroe MD [address] [place] [phone] ORTHOPAEDICS 02/05/18 documented as of this encounter
--- OUTSIDE RECORDS SUMMARY | 2024-10-02 01:49 | XMS_ITS | Encounter Summary ---
Author Organization [facility] - [facility] Address formerly [facility] [facility] [place] [address] [place] [address] Care Team Providers Care Liquid Compounder Name Role Phone Kaushal Han MD Primary Care Provider Jose Luis Rain MD Unavailable [phone] Encounter Details Date Type Department Care Team (Late st Contact Info) Description 02/18/2018 Abstract [facility] Medical [facility] Multispecialty Care - [facility] [address] [facility] [place] [phone] Jose Luis Rain MD [address] [place] [phone] Social History Tobacco Use Types Packs/Day Years [...] on filedocumented in this encounter Care Teams Liquid Compounder Relationship Specialty Start Date End Date Kaushal Han MD [address] [place] [phone] PCP - General FAMILY PRACTICE 01/31/18 Jose Luis Rain MD [address] [place] [phone] ORTHOPAEDICS 02/05/18 documented as of this encounter
--- OUTSIDE RECORDS SUMMARY | 2024-10-02 01:49 | XMS_ITS | Encounter Summary ---
Author Organization [facility] - [facility] Address Formerly [facility] [facility] [place] [address] [place] [address] Care Team Providers Care Chamber Walker Name Role Phone Kaushal Han MD Primary Care Provider Jose Luis Rain MD Unavailable [phone] Anjum Rajan MD Unavailable [phone] Encounter Details Date Type Department Care Team (Late st Contact Info) Description 12/31/2001 Abstract [facility] [address] [place] [address] , Generic Conversion, Social History Tobacco Use Types Packs/Day Years Used Date Smoking Tobacco: Never Assessed Comments Unknown Sex and Gender Information Value Date Recorded Sex Assigned at Not on file Legal Sex Female 10:51 AM CDT Gender Identity Not on file Sexual Orientation Not on file documented as of this encounter Plan of Treatment Not on file documented as of this encounter Visit Diagnoses Not on filedocumented in this encounter Care Teams Chamber Walker Relationship Specialty Start Date End Date Kaushal Han MD [address] [place] [phone] PCP - General FAMILY PRACTICE 01/31/18 Jose Luis Rain MD [address] [place] [phone] ORTHOPAEDICS 02/05/18 Anjum Rajan MD [address] [address] CARDIOVASCULAR DISEASE 07/16/18 documented as of this encounter
--- OUTSIDE RECORDS SUMMARY | 2024-10-02 01:49 | XMS_ITS | Encounter Summary ---
Author Organization [facility] - [facility] Address [facility] [facility] [place] [address] [place] [address] Care Team Providers Care Cook Boat Name Role Phone Kaushal Han MD Primary Care Provider Jose Luis Rain MD Unavailable [phone] Anjum Rajan MD Unavailable [phone] Encounter Details Date Type Department Care Team (Late st Contact Info) Description 07/21/2002 Abstract [facility] [address] [place] [address] , Generic Conversion, Social History Tobacco Use [...] on filedocumented in this encounter Care Teams Cook Boat Relationship Specialty Start Date End Date Kaushal aHn MD [address] [place] [phone] PCP - General FAMILY PRACTICE 01/31/18 Jose Luis Rain MD [address] [place] [phone] ORTHOPAEDICS 02/05/18 Anjum Rajan MD [address] [address] CARDIOVASCULAR DISEASE 07/16/18 documented as of this encounter
--- OUTSIDE RECORDS SUMMARY | 2024-10-02 01:49 | XMS_ITS | Encounter Summary ---
Author Organization [facility] System Address [facility] Formerly [facility] [place] [address] [place] [address] Care Team Providers Care Operations Trainer Name Role Phone Kaushal Han MD Primary Care Provider Jose Luis Rain MD Unavailable [phone] Encounter Details Date Type Department Care Team (Latest Contact Info) Description 02/18/2018 Abstract [facility] Jose Luis Rain MD [address] [place] [phone] Social History Tobacco Use Types Packs/Day Years [...] Date/Time Associated Diagnosis Comments SURG XR HIP RT 1V Routine 02/18/2018 8:3 5 AM CDT documented in this encounter Results * SURG XR HIP RT 1V (02/18/2018 8:35 AM CDT) Anatomical Region Laterality Modality Hip IMAGES ONLY 02/18/2018 8:35 AM CDT 02/18/2018 8:35 AM CDT Narrative 02/18/2018 10:38 AM CDT Exam date/time: 02/18/2018 8:34 AM Examination: Right hip radiographs, 1 views. Reason For Exam: ??Right hip arthroplasty. Right hip pain. ?? Comparison: None. Findings: 2 components of a right hip arthroplasty are present and appear to be in good position. Soft tissue air consistent with postop change. =====IMPRESSION:===== 2 components of a right hip arthroplasty are present and in good position. ABLE Procedure Note Alan Robin MD - 07/23/2018 Exam date/time: 02/18/2018 8:34 AM Examination: Right hip radiographs, 1 views. Reason For Exam: Right hip arthroplasty. Right hip pain. Comparison: None. Findings: 2 components of a right hip arthroplasty are present andappear to be in good position. Soft tissue air consistent with postop change. =====IMPRESSION:===== 2 components of a right hip arthroplasty are present and in goodposition. ABLE us Jose Luis Rain MD IMAGES ONLY Final Result documented in this encounter Visit Diagnoses Not on filedocumented in this encounter Care Teams Operations Trainer Relationship Specialty Start Date End Date Kaushal Han MD [address] [place] [phone] PCP - General FAMILY PRACTICE 01/31/18 Jose Luis Rain MD [address] [place] [phone] ORTHOPAEDICS 02/05/18 documented as of this encounter
--- OUTSIDE RECORDS SUMMARY | 2024-10-02 01:49 | XMS_ITS | Encounter Summary ---
Author Organization [facility] Address [facility]6 [facility] [place] [address] [place] [address] Care Team Providers Care Drum Printer Name Role Phone Kaushal Han MD Primary Care Provider Jose Luis Rain MD Unavailable [phone] Reason for Visit * Auth/Cert Specialty Diagnoses / Procedures Referred By Spencer santos Referred To Contact Diagnoses RIGHT HIP OSTEOARTHRITIS Procedures ARTHROPLASTY HIP TOTAL RIGHT Referral ID Status Reason Start Date Expiration Date Visits Re quested Visits Authorized [id number] 1 1 Encounter Details Date Type Department Care Team (Late st Contact Info) Description 02/18/2018 7:03 AM CDT Anesthesia Event [facility] [place] [address] Melissa Holley MD Barnhart, Lynlee, NP Anesthesia Record Procedure Summary Procedure Name Responsible Anesthesiologist Anesthesia Start Time Anesthesia Stop Time RIGHT TOTAL HIP ARTHROPLASTY WITH CHEYENNE IMPLANTS (Right: Hip) Melissa Holley MD 02/18/18 0703 02/18/18 0955 Events Date Time Event Comment 02/18/2018 0605 AN TREE CLIMBER Prepped 0643 0643 AN Anesthesia Prepped 0703 An Start Patient ID and consent checked and patient reassessed. 0705 An Start Data 0710 Face Mask Applied 0714 An Block 0716 Anesthesia Ready 0818 Anes Handoff 0831 Anes Handoff 0948 an stop data 0953 Post Anesthetic Care Handoff I completed my handoff to the receiving nurse during which we: 1. Identified the patient 2. Identified the responsible provider 3. Reviewed the pertinent medical history 4. Discussed the surgical course 5. Reviewed intra-op anesthesia management and issues during anesthesia 6. Set expectations for post-procedure period 7. Allowed opportunity for questions and acknowledgement of understanding. 0955 An Stop Meds Name Total midazolam 2 mg/2 mL injection 2 mg propofol (DIPRIVAN) 200 mg/20 mL injecti on 200 mg tranexamic acid (CYKLOKAPRON) 1,000 mg i n sodium chloride 0.9 % 50 mL 2,000 mg propofol (DIPRIVAN) 1000 mg/100 mL infus ion 609.92 mg lidocaine (PF) (XYLOCAINE) 2% injection 100 mg lidocaine (PF) 1% injection 30 mg tetracaine injection 1% 1.4 mL ceFAZolin (ANCEF) syringe 2 g 2 g albumin human 5% solution 500 mL lactated ringers infusion 2,025 mL * Agents Name O2 N2O Air * Blood No blood administrations on file. Lines, Drains, and Airways Type Details Placement Removal Peripheral IV Placement Date: 02/18/18; Placement Time: 0610; Placed Outside of This Facility?: No; Size: 18 G; Orientation: Left; Location: Hand; Site Prep: Chlorhexidine; Insertion attempts: 1; Ultrasound-guided Placement?: No; Patient Tolerance: Tolerated well; Removal Date: 02/20/18; Removal Time: 1059; Removal Reason: Patient Discharged 02/18/18 0610 by Sue Jenkins RN 02/20/18 1059 by Lianna Dey RN Valle Catheter 02/18/18; 0720; No; I & O - Strict I&O or Critically ill requiring I&O Q1-2hrs; 1; Hand hygiene performed, Site cleansed with sterile antiseptic, Sterile gloves, drape and lubricant used, Catheter inserted using aseptic technique, Anchoring device applied, Drainage bag secured below level of bladder, Closed system maintained; Stat lock; Double-lumen; 14 Fr. 02/18/18 0720 by Carrol Doran RN 02/19/18 0630 by Elizabeth Osborne RN Surgical/Incision 02/18/18; 0937; Surgical Wound; Hip; Right; CLOSED WITH SUTURE; 02/20/18; 1403 02/18/18 0937 by Carrol Doran RN 02/20/18 1403 by Automatic Discharge Provider documented in this [...] OR Notes * Anesthesia Postprocedure Evaluation - Bo Carreon CRNA - 02/19/2018 1:26 PM CDT Anesthesia Post-op Note Deb Gipsno Procedure(s): RIGHT TOTAL HIP ARTHROPLASTY WITH CHEYENNE IMPLANTS (Right Hip) Anesthesia type: spinal Vitals: 02/19/18 1149 BP: 125/60 Pulse: 69 Resp: 20 Temp: 36.3 ??C SpO2: 95% Patient Location: Inpatient Unit Level of Consciousness: awake, alert and oriented Pain Management: adequate analgesia Airway Patency: patent Respiratory Status: acceptable Cardiovascular Status: acceptable and stable Post-Op Nausea: none Postoperative Hydration: euvolemic Complications: no anesthesia complication Comments: Blood pressure 125/60, pulse 69, temperature 36.3 ??C, temperature source Oral, resp. rate 20, height 5' 2 (1.575 m), weight 89.3 kg (196 lb 13.9 oz), SpO2 95 %, not currently . * Anesthesia Postprocedure Evaluation - Melissa Holley MD - 02/18/2018 9:49 AM CDT Anesthesia Post-op Note Deb Gipson Procedure(s): RIGHT TOTAL HIP ARTHROPLASTY WITH CHEYENNE IMPLANTS (Right Hip) Anesthesia type: spinal Vitals: 02/18/18 1030 BP: (!) 159/91 Pulse: 61 Resp: 23 Temp: SpO2: 98% Patient Location: PACU Level of Consciousness: awake and alert Pain Management: pain being treated or addressed Airway Patency: patent Respiratory Status: spontaneous ventilation, unassisted and room air Cardiovascular Status: acceptable and hemodynamically stable Post-Op Nausea: none Postoperative Hydration: euvolemic Complications: no anesthesia complication * Anesthesia Procedure Notes - Jessica Wilkins - 02/18/2018 7:57 AM CDTAssociated Order(s): AN SPINAL Spinal Block Patient location during procedure: OR Reason for block: primary anesthetic Staffing Anesthesiology Provider: JESSICA WILKINS Preanesthetic Checklist Completed: patient identified, site marked, surgical consent, pre-op evaluation, timeout performed,IV checked, risks and benefits discussed and monitors and equipment checked Spinal Block Patient position: left lateral decubitus Prep: patient draped and povidone-iodine Patient monitoring: quality assurance monitor final, continuous pulse oximetry and blood pressure Approach: midline Ultrasound-guided Placement: No Location: L4-5 L4-5 Attempts: 1, Dose: 3 mL Needle Needle type: Pencil tip Needle gauge: 24 G Needle length: 5 cm Needle attempts: 1 Assessment Sensory level: T6 Events: negative paresthesia, negative aspiration, positive free flow CSF and patient tolerated well Additional Notes Lot [id number]; exp 2019 Tetracaine, pf, exp 2018 Sterile water, pf exp 2020 (used 0.6ml as per varindero) * Anesthesia Preprocedure Evaluation - Melissa Holley MD - 02/03/2018 11:45 AM CDT Anesthesia ROS/MED History Reviewed: Patient summary , Nursing notes , ECG, Family history anesthesia, Anesthesia history , Medications , Labs Pre-Anesthetic State: alert, awake and responds appropriately Comment: Denies family history of anesthetic complications no history of anesthetic complications Pulmonary neg pulmonary ROS ROS comment: High SCHUYLER Risk Cardiovascular Exercise tolerance: (Denies SOB/CP with ADL's. Avoids stairs/long distance r/t hip pain ) (+) hypertension(-) past [place], angina Neuro/Psych (-) no seizures, neuromuscular disease, no CVA GI/Hepatic/Renal (-) GERD, liver disease, renal disease Endo/Other (+) obese, arthritis, (OA) GENERAL COMMENTS EKG 12/2017 SR, possible left atrial enlargement, low qrs voltage in precordial leads, possible leftventricular hypertrophy Physical Evaluation Airway Mallampati: III TM Distance: <3 FB Neck ROM: normal Dental (missing) Pulmonary Breath sounds clear to auscultation Cardiovascular Rhythm: regular Rate: normal (-) peripheral edema Anesthesia Plan ASA 2 Intravenous Induction Anesthesia type: spinal Informed Consent Anesthetic plan and risks discussed with patient of whom consent was obtained. . documented in this encounter Plan of Treatment Not on file documented as of this encounter Procedures Procedure Name Priority Date/Time Associated Diagnosis Comments AN SPINAL Routine 02/18/2018 8:06 AM CDT Procedure Note - Jessica Wilkins - 02/18/2018 7:57 AM CDTThis note is in progress. Spinal Block Patient location during procedure: OR Reason for block: primary anesthetic Staffing Anesthesiology Provider: JESSICA WILKINS Preanesthetic Checklist Completed: patient identified, site marked, surgical consent, pre-opevaluation, timeout performed, IV checked, risks and benefits discussedand monitors and equipment checked Spinal Block Patient position: left lateral decubitus Prep: patient draped and povidone-iodine Patient monitoring: quality assurance monitor final, continuous pulse oximetry and bloodpressure Approach: midline Ultrasound-guided Placement: No Location: L4-5 L4-5 Attempts: 1, Dose: 3 mL Needle Needle type: Pencil tip Needle gauge: 24 G Needle length: 5 cm Needle attempts: 1 Assessment Sensory level: T6 Events: negative paresthesia, negative aspiration, positive free flow CSFand patient tolerated well Additional Notes Lot [id number]; exp 2019 Tetracaine, pf, 2018 Sterile water, pf exp 2020 (used 0.6ml as per ruocco) documented in this encounter Visit Diagnoses Not on filedocumented in this encounter Administered Medications Inactive Administered Medications - up to 3 most recent administrations Medication Order MAR Action Action Date Dose Rate Site albumin human 5 % solution PRN, Other, Starting on Sat02/18/18 at 0842, Until Sat02/18/18 at 0955, Anesthesia Intra-Op Given 02/18/2018 9:34 AM CDT 250 mLs Given 02/18/2018 9:20 AM CDT 250 mLs ceFAZolin (ANCEF) syringe 2 g 2 g, Intravenous, at 240 mL/hr, Once, 1 dose, On Sat02/18/18 at 0000 Given 02/18/2018 7:33 AM CDT 2 g lactated ringers infusion at 10 mL/hr, Intravenous, Continuous, Starting on Sat02/18/18 at 0630, Until Ann Marie 02/20/18 at 1403 New Bag 02/18/2018 9:46 AM CDT New Bag 02/18/2018 8:35 AM CDT New Bag 02/18/2018 6:13 AM CDT 10 mL/hr lidocaine (PF) (XYLOCAINE) 1 % injection PRN, Starting on Sat02/18/18 at 0714, Until Sat02/18/18 at 0955, Anesthesia Intra-Op Given 02/18/2018 7:14 AM CDT 30 mg lidocaine (PF) (XYLOCAINE) 2 % injection PRN, Starting on Sat02/18/18 at 0712, Until Sat02/18/18 at 0955, Anesthesia Intra-Op Given 02/18/2018 9:13 AM CDT 10 mg Given 02/18/2018 9:01 AM CDT 10 mg Given 02/18/2018 8:39 AM CDT 10 mg midazolam (VERSED) injection Intravenous, PRN, Sedation, Starting on Sat02/18/18 at 0703, Until Sat02/18/18 at 0955, Anesthesia Intra-Op Given 02/18/2018 7:03 AM CDT 2 mg propofol (DIPRIVAN) infusion Continuous PRN, Starting on Sat02/18/18 at 0745, Until Sat02/18/18 at 0955, Anesthesia Intra-Op Rate/Dose Change 02/18/2018 9:16 AM CDT 100 mcg/kg/min 53.6 mL/hr Rate/Dose Change 02/18/2018 8:39 AM CDT 50 mcg/kg/min 26.8 mL/hr Rate/Dose Change 02/18/2018 8:11 AM CDT 35 mcg/kg/min 18.7 5 mL/hr propofol (DIPRIVAN) IV bolus Intravenous, PRN, Starting on Sat02/18/18 at 0712, Until Sat02/18/18 at 0955, Anesthesia Intra-Op Given 02/18/2018 9:13 AM CDT 20 mg Given 02/18/2018 9:01 AM CDT 20 mg Given 02/18/2018 8:39 AM CDT 20 mg tetracaine (PONTOCAINE) 1 % injection PRN, Starting on Sat02/18/18 at 0714, Until Sat02/18/18 at 0955, Anesthesia Intra-Op Given 02/18/2018 7:14 AM CDT 1.4 mLs tranexamic acid (CYKLOKAPRON) 1,000 mg in sodium chloride 0.9 % 50 mL 1,000 mg, Intravenous, Administer over 30 Minutes, Once, 1 dose, On Sat02/18/18 at 0000, Start of wound closure Bolus 02/18/2018 9:22 AM CDT 1,000 mg New Bag 02/18/2018 7:39 AM CDT 1,000 mg documented in this encounter Care Teams Drum Printer Relationship Specialty Start Date End Date Kaushal Han MD [address] [place] [phone] PCP - General FAMILY PRACTICE 01/31/18 Jose Luis Rain MD [address] [place] [phone] ORTHOPAEDICS 02/05/18 documented as of this encounter
--- OUTSIDE RECORDS SUMMARY | 2024-10-02 01:49 | XMS_ITS | Encounter Summary ---
Author Organization [facility] - [facility] Address [facility]6 [place] [address] [place] [address] Care Team Providers Care Pizza Chef Name Role Phone Kaushal Han MD Primary Care Provider Jose Luis Rain MD Unavailable [phone] Anjum Rajan MD Unavailable [phone] Encounter Details Date Type Department Care Team (Late st Contact Info) Description 11/26/2001 Abstract [facility] [address] [place] [address] , Generic Conversion, Social History Tobacco Use [...] on filedocumented in this encounter Care Teams Pizza Chef Relationship Specialty Start Date End Date Kaushal Han MD [address] [place] [phone] PCP - General FAMILY PRACTICE 01/31/18 Jose Luis Rain MD [address] [place] [phone] ORTHOPAEDICS 02/05/18 Anjum Rajan MD [address] [address] CARDIOVASCULAR DISEASE 07/16/18 documented as of this encounter
--- OUTSIDE RECORDS SUMMARY | 2024-10-02 01:49 | XMS_ITS | Encounter Summary ---
Author Organization [facility] - [facility] Address [facility]6 [facility] [place] [address] [place] [address] Care Team Providers Care Corporate Training Manager Name Role Phone Kaushal Hna MD Primary Care Provider Jose Luis Rain MD Unavailable [phone] Anjum Rajan MD Unavailable [phone] Encounter Details Date Type Department Care Team (Late st Contact Info) Description 09/15/2003 Abstract [facility] [address] [place] [address] , Generic Conversion, Social History Tobacco Use [...] on filedocumented in this encounter Care Teams Corporate Training Manager Relationship Specialty Start Date End Date Kaushal Han MD [address] [place] [phone] PCP - General FAMILY PRACTICE 01/31/18 Jose Luis Rain MD [address] [place] [phone] ORTHOPAEDICS 02/05/18 Anjum Rajan MD [address] [address] CARDIOVASCULAR DISEASE 07/16/18 documented as of this encounter
--- OUTSIDE RECORDS SUMMARY | 2024-10-02 01:49 | XMS_ITS | Encounter Summary ---
Author Organization [facility] - [facility] Address [facility] access hospital6 [facility] [address] [place] [address] Care Team Providers Care Motor Scooter Repairer Name Role Phone Kaushal Han MD Primary Care Provider [phone] Jose Luis Rain MD Unavailable [phone] Anjum Rajan MD Unavailable [phone] Encounter Details Date Type Department Care Team (Late st Contact Info) Description 07/29/2002 Abstract [facility] [address] [place] [address] , Generic Conversion, Social History Tobacco Use [...] on filedocumented in this encounter Care Teams Motor Scooter Repairer Relationship Specialty Start Date End Date Kaushal Han MD [address] [place] [phone] PCP - General FAMILY PRACTICE 01/31/18 Jose Luis Rain MD [address] [place] [phone] ORTHOPAEDICS 02/05/18 Anjum Rajan MD [address] [address] CARDIOVASCULAR DISEASE 07/16/18 documented as of this encounter
--- OUTSIDE RECORDS SUMMARY | 2024-10-02 01:49 | XMS_ITS | Encounter Summary ---
Author Organization [facility] Address Pending sale to [facility] [place] [address] [place] [address] Care Team Providers Care Inventory Associate And Driver Name Role Phone Kaushal Han MD Primary Care Provider [phone] Jose Luis Rain MD Unavailable [phone] Encounter Details Date Type Department Care Team (Latest Contact Info) Description 02/03/2018 Abstract [facility] Jose Luis Rain MD [address] [place] [phone] Social History Tobacco Use Types Packs/Day Years [...] Associated Diagnosis Comments TYPE & SCREEN Routine 02/03/2018 11:45 AM CDT documented in this encounter Results * TYPE & SCREEN (02/03/2018 11:45 AM CDT) ABO/RH ABO/RH(D) ?- A POSITIVE ANTIBODY SCREEN ?- NEGATIVE XM EXPIRATION ?- 02/21/2018 COMMENT ?- NO HISTORY OF TRANSFUSIONS,MO EGNANCY OR ANTIBODIES, NEW SPECIMEN NOT NEEDED [facility] TO EPIC CONVERSION 02/03/2018 11:4 5 AM CDT 02/03/2018 11:45 AM CDT Narrative [facility] TO EP[facility] CONVERSION - 02/18/2018 5:49 AM CDT Result Communication: No patient communication needed at this time us Jose Luis Rain MD BLOOD BANK TEST ORDERABLES F inal Result [facility] TO EPIC CONVERSION documented in this encounter Visit Diagnoses Not on filedocumented in this encounter Care Teams Inventory Associate And Driver Relationship Specialty Start Date End Date Kaushal Han MD [address] [place] [phone] PCP - General FAMILY PRACTICE 01/31/18 Jose Luis Rain MD [address] [place] [phone] ORTHOPAEDICS 02/05/18 documented as of this encounter
--- OUTSIDE RECORDS SUMMARY | 2024-10-02 01:49 | XMS_ITS | Encounter Summary ---
Author Organization [facility] - [facility] Address [facility]6 [facility] [place] [address] [place] [address] Care Team Providers Care Alternative Energy Technician Name Role Phone Kaushal Han MD Primary Care Provider [phone] Jose Luis Rain MD Unavailable [phone] Anjum Rajan MD Unavailable [phone] Encounter Details Date Type Department Care Team (Late st Contact Info) Description 07/18/[address] [facility] [address] [facility] [place] [address] Kaushal Han MD [address] [place] [phone] Social History Tobacco Use Types Packs/Day Years [...] on filedocumented in this encounter Care Teams Alternative Energy Technician Relationship Specialty Start Date End Date Kaushal Han MD [address] [place] [phone] PCP - General FAMILY PRACTICE 01/31/18 Jose Luis Rain MD [address] [place] [phone] ORTHOPAEDICS 02/05/18 Anjum Rajan MD [address] [address] CARDIOVASCULAR DISEASE 07/16/18 documented as of this encounter
--- OUTSIDE RECORDS SUMMARY | 2024-10-02 01:49 | XMS_ITS | Encounter Summary ---
Author Organization [facility] Address Critical access hospital6 [facility] [place] [address] [place] [address] Care Team Providers Care Electric Welder Helper Name Role Phone Kaushal Han MD Primary Care Provider Jose Luis Rain MD Unavailable [phone] Encounter Details Date Type Department Care Team (Latest Contact Info) Description 02/03/2018 Abstract [facility] Medical Group Jose Luis Rain MD [address] [place] [address] Social History Tobacco Use Types Packs/Day Years [...] Diagnosis Comments SED RATE, ERYTHROCYTE (ESR) Routine 02/03/2018 11:45 AM CDT BASIC METABOLIC PANEL Routine 02/03/2018 11:45 AM CDT C-REACTIVE PROTEIN Routine 02/03/2018 11 :45 AM CDT CBC W/DIFF AUTOMATED Routine 02/03/2018 11:45 AM CDT documented in this encounter Results * SED RATE, ERYTHROCYTE (ESR) (02/03/2018 11:45 AM CDT) ESR 16 0 - 30 mm/hr [facility] TO EPIC CONVERSION 02/03/2018 11:4 5 AM CDT 02/03/2018 11:45 AM CDT Narrative [facility] TO EPIC CONVERSION - 02/03/2018 2:38 PM CDT Result Communication: No patient communication needed at this time us Jose Luis Rain MD LABORATORY Final Result [facility] TO EPIC CONVERSION * (ABNORMAL) BASIC METABOLIC PANEL (02/03/2018 11:45 AM CDT) GLUCOSE 85 70 - 99 MG/DL [facility] TO EPIC CONVERSION BUN 19(H) 7 - 18 MG/DL [facility] TO EPIC CONVERSION CREATININE S/P/B 0.73 0.55 - 1.02 MG/DL [facility] TO EPIC CONVERSION SODIUM S/P/B 144 136 - 145 MMOL/L [facility] TO [facility] CONVERSION POTASSIUM S/P/B 4.1 3.5 - 5.1 MMOL/L [facility] TO EPIC CONVERSION CHLORIDE S/P/B 110(H) 100 - 108 MMOL/L [facility] TO [facility]IC CONVERSION CO2 28.1 21 - 32 MMOL/L [facility] TO EPIC CONVERSION CALCIUM S/P/B 8.9 8.5 - 10.1 MG/DL [facility] TO EPIC CONVERSION ANION GAP 10.0 8 - 20 MMOL/L [facility] TO EPIC CONVERSION BUN CREATININE RATIO 25.9 6 - 26 [facility] TO EPIC CONVERSION GFR ESTIMATE 84(L) >90 ML/MIN/1.7 3 M2 [facility] TO EPIC CONVERSION EGFR AFR. AMER. >90 >90 ML/MIN/1.7 3 M2 [facility] TO EPIC CONVERSION Comment: Result Comment: NOTE: eGFR is not calculated for patients <18 years of age. This is an estimated GFR (CKD EPI) and should not be used for calculating drug doses. 02/03/2018 11:4 5 AM CDT 02/03/2018 11:45 AM CDT Narrative [facility] TO EPIC CONVERSION - 02/03/2018 2:10 PM CDT Result Communication: No patient communication needed at this time us Jose Luis Rain MD LABORATORY Final Result [facility] TO EPIC CONVERSION * C-REACTIVE PROTEIN (02/03/2018 11:45 AM CDT) C-REACTIVE PROTEIN <0.29 <0.29 mg/dL [facility] TO EPIC CONVERSION 02/03/2018 11:4 5 AM CDT 02/03/2018 11:45 AM CDT Narrative [facility] TO EPIC CONVERSION - 02/03/2018 2:10 PM CDT Result Communication: No patient communication needed at this time us Jose Luis Rain MD LABORATORY Final Result Performing Organization Address [facility]/ZIP Co de Phone Number [facility] TO EPIC CONVERSION * (ABNORMAL) CBC W/DIFF AUTOMATED (02/03/2018 11:45 AM CDT) Pathologist [facility] WBC 5.6 4.8 - 10.8 x10'3/uL [facility] TO EPIC CONVERSION RBC 4.13(L) 4.20 - 5.40 x10'6/uL [facility] TO EPIC CONVERSION HGB 11.9(L) 12.0 - 16.0 G/DL [facility] TO EPIC CONVERSION HCT 38.2 38.0 - 48.0 % [facility] TO EPIC CONVERSION MCV 92.5 81.0 - 99.0 FL [facility] TO EPIC CONVERSION MCH 28.8 27.0 - 31.0 PG [facility] TO EPIC CONVERSION MCHC 31.2(L) 32.0 - 36.0 G/DL [facility] TO EPIC CONVERSION RDW 12.8 11.5 - 14.5 % [facility] TO EPIC CONVERSION PLT 200 130 - 400 x10'3/uL [facility] TO EPIC CONVERSION GLUCOSE 10.3 9.3 - 12.2 FL [facility] TO EPIC CONVERSION BASOPHILS % 0.5 0.0 - 1.0 % [facility] TO EPIC CONVERSION EOSINOPHILS % 1.4 1.0 - 3.0 % [facility] TO EPIC CONVERSION NEUTROPHILS % 65.9(H) 43.0 - 65.0 % [facility] TO EPIC CONVERSION LYMPHOCYTES % 25.7 20.0 - 46.0 % [facility] TO EPIC CONVERSION IMMATURE GRANS % 0.4 0.0 - 1.0 % [facility] TO EPIC CONVERSION MONOCYTES 6.1 5.0 - 12.0 % [facility] TO EPIC CONVERSION 02/03/2018 11:4 5 AM CDT 02/03/2018 11:45 AM CDT Narrative [facility] TO EPIC CONVERSION - 02/03/2018 12:32 PM CDT Result Communication: No patient communication needed at this time us Jose Luis Rain MD LABORATORY Final Result [facility] TO EPIC CONVERSION documented in this encounter Visit Diagnoses Not on filedocumented in this encounter Care Teams Electric Welder Helper Relationship Specialty Start Date End Date Kaushal Han MD [address] [place] [phone] PCP - General FAMILY PRACTICE 01/31/18 Jose Luis Rain MD [address] [place] [phone] ORTHOPAEDICS 02/05/18 documented as of this encounter
--- OUTSIDE RECORDS SUMMARY | 2024-10-02 01:49 | XMS_ITS | Encounter Summary ---
Author Organization [facility] Address [facility]ly [facility]. [place], [place] [address] [place] [phone] Care Team Providers Care Embroiderer Name Role Phone Kaushal Han MD Primary Care Provider Jose Luis Munroe MD Unavailable [phone] Reason for Referral * (Routine) - Canceled Specialty Diagnoses / Procedures Referred By Spencer santos Referred To Contact Procedures PT Eval and Treat Jose Luis Munroe MD [address] [place] [phone] Phone: tel: fax: Referral ID Status Reason Start Date Expiration Date V isits Requested Visits Authorized [id number] Canceled 02/18/2018 03/21/2019 1 1 Reason for Visit * Auth/Cert Specialty Diagnoses / Procedures Referred By Spencer santos Referred To Contact Diagnoses RIGHT HIP OSTEOARTHRITIS Procedures ARTHROPLASTY HIP TOTAL RIGHT Referral ID Status Reason Start Date Expiration Date Visits Re quested Visits Authorized [id number] 1 1 Encounter Details Date Type Department Care Team (Latest Contact Info) Description 02/18/2018 5:19 AM CDT - 02/20/2018 12:03 PM CDT [facility] [address] [place] [address] Jose Luis Munroe MD [address] [place] [phone] Discharge Disposition: Home with Home Health Care [...] Physician Discharge Summary Patient ID: Deb Gipson [id number] 68-year-old 1950 Admit date: 02/18/2018 Expected Discharge [...] tablet by mouth daily. Kaushal Han MD [address] [facility] [phone] SERGEY James [address] [address] Follow up in 2 week(s) Signed: SERGEY [...] HEALTH HAS BEEN ARRANGED FOR YOU WITH [facility]. A NURSE WILL BE MAKING CONTACT WITH YOU UPON DISCHAGRE TO ARRANGE A TIME TO VISIT. ANY QUESTIONS REGARDING THIS, PLEASE CONTACT . * Attachments The following attachments cannot be sent through Care Everywhere. * ANTERIOR HIP REPLACEMENT DISCHARGE INSTRUCTIONS ([place]KIST[place]) * ASPIRIN, ADULT ([place]) * OXYCODONE AND ACETAMINOPHEN, ADULT ([place]) documented in this encounter Medications at Time [...] OTHER DME NEEDS NOTED. MANSI HANSON WITH [facility] NOTIFIED OF DC AND CONFIRMED PLANS FOR [facility] RN AND P.T. TO SEE PTIN THE HOME MOVING FORWARD. PT DENIED CONCERNS TO OBTAIN NOR [facility] COPAYS FOR SCRIPTS UPON DC. NO OTHER NEEDS NOTED. RN AWARE OF PLANS. SW COMPLETE AND CASE CLOSED. * Reshma Sousa PTA - 02/20/2018 9:20 AM CDT Problem: Mobility Goal: STG - Pt will ambulate 100' with w/w wbat right le mod/I by disch. Met Problem: Transfers Goal: STG - Pt will perform sit to stand wth w/w and mod/i wbat right le by disch. Met Problem: Misc. Goal: PT Misc 1 Increase right hip rom/strength within anterior precautions. met Cosigned by Lurdes Han, PT at 02/25/2018 3:28 PM CDT * [...] 98% 99% 97% 98% Weight: Height: Assessment 37-[id number] s/p R VALEDMAR on 02/18/2018 Plan PT - WBAT, anterior hip precautions DVT ppx - Aspirin BID and SCDs Pain control - scheduled tylenol, opioids as needed Dispo - home with home health today LARISSA BARNARD, HEAD USHER-C ??? aspirin EC 325 mg Oral BID [...] HCT 31.6* 29.0* Recent Labs Lab 02/19/18 035 NA 139 K 3.7 CL 107 CO2 [...] ORDERS FOR HH AND CHOSE TO USE [facility] FROM THE LIST OF AREA PROVIDERS. REFERRALGIVEN TO MANSI WITT WITH [facility] WHO CONFIRMED ABILITY TO PROVIDE NURSING AND THERAPY IN THE HOME UPON DC. PT INSURED WITH MEDICARE AND [employer] AND CONFIRMED SHE HAS PHARMACEUTICAL COVERAGE FOR FOR DC MEDS. SHE DENIED CONCERNS TO AFFORD COPAYS UPON DC. PT USES [email or web address] TO FILL SCRIPTS. RN AWARE OF PLANS AND SW ACTIONS. NO FURTHER NEEDS NOTED BUT SW WILL MONITOR FOR ANY CHANGES IN PLANS PRIOR TO DC AND ASSIST NEEDED. ?? * Mansi Witt RN - 02/19/2018 3:41 PM CDT LINE INSTALLER REPAIRER MET WITH PATIENT AT BEDSIDE TO DISCUSS [facility]. PT IN AGREEANCE W/ [facility]. PATIENT INFORMED THAT NURSE WILL BE CONTACTING PATIENT TO ARRANGE START OF CARE DATE AND TIME. INFORMATIONAL BROCHURE PROVIDED TO PATIENT. ANTICIPATE D/C TOMORROW. PT DENIES HAVING ANY FURTHER QUESTIONS OR CONCERNS AT THIS TIME. * Reshma Sousa, TAMRA - 02/19/2018 2:58 PM CDT 02/19/18 1300 [...] as the discharge summary Yes * Reshma Suosa PTA - 02/19/2018 9:04 AM CDT 02/19/18 [...] Oral SpO2: 96% 97% Weight: Height: Assessment 61-[id number] s/p R VALDEMAR on 02/18/2018 Plan PT - WBAT, anterior hip precautions DVT ppx - Aspirin BID and SCDs Pain control - scheduled tylenol, opioids as needed Dispo - home with home health tomorrow LARISSA BARNARD, HEAD USHER-C ??? acetaminophen 650 mg Oral Q6H ??? [...] PTT in the last 168 hours. * Jonel Mccloud - 02/18/2018 3:40 PM CDT 02/18/18 [...] to enter;Ramped entrance Prior Function Level of [place] Independent with functional transfers;Independent with ambulation Device [...] were discussed with the patient and/or family/personal consumer sales representative. Questions were answered and the patient/family/personal consumer sales representative verbalized understanding and desires to [...] CDT SURGEON: JOSE LUIS MUNROE MD ?? DISPUTE COORDINATOR: Refinery Pipeline Operator: SHABANA Dean; CHERY BrandA Circulating Nurse 1: Carrol Doran RN Scrub Person 1: Diego Maier, BRUSH FILLER HAND ?? PREOPERATIVE DIAGNOSIS: RIGHT HIP OSTEOARTHRITIS ?? POSTOPERATIVE DIAGNOSIS: Same. ?? PROCEDURE PERFORMED: Procedure(s): Right total hip arthroplasty. ?? ANESTHESIA: General ?? ESTIMATED BLOOD LOSS: 300 mL ?? IMPLANTS: [place] press-fit components: 54mm Tritanium cluster acetabular shell [...] - 99 mg/dL 02/20/2018 6:13 AM CDT [facility] INTERFACE 02/20/2018 6:12 AM CDT us Jose Luis Munroe MD POCT ORDERABLES - DEVICE Fin al Result Performing Organization Address [facility] [place]/[facility] Co de Phone Number [facility] INTERFACE US * (ABNORMAL) HEMOGLOBIN AND HEMATOCRIT (02/20/2018 5:18 AM CDT) HGB 9.0(L) 12.0 - 16.0 G/DL 02/20/2018 5:40 AM CDT [facility] HCT 29.0(L) 38.0 - 48.0 % 02/20/2018 5:40 AM CDT [facility] 02/20/2018 5:18 AM CDT us Jose Luis Munroe MD LABORATORY Final Result [facility] [address] [place] [address], * (ABNORMAL) HEMOGLOBIN AND HEMATOCRIT (02/19/2018 3:53 AM CDT) HGB 10.1(L) 12.0 - 16.0 G/DL 02/19/2018 4:10 AM CDT [facility] HCT 31.6(L) 38.0 - 48.0 % 02/19/2018 4:10 AM CDT [facility] 02/19/2018 3:53 AM CDT Jose Luis Munroe MD LABORATORY Final Result Performing Organization Address [facility] [place]/[facility] Co de Phone Number [facility] [address] [place] [address], * (ABNORMAL) BASIC METABOLIC PANEL (02/19/2018 3:53 AM CDT) GLUCOSE 122(H) 70 - 99 MG/DL 02/19/2018 4:27 AM CDT [facility] BUN 13 7 - 18 MG/DL 02/19/2018 4:27 AM CDT [facility] CREATININE S/P/B 0.79 0.55 - 1.02 MG/DL 02/19/2018 4:27 AM CDT [facility] SODIUM S/P/B 139 136 - 145 MMOL/L 02/19/2018 4:27 AM CDT [facility] POTASSIUM S/P/B 3.7 3.5 - 5.1 MMOL/L 02/19/2018 4:27 AM CDT [facility] CHLORIDE S/P/B 107 100 - 108 MMOL/L 02/19/2018 4:27 AM CDT [facility] CO2 29.0 21 - 32 MMOL/L 02/19/2018 4:27 AM CDT [facility] CALCIUM S/P/B 8.8 8.5 - 10.1 MG/DL 02/19/2018 4:27 AM CDT [facility] ANION GAP 6.7(L) 8 - 20 MMOL/L 02/19/2018 4:27 AM CDT [facility] BUN CREATININE RATIO 16.4 6 - 26 02/19/2018 4:27 AM CDT [facility] EGFR NON-AFR. AMER. 76(L) >90 ML/MIN/1.7 3 M2 02/19/2018 4:27 AM CDT [facility] EGFR AFR. AMER. 89(L) >90 ML/MIN/1.7 3 M2 02/19/2018 4:27 AM CDT [facility] Comment: NOTE: eGFR is not calculated for patients <18 years of age. This is an estimated GFR (CKD EPI) and should not be used for calculating drug doses. 02/19/2018 3:53 AM CDT us Jose Luis Munroe MD LABORATORY Final Result [facility] [address] [place] [address], * XR PEL W HIP LAT RT [...] =====IMPRESSION:===== Right hip arthroplasty in good position. us Jose Luis Munroe MD GENERAL IMAGING Final [...] encounter Visit Diagnoses Diagnosis S/P hip replacement, right S/P hip replacement, right S/P total hip arthroplasty Hip joint replacement by other means documented in this encounter Administered Medications Inactive [...] all sources in 24 hours., Post-Op Given 02/19/2018 5:51 AM CDT 650 mg Given 02/18/2018 11:36 PM CDT 650 mg Given 02/18/2018 6:26 PM CDT 650 mg aspirin EC (ECOTRIN) EC tablet 325 mg 325 mg, Oral, 2 times daily with meals, First dose on Sat02/19/18 at 0800, Until Discontinued, Start morning after surgery, Post-Op Given 02/20/2018 10:04 AM CDT 325 mg Given 02/19/2018 5:05 PM CDT 325 mg Given 02/19/2018 9:37 AM CDT 325 mg ceFAZolin (ANCEF) syringe 2 g 2 g, Intravenous, at 240 mL/hr, Every 8 hours, 2 doses, First dose (after last reorder) on Sat02/18/18 at 1530, Last dose on Sat02/18/18 at 2330 Given 02/18/2018 11:36 PM CDT 2 g 24 0 mL/hr Given 02/18/2018 5:19 PM CDT 2 g 240 mL/hr dexamethasone (DECADRON) 4 MG/ML injection 1 dose, Starting on Sat02/18/18 at 1142, Until Sat02/18/18 at 1149, Created by cabinet override dexamethasone (DECADRON) injection 4 mg 4 mg, Intravenous, Once, 1 dose, On Sat02/18/18 at 1200, If giving intravenously, administer slowly over 1-4 minutes. Given 02/18/2018 11:49 AM CDT 4 mg diphenhydrAMINE (BENADRYL) 12.5 MG/5ML elixir 25 [...] Given 02/19/2018 9:37 AM CDT 100 mg fentaNYL (SUBLIMAZE) 100 MCG/2ML injection 1 dose, Starting on Sat02/18/18 at 0959, Until Sat02/18/18 at 0958, Created by cabinet override fentaNYL (SUBLIMAZE) injection 50 mcg 50 mcg, Intravenous, Every 5 min PRN, Severe pain (Scale 8 - 10), 5 doses, Starting on Sat02/18/18 at 1009, Until Sat02/18/18 at 1209, Maximum cumulative dose 250 mcg. Do not administer if patient is overly sedated, SpO2 less than 90%, or Respiratory Rate less than 12. If more than one IV analgesic is ordered per pain level, use in this order: fentaNYL, morphine, HYDROmorphone. If desired pain control is not reached, move to next ordered medication at next dosing interval., PACU Given 02/18/2018 10:10 AM CDT 50 mcg Given 02/18/2018 9:58 AM CDT 50 mcg lactated ringers infusion at 10 mL/hr, Intravenous, [...] Given 02/18/2018 2:49 PM CDT 10 mg meperidine (DEMEROL) injection 12.5 mg 12.5 mg, Intravenous, Every 4 hours PRN, Severe pain (Scale 8 - 10), Starting on Sat02/18/18 at 1113, Until Sat02/18/18 at 1209, PACU Given 02/18/2018 11:32 AM CDT 12.5 mg naproxen (NAPROSYN) tablet 500 mg 500 mg, Oral, 2 times daily with meals, First dose on Sat02/18/18 at 1700, Until Discontinued, Administer with food Given 02/20/2018 10:04 AM CDT 500 mg Given 02/19/2018 5:05 PM CDT 500 mg Given 02/19/2018 9:37 AM CDT 500 mg ondansetron (ZOFRAN) injection 4 mg 4 mg, Intravenous, Once as needed, Nausea, Vomiting, 1 dose, Starting on Sat02/18/18 at 1009, Until Sat02/18/18 at 1056, Administer slowly over 3-4 minutes. If more than one antiemetic is ordered, use in this order: ondansetron, diphenhydramine, metoclopramide, haloperidol, promethazine. If nausea / vomiting still not controlled, move to next ordered medication., PACU Given 02/18/2018 10:56 AM CDT 4 mg oxyCODONE immediate release (ROXICODONE) tablet 10 mg 10 mg, Oral, Every 4 hours PRN, Severe pain (Scale 8 - 10), Starting on Sat02/18/18 at 1213, Until Ann Marie 02/20/18 at 1403, Post-Op Given 02/18/2018 9:36 [...] Given 02/19/2018 1:51 PM CDT 5 mg sodium chloride 0.9 % infusion 1 dose, Starting on Sat02/18/18 at 0541, Until Sat02/18/18 at 1720, Created by cabinet override New Bag 02/18/2018 5:20 PM CDT 1,000 mLs documented in this encounter Active and Recently [...] Liss London RN)2336 (Given - Provider: Elizabeth Meyer, GRADY) 0551 (Given - Provider: Elizabeth Meyer, GRADY) aspirin EC (ECOTRIN) EC tablet 325 mg(Linked Group 1) 325 mg, Oral, 2 times daily with meals, First dose on Sat02/19/18 at 0800, Until Discontinued, Start morning after surgery, Post-Op 0937 (Given - Provider: Yarely Ball, GRADY)1705 (Given - Provider: Yarely Ball RN) 1004 [...] RN) 0937 (Given - Provider: Yarely Ball RN)1705 [...] medication order)0708 (NOV Hold - Provider: User [employer] - Reason: Unreviewed Transfer Orders)0952 (MAR Unhold - Provider: User Epic) sodium chloride [...] Transfer Orders)0834 (Anesthesia Volume Adjustment - Provider: Jessicabrando Gonzalez)0835 (New Bag - Provider: Jessica Clarissa Gonzalez)0919 (Anesthesia Volume Adjustment - Provider: Jessica Clarissa Gonzalez)0920 (Infusion Stop Time - Provider: Jessica Gonzalez)0946 (New Bag - Provider: Jessica Gonzalez)0952 (NOV Unhold - Provider: User Epic)0953 (Anesthesia Volume Adjustment - Provider: Jessica Gonzalez) PRN Medication Order 02/18/2018 02/19/2018 02/20/2018 diphenhydrAMINE (BENADRYL) 12.5 MG/5ML elixir 25 mg(Linked Group 2) 25 mg, Oral, Every 6 hours PRN, Itching, Starting on 02/18/18 at 1213, Until Ann Marie 02/20/18 at 1403, Give if unable to swallow tablets/capsules or if patient prefers liquid., Post-Op diphenhydrAMINE (BENADRYL) capsule 25 mg(Linked Group 2) 25 mg, Oral, Every 6 hours PRN, Itching, Starting on 02/18/18 at 1213, Until Ann Marie 18 at 1403, Post-Op diphenhydrAMINE (BENADRYL) injection 25 mg(Linked Group 2) 25 mg, Intravenous, Every 6 hours PRN, Itching, Starting on 02/18/18 at 1213, Until Ann Marie 18 at 1403, Give if unable to take PO. For IV administration, give no faster than 25 mg/min., Post-Op fentaNYL (SUBLIMAZE) injection 50 mcg (CANCELED) 50 mcg, Intravenous, Every 5 min PRN, Severe pain (Scale 8 - 10), 5 doses, Starting on e 02/18/18 at 1009, Until 02/18/18 at 1209, [...] 1403, Post-Op 2136 (Given - Provider: Elizabeth Meyer RN) oxyCODONE immediate release (ROXICODONE) tablet 5 mg 5 mg, Oral, Every 4 hours PRN, Moderate pain (Scale 4 - 7), Starting on e 02/18/18 at 1213, Until Ann Marie 02/20/18 at 1403, Post-Op 0552 (Given - Provider: Elizabeth Meyer RN)0938 (Given - Provider: Yarely Ball RN)1351 (Given - Provider: Yarely Ball, RN)1819 (Given - Provider: Yarely Ball, GRADY)2214 (Given - Provider: Elizabeth Meyer RN) ROpivacaine [...] at 0900, Until Sat02/18/18 at 1209, Intra-Op 0900 (Given - Provider: [...] Every 6 hours PRN, Itching, Starting on 02/18/18 at 1213, Until Ann Marie 02/20/18 at 1403, Give if unable to swallow tablets/capsules or if patient prefers liquid., Post-Op documented in this encounter Care Teams Embroiderer Relationship Specialty Start Date End Date Kaushal Han MD [address] [place] [phone] PCP - General FAMILY PRACTICE 01/31/18 Jose Luis Munroe MD [address] [place] [phone] ORTHOPAEDICS 02/05/18 documented as of this encounter
--- OUTSIDE RECORDS SUMMARY | 2024-10-02 01:49 | XMS_ITS | Encounter Summary ---
Author Organization [facility] Address [facility]. [id number] Care Team Providers Care Reproduction Technician Name Role Phone Kaushal Han MD Primary Care Provider Jose Luis Rain MD Unavailable [phone] Encounter Details Date Type Department Care Team (Latest Contact Info) Description 02/03/2018 Abstract [facility] Medical Group Jose Luis Rain MD [address] [place] [address] Social History Tobacco Use Types Packs/Day Years [...] Associated Diagnosis Comments XR CHEST PA+LAT Routine 02/03/2018 1:00 PM CDT documented in this encounter Results * XR CHEST PA+LAT (02/03/2018 1:00 PM CDT) Anatomical Region Laterality Modality Chest Radiographic Lary ging 02/03/2018 1:00 PM CDT 02/03/2018 1:00 PM CDT Narrative 02/03/2018 1:01 PM CDT Examination: Chest x-ray 2 view Exam date/time: 02/03/2018 12:10 PM Reason For Exam: ??preop ? Cough, short of breath Comparison: None Technique: PA and lateral views of the chest were obtained. Findings: Heart size is at the upper limits of normal. Pulmonary vasculature unremarkable. No infiltrate. No effusion. Lungs do not appear hyperinflated. =====IMPRESSION:===== 1. No radiographic evidence of active disease the chest. Procedure Note Alan Robin MD - 07/23/2018 Examination: Chest x-ray 2 view Exam date/time: 02/03/2018 12:10 PM Reason For Exam: preop Cough, short of breath Comparison: None Technique: PA and lateral views of the chest were obtained. Findings: Heart size is at the upper limits of normal. Pulmonary vasculature unremarkable. No infiltrate. No effusion. Lungs do notappear hyperinflated. =====IMPRESSION:===== 1. No radiographic evidence of active disease the chest. Jose Luis Rain MD GENERAL IMAGING Final Result documented in this encounter Visit Diagnoses Not on filedocumented in this encounter Care Teams Reproduction Technician Relationship Specialty Start Date End Date Kaushal Han MD [address] [place] [phone] PCP - General FAMILY PRACTICE 01/31/18 Jose Luis Rain MD [address] [place] [phone] ORTHOPAEDICS 02/05/18 documented as of this encounter
--- OUTSIDE RECORDS SUMMARY | 2024-10-02 01:49 | XMS_ITS | Encounter Summary ---
Author Organization [facility] Address [address] [place] [address]. [place] [address] [place] [address] Care Team Providers Care Supervisor Salvage Name Role Phone Kaushal Han MD Primary Care Provider Encounter Details Date Type Department Care Team (Latest Contact Info) Description 02/03/2018 12:09 PM CDT - 02/03/2018 11:59 PM CDT Hospital Encounter [facility] [address] [address] Jose Luis Rain MD [address] [place] [address] Discharge Disposition: Home or Self Care (Routine [...] 02/20/2018 07/09/2018 documented as of this encounter Plan of Treatment Not on file documented as of this encounter Procedures Procedure Name Priority Date/Time Associated Diagnosis Comments XR CHEST PA+LAT Today 02/03/2018 12:39 PM CDT Preop examination documented in this encounter Results * XR CHEST PA+LAT (02/03/2018 12:39 PM CDT) Anatomical Region Laterality Modality Chest Radiographic Lary ging 02/03/2018 12:5 9 PM CDT Impressions 02/03/2018 12:59 PM CDT =====IMPRESSION:===== 1. No radiographic evidence of active disease the chest. Narrative 02/03/2018 12:59 PM CDT Examination: Chest x-ray 2 view Exam date/time: 02/03/2018 12:10 PM Reason For Exam: ??preop ? Cough, short of breath Comparison: None Technique: PA and lateral views of the chest were obtained. Findings: Heart size is at the upper limits of normal. Pulmonary vasculature unremarkable. No infiltrate. No effusion. Lungs do not appear hyperinflated. Procedure Note Sanjiv Mcwilliams MD - 02/03/2018 Examination: Chest x-ray 2 view Exam date/time: 02/03/2018 12:10 PM Reason For Exam: preop Cough, short of breath Comparison: None Technique: PA and lateral views of the chest were obtained. Findings: Heart size is at the upper limits of normal. Pulmonary vasculature unremarkable. No infiltrate. No effusion. Lungs do notappear hyperinflated. =====IMPRESSION:===== 1. No radiographic evidence of active disease the chest. us Jose Luis Rain MD GENERAL IMAGING Final Result documented in this encounter Visit Diagnoses Not on filedocumented in this encounter Care Teams Supervisor Salvage Relationship Specialty Start Date End Date Kaushal Han MD [address] [place] [phone] PCP - General FAMILY PRACTICE 01/31/18 documented as of this encounter
--- OUTSIDE RECORDS SUMMARY | 2024-10-02 01:49 | XMS_ITS | Encounter Summary ---
Author Organization [facility] Address [facility]. [place], [place] [address] [place] [address] Care Team Providers Care Turn Down Man Name Role Phone Kaushal Han MD Primary Care Provider Jose Luis Rain MD Unavailable [phone] Encounter Details Date Type Department Care Team (Latest Contact Info) Description 02/17/2018 Abstract [facility] Medical Group Social History Tobacco [...] on filedocumented in this encounter Care Teams Turn Down Man Relationship Specialty Start Date End Date Kaushal Han MD [address] [place] [phone] PCP - General FAMILY PRACTICE 01/31/18 Jose Luis Rain MD [address] [place] [phone] ORTHOPAEDICS 02/05/18 documented as of this encounter
--- OUTSIDE RECORDS SUMMARY | 2024-10-02 01:49 | XMS_ITS | Encounter Summary ---
Author Organization [facility] Address [facility]6 [facility] [place] [address] [place] [address] Care Team Providers Care Case Manager Name Role Phone Kaushal Han MD Primary Care Provider Jose Luis Rain MD Unavailable [phone] Anjum Rajan MD Unavailable [phone] Encounter Details Date Type Department Care Team (Late st Contact Info) Description 12/03/2001 Abstract [facility] [address] [place] [address] , Generic Conversion, Social History Tobacco Use [...] on filedocumented in this encounter Care Teams Case Manager Relationship Specialty Start Date End Date Kaushal Han MD [address] [place] [phone] PCP - General FAMILY PRACTICE 01/31/18 Jose Luis Rain MD [address] [place] [phone] ORTHOPAEDICS 02/05/18 Anjum Rajan MD [address] [address] CARDIOVASCULAR DISEASE 07/16/18 documented as of this encounter
--- OUTSIDE RECORDS SUMMARY | 2024-10-02 01:49 | XMS_ITS | Encounter Summary ---
Author Organization [facility] Address [facility]6 [facility] [place] [address] [place] [address] Care Team Providers Care Sample Processor Name Role Phone Kaushal Han MD Primary Care Provider Jose Luis Rain MD Unavailable [phone] Encounter Details Date Type Department Care Team (Late st Contact Info) Description 02/03/2018 Abstract [facility] Medical Group Multispecialty Care - [facility] 3 [facility] [address] [place] [phone] Jose Luis Rain MD [address] [place] [address] Social History Tobacco Use Types Packs/Day Years [...] Sign Reading Time Taken Comments Blood Pressure 172/82 02/03/2018 9:53 AM CDT Pulse 73 02/03/2018 9:53 AM CDT Temperature - - Respiratory Rate - - Oxygen Saturation - - Inhaled Oxygen Concentration - - Weight 88.2 kg (194 lb 7 oz) 02/03/2018 9:53 AM CDT Height - - Body Mass Index 35.56 02/03/2018 12:00 AM CDT documented in this encounter H&P Notes * Jose Luis Rain MD - 02/03/2018 10:00 AM CDT History of Present Illness CHIEF COMPLAINT: Bilateral hip pain. HISTORY OF PRESENT ILLNESS: Ms. Gipson is here for followup of her right hip, planning for right total hip arthroplasty. She has failed conservative management with chiropractic and medications. Nothing seems to help her. She has [...] 5 feet 2, 195 pounds. She has unsteady gait and pain with any movementof the hip. When I bring her up to 90 degrees hip flexion, she has a few degrees internal rotation,about 30 degrees external rotation. On the left [...] 2-day hospital stay, aspirin for DVT prophylaxis. Active Problems 1. Hip pain (719.45) (M25.559) 2. Osteoarthritis of left hip (715.95) (M16.12) 3. Osteoarthritis of right hip (715.95) (M16.11) Past Medical History 1. History of Migraines [...] Roll-On LIQD; Therapy: (Recorded:20Dec2017) to Recorded 2. Ibuprofen 200 MG Oral Capsule; Therapy: (Recorded:20Dec2017) to Recorded Vitals Recorded: 03Feb2018 09:53AM Heart Rate 73 Systolic 172 Diastolic 82 Weight 194 lb 7 oz BMI Calculated 35.56 BSA Calculated 1.89 Assessment 1. Osteoarthritis of right hip (715.95) (M16.11) Signatures Electronically signed by : Jose Luis Rain M.D.; Feb 04 2018 11:08AM PHARMACY CLINICAL SPECIALIST (Author) documented in this encounter Plan of Treatment Not on file documented as of this encounter Visit Diagnoses Not on filedocumented in this encounter Care Teams Sample Processor Relationship Specialty Start Date End Date Kausahl Han MD [address] [place] [phone] PCP - General FAMILY PRACTICE 01/31/18 Jose Luis Rain MD [address] [place] [phone] ORTHOPAEDICS 02/05/18 documented as of this encounter
--- OUTSIDE RECORDS SUMMARY | 2024-10-02 01:49 | XMS_ITS | Encounter Summary ---
Author Organization [facility] Address [facility]6 [facility] [place] [address] [place] [address] Care Team Providers Care Sandwich And Drink Cart Operator Name Role Phone Kaushal Han MD Primary Care Provider Jose Luis Rain MD Unavailable [phone] Anjum Rajan MD Unavailable [phone] Encounter Details Date Type Department Care Team (Late st Contact Info) Description 07/23/[address] [facility] [address] [facility] [place] [address] Kaushal Han MD [address] [place] [phone] Social History Tobacco Use Types Packs/Day Years [...] on filedocumented in this encounter Care Teams Sandwich And Drink Cart Operator Relationship Specialty Start Date End Date Kaushal Han MD [address] [place] [phone] PCP - General FAMILY PRACTICE 01/31/18 Jose Luis Rain MD [address] [place] [phone] ORTHOPAEDICS 02/05/18 Anjum Rajan MD [address] [address] CARDIOVASCULAR DISEASE 07/16/18 documented as of this encounter
--- OUTSIDE RECORDS SUMMARY | 2024-10-02 01:49 | XMS_ITS | Encounter Summary ---
Author Organization [facility] Address [facility]6 [facility] [place] [place] [address] [place] [address] Care Team Providers Care Hand Splitter Name Role Phone Kaushal Han MD Primary Care Provider Jose Luis Rain MD Unavailable [phone] Reason for Visit * Reason Onset Date Comments Follow Up Call 02/21/2018 Encounter Details Date Type Department Care Team (Late st Contact Info) Description 02/21/2018 Telephone [facility] Med/Surg 3rd [place], [place] [phone] Asuncion Stallings, RN Follow Up Call Social [...] on filedocumented in this encounter Care Teams Hand Splitter Relationship Specialty Start Date End Date Kaushal Han MD [address] [place] [phone] PCP - General FAMILY PRACTICE 01/31/18 Jose Luis Rain MD [address] [place] [phone] ORTHOPAEDICS 02/05/18 documented as of this encounter
--- OUTSIDE RECORDS SUMMARY | 2024-10-02 01:49 | XMS_ITS | Encounter Summary ---
Author Organization [facility] Address [facility]6 [facility] [place] [address] [place] [address] Care Team Providers Care City Surveyor Name Role Phone Kausahl Han MD Primary Care Provider Jose Luis Rain MD Unavailable [phone] Encounter Details Date Type Department Care Team (Latest Contact Info) Description 02/18/2018 Abstract [facility] Jose Luis Rain MD [address] [place] [address] Social History Tobacco Use Types Packs/Day Years [...] Diagnosis Comments XR PEL W HIP LAT RT Routine 02/18/2018 1 0:05 AM CDT documented in this encounter Results * XR PEL W HIP LAT RT (02/18/2018 10:05 AM CDT) Anatomical Region Laterality Modality Pelvis, Hip Radiographic Lary ging 02/18/2018 10:0 5 AM CDT 02/18/2018 10:05 AM CDT Narrative 02/18/2018 10:39 AM CDT Examination: X-ray pelvis with hip [...] =====IMPRESSION:===== Right hip arthroplasty in good position. Procedure Note Alan Robin MD - 07/23/2018 Examination: X-ray pelvis with hip lateral right [...] hip arthroplasty in good position. Jose Luis Rain MD GENERAL IMAGING Final Result documented in this encounter Visit Diagnoses Not on filedocumented in this encounter Care Teams City Surveyor Relationship Specialty Start Date End Date Kaushal Han MD [address] [place] [phone] PCP - General FAMILY PRACTICE 01/31/18 Jose Luis Rain MD [address] [place] [phone] ORTHOPAEDICS 02/05/18 documented as of this encounter
--- OUTSIDE RECORDS SUMMARY | 2024-10-02 01:49 | XMS_ITS | Encounter Summary ---
Author Organization [facility] Address [facility]6 [facility] [place] [address] [place] [address] Care Team Providers Care Director Alumni Relations Name Role Phone Kaushal Han MD Primary Care Provider Jose Luis Rain MD Unavailable [phone] Encounter Details Date Type Department Care Team (Late st Contact Info) Description 12/20/2017 Abstract [facility] Medical Group Multispecialty Care - [facility] 3 [facility] [address] [place] [phone] Jose Luis Rain MD [address] [place] [address] Social History Tobacco Use Types Packs/Day Years Used Date Smoking Tobacco: Never Assessed Comments Unknown Sex and Gender Information Value Date Recorded Sex Assigned at Not on file Legal Sex Female 10:51 AM CDT Gender Identity Not on file Sexual Orientation Not on file documented as of this encounter Last Filed Vital Signs Vital Sign Reading Time Taken Comments Blood Pressure 170/96 12/20/2017 10:11 AM CDT Pulse 82 12/20/2017 10:11 AM CDT Temperature - - Respiratory Rate - - Oxygen Saturation - - Inhaled Oxygen Concentration - - Weight 88.9 kg (196 lb) 12/20/2017 10:11 AM CDT Height 157.5 cm (5' 2 ) 12/20/2017 10:11 AM CDT Body Mass Index 35.85 12/20/2017 10:11 AM CDT documented in this encounter Progress Notes * Jose Luis Rain MD - 12/20/2017 10:20 AM CDT History of Present Illness REFERRING DOCTOR: Dr. Atif Miguel, [place], [place], [address] [facility], [address]. CHIEF COMPLAINT: Legs and back issues. HISTORY OF PRESENT ILLNESS: Ms. Gipson is a 67-year-old female referred to me by Kristian Miguel. She tells me that she has been unable to walk and has been having difficulty for a long time. She thinks it has been 6 to 8 months. 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 The pain is in both legs, at times one leg worse than the other but it is definitely both legs and in the buttocks and thighs of both legs. She also gets groin pain and tightness. She feels like it is difficult for her to move her legs and she is just not walking well. Her confirms this. He is with her today in the exam room. Medications do not seem to help. Chiropractic treatment does not seem to be helping at this point in time. She uses topical medications which may give her some relief. It is significantly impacting her daily living activities. PHYSICAL EXAMINATION: She is 5 feet 2, 195 pounds. She has quite a bit of difficulty walking down the foy, very antalgic and somewhat unsteady gait. On exam of the right hip, she has pain with hip flexion and some weakness. Pain and weakness with left hip as well. When I bring her up to 90 degreeship flexion on that right side, she does not have any internal rotation. She is missing a few degrees actually. External rotation is about 30 degrees. On the left side, it is probably about 40 degrees external rotation at the 90-degree hip flexion sarah and 5 to 10 degrees internal rotation. Pain with all range of motion of the bilateral hips. Negative straight leg raise bilaterally. She has 5/5 strength with knee extension, ankle plantarflexion and dorsiflexion as well. Leg lengths are equal. Dorsalis pedis pulses are palpable. IMAGING: AP pelvis and two views of the left hip, AP and shoot-through lateral, show moderate to severe left hip osteoarthritis. No significant deformity. No fractures. AP pelvis and two views of theright hip, AP and shoot-through lateral, show severe osteoarthritis with subchondral cyst formation. No fractures are noted nor is there significant deformity. ASSESSMENT 1. Right hip osteoarthritis, severe. 2. Left hip osteoarthritis, moderate. PLAN: Right total hip arthroplasty. I have discussed with the patient that this does seem to be primarily a hip problem rather than a back problem, although there may be a component of lumbar spine pathology. Given the severity of her arthritis on x-rays and examination, I think she requires a right total hip arthroplasty. We have discussed risks, benefits, and convalescence period. Overall, I think she would very well. She just has 2 to 3 steps to get in to her house and then she is all in one-level. Her can help take care of her as well. I am going to see her back preoperatively fora discussion. We do not need further x-rays. I have told her I want her to go see a primary care doctor since she does not have one and she has not seen anyone in a long time. I am going to see her back preoperatively for discussion. Review of Systems Constitutional: negative. Head and Face: negative. Eyes: negative. ENT: scratchy throat and sneezing. Cardiovascular: negative. Respiratory: cough. Gastrointestinal: negative. Genitourinary: nocturia. Musculoskeletal: diffuse joint pain, joint swelling, pain in other joints, generalized muscle aches, joint stiffness and limping. Integumentary negative. Breasts Negative. Psychiatric: negative. Hematologic and Lymphatic: negative. Neurological migraine headache, leg weakness, tingling and difficulty walking. Endocrine muscle weakness and generalized decrease in strength. Active Problems 1. Hip pain (719.45) (M25.559) Past Medical History 1. History of Migraines (346.90) (G43.909) 2. History of Overweight (278.02) (E66.3) Surgical History 1. no history of surgery Family History Mother 1. Family history of hypertension (V17.49) (Z82.49) 2. Family history of malignant neoplasm (V16.9) (Z80.9) Social History ?? Does not exercise (V69.0) (Z72.3) ? Never a smoker ?? No alcohol use ?? No illicit drug use Current Meds 1. Aspercreme Max Roll-On LIQD; Therapy: (Recorded:20Dec2017) to Recorded 2. Ibuprofen 200 MG Oral Capsule; Therapy: (Recorded:20Dec2017) to Recorded Allergies 1. No Known Drug Allergies Vitals Recorded: 20Dec2017 10:11AM Heart Rate 82 Systolic 170 Diastolic 96 Not able to obtain height Patient stated height Height 5 ft 2 in Weight 196 lb BMI Calculated 35.85 BSA Calculated 1.9 Assessment 1. Osteoarthritis of left hip (715.95) (M16.12) 2. Osteoarthritis of right hip (715.95) (M16.11) Plan Hip pain 1. XY Pelvis and Hip Lt NC; Status:Complete; Done: 20Dec2017 09:55AM 2. XY Pelvis and Hip Rt NC; Status:Complete; Done: 20Dec2017 09:54AM Signatures Electronically signed by : Jose Luis Rain M.D.; Dec 24 2017 6:58AM DENTAL FLOSS PACKER (Author) documented in this encounter Plan of Treatment Not on file documented as of this encounter Procedures Procedure Name Priority Date/Time Associated Diagnosis Comments XR PELVIS AP+LT HIP 2V Routine 12/20/2017 9:55 AM CDT XR PELVIS AP+RT HIP 2V Routine 12/20/2017 9:54 AM CDT documented in this encounter Results * XR PELVIS AP+LT HIP 2V (12/20/2017 9:55 AM CDT) Anatomical Region Laterality Modality Pelvis, Hip Radiographic Lary ging 12/20/2017 9:55 AM CDT 12/20/2017 9:55 AM CDT Narrative 12/23/2017 7:21 AM CDT Radiology image is available. Click on Image Link above. Procedure Note Jose Luis Rain MD - 07/25/2018 Radiology image is available. Click on Image Link above. us Jose Luis Rain MD GENERAL IMAGING Final Result * XR PELVIS AP+RT HIP 2V (12/20/2017 9:54 AM CDT) Anatomical Region Laterality Modality Pelvis, Hip Radiographic Lary ging 12/20/2017 9:54 AM CDT 12/20/2017 9:54 AM CDT Narrative 12/23/2017 7:21 AM CDT Radiology image is available. Click on Image Link above. Procedure Note Jose Luis Rain MD - 07/24/2018 Radiology image is available. Click on Image Link above. us Jose Luis Rain MD GENERAL IMAGING Final Result documented in this encounter Visit Diagnoses Not on filedocumented in this encounter Care Teams Director Alumni Relations Relationship Specialty Start Date End Date Kaushal Han MD [address] [place] [phone] PCP - General FAMILY PRACTICE 01/31/18 Jose Luis Rain MD [address] [place] [phone] ORTHOPAEDICS 02/05/18 documented as of this encounter
--- OUTSIDE RECORDS SUMMARY | 2024-10-02 01:49 | XMS_ITS | Encounter Summary ---
Author Organization [facility] Address [address] [place] [address]. [place] [address] [place] [address] Care Team Providers Care Landfill Gas Plant Field Technician Name Role Phone Kaushal Han MD Primary Care Provider Jose Luis Rain MD Unavailable [phone] Encounter Details Date Type Department Care Team (Latest Contact Info) Description 02/03/2018 Abstract [facility] Jose Luis Rain MD [address] [place] [phone] Social History Tobacco Use Types Packs/Day Years [...] Comments CULTURE RESPIRATORY W/ GRAM STAIN Routine 02/03/2018 12:50 PM CDT documented in this encounter Results * CULTURE RESPIRATORY W/ GRAM STAIN (02/03/2018 12:50 PM CDT) CULTURE RESULT SPECIMEN DESCRIPTION ? - NASAL SPECIAL REQUESTS ? - NO SPECIAL REQUEST CULTURE ?- NO STAPHYLOCOCCUS AUREUS ISOLATED REPORT STATUS ?- FINAL 02/05/2018 [facility] TO EPIC CONVERSION 02/03/2018 12:5 0 PM CDT 02/03/2018 12:50 PM CDT Narrative [facility] TO EPIC CONVERSION - 02/05/2018 11:02 AM CDT Result Communication: No patient communication needed at this time Jose Luis Rain MD MICROBIOLOGY - GENERAL ORDER JACQUIE Final Result [facility] TO EPIC CONVERSION documented in this encounter Visit Diagnoses Not on filedocumented in this encounter Care Teams Landfill Gas Plant Field Technician Relationship Specialty Start Date End Date Kaushal Han MD [address] [place] [phone] PCP - General FAMILY PRACTICE 01/31/18 Jose Luis Rain MD [address] [place] [phone] ORTHOPAEDICS 02/05/18 documented as of this encounter
--- OUTSIDE RECORDS SUMMARY | 2024-10-02 01:49 | XMS_ITS | Encounter Summary ---
Author Organization [facility] Address [address] [place] [address]. [place] [address] [place] [address] Care Team Providers Care Wool Carder Name Role Phone Kaushal Dixon MD Primary Care Provider Encounter Details Date Type Department Care Team (Latest Contact Info) Description 02/03/2018 9:30 AM CDT - 02/03/2018 12:31 PM CDT Hospital Encounter [facility] [place] [address] Jose Luis Dwyer MD [address] [place] [address] Discharge Disposition: Home or Self Care (Routine [...] Sign Reading Time Taken Comments Blood Pressure 154/87 02/03/2018 11:00 AM CDT Pulse 66 02/03/2018 11:00 AM CDT Temperature - - Respiratory Rate 18 02/03/2018 11:00 AM CDT Oxygen Saturation 97% 02/03/2018 11:00 AM CDT Inhaled Oxygen Concentration - - Weight 89.8 kg (198 lb) 02/03/2018 12:00 AM CDT Height 157.5 cm (5' 2 ) 02/03/2018 12:00 AM CDT Body Mass Index 36.21 02/03/2018 12:00 AM CDT documented in this encounter Medications [...] Progress Notes * Lurdes Dixon, PT - 02/03/2018 11:23 AM CDT Pre-Operative Hip Evaluation Date: 02/03/2018 Name: Deb Gipson : 1950 Subjective: Patient presents with diagnosis of RIGHT HIP OA. History includes Pre-op RightHip.HTN, FX LEFT 5TH METATARSAL ', OBESITY Surgery scheduled for Right Total Hip Replacement. Patient has had hip pain since 01/29/16. Patient lives with assistance. Patient lives in [address] home. Steps to enter none.HAS A RAMP Paitent is independent with ADL???s. Patient does not have difficulties with other joints with does not affect function. Comments: SOMETIMES HER RIGHT KNEE POPS BUT DOES NOT HURT. Objective: General Observations: Height: 5'2 Weight: 198 LBS BMI: 36.2. 1. Bed Mobility requires: indep Transfers require: indep TO MODIFIED INDEP DUE TO NEEDING CHAIR TO HOLD TO. Gait pattern is SLOW, SIDE TO SIDE LIMP WITH DECREASED WB RIGHT LE. Comments: HAS STD WALKER AT HOME AND CAN GET A W/W. IS THINKING ABOUT USING A CANE FOR SAFETY. INSTRUCTED IN GT TRG WITH CANE. 2. Activity Limitations: WALKING 3. Standardized Test: NA 4. Patient ambulates withoutan assistive device and does not need assistance. BUT GAIT IS ANTALGIC AND SUGGESTED USING AD. 5. ROM 1. Right Upper Extremity:WNL 2. Right Lower Extremity: IR 5 DEG, ER 15 DEG, FLEX 95 DEG, EXT 5 DEG, ABD 15 DEG. 3. Left Upper Extremity: WNL 4. Left Lower Extremity: WNL 6. Strength 1. Right Upper Extremity: WNL 2. Right Lower Extremity: PAINFUL WITH 3-/5 TO 3/5 STRENGTH IN HIP, KNEE AND ANKLE DF 4/5. 3. Left Upper Extremity: WNL 4. Left Lower Extremity: WNL 8. Patient educated in total hip replacement exercises including quad sets, gluteal sets, active assistive straight leg raises, hip flexion/extension, supine abduction, and ankle pumps. 9. Patient educated in [...] Patient: Evolving Changing Characteristics (MOD) due to PAIN, ANTALGIC GAIT, DEC ROM AND STRENGTH Evaluation: Moderate Rehab Potential: good Goals: Met/Not Met Met 1. Instruct patient in total hip replacement precautions, exercises and gait training prior to surgery. Met 2. Patient voiced understanding of protocol for surgery. Medicare (G-CODESROM, STRENGTH, PAIN, LIMP DURING GAIT) (Based on: DEC ROM/STRENGTH, DEC GAIT/INC LIMP, PAIN) Timed Code Tx Minutes 30 Units 1 Total Tx Time 23 MINS 30 Mod Plan: Inpatient Discharge plans: After 2-3 days home WITH [facility] Other Comments: Therapist: LURDES DIXON PT Date: 02/03/18 Time: 11:23 AM documented in this encounter OR Notes * OR PreOp - Arcelia Rodríguez RN - 02/03/2018 12:31 PM CDT All labs sent to pcp and dr dwyer * OR PreOp - Arcelia Rodríguez RN - 02/03/2018 11:30 AM CDT Patient can climb 2 flights of stairs without chest pain but might be sob; Exercise tolerance worsenow than it was 6 months ago due to hip surgery Had ekg at primary 2 weeks ago pcp-Dr. Emely Hylton family Cardio-nione ' Plans to return home after surgery Currently not working Currently driving Lives with spouse No animals No recent hospitalizations Stairs to access home-0 Does own a thermometer documented in this encounter Plan of Treatment Not on file documented as of this encounter Procedures Procedure Name Priority Date/Time Associated Diagnosis Comments CULTURE RESPIRATORY W/ GRAM STAIN Routine 02/03/2018 12:50 PM CDT Preop examination XR CHEST PA+LAT Today 02/03/2018 12:39 PM CDT Preop examination TYPE & SCREEN Routine 02/03/2018 11:45 AM CDT Preop examination SED RATE, ERYTHROCYTE (ESR) Routine 02/03/2018 11:45 AM CDT Preop examination BASIC METABOLIC PANEL Routine 02/03/2018 11:45 AM CDT Preop examination C-REACTIVE PROTEIN Routine 02/03/2018 11 :45 AM CDT Preop examination CBC W/DIFF AUTOMATED Routine 02/03/2018 11:45 AM CDT Preop examination documented in this encounter Results * CULTURE RESPIRATORY W/ GRAM STAIN (02/03/2018 12:50 PM CDT) SPEC DESCRIPTION NASAL 02/03/2018 12:50 PM CDT [facility] SPECIAL REQUESTS NO SPECIAL REQUEST 02/03/2018 12:50 PM CDT [facility] CULTURE RESULT NO STAPHYLOCOCCUS AUREUS ISOLATED 02/05/2018 11:02 AM CDT [facility] SPECIMEN FROM INTERNAL NOSE / Unknown 02/03/2018 12:50 PM CDT 02/03/2018 12:52 PM CDT Jose Luis Dwyer MD MICROBIOLOGY - GENERAL ORDER JACQUIE Final Result [facility] [address] [place] [address], * XR CHEST PA+LAT (02/03/2018 12:39 PM [...] active disease the chest. us Jose Luis Dwyer MD GENERAL IMAGING Final Result * TYPE & SCREEN (02/03/2018 11:45 AM CDT) ABO/RH A POSITIVE 02/03/2018 2:39 PM CDT [facility] ANTIBODY SCREEN NEGATIVE 02/03/2018 2:39 PM CDT [facility] SAMPLE EXPIRATION 02/21/2018 02/18/2018 5:49 AM CDT [facility] COMMENT NO HISTORY OF TRANSFUSIONS , OR ANTIBODIES, NEW SPECIMEN NOT NEEDED 02/18/2018 5:49 AM CDT [facility] 02/03/2018 11:4 5 AM CDT us Jose Luis Dwyer MD BLOOD BANK TEST ORDERABLES F inal Result [facility] [address] [place] [address], [place] [phone] * C-REACTIVE PROTEIN (02/03/2018 11:45 AM CDT) C-REACTIVE PROTEIN <0.29 <0.29 mg/dL 02/03/2018 2:10 PM CDT [facility] 02/03/2018 11:4 5 AM CDT us Jose Luis Dwyer MD LABORATORY Final Result [facility] [address] [place] [address], * SED RATE, ERYTHROCYTE (ESR) (02/03/2018 11:45 AM CDT) ESR 16 0 - 30 mm/hr 02/03/2018 2:38 PM CDT [facility] 02/03/2018 11:4 5 AM CDT Jose Luis Dwyer MD LABORATORY Final Result [facility] [address] [place] [address], * (ABNORMAL) BASIC METABOLIC PANEL (02/03/2018 11:45 AM CDT) Pathologist [facility] GLUCOSE 85 70 - 99 MG/DL 02/03/2018 2:10 PM CDT [facility] BUN 19(H) 7 - 18 MG/DL 02/03/2018 2:10 PM CDT [facility] CREATININE S/P/B 0.73 0.55 - 1.02 MG/DL 02/03/2018 2:10 PM CDT [facility] SODIUM S/P/B 144 136 - 145 MMOL/L 02/03/2018 2:10 PM CDT [facility] POTASSIUM S/P/B 4.1 3.5 - 5.1 MMOL/L 02/03/2018 2:10 PM CDT [facility] CHLORIDE S/P/B 110(H) 100 - 108 MMOL/L 02/03/2018 2:10 PM CDT [facility] CO2 28.1 21 - 32 MMOL/L 02/03/2018 2:10 PM CDT [facility] CALCIUM S/P/B 8.9 8.5 - 10.1 MG/DL 02/03/2018 2:10 PM CDT [facility] ANION GAP 10.0 8 - 20 MMOL/L 02/03/2018 2:10 PM CDT [facility] BUN CREATININE RATIO 25.9 6 - 26 02/03/2018 2:10 PM CDT [facility] EGFR NON-AFR. AMER. 84(L) >90 ML/MIN/1.7 3 M2 02/03/2018 2:10 PM CDT [facility] EGFR AFR. AMER. >90 >90 ML/MIN/1.7 3 M2 02/03/2018 2:10 PM CDT [facility] Comment: NOTE: eGFR is not calculated for patients <18 years of age. This is an estimated GFR (CKD EPI) and should not be used for calculating drug doses. 02/03/2018 11:4 5 AM CDT us Jose Luis Dwyer MD LABORATORY Final Result [facility] [address] [place] [address], [place] [phone] * (ABNORMAL) CBC W/DIFF AUTOMATED (02/03/2018 11:45 AM CDT) WBC 5.6 4.8 - 10.8 x10'3/uL 02/03/2018 12:32 PM CDT [facility] RBC 4.13(L) 4.20 - 5.40 x10'6/uL 02/03/2018 12:32 PM CDT [facility] HGB 11.9(L) 12.0 - 16.0 G/DL 02/03/2018 12:32 PM CDT [facility] HCT 38.2 38.0 - 48.0 % 02/03/2018 12:32 PM CDT [facility] MCV 92.5 81.0 - 99.0 FL 02/03/2018 12:32 PM CDT [facility] MCH 28.8 27.0 - 31.0 PG 02/03/2018 12:32 PM CDT [facility] MCHC 31.2(L) 32.0 - 36.0 G/DL 02/03/2018 12:32 PM CDT [facility] RDW 12.8 11.5 - 14.5 % 02/03/2018 12:32 PM CDT [facility] PLT 200 130 - 400 x10'3/uL 02/03/2018 12:32 PM CDT [facility] MPV 10.3 9.3 - 12.2 FL 02/03/2018 12:32 PM CDT [facility] NEUTROPHILS % 65.9(H) 43.0 - 65.0 % 02/03/2018 12:32 PM CDT [facility] LYMPHOCYTES % 25.7 20.0 - 46.0 % 02/03/2018 12:32 PM CDT [facility] MONOCYTES % 6.1 5.0 - 12.0 % 02/03/2018 12:32 PM CDT [facility] EOSINOPHILS 1.4 1.0 - 3.0 % 02/03/2018 12:32 PM CDT [facility] BASOPHILS 0.5 0.0 - 1.0 % 02/03/2018 12:32 PM CDT [facility] IMMATURE GRANS % 0.4 0.0 - 1.0 % 02/03/2018 12:32 PM CDT [facility] 02/03/2018 11:4 5 AM CDT Jose Luis Dwyer MD LABORATORY Final Result [facility] [address] [place] [address], documented in this encounter Visit Diagnoses Diagnosis Preop examination- Primary Preoperative examination, unspecified documented in this encounter Care Teams Wool Carder Relationship Specialty Start Date End Date Kaushal Dixon MD [address] [place] [phone] PCP - General FAMILY PRACTICE 01/31/18 documented as of this encounter
--- OUTSIDE RECORDS SUMMARY | 2024-10-02 01:49 | XMS_ITS | Encounter Summary ---
Author Organization [facility] Address [facility] [place] [address] [place] [address] Care Team Providers Care Felter Tennis Balls Name Role Phone Kaushal Han MD Primary Care Provider Jose Luis Rain MD Unavailable [phone] Anjum Rajan MD Unavailable [phone] Encounter Details Date Type Department Care Team (Late st Contact Info) Description 01/29/2018 [facility] [address] [place] [address] Kaushal Han MD [address] [place] [phone] Social History Tobacco Use Types Packs/Day [...] mammogram documented in this encounter Care Teams Felter Tennis Balls Relationship Specialty Start Date End Date Kaushal Han MD [address] [place] [phone] PCP - General FAMILY PRACTICE 01/31/18 Jose Luis Rain MD [address] [place] [phone] ORTHOPAEDICS 02/05/18 Anjum Rajan MD [address] [address] CARDIOVASCULAR DISEASE 07/16/18 documented as of this encounter
--- OUTSIDE RECORDS SUMMARY | 2024-10-02 01:49 | XMS_ITS | Encounter Summary ---
Author Organization [facility] Address [facility] [place] [address] [place] [address] Care Team Providers Care Ingot Passer Name Role Phone Kaushal Han MD Primary Care Provider Jose Luis Rain MD Unavailable [phone] Encounter Details Date Type Department Care Team (Late st Contact Info) Description 02/21/2018 Hospital Follow-up Call [facility] Med/Surg [address] [place] [address] Asuncion Stallings RN Social History Tobacco Use Types Packs/Day [...] on filedocumented in this encounter Care Teams Ingot Passer Relationship Specialty Start Date End Date Kaushal Han MD [address] [place] [phone] PCP - General FAMILY PRACTICE 01/31/18 Jose Luis Rain MD [address] [place] [phone] ORTHOPAEDICS 02/05/18 documented as of this encounter
--- OUTSIDE RECORDS SUMMARY | 2024-10-02 01:59 | XMS_ITS | Continuity of Care Document ---
Author Organization [facility] Address [address] [place] [address] [address] [place] [address] Phone Care Team Providers Care Paving Crew Foreman Name Role Phone Michele PEPPER FACS, Ovidio Unavailable Unavailab le Procedures Procedure Date Office/outpatient Visit, Est Office/outpatient Visit, Est Office/outpatient Visit, Est Office/outpatient Visit, Est Eye Exam, New Patient Advance Directives Directive Yes / No Effective Date File Name No Information Encounters Encounter Description Practice Location Reason(s) For Visit Diagnoses Date Provider Providers Copied on Encounter Office/outpat ient Visit, [facility], [id number] [place] [address] [address], [place], [place], [id number], tel:[phone] SEC Bladimir Pan No Information 0 Michele Nolan. [address] [place] [address] Drive, [address], [place], [place], [id number], [place]. tel:[phone] Referring Provider: Ray talavera, [address] [place] [address], [place], [place], [facility]. tel:[phone] Office/outpat ient Visit, [facility], [id number] [place] [address] [address], [place], [place], [id number], [place] tel:[phone] SEC [facility] No Information 0 Tree Bell. [address] [place] [address], [place], [address], [place]. tel:[phone] Office/outpat ient Visit, [facility], [address] [place] [address] [address], [place], [place], [id number], tel:[phone] [facility] [place] No Information 1-201 0 Krishnasamy Ray. [facility] [address], [facility], . tel:[phone] [facility]pat ient [facility], [facility], [address] [place] [address] [address], [place], [place], [id number], [place] tel:[phone] SEC [facility] No Information 8200 9 Krishnasamy Ray. [facility] [address], [facility], [place]. tel:[phone] [facility], [address] [place] [address] [address], [place], [place], [id number], tel:[phone] SEC [facility] No Information 7-200 9 Krishnasamy Ray. [address] [place] [address], [facility], . tel:[phone] Family History Family Member Type Diagnosis Age At Onset No Information Payers Payer name Insurance type Covered constitution party ID Authoriza tion(s) No Information Social History Type Description Quantity Date Captured Comments Sex Female Smoking Status No Information Chief Complaint And Reason For Visit No Information Reason For Referral Reason For Referral No Information History Of Present Illness Encounter Date Complaint History Of Prese nt Illness No Information Functional Status Date Functional Assessmen t No Information Instructions Date Instruction Additional Infor mation No Information Assessments Type Assessment Date No Information Patient Care Teams Name Effective Dates (start - stop) Status Members No Information
== END 2024-09-25 04:54 | disposition home or self-care (01) ==
PROVIDERS: Physician Assistant; Emergency Provider Emergency Medicine; PCP Physician Assistant
DX: K42.9 Umbilical hernia without obstruction or gangrene (principal); I10 Essential (primary) hypertension; J18.9 Pneumonia, unspecified organism
CPT/HCPCS: 36415; 74177; 80053; 81001; 83605; 83690; 85025; 87086; 96374; 96375; 99284; J2270; J2405; Q9967

== ENCOUNTER 2025-01-14 12:46 | Outpatient (CLI) | payer MEDICARE, BC, SELFPAY ==
--- NOTE | 2025-01-14 13:00 | ECG_ITS ---
Test Date: 2025-01-14 13:34:50 Measurements Intervals [place] Rate: 63 P: -54 WV: 172 QRS: -6 QRSD: 88 T: 56 QT: 415 QTc: 427 Interpretive Statements SINUS RHYTHM LEFT VENTRICULAR HYPERTROPHY WITH ST-T CHANGE BORDERLINE R WAVE PROGRESSION, ANTERIOR LEADS CONSIDER INFERIOR INFARCT, AGE INDETERMINATE BASELINE ARTIFACT- I, III, AVR, AVL ABNORMAL ECG No previous ECG available for comparison Electronically Signed On 01-14-2025 13:37:26 CDT by Nirmal Morrow D.O.
--- OUTSIDE RECORDS SUMMARY | 2025-01-14 13:15 | XMS_ITS | Clinical Summary ---
Author Organization [facility] Address Formerly [facility] [place] [address] Care Team Providers Care Elevator Worker Name Role Phone Kaushal Han MD Primary Care Provider Jose Luis Rain MD Unavailable [phone] Anjum Rajan MD Unavailable [phone] Allergies No known active allergies Medications lisinopril 10 MG tablet Take 1 tablet by mouth daily. 0 8 Active aspirin 81 MG chewable tablet Chew 81 mg by mouth daily. Active ondansetron (ZOFRAN-ODT) 4 MG disintegrating tablet Take 1 tablet (4 mg total) by mouth every 8 (eight) hours as needed for Nausea. 20 tablet 4 Active naloxone (NARCAN) 4 MG/0.1ML nasal spray 1 spray by Nasal route as needed for Opioid reversal. 1 each 4 Active Active Problems Problem Noted Date Diagnosed Date S/P hip replacement, right 09/01/2018 S/P hip replacement, left 02/18/2018 Resolved Problems Problem Noted Date Diagnosed Date Resolved Date Osteoarthritis of left hip, unspecified osteoarthritis type 07/22/2018 09/01/2018 Status post total replacement of hip 03/03/2018 03/24/2019 S/P total hip arthroplasty 02/18/2018 0 03/24/2019 Encounters Date Type Department Care Team Description 11/03/2024 10:18 AM MACHINE RIGGER - 11/03/2024 11:59 PM MACHINE RIGGER Hospital Encounter [facility] [address] [place] [address] Duane Rowan PA Discharge Disposition: Home or Self Care (Routine Discharge) 11/03/2024 Travel from Last 3 Months Family History [...] Comments Blood Pressure 145/90 09/21/2024 9:00 PM MACHINE RIGGER Pulse 68 09/21/2024 9:00 PM MACHINE RIGGER Temperature 37.1 C (98.7 F) 09/21/2024 5:25 PM MACHINE RIGGER Respiratory Rate 18 09/21/2024 8:30 PM MACHINE RIGGER Oxygen Saturation 100% 09/21/2024 9:00 PM MACHINE RIGGER Inhaled Oxygen Concentration - - Weight 83.5 kg (184 lb) 09/21/2024 5:25 PM MACHINE RIGGER Height 157.5 cm (5' 2 ) 09/21/2024 5:25 PM MACHINE RIGGER Body Mass Index 33.65 09/21/2024 5:25 PM MACHINE RIGGER Plan of Treatment Health Maintenance Due Date Last Done Comments Colorectal Cancer Screening Colonoscopy (10 Years) 1949 Hepatitis C 1967 DTaP, Tdap and Td Vaccines ( 1 - Tdap) 01/11/1968 Zoster Vaccines (1 of 2) 1999 Annual Medicare Wellness Visit 2014 Dexa Scan (General) 2014 Pneumococcal Vaccine: 50+ Ye ars (1 of 1 - PCV) 2014 RSV Immunization or 60+ Years (1 - 1-dose 75+ series) 01/11/2024 COVID-19 Vaccine ( - 2023-2 5 season) 2024 Meningococcal B Vaccine Aged Out No l onger eligible based on patient's age to complete this topic Meningococcal Vaccine Aged Out No teressa carmen eligible based on patient's age to complete this topic RSV Immunizations Under 20 Months Aged Out No longer eligible based on patient's age to complete this topic Medical Devices Implanted Type Area Color Maker Formulator Device Identifier Shelf Expiration Date Model / Serial / Lot Tridentx3 0 Degree Polyethylene Insert Implanted:Qty: 1 on 07/22/2018 by Jose Luis Rain MD at [facility] Hip Components Left: Hip [employer] 10/15/2022 623-00-3 6D / / [id number] Accolade 132 Neck Angle Hip Stem Implanted:Qty: 1 on 07/22/2018 by Jose Luis Rain MD at [facility] Hip Components Left: Hip [id number] 04/16/2023 6720-033 0 / / [id number] [employer] Delta Ceramic V40 Femoral Head Implanted:Qty: 1 on 07/22/2018 by Jose Luis Rain MD at [facility] Hip Components Left: Hip [employer] [id number] 03/29/2023 6570-0-2 36 / / [id number] Titanium Hemispherical Cluster Hole Shell Implanted:Qty: 1 on 07/22/2018 by Jose Luis Rain MD at [facility] Hip Components Left: Hip 11/19/2019 502-03-5 2D / / [id number] Torx Cancellous Bone Screw Implanted:Qty: 1 on 07/22/2018 by Jose Luis Rain MD at [facility] Hip Components Left: Hip [employer] [id number] 02/27/2023 5-1 / / [id number] Torx Cancellous Bone Screw Implanted:Qty: 1 on 07/22/2018 by Jose Luis Rain MD at [facility] Hip Components Left: Hip [id number] 02/27/2023 5-1 / / [id number] Cancellous Bone Screw Implanted:Qty: 1 on 02/18/2018 by Jose Luis Rain MD at [facility] Screw [employer] 11/27/20222029-652 0-1 / / [id number] Cancellous Bone Screw Implanted:Qty: 1 on 02/18/2018 by Jose Luis Rain MD at [facility] Screw [employer] 11/25/20222029-652 5-1 / / [id number] Hemispherical Cluster Hole Shell Implanted:Qty: 1 on 02/18/2018 by Jose Luis Rain MD at [facility] [employer] 01/01/2023 502-0305 4E / / [id number] Deg Polyethylene Insert Implanted:Qty: 1 on 02/18/2018 by Jose Luis Rain MD at [facility] [employer] 12/12/2022 623-00-3 6E / / [id number] Deg Neck Angle Hip Stem Implanted:Qty: 1 on 02/18/2018 by Jose Luis Rain MD at [facility] [employer] 12/03/2022 6720-033 0 / / [id number] Ceramic V40 Femoral Head Implanted:Qty: 1 on 02/18/2018 by Jose Luis Rain MD at [facility] [employer] 01/07/2023 6570-0-5 36 / / [id number] Procedures Procedure Name Priority Date/Time Associated Diagnosis Comments MG SCREENING W JAMILA DANNY DIGI Routine 11/03/2024 11:12 AM MACHINE RIGGER Encounter for screening mammogram for malignant neoplasm of breast from Last 3 Months Results * MG SCREENING W JAMILA DANYN DIGI (11/03/2024 11:12 AM MACHINE RIGGER) Anatomical Region Laterality Modality Breast Bilateral Mammography 11/03/2024 1:16 PM MACHINE RIGGER Impressions 11/03/2024 1:17 PM MACHINE RIGGER IMPRESSION: No suspicious change since the previous exams. Recommendation: 1: Routine Screening Bilateral in 1 Year Assessment: ACR BI-RADS 2 - BENIGN FINDING(S) Ordered By: DUANE ROWAN Interpreted By: Mervin Lafleur MD, 11/03/2024 1:16 PM Narrative 11/03/2024 1:17 PM MACHINE RIGGER [address] [place] [id number] Examination: Digital screening mammogram with CAD. Clinical history: Asymptomatic patient presents for routine screening. Comparison: 10/17/2023, 07/27/2022, 03/27/2021, 01/29/2018. Technique: Bilateral digital mammograms. The exam was interpreted with the use of a computer-aided detection (CAD) system. Additional 3-D tomosynthesis images were acquired. Tissue density: There are scattered areas of fibroglandular density. Findings: The breast tissue contains scattered fibroglandular densities. Benign-appearing calcification noted. No suspicious mass, microcalcification or area of architectural distortion can be identified. From a mammographic standpoint, routine followup in one year would seem adequate. [facility] Final Result from Last 3 Months Insurance MEDICARE [facility] Advance Directives * Full Code (Latest Code Status on File) Date Activated Date Inactivated Comments 07/22/2018 5:33 PM 07/24/2018 1:27 PM * Full Code Date Activated Date Inactivated Comments 02/18/2018 12:13 PM 02/20/2018 2:08 PM Care Teams Elevator Worker Relationship Specialty Start Date End Date Kaushal Han MD [address] [place] [phone] PCP - General FAMILY PRACTICE 01/31/18 Jose Luis Rain MD [address] [place] [phone] ORTHOPAEDICS 02/05/18 Anjum Rajan MD [facility] [address] [address] CARDIOVASCULAR DISEASE 07/16/18
--- OUTSIDE RECORDS SUMMARY | 2025-01-14 13:15 | XMS_ITS | Continuity of Care Document ---
Author Organization Merged with [facility] Address [address] [place] [address] [address] [place] [address] Phone Care Team Providers Care Marketing Sales Supervisor Name Role Phone Michele PEPPER FACS, Ovidio Unavailable Unavailab le Procedures Procedure Date Office/outpatient Visit, Est Office/outpatient Visit, Est Office/outpatient Visit, Est Office/outpatient Visit, Est Eye Exam, New Patient Advance Directives Directive Yes / No Effective Date File Name No Information Encounters Encounter Description Practice Location Reason(s) For Visit Diagnoses Date Provider Providers Copied on Encounter Office/outpat ient Visit, [facility], [address] [place] [address] [address], [place], [place], [id number], tel:[phone] SEC Bladimir Pan No Information 0 Michele Nolan. [address] [place] [address] Drive, [address], [place], [place], [id number], [place]. tel:[phone] Referring Provider: Ray talavera, [address] [place] [address], [place], [place], [facility]. tel:[phone] Office/outpat ient Visit, [facility], [address] [place] [address] [address], [place], [place], [id number], [place] tel:[phone] SEC [facility] No Information 0 Tree Bell. [address] [place] [address], [place], [address], [place]. tel:[phone] Office/outpat ient Visit, [facility], [address] [place] [address] [address], [place], [place], [id number], tel:[phone] SEC [facility] [place] No Information 1-201 0 Krishnasamy Ray. [facility] [address], [facility], . tel:[phone] [facility]pat [facility], [address] [place] [address] [address], [place], [place], [id number], [place] tel:[phone] SEC [facility] No Information 8200 [address] Krishnasamy Ray. [facility] [address], [facility], [place]. tel:[phone] [facility], [address] [place] [address] [address], [place], [place], [id number], tel:[phone] SEC [facility] No Information 7-200 9 Krishnasamy Ray. [address] [place] [address], [facility], . tel:[phone] Family History Family Member Type Diagnosis Age At Onset No Information Payers Payer name Insurance type Covered libertarian ID Authoriza tion(s) No Information Social History [...]
[2025-01-14 14:04] LABS: Basophils Percent Auto 0.8 % (0.2-1.2); Eosinophils Percent Auto 0.8 % (0-4.4); Hematocrit 41.6 % (37.0-47.0); Hemoglobin 12.8 g/dL (12.0-15.0); Immature Granulocyte Absolute 0.01 K/mm3 (0.00-0.031); Immature Granulocyte Percent A 0.2 % (0-0.5); Lymphocytes Absolute Auto 1.77 K/mm3 (0.9-3.2); Lymphocytes Percent Auto 35.3 % (18.3-44.2); Mean Corpuscular HGB Conc 30.8 g/dl (32-36); Mean Corpuscular Hemoglobin 29.3 pg (26-34); Mean Corpuscular Volume 95.2 fl (80-100); Mean Platelet Volume 10.7 fl (7.4-10.4); Monocytes Absolute Auto 0.4 K/mm3 (0.1-0.6); Monocytes Percent Auto 7.8 % (2.6-8.5); Neutrophils Absolute Auto 2.8 K/mm3 (1.3-6.7); Neutrophils Percent Auto 55.1 % (45.5-73.1); Platelet Count Result 173 k/mm3 (150-375); Red Blood Count 4.37 M/mm3 (4.2-5.4); Red Cell Distribution Width 12.4 % (11.5-14.5)
== END 2025-01-14 12:47 | disposition home or self-care (01) ==
LOC: ANHSURGERY 12:58
PROVIDERS: PCP Physician Assistant; Visit Provider Surgery
DX: K42.0 Umbilical hernia with obstruction, without gangrene (principal); I10 Essential (primary) hypertension; R94.31 Abnormal electrocardiogram [ECG] [EKG]
CPT/HCPCS: 36415; 85025; 86850; 86900; 86901; 93005

== ENCOUNTER 2025-01-20 01:14 | Day surgery (SDC) | payer MEDICARE, BC, SELFPAY ==
--- NOTE | 2025-01-11 12:09 | PC.NURSE ---
Report to the Outpatient Waiting Room, entrance under the green pavilion located off [facility], at time _10:30 am on date __01/20/25 . Planned Procedure Time: _12:30 pm .? Time changes happen often and if your time is changed the preop area will call you the afternoon before. - You and your visitor will be asked to self-screen and do not enter if you have any COVID symptoms. Please call surgeon if you need to reschedule. - A mask is optional within the hospital at this time. Patients may have clear liquids (water, carbonated beverages, clear teas, apple juice) until 3 hours prior to surgery ( 9:30 am) with a maximum of 20 ounces. - No food from midnight until time of surgery and no smoking, or chewing tobacco (or any form of nicotine). No chewing gum, candy or mints. - Take only the following medications with a SIP of water on the morning of surgery: none DO NOT STOP ANY OF YOUR OTHER PRESCRIPTION MEDICATIONS PRIOR TO SURGERY EXCEPT THE FOLLOWING Hold all vitamins and supplements for 3 days per anesthesiologist. Medications to discontinue per physician none Date to take last dose Please no make-up, nail british, hairspray, perfume, deodorant, or body powder the day of surgery.? No jewelry (including any body piercings) or valuables the day of surgery, leave them at home.? Please take a shower or bath the night before, or the morning of, surgery with an antibacterial soap.? Wear comfortable, loose fitting clothing.? Children are encouraged to wear pajamas. - Jewelry must be removed prior to entering the operating room.? Rings and piercings that are not removed may be cut off. - The hospital will not accept responsibility for valuables.? - Please leave all valuables, including medications, at home the day of surgery. If you are going home after surgery, a licensed commercial collections driver must drive you home.? - NO public transportation without another adult if you receive anesthesia. - We recommend that an adult stay with you for 24 hours following discharge. - We also recommend that you do not drive, make important decision, drink alcoholic beverages, or take any drugs that were not prescribed by your health care provider for at least 24 hours after your discharge time. For Pediatric surgeries, we recommend two adults accompany the child home. Follow any additional instructions given to you from your surgeon. Telephone instructions given to _patient and asked if any additional questions and then verbalized understanding. Patient advised to call surgeon office or pre surgery nurse liaison [phone] if any additional questions.
[2025-01-11 12:18] VITALS: BMI 32.9
--- NOTE | 2025-01-19 08:41 | P.SS_ITS ---
Same Day Admit/Disch: HPI History of Present Illness Chief complaint: Incarcerated Umbilical Hernia, Narrative: Deb Gipson is a 75 year old female who noticed a painful bulge at her umbilicus the day after 2023. She went to the emergency room. She was noted to have an incarcerated umbilical hernia. I reviewed her CT scan myself and the hernia was 2 cm in transverse orientation and 4.5 cm in longitudinal orientation. There was no bowel involvement. Patient was able to be discharged from the emergency room and a few days after her discharge most of the hernia reduced. She was then seen in the office in September. She was noted to have a reducible umbilical hernia with possibly some fat necrosis in the left lower aspect of the umbilicus. She is taken to surgery at this time for robotic, laparoscopic repair of incarcerated umbilical hernia with 4.5 cm defect. Mesh is planned to be used as well. Patient's CT scan from August of 2024 also showed thickened endometrial complex. Dr. Maisha Galvan has seen the patient and plans to go ahead with hysteroscopy and D&C under the same anesthetic as for her umbilical hernia repair. [facility] Past Medical History Medical History History of hypertension Surgical History Surgical History Hx of bilateral hip replacements Social History Social History Smoking status: Never smoker Alcohol intake: never Substance use: never Substance use type: does not use Do You Feel Safe in your Home?: Yes Lack of Transportation: No Lack of Food: Never True Current Housing: I Have Housing Concerned About Future Housing: No Difficulty Paying Gas/Electric Bills: No Difficulty Paying for Meds: No Currently Unemployed: No Education: High School Diploma/GED Difficulty w/ Childcare or Family Care: No Living arrangements: alone Spiritual care concerns: No Same Day Admit/Disch: Med Pre-admit Medications Home Medications ?Medication ?Instructions ?Recorded ?Confirmed ?Type aspirin 81 mg capsule 81 mg PO DAILY 01/11/25 01/20/25 History docusate sodium 100 mg capsule 100 mg PO DAILY 01/11/25 01/20/25 History (Colace) lisinopril 10 mg tablet 10 mg PO DAILY 01/11/25 01/20/25 History oxycodone-acetaminophen 5 mg-325 0.5 - 1 tablet PO Q4H PRN pain #10 01/20/25 Rx mg tablet (Percocet) tabs Review of Systems Review of Systems All systems reviewed & are unremarkable except as noted in HPI and below (HPI) Exam Const: General: comfortable, no acute distress, alert and awake HENMT: Head: normocephalic and atraumatic Mouth: Yes Normal oral and palatal mucosa present Eyes: Conjunctivae: conjunctivae normal Pupils: Equal, round and reactive pupils present EOM: EOMs intact bilaterally Neck: Neck: normal visual inspection, no lymphadenopathy and nontender Resp: Effort & Inspection: normal respiratory effort Auscultation: clear to auscultation bilaterally Cardio: Rate: regular rate Rhythm: regular rhythm Heart sounds: no gallops, no murmurs and no rubs GI: Inspection: non-distended and visible herniation (Umbilical) GI Palp: Yes Soft to palpation, No Tenderness to palpation present (GI), No Hepatomegaly present, No Splenomegaly present and Yes Hernia present umbilical (Reducible but with brownish skin and nodule left lower aspect.) Skin: Lesions: no lesions Rashes: no rashes Neuro: General: no focal motor deficits and CN's II-XI intact bilaterally Cranial nerves: Yes Equal, round and reactive pupils present, Yes Bilaterally intact EOM present, Yes facial symmetry and Yes Midline tongue present Speech: normal speech Motor exam (neuro): 5/5 motor strength present throughout and Motor abnormalities not present Extrem: General: no clubbing, cyanosis or edema and edema Psych: Affect: normal affect Thought process: Normal thought process present Insight: Good insight present (Psych) DS: Summary Time Spent with Patient Time attestation: Total time spent providing and/or coordinating discharge services: DS: Admitting Diagnosis Discharge Date 01/20/2025 Admitting Diagnosis * Incarcerated umbilical hernia with 4.5 cm defect-plan to proceed with robotic laparoscopic repair with mesh. The procedure, risks, benefits, alternatives have been discussed. All questions were answered. The use of mesh, length of the surgery, length of recovery have been discussed. Patient agrees to proceed. * Thickened endometrial complex on CT scan-Dr. Maisha Galvan will perform hysteroscopy as well as D&C under the same anesthetic prior to the above hernia repair. * Essential hypertension DS: Discharge Diagnosis Discharge Diagnosis (1) Incarcerated umbilical hernia: Code(s): K42.0 - Umbilical hernia with obstruction, without gangrene Status: Acute Assessment and Plan: Robotic laparoscopic repair with mesh performed 01/20/[address] Diamond Discharge Plan Discharge Patient Disposition: Home Discharge Instructions: 1. May shower the day after surgery over incisions. 2. Call office for: -Wound increasingly painful or bleeding -Vomiting -Fever of greater than 101 degrees 3. Expect some blood on dressing and old blood on skin. 4. If no bowel movement for three days, take 1 oz. (30 ml) Milk of Magnesia, if no results, take Fleets enema. 5. No heavy lifting > 15 pounds for 2 weeks. 6. No driving for 3 days or while taking narcotic pain medications. 7. Up walking 10-30 minutes three times per day. 8. Resume previous home medications. 9. Follow-up 10-14 days in office for wound check or as previously scheduled. 10. Oral pain medications prescription to be sent home with patient. Okay to take either Tylenol or ibuprofen over the counter pain medications for mild degrees of pain. Use the prescription pain medication only when pain is more severe. 11. NUTRITION: Start out by drinking fluids and increase your diet as tolerated. If you experience nausea, try dry toast, crackers, and 7-UP. If nausea or vomiting persists, contact your surgeon?s office. Patient Language: Hungarian Stand Alone Forms: General Discharge Instructions Follow-up/Referrals: Chao Rudolph MD [Physician] - Dawit Diamond MD [Physician] - 2 Weeks Discharge Medications: New oxycodone-acetaminophen [Percocet] 5-325 mg tablet 0.5 - 1 tablet PO Q4H PRN (Reason: pain) Qty: 10 0RF Continued lisinopril 10 mg tablet 10 mg PO DAILY aspirin 81 mg capsule 81 mg PO DAILY docusate sodium [Colace] 100 mg capsule 100 mg PO DAILY
--- NOTE | 2025-01-19 12:53 | P.HP_ITS ---
H&P: HPI History of Present Illness Date/Time: 01/19/25 12:53 Chief Complaint: Postmenopausal bleeding Narrative: 75-year-old female admitted for hernia repair also has postmenopausal bleeding. She has thickened endometrium CT scan but did not actually have any bleeding she will undergo hysteroscopy dilatation curettage to rule out pathology risks and benefits reviewed in full Review of Systems Review of Systems: All systems reviewed & are unremarkable except as noted in HPI and below (HPI) [facility] Past Medical History Medical History History of hypertension Surgical History Surgical History Hx of bilateral hip replacements Social History Social History Smoking status: Never smoker Alcohol intake: never Substance use: never Substance use type: does not use Do You Feel Safe in your Home?: Yes Lack of Transportation: No Lack of Food: Never True Current Housing: I Have Housing Concerned About Future Housing: No Difficulty Paying Gas/Electric Bills: No Difficulty Paying for Meds: No Currently Unemployed: No Education: High School Diploma/GED Difficulty w/ Childcare or Family Care: No Living arrangements: alone Spiritual care concerns: No Meds Home Medications and Allergies Home Medications ?Medication ?Instructions ?Recorded ?Confirmed ?Type aspirin 81 mg capsule 81 mg PO DAILY 01/11/25 01/11/25 History docusate sodium 100 mg capsule 100 mg PO DAILY 01/11/25 01/11/25 History (Colace) lisinopril 10 mg tablet 10 mg PO DAILY 01/11/25 01/11/25 History Allergies Allergy/AdvReac Type Severity Reaction Status Date / Time No Known Allergies Allergy Verified 01/11/25 12:05 Exam Const: General: comfortable, no acute distress, alert and awake HENMT: Head: normocephalic and atraumatic Mouth: Yes Normal oral and palatal mucosa present Eyes: Conjunctivae: conjunctivae normal Pupils: Equal, round and reactive pupils present EOM: EOMs intact bilaterally Neck: Neck: normal visual inspection, no lymphadenopathy and nontender Resp: Effort & Inspection: normal respiratory effort Auscultation: clear to auscultation bilaterally Cardio: Rate: regular rate Rhythm: regular rhythm Heart sounds: no gallops, no murmurs and no rubs GI: Inspection: non-distended and visible herniation (Umbilical) GI Palp: Yes Soft to palpation, No Tenderness to palpation present (GI), No Hepatomegaly present, No Splenomegaly present and Yes Hernia present umbilical (Reducible but with brownish skin and nodule left lower aspect.) Skin: Lesions: no lesions Rashes: no rashes Neuro: General: no focal motor deficits and CN's II-XI intact bilaterally Cranial nerves: Yes Equal, round and reactive pupils present, Yes Bilaterally intact EOM present, Yes facial symmetry and Yes Midline tongue present Speech: normal speech Motor exam (neuro): 5/5 motor strength present throughout and Motor abnormalities not present Extrem: General: no clubbing, cyanosis or edema and edema Psych: Affect: normal affect Thought process: Normal thought process present Insight: Good insight present (Psych) Assessment and Plan Assessment and plan (1) Abnormal CT scan, pelvis: Code(s): R93.5 - Abnormal findings on diagnostic imaging of other abdominal regions, including retroperitoneum Status: Acute Plan Will proceed with hysteroscopy/dilatation and curettage prior to hernia repair by Dr. Diamond
[2025-01-20] VITALS (12 sets, daily range): BP systolic 144–189; BP diastolic 57–85; PULSE 52–65; RESP 13–21; TEMP 36.4–36.8; O2SAT 92–100
--- OUTSIDE RECORDS SUMMARY | 2025-01-20 01:18 | XMS_ITS | Continuity of Care Document ---
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 Name Role Phone Michele PEPPER FACS, Ovidio Unavailable Unavailab le Procedures Procedure Date Office/outpatient Visit, Est Office/outpatient Visit, Est Office/outpatient Visit, Est Office/outpatient Visit, Est Eye Exam, New Patient Advance Directives Directive Yes / No Effective Date File Name No Information Encounters Encounter Description Practice Location Reason(s) For Visit Diagnoses Date Provider Providers Copied on Encounter [place] [facility] [place] [address] [place] [address] [address], [place], [place], [id number], tel:[phone] SEC Bladimir Pan No Information 0 Michele Nolan. [address] [place] [address] Drive, [address], [place], [place], [id number], [place]. tel:[phone] Referring Provider: Ray talavera, [address] [place] [address], [place], [place], [facility]. tel:[phone] [place]/outpat ient [place] [facility] [place] [address] [place] [address] [address], [place], [place], [id number], [place] tel:[phone] SEC [facility] No Information 0 Tree Bell. [address] [place] [address], [place], [address], [place]. tel:[phone] Office/outpat ient Visit, [facility], [address] [place] [address] [address], [place], [place], [id number], tel:[phone] SEC [facility] No Information 1-201 0 Krishnasamy Ray. [facility] [address], [facility], . tel:[phone] Office/outpat ient Visit, [facility], [address] [place] [address] [address], [place], [place], [id number], [place] tel:[phone] SEC [facility] No Information 8200 9 Krishnasamy Ray. [facility] [address], [facility], [place]. tel:[phone] [facility], [address] [place] [address] [address], [place], [place], [id number], tel:[phone] SEC [facility] No Information 7-200 9 Krishnasamy Ray. [address] [place] [address], [facility], . tel:[phone] Family History Family Member Type Diagnosis Age At Onset No Information Payers Payer name Insurance type Covered republican ID Authoriza tion(s) No Information Social History [...]
--- OUTSIDE RECORDS SUMMARY | 2025-01-20 01:18 | XMS_ITS | Clinical Summary ---
Author Organization [facility] Address [facility] [place] [address] Care Team Providers Care Compatibility Test Engineer Name Role Phone Kaushal Han MD Primary Care Provider [phone] Jose Luis Rain MD Unavailable [phone] Anjum Rajan MD Unavailable [phone] Allergies No known active allergies Medications lisinopril [...] Department Care Team Description 11/03/2024 10:18 AM BODY COVERER - 11/03/2024 11:59 PM BODY COVERER Hospital Encounter [facility] [address] [place] [address] Duane Rowan PA Discharge Disposition: Home or [...] Comments Blood Pressure 145/90 09/21/2024 9:00 PM BODY COVERER Pulse 68 09/21/2024 9:00 PM BODY COVERER Temperature 37.1 C (98.7 F) 09/21/2024 5:25 PM BODY COVERER Respiratory Rate 18 09/21/2024 8:30 PM BODY COVERER Oxygen Saturation 100% 09/21/2024 9:00 PM BODY COVERER Inhaled Oxygen Concentration - - Weight 83.5 kg (184 lb) 09/21/2024 5:25 PM BODY COVERER Height 157.5 cm (5' 2 ) 09/21/2024 5:25 PM BODY COVERER Body Mass Index 33.65 09/21/2024 5:25 PM BODY COVERER Plan of Treatment Health Maintenance Due Date Last Done Comments Hepatitis C 1967 DTaP, Tdap and Td Vaccines ( 1 - Tdap) 01/11/1968 Pneumococcal Vaccine: 50+ Ye ars (1 of 1 - PCV) 1999 Zoster Vaccines (1 of 2) 1999 Annual Medicare Wellness Visit 2014 Dexa Scan (General) 2014 RSV Immunization or 60+ Years (1 [...] this topic Medical Devices Implanted Type Area Target Protection Specialist Device Identifier Shelf Expiration Date Model / Serial / Lot Tridentx3 0 Degree Polyethylene Insert Implanted:Qty: 1 on 07/22/2018 by Jose Luis Rain MD at [facility] Hip Components Left: Hip [employer] 10/15/2022 623-00-3 6D / / [id number] Accolade 132 Neck Angle Hip Stem Implanted:Qty: 1 on 07/22/2018 by Jose Luis Rain MD at [facility] Hip Components Left: Hip [id number] 04/16/2023 6720-033 0 / / [id number] [employer] Delta Ceramic V40 Femoral Head Implanted:Qty: 1 on 07/22/2018 by Jose Luis Rain MD at [facility] Hip Components Left: Hip [employer] [id number] 03/29/2023 6570-0-2 36 / / [id number] Titanium Hemispherical Cluster Hole Shell Implanted:Qty: 1 on 07/22/2018 by Jose Luis Rain MD at [facility] Hip Components Left: Hip 11/19/2019 502-03-5 2D / / [id number] Torx Cancellous Bone Screw Implanted:Qty: 1 on 07/22/2018 by Jose Luis Rain MD at [facility] Hip Components Left: Hip [employer] [id number] 02/27/2023 5-1 / / [id number] Torx Cancellous Bone Screw Implanted:Qty: 1 on 07/22/2018 by Jose Luis Rain MD at [facility] Hip Components Left: Hip [id number] 02/27/2023 5-1 / / [id number] Cancellous Bone Screw Implanted:Qty: 1 on 02/18/2018 by Jose Luis Rain MD at [facility] Screw [employer] 11/27/20222029-652 0-1 / / [id number] Cancellous Bone Screw Implanted:Qty: 1 on 02/18/2018 by Jose Luis Rain MD at [facility] Screw [employer] 11/25/20222029-652 5-1 / / [id number] Hemispherical Cluster Hole Shell Implanted:Qty: 1 on 02/18/2018 by Jose Luis Rain MD at [facility] [employer] 01/01/2023 502-0305 4E / / [id number] Deg Polyethylene Insert Implanted:Qty: 1 on 02/18/2018 by Jose Luis Rain MD at [facility] [employer] 12/12/2022 623-00-3 6E / / [id number] Deg Neck Angle Hip Stem Implanted:Qty: 1 on 02/18/2018 by Jose Luis Rain MD at [facility] [employer] 12/03/2022 6720-033 0 / / [id number] Ceramic V40 Femoral Head Implanted:Qty: 1 on 02/18/2018 by Jose Luis Rain MD at [facility] [employer] 01/07/2023 6570-0-5 36 / / [id number] Procedures Procedure Name Priority Date/Time Associated Diagnosis Comments MG SCREENING W JAMILA DANNY DIGI Routine 11/03/2024 11:12 AM BODY COVERER Encounter for screening mammogram for malignant neoplasm of breast from Last 3 Months Results * MG SCREENING W JAMILA DANNY DIGI (11/03/2024 11:12 AM BODY COVERER) Anatomical Region Laterality Modality Breast Bilateral Mammography 11/03/2024 1:16 PM BODY COVERER Impressions 11/03/2024 1:17 PM BODY COVERER IMPRESSION: No suspicious change since the previous exams. Recommendation: 1: Routine Screening Bilateral in 1 Year Assessment: ACR BI-RADS 2 - BENIGN FINDING(S) Ordered By: DUANE ROWAN Interpreted By: Mervin Lafleur MD, 11/03/2024 1:16 PM Narrative 11/03/2024 1:17 PM BODY COVERER [address] [place] [address] Examination: Digital screening mammogram with CAD. Clinical [...] Result from Last 3 Months Insurance MEDICARE [facility] Advance Directives * Full Code (Latest Code Status on File) Date Activated Date Inactivated Comments 07/22/2018 5:33 PM 07/24/2018 1:27 PM * Full Code Date Activated Date Inactivated Comments 02/18/2018 12:13 PM 02/20/2018 2:08 PM Care Teams Compatibility Test Engineer Relationship Specialty Start Date End Date Kaushal Han MD [address] [place] [phone] PCP - General FAMILY PRACTICE 01/31/18 Jose Luis Rain MD [address] [place] [phone] ORTHOPAEDICS 02/05/18 Anjum Rajan MD [address] [address] CARDIOVASCULAR DISEASE 07/16/18
--- NOTE | 2025-01-20 07:10 | WPDHPUPDATE1 ---
History and Physical Update Update Date/Time: 01/20/25 07:10 History and Physical has been reviewed, including an updated exam of the patient. There are NO changes in the patient's condition. Risks, benefits, and alternatives have been discussed and questions answered. Patient agrees to proceed with procedure.
[2025-01-20] MEDS: ACETAMINOPHEN 500 MG TABLET 1000 MG PO (11:10)
[2025-01-20] MEDS: KETOROLAC 15 MG/ML VIAL (*BKC) IV PUSH ×2 (11:10→16:32)
--- NOTE | 2025-01-20 11:11 | WPDHPUPDATE1 ---
History and Physical Update Update Date/Time: 01/20/25 11:11 History and Physical has been reviewed, including an updated exam of the patient. There are NO changes in the patient's condition. Risks, benefits, and alternatives have been discussed and questions answered. Patient agrees to proceed with procedure.
--- NOTE | 2025-01-20 11:26 | WPDANESEPPF ---
Anes - Initial Pre Proc Eval Procedure: Operation Date: 01/20/25 12:30 Proposed Procedures p Robotic Repair Incarcerated Umbilical Hernia with Mesh - Dawit Diamond MD s Hysteroscopy Dilation and Curettage - Chao Galvan MD Date/Time: 01/20/25 11:26 Surgeon: Dawit Diamond MD Pre Op Diagnosis: Incarcerated Umbilical Hernia, Patient Data Age: 75 Gender: F Height: 1.57 m Weight: 82.7 kg Last Vital Signs Temp 36.8 C 01/20/25 11:17 Pulse 63 01/20/25 11:17 Resp 16 01/20/25 11:17 BP 189/76 H 01/20/25 11:17 Pulse Ox 100 01/20/25 11:17 O2 Del Method Room Air 01/20/25 11:17 Allergies Allergy/AdvReac Type Severity Reaction Status Date / Time No Known Allergies Allergy Verified 01/20/25 11:13 Home Medications ?Medication ?Instructions ?Recorded ?Confirmed ?Type aspirin 81 mg capsule 81 mg PO DAILY 01/11/25 01/20/25 History docusate sodium 100 mg capsule 100 mg PO DAILY 01/11/25 01/20/25 History (Colace) lisinopril 10 mg tablet 10 mg PO DAILY 01/11/25 01/20/25 History Patient hx anesthesia problems: none Family hx anesthesia problems: none Results Review: All pre-operative results and documents have been reviewed as part of the pre-operative evaluation. [facility] Past Medical History Medical History History of hypertension Surgical History Surgical History Hx of bilateral hip replacements Social History Social History Smoking status: Never smoker Alcohol intake: never Substance use: never Substance use type: does not use Do You Feel Safe in your Home?: Yes Lack of Transportation: No Lack of Food: Never True Current Housing: I Have Housing Concerned About Future Housing: No Difficulty Paying Gas/Electric Bills: No Difficulty Paying for Meds: No Currently Unemployed: No Education: High School Diploma/GED Difficulty w/ Childcare or Family Care: No Living arrangements: alone Spiritual care concerns: No Anes - Eval Final PreProcedure Day of Procedure 01/20/25 11:26 Patient weight: obese Heart: regular rate and rhythm Lungs: clear to auscultation Airway: Mallampati scale class II Neurological: alert and oriented Last oral intake: >/= 8 hours ASA classification: III Emergent: no Anesthetic plan: proceed Anesthesia type and monitoring: general ETT and standard monitoring Results Review: All pre-operative results and documents have been reviewed as part of the pre-operative evaluation. Informed Consent: The patient's anesthetic plan and its attendant risks and benefits were discussed with the patient/family/POA. Questions were solicited and answers provided to the satisfaction of the patient/family/POA.
[2025-01-20] MEDS: ceFAZolin 2 GM/D5W 50 ML 2 GM/50 ML BAG IVPB (11:55)
--- NOTE | 2025-01-20 12:15 | W.PM.PROC2 ---
Procedure Note - Detailed Date of Procedure 01/20/25 Pre-op Diagnosis Incarcerated Umbilical Hernia, thickened endometrium Post-op Diagnosis Same Procedure Performed Hysteroscopy/dilatation curettage/polypectomy Surgeon Chao Galvan MD Anesthesia General Indications 75-year-old female with findings on CT scan that had thickened endometrium. She is also admitted for repair of umbilical hernia Findings Uterus sounded to7.5cm. Some irregular polypoid tissue was seen at the fundus Description of Procedure Patient was prepped draped in normal sterile fashion placed in dorsal lithotomy position. Under excellent general trach anesthesia weighted speculum placed posterior fornix vagina. Anterior lip of the cervix grasped with single-tooth tenaculum. Uterus sounded to 7cm. Serial dilatation with fragmented dilators performed followed by passage of the 5mm visualizing hysteroscope using saline as visualizing medium. Some irregular areas that appeared polypoid were seen at the fundus these were removed easily with the small. The uterus scraped over the entire 360?. The instruments withdrawn blood loss estimated 5cc all sponge, needle, instrument counts were correct. There were no complications and Dr. silva took over from there Estimated Blood Loss 5 Drains No Packing No Pathology Yes Complications No immediate complications Condition Stable Disposition PACU
[2025-01-20] MEDS: BUPIVACAINE/EPINEPHRINE 0.5% 50 ML VIAL 18 ML INFILTRATE (12:55)
[2025-01-20] MEDS: LACTATED RINGERS 1,000 ML 30 ML IV CONT ×2 (14:35)
[2025-01-20] MEDS: fentaNYL CITRATE INJ (*CRX) 100 MCG/2 ML VIAL 25 MCG IV PUSH ×8 (15:00→15:46)
--- NOTE | 2025-01-20 15:00 | W.PM.PROC2 ---
Procedure Note - Detailed Date of Procedure 01/20/25 Pre-op Diagnosis Incarcerated Umbilical Hernia, Post-op Diagnosis Same Procedure Performed Robotic laparoscopic repair incarcerated umbilical hernia with 4.5 cm defect with mesh Surgeon Dawit Diamond MD Oncology Rep Davy DONALD Anesthesia General and Local Indications Patient developed umbilical pain with a bulge. She went to the emergency room. CT scan showed a fat containing incarcerated umbilical hernia. It also showed abnormalities of the endometrium. Her umbilical incarcerated hernia partially reduced to where it was more comfortable. She is taken to surgery now for robotic laparoscopic repair of incarcerated umbilical hernia with mesh. By the CT scan the hernia defect was 4.5 cm by [address] Maisha Galvan is performing hysteroscopy and D&C for the CT abnormalities of the endometrium under the same anesthetic. His findings and operative no will be under a separate dictation Findings Patient had more than 1 defect. The main hernia defect were the incarceration occurred was a 2 cm defect. But above that, cephalad about 1 cm, were 2 smaller fat containing hernia defects. The length between the lower most hernia and the uppermost was 4.5 cm as predicted by review of the CT scan. Description of Procedure Patient was taken to surgery and induced into general anesthesia. Dr. Maisha Galvan went ahead with the hysteroscopy and D&C. Patient was then placed in a supine position and the abdomen was prepped and draped. She had a towel roll under her left chest and the operating room table was flexed in the mid section to make more room for the laparoscopic trocars. Local anesthetic was infiltrated prior to placement of each of the trocars. The initial trocar was a left subcostal position and was an applied Medical 5 mm optical trocar. Once this was in place and insufflation was carried out, the two robotic trocars were placed under direct visualization. The camera was moved and the 5 mm trocar was exchanged for a 3rd 8 mm robotic trocar. The robotic arms were then brought into the field and the camera was docked and targeted. The two operating arms were docked and instruments were placed and positioned. The surgeon then went to the robotic console. There was still omentum incarcerated in the hernia defect. This was reduced and dissected free from the anterior abdominal wall. There was still a hard knot which appeared to be fat necrosis stuck in the umbilical defect. With a combination of pressure from the skin surface by my 1st hardware sales assistant as well as traction and dissection intraperitoneally, this necrotic fat was dissected free and removed. Midline preperitoneal fat as well as the falciform ligament were dissected off the anterior abdominal wall so that the mesh could be placed with good apposition to the abdominal wall. An 0 Stratafix suture was then used to close the defect in transverse fashion. The other 2 defects were so small that closure was not necessary. A 15 by [address] hernia mesh was then rolled and introduced into the abdominal cavity. It was positioned symmetrically so that its midportion was directly over the hernia closure. The remainder of the Stratafix suture was passed through the center of the mesh and then ran to the patient's left to avoid the proximal Stratafix suture obscuring the view of right-sided suturing. Mesh was in good position. I then used 2 0 V lock running suture and circumferentially sutured the mesh to the anterior abdominal wall. The mesh was placed in such a fashion that it was flat with mild tension around the circumference of the mesh. We used for of the 2 0 V lock suture to suture the mesh to the anterior abdominal wall. Following this, all the remaining loose suture and needles were removed. The mesh was again reviewed and was in good position. We then removed all the instruments and undocked the robot. CO2 was evacuated and then the trocars were removed. Skin wounds were closed with subcuticular 4-0 Monocryl skin suture. The wounds were dressed with Exofin surgical adhesive. Patient was awakened and taken to recovery in good condition. Sponge and needle counts were correct x2. Implants 15 x [address] hernia mesh Estimated Blood Loss 5 Drains No Packing No Pathology None sent Complications None Condition Stable Disposition PACU [facility] Billing Surgery - Charge Forward: Surgery Billing (Robotic laparoscopic repair incarcerated umbilical hernia with 4.5 cm defect using mesh)
[2025-01-20] MEDS: ONDANSETRON INJ 4 MG/2 ML VIAL IV PUSH (15:50)
[2025-01-20] MEDS: dexAMETHasone SOD PHOS INJ 4 MG/ML VIAL IV PUSH (16:34)
[2025-01-20] MEDS: oxyCODONE HCL (*CRX) 5 MG TAB IR PO (16:36)
[2025-01-20] MEDS: diphenhydrAMINE HCl INJ 50 MG/ML VIAL 6.25 MG IV PUSH (16:55)
== END 2025-01-20 18:30 | disposition home or self-care (01) ==
PROVIDERS: Obstetrics & Gynecology; PCP Physician Assistant; Visit Provider Surgery
PROC: (CPT 49594; principal; 2025-01-20 12:30)
PROC: 0U5B8ZZ Destruction of Endometrium, Via Natural or Artificial Opening Endoscopic (ICD-10-PCS; CPT 58563; 2025-01-20 12:30)
DX: R93.5 Abnormal findings on diagnostic imaging of other abdominal regions, including retroperitoneum (principal); K42.0 Umbilical hernia with obstruction, without gangrene; N84.0 Polyp of corpus uteri; G89.18 Other acute postprocedural pain; I10 Essential (primary) hypertension; E66.9 Obesity, unspecified; Z68.33 Body mass index [BMI] 33.0-33.9, adult; Z79.82 Long term (current) use of aspirin; Z98.890 Other specified postprocedural states
CPT/HCPCS: 58558; 49594; S2900; 88305; A9270; C1781; J0690; J1100; J1200; J1885; J2003; J2405; J2704; J3010; J7030; J7120